=== PATIENT | female | born 1970 | race Caucasian/White ===

== ENCOUNTER 2023-08-09 07:41 | Outpatient (OUT) | payer BC, SELFPAY ==
--- NOTE | 2023-08-09 07:44 | XR_ITS ---
The [address] [address] Patient Name: LIVAN MENJIVAR MRN: [id number] date: 1970 Sex: F Assigned Patient Location: [facility] Current Patient Location: [facility] Accession/Order Number: [id number] Exam Date: 08/09/2023 07:50 Report Date: 08/09/2023 08:18 At the request of: DIANA BOGGS Procedure: XR DEXA axial skeleton EXAMINATION: XR DEXA axial skeleton HISTORY: Postmenopausal State Z78.0 COMPARISON: No relevant comparison available. TECHNIQUE: Dual-energy X-ray absorptiometry (DXA) was performed. FINDINGS: SPINE ANALYSIS: Average bone mineral density is 1.227 g/cm2. T-score (standard deviation relative to young adult mean): 0.2 . HIP ANALYSIS: Lowest bone mineral density is within the left femoral neck, 0.842 g/cm2. T-score (standard deviation relative to young adult mean): -1.4 . XR/XR DEXA axial skeleton IMPRESSION: [employer] Classification: Osteopenia - Moderate Fracture Risk Electronically authenticated by: WILLIAM MOORE Date: 08/09/2023 08:18
--- NOTE | 2023-08-09 07:44 | MM_ITS ---
Patient Name: LIVAN MENJIVAR MR#: [id number] : 1970 Exam Date: 08/09/2023 Ordering Doctor: DR Ryan Marquez . RADIOLOGY REPORT PROCEDURE: MM TOMOSYNTHESIS SCREENING BI COMPARISON: MG MAMM SCREEN 3D MELANIE CAD, 01/30/2022. MG MAMM SCREEN 3D MELANIE CAD, 08/12/2020. MG MAMM SCREEN 3D MELANIE CAD, 06/15/2019. MG MAMM SCREEN 3D MELANIE CAD, 06/13/2018. INDICATIONS: Screening Calculator Name NCI Breast Cancer Risk Assessment Tool 5 Year Breast Cancer Risk 1.00% Lifetime Breast Cancer Risk 8.90% Personal Breast Cancer No Personal Ovarian Cancer No Treatments None Family Cancers None LOCATION: [facility] BREAST COMPOSITION: Heterogeneously dense,which may obscure small masses. FINDINGS: DIAGNOSTIC CATEGORY 1--NEGATIVE. RIGHT BREAST: No significant suspicious finding. No significant change has occurred. LEFT BREAST: No significant suspicious finding. No significant change has occurred. RECOMMENDATIONS: ROUTINE MAMMOGRAM AND CLINICAL EVALUATION IN 12 MONTHS. PLEASE NOTE: A NORMAL MAMMOGRAM DOES NOT EXCLUDE THE POSSIBILITY OF BREAST CANCER. A CLINICALLY SUSPICIOUS PALPABLE LUMP SHOULD BE BIOPSIED. Dictated by: Farhad Chew M.D. on 08/13/2023 at 10:25 Approved by: Farhad Chew M.D. on 08/13/2023 at 10:36
[2023-08-09 08:19] LABS: Basophils Percent Auto 0.4 % (0.2-2.0); Eosinophils Absolute Auto 0.4 10^3/uL (0.0-0.7); Eosinophils Percent Auto 7.3 % (0.9-7.0); Hematocrit 41.1 % (36.0-48.0); Hemoglobin 13.2 g/dL (12.0-16.0); Immature Granulocytes Abs Auto 0.01 10^3/uL (0.00-0.03); Immature Granulocytes Pct Auto 0.2 % (0.0-0.5); Lymphocytes Absolute Auto 2.1 10^3/uL (1.2-3.8); Lymphocytes Percent Auto 39.1 % (20.5-60.0); Mean Corpuscular HGB Conc 32.1 g/dL (29.9-35.2); Mean Corpuscular Hemoglobin 30.5 pg (26.7-34.0); Mean Corpuscular Volume 94.9 fL (81.0-99.0); Mean Platelet Volume 10.2 fL (9.5-13.5); Monocytes Absolute Auto 0.5 10^3/uL (0.3-0.8); Monocytes Percent Auto 9.9 % (1.7-12.0); Neutrophils Absolute Auto 2.4 10^3/uL (1.4-6.5); Neutrophils Percent Auto 43.1 % (43.0-75.0); Platelet Count 508 10^3/uL (150-450); Red Blood Count 4.33 10^6/uL (4.20-5.40); Red Cell Distribution Width 13.7 % (11.0-15.0); White Blood Count 5.5 10^3/uL (4.0-11.0)
[2023-08-09 09:19] LABS: Estimated Average Glucose 117 mg/dL; Glycohemoglobin A1C 5.7 % (4.5-6.2)
[2023-08-09 09:29] LABS: Alanine Aminotransferase 29 U/L (14-59); Albumin Globulin Ratio 0.9; Albumin Level 3.6 g/dL (3.4-5.0); Alkaline Phosphatase 79 U/L (46-116); Anion Gap 12.5; Aspartate Amino Transferase 29 U/L (15-37); BUN Creatinine Ratio 18.8; Bilirubin Total 0.5 mg/dL (0.2-1.0); Calcium 9.1 mg/dL (8.5-10.1); Carbon Dioxide 27.7 mmol/L (21.0-32.0); Chloride 106 mmol/L (98-107); Cholesterol 229 mg/dL (<=200); Estimated GFR (African America >60 (>=60); Estimated GFR (Non-African Ame >60 (>=60); Glucose 89 mg/dL (74-106); HDL Cholesterol 57 mg/dL (40-60); Potassium 4.2 mmol/L (3.5-5.1); Sodium 142 mmol/L (136-145); Thyroid Stimulating Hormone 1.537 uIU/mL (0.358-3.740); Total Protein 7.6 g/dL (6.4-8.2); Triglycerides 93 mg/dL (<=150); VLDL CHOLESTEROL 18.6 mg/dL
== END 2023-08-09 07:42 | disposition home or self-care (01) ==
LOC: RAD 07:42
PROVIDERS: PCP Family Medicine; Visit Provider Obstetrics & Gynecology
DX: Z00.00 Encounter for general adult medical examination without abnormal findings (principal); Z78.0 Asymptomatic menopausal state; Z12.31 Encounter for screening mammogram for malignant neoplasm of breast; N95.9 Unspecified menopausal and perimenopausal disorder; M25.551 Pain in right hip
CPT/HCPCS: 77063; 77067; 77080; 80053; 80061; 83036; 84443; 85025

== ENCOUNTER 2024-02-22 20:55 | Emergency (ER) | payer OTHER, SELFPAY ==
[2024-02-22 20:59] VITALS: BP 127/92; PULSE 87; TEMP 37.1; O2SAT 97; BMI 25.8
--- OUTSIDE RECORDS SUMMARY | 2024-02-22 21:07 | XMS_ITS | CCD ---
Author Organization [facility] Care Team Providers Care Patternmaker Hand Name Role Phone PRISCILA SMITH Admitting Unavailable DR DARREN BOBO V Consulting Unavailable PRISCILA SMITH Attending Unavailable PETZNICK, ALEJANDRA Primary Care Unavailable PETZNICK, ALEJANDRA Referring Unavailable PRISCILA SMITH Consulting Unavailable JANNET RAMOS Attending Unavailable RICHARD, JANNET Consulting Unavailable PETZNICK, ALEJANDRA Primary Care Unavailable RICHARDJANNET Admitting Unavailable ROSS, JM RUSTY Admitting Unavailable JM MARCUS Attending Unavailable ROSS, JM RUSTY Consulting Unavailable PETZNICK, ALEJANDRA Primary Care Unavailable PETZNICK, ALEJANDRA Attending Unavailable PETZNICK, ALEJANDRA Consulting Unavailable PETZNICK, ALEJANDRA Primary Care Unavailable PETZNICK, ALEJANDRA Admitting Unavailable VERONIKA DOBBS Attending Unavailable PETZNICK, ALEJANDRA Alcaraz Referring Unavailable ELDA AGIULAR Attending Unavailable Problems Active Problems Problem Classification Problem Date Documented Da te Episodic/Chronic Other lower respiratory disease (4 sources) Pleurodynia; Translations: [PLEURODYNIA] Onset: 05-21-2022 Episodic Unclassified (3 sources) CONTACT W/AND (SUSP) EXPOS COVID-19; Translations: [CONTACT W/AND (SUSP) EXPOS COVID-19] Onset: 06-16-2021 Past or Other Problems Problem Classification Problem Date Documented Da te Episodic/Chronic Immunizations and screening for infectious disease (4 sources) Encounter for immunization; Translations: [ENCOUNTER FOR IMMUNIZATION] Onset: 08-11-2021 Episodic Unclassified (1 source) CONTACT W/AND (SUSP) EXPOS COVID-19; Translations: [CONTACT W/AND (SUSP) EXPOS COVID-19] Onset: 06-10-2021 Results Test Name Value Interpretation Reference Range Facil ity XR RIBS LT PA Chepe 2 XR RIBS LT PA CH EXAMINATION: XR RIBS LT PA CH HISTORY: Rib pain COMPARISON: No relevant comparison available. FINDINGS: LUNGS: No significant pulmonary parenchymal abnormalities. PLEURA: No pneumothorax, effusion, or pleural thickening. MEDIASTINUM: No visible mass or adenopathy. CARDIAC: No cardiomegaly or cardiac silhouette abnormality. RIBS: No acute rib fracture OTHER: Negative. IMPRESSION: No acute rib fracture Clear lungs Electronically authenticated by: DARREN BOBO Date: 2022-05-22 11:30 Normal [facility] Coding Summary.on 02-05-2022 Coding Summary. [id number] G h0bWw+PGhlYWQ+OT1NPQA gO51dmQYvuU4IG8fDML1K HNZAOMFWZZ0IGD5gbZG3H FcoV3DnqnUg DkznfWFuAI13YSk2OYH9l XemLAjugT2lhMElM5b3Hv EjRJ66nT22NXcsIEWaVtW 3LjZpbjsgbWFy Q0luBkMmyKQhCov+PHRhY mxlIHdpZHRoPScxMDAlJy VtiBspKY3vAd4rXCYuROO vbGxhcHNlOiBj r5cwDLVpYRkmPC9xoNzkT 4HicOT2BBPwh7u9Vj53vV I+SWLoBSJ9bVrxOYkue53 2EfKpd6vwRRN0 cYHyEDgeMGD5K90ye6I2L XGdOCBhIME0aJF6hQ3vvW llcymrL0SojQNpCmW8XJU 7dTVtwO7ieApe pzvgxG2mOab+G49MXG3WI PBUEO3SWqr6H6CcBddkhU I+FV73FCJkAC72gYGqxSL ic5hxsHh7LmXl KURiFKA4uDdkVCieh3LqU MJqE52pmSBii9F1ZIZnlZ pjxRGsCiBdfOV5iL7jHKu aqlrwd0rgkbwe Fxhil1nvqx28hD83P44oY PwhYZVeRAZ3GKNdPNHhtW npry4mnN1uQa4+OPgaj1h nd6vvkGq6AtZw AWFkavDueWvvEQY1a9UaV j89P6FqpUpvw4WnLtg0yl 56tXLlv3E9nFZ8QGfmGYO wkD9hSFjgUwX5 HJGoUrDeiU96kLCqCDriZ m2jwVabdSpcZJ4oLPKshh qbFCEvaF9vAAJnrVCzvEg xNO0iEOImfrvo l013FbSwWQN9ABKunKVkN 7JelU0nJmJfHSSwUTEaY3 YzsEVkFBjzU094HXeuQgN 0UEPnsdNhZ0Ja PZEvdZljGbO6n5Y7Pj2Be 9UruewuTDZ4KShgNYM4Uj J3CnUrMoI5X4HlJic5YKV dvTwdVW4wN6Tt YELuhumoqmcozFJ9MRFrB PAkbL20sTYxFLqaXz7mq2 K6d167SGJvNQGpoY07Fx5 udDogMTBwdCBU nW9kcnarg7dwsvwrBrQvS MAtWYx0XMm9QWJrfUwfBq PrJZC5BaS9FYS7gBGgdZ4 pmWciseodtK9e Oyc+W58xhR2oWUE9JVT3t gezHHAitxCzSE65QW54N1 RyPjwvdGFibGU+PGRpdiB aeNpsDT4lOfGl d8abf4NbRCbaI0LrHFCxT MjpUso5DIElBEZ3hVQ3tL 1tKNWlUNcqm3M0lZH7L0F csyTvpi4et2yx NJTxVBhvB75ytXSfy9J2T VIppYT6QQOlpNvoMtSsmT 93Oyc+GSIhzZluw4DqUga fj7gwu8esaPp7 NkMbDOYyizXlsLqyWJE7i 2ZtDc56N42iYTpcKCXqNK AnLNCiLUDeiRlqaf6fqZ8 wIi8+PGNvbCB3 yNZ9nN3hHHVaXlV2BYxbE 101AhSvvZWbHezvq5uah6 ormRc6UsAyFIGcygLlcJk kBLS4c6NiPo14 Q58hCNsnXHSwVPEhABIxC ZIggQppzl4pdX0hGt7+PC 5jl0ivnx87qZ85qBI+PHR oOKD3qCytLVfm VKDpwU1wIZonFaM8VQXwZ bUldE83pNMzTBzaYc0osL lemZngYE4gBWWsbtuxl20 9FkNhh3rhTDUo tCDhPKodVJF3Y56tp8D2X CDsVKVnKSZ6hWN4dW3tqQ lnbjogbGVmdDsgdmVydGl gZArvTXbrI523 IHRvcDsnPlBhdGllbnQgT qXlKSg7D7VbFky8LVNmpF miTR4pkDBrKXiqYc5soYo yyPjtHS9sPIIi mwqdi604DdYrg5tqJOUby LHgLOtnGPA5N16hm3A0LZ GhXAHyXRA6sSW6nU5wdRb nbjogbGVmdDsg qiBmpVwiAQwaHUrbN828K HRvcDsnPkJpcnRoIERhdG U8CM81DE53aCIao4N1tNR 4Y0YgYNWaaozf vbqfpON1AYRlKRAohB54M n2mpJvuJh5wHPEtXGO9MJ LshYGtR0OyaK9dJzPsDTV oRTPtI4ZhbNGz RDxtG909GMhkTzG3AGFzu bPyP3YvKDRlnRtbNuB7l4 K1Fu5YJ8B9FY31WG33eHU fe9W5dDC6S7Iw TGVqsoiyfenghGL6XGSfF PZnzF57Gs0imFnzQy7pII OwHWD6SIVqnMQyQ7MyiQ2 yOiAjMDAwMDAw L9ZwxFHaODfmX375EDcwG bE0EXGhpcZuY0QaYGUahL taSvW2u2C9Ul1SSEy2ZS9 0FZ82iIUrc7G4 tKE7Y0TqHHXgmxvyouxbn UF6QIFjKSUtrD84Gu7ogE woMa8cIJWlPMU4MRDarWA uH7AuwT7sAkNb PVEmBUFwR7ViuKUiEFaaF 543SJjvEkL0IFKokfKiI9 AtLISwdKswXnC8v3F1Km5 LSKBhBW85SUT1 dAW4MK24KO51P6LtFpajb GFibGU+PHRhYmxlIHdpZH RoPScxMDAlJyBzdHlsZT0 cUo3lSFPkIUXo tCmjtENlAkKqn7gnAYZrN MmzHN8sjEboE2NvaPP3UF Zqc1g5Ls86U01bC5ZeiOF +ILKlzGG1tCQ5 nF7mLlErMkV9YVywI505K xRyvEKjFriqn1uhw4myxL k4XoS9LSEequUzsUurBCD 1w3SfWt47A50g IHdpZHRoPSIxNSUiIHZhb Uokdy3dyX2xWf0+PGNvbC F6aPO6aY1mGlUyLhU6HSm wP142GrVhrYQf Tfofv8dhq9tpbZz2QbBsJ OAxuoVxsMtzPHN9p2AkKa 35U3YrrOyeg2NwGku6vs9 6hALys4R8aTJ9 P1BrPGAgktdzjYJvrKkiS J6kMSLwwnewSSZugB6jWU FkY1t3WdOkTiS7YWxkN0B zvjL3CXIbrDSb ZHggXUJ1O24iz1D2MOYnI JBuYQF1oYO6lU6kjYxjdq ogbGVmdDsgdmVydGljYWw jNKwnN491HJCe aJrbASPuiM8gLAVijRDix YawBC5nHBYrdnkjYeWDDW VZLCBBTVkgTDwvdGQ+PHR pNSZ0bFhwWBik DEJswP4lZCSdM9v6HsTtE qV2IPvoX7ZhTWQnyjyuLe 31pJ9zReKbLmV7ANecL8L odaA6JDUmrJOn LUccNTO3F60bz9O9EBKcJ FPqQFL9vFY8lZ7mfJhtzv ogbGVmdDsgdmVydGljYWw hZVcmR871KPZr qCukYxV4YpA8KcW1MfU2B 3TnWev9MDXhcTflBP6vuV YnQWjyPz2yhIxhlImqSZ4 wNTBpbjtwYWRk uW2ePNKldSSehAhiKD1aP TNtgqfoh054JaFmJEP1ET ZtqWCtX9SgqE4cQfKaSGO dDROqQ3GjhDTc GMqxQ719RAyoOjG8QLXso bSjE4BfEYXjlNpiRjP8f2 L5Es08QSWDOHDdqokybGP +VFCrNSX3oFei LLznUTUurQ9rFDBsR1t8J uTpWyI7DPfiG6BkXKOnvw ldEn48sM5eWgRzTsG5XAs cM3YtriV0GTBl tPUiLBoyJRQ7O66fg4S2I KYlJWDcETE7vBS4yC8pkV lnbjogbGVmdDsgdmVydGl aHMwnYEiwY083 IHRvcDsnPkZlbWFsZTwvd GQ+ELSeOWL3qThaKTyjQC EqkF9kLWHdK9y2EqNjUmM 2QFqcW7MdWJCi dvxpAm75dR2vRnDfHnF1T WbfT5SsmlJ3PJZozEQlBS pgCJV3Z85vh8X7OMGeFYJ fAYU0dAK7vI4u bGlnbjogbGVmdDsgdmVyd MwsPLoqRBtxO576CLVtlV qlOk27dQCiuQztumS5V6W kPjwvdHI+PC90 DKLfGM97sTCihSYkl8frz Hn0RsAnXGPtSGJ6jUxrXS emd0NdYIKdT57ixAGaz4V 6IGNvbGxhcHNl GjOydAP9qE7aIWltffpua 8cdlcjtIndub7zczo73sB 73W22dMKnlAFIqVXIhLIJ gFPFwxKoxqd0e mQ9yHb5+LDExuCV3aAD6k T7iJiJcFxM7TJclU120Yc OwqERpZfaej1bqx3rwfNq 9IjIwJSIgdmFs oWvoGMJ0s3AwKt45V86oT HdpZHRoPSIyMCUiIHZhbG mfuf9dqT2kWd2+LU6um0q jwo86eU06zKZ+ GIVkHUY7gEcrBVgaGDEvj B6uGDqrEtG8MYBoYbUkbL 34fXUdKWzhLl1hwGhqfJw eNN4oHAEcvzep l857IuUmz9zqOOAuuWQpZ VjaDWB5F54vp0V1XDFsIM GzLFC2nKL3vN4ftEzwzfh gbGVmdDsgdmVy dVrzFAdtHBsjQ188TNZsi TnvTkOdiFFlI5oxooTHTT 1lOjwvdGQ+EYIrZBK5vKy iZQokYLXwxY6f DNYdY7n7IwTdVuN1SWnkY 0NawlU9VVDxtGRtSITplX NGjN0muixiv8qdtdsqSxU xIUFhFFw8DNa5 TBYjuNtvHqBaISC2EfY3Q AS0qSVlkY5zrNnwzimiuJ 9wOyc+RklOOjwvdGQ+PHR dNHA0oIliBLfe LRTefV2vOREoB1f2IeZgI yR2SSmsR1YvphQ0DMZkrB VnHTEdhHWIxT9jysvgh7z vcjogIzAwMDAw AMw2PBw5CUCciJsxPuUqC WG0QtU4KEQ9cOVtpN2znV grubdlgL2rIct+TVJOOjw vdGQ+PHRkIHN0 hOzcOUrkWERbyE3oVMKhD 3m6JbFaOzL8DHwtP2Sqxz M3XOZfgMLrSBWfsKOKyB6 xidxma9yoqqsu VsZtIJCbVCz0LFp3DMXrz EbmQrEoYWS6XkH6SDG1rE NnnV5xyVbfzwitvB1vFam +KDM0WTD1WR25 VF81I3UaRibxyBZkdWV+P HRhYmxlIHdpZHRoPScxMD SuTbShbSffRF7uUg0bDTJ yLWNvbGxhcHNl OiBj (more content not included)... Normal [facility] MA Mamm Screen w/CAD if perf and 3D Bilon 02-01-2022 MA Mamm Screen w/CAD if perf and 3D Ej Exam Date/Time: 01/30/2022 09:15 EDT Reason for Exam: Z12.31 Report IMPRESSION: BIRADS 1 NEGATIVE, NORMAL INTERVAL FOLLOW-UP.12 MONTH RECALL. CLINICAL HISTORY: Z12.31. COMPARISON: 08/12/2020. COMMENT: Routine views and tomosynthesis views of both breasts were obtained. There are scattered areas of fibroglandular density. No dominant breast mass nor neoplastic calcifications are noted. There has been no significant change when compared to the prior exam. The examination was reviewed with Computer Aided Detection. Breast Density: No Mammography is very important to your health. The current [employer] and National [employer] guidelines recommends annual mammography beginning at age 40. This facility utilizes a reminder system to ensure all patients receive reminder notifications at the appropriate time based on the recommendations of this exam. Board Certified Radiologists. Accredited by the ACR and FDA. FINAL REPORT Dictated: 02/01/2022 2:06 pm Maximo Edouard M.D. Signed (Electronic Signature): 02/01/2022 2:06 pm Signed by: Maximo Edouard M.D. Transcribed by: TONG Technologist: STEF Assessment: BI-RADS Category 1-Negative Recommendation: Normal interval follow-up Normal [facility] Consent for Treatmenton Consent for Treatment [id number] .00CD:127 Normal [facility] Physician Orderon 01-30-2022 Physician Order [id number] 1.00CD:127 Normal [facility] CBC AUTO DIFFon 12-22-2021 BASO # 0.0 103/ul Normal 0.0-0.1 [facility] Comment on above: Performed By: #### C BC #### [facility] [address] [place] [address] Dr. Danyell Recinos Basophils/100 WBC (Bld) 0.4 % Normal 0.2-2.0 [facility] Comment on above: Performed By: #### C BC #### [facility] [address] [place] [address] Dr. Danyell Recinos EO # 0.2 103/ul Normal 0.0-0.7 [facility] Comment on above: Performed By: #### C BC #### [facility] [address] [place] [address] Dr. Danyell Recinos Eosinophils/100 WBC (Bld) 2.9 % Normal 0.9-7.0 [facility] Comment on above: Performed By: #### C BC #### [facility] [address] [place] [address] Dr. Danyell Recinos Erythrocyte distribution width (RBC) [Ratio] 13.9 % Normal 11.0-15.0 [facility] Comment on above: Performed By: #### C BC #### [facility] [address] [place] [address] Dr. Danyell Recinos Hematocrit (Bld) [Volume fraction] 43.9 % Normal 36.0-48.0 [facility] Comment on above: Performed By: #### C BC #### [facility] [address] [place] [address] Dr. Danyell Recinos Hemoglobin (Bld) [Mass/Vol] 14.3 g/dL Normal 12.0-16.0 [facility] Comment on above: Performed By: #### C BC #### [facility] [address] [place] [address] Dr. Danyell Recinos IG # 0.01 10e3/ul Normal 0.00-0.03 [facility] Comment on above: Performed By: #### C BC #### [facility] [address] [place] [address] Dr. Danyell Recinos IG % 0.2 % Normal 0.0-0.5 [facility] Comment on above: Performed By: #### C BC #### [facility] [address] [place] [address] Dr. Danyell Recinos LYMPH # 1.6 103/ul Normal 1.2-3.8 [facility] Comment on above: Performed By: #### C BC #### [facility] [address] [place] [address] Dr. Danyell Recinos Lymphocytes/100 WBC (Bld) 30.7 % Normal 20.5-60.0 [facility] Comment on above: Performed By: #### C BC #### [facility] [address] [place] [address] Dr. Danyell Recinos MANUAL DIFF REQ NO Normal [facility] Comment on above: Performed By: #### C BC #### [facility] [address] [place] [address] Dr. Danyell Recinos MCH (RBC) [Entitic mass] 31.2 pg Normal 26.7-34.0 [facility] Comment on above: Performed By: #### C BC #### [facility] [address] [place] [address] Dr. Danyell Recinos MCHC (RBC) [Mass/Vol] 32.6 g/dL Normal 29.9-35.2 [facility] Comment on above: Performed By: #### C BC #### [facility] [address] [place] [address] Dr. Danyell Recinos MCV (RBC) [Entitic vol] 95.9 fL Normal 81.0-99.0 [facility] Comment on above: Performed By: #### C BC #### [facility] [address] [place] [address] Dr. Danyell Recinos MONO # 0.6 103/ul Normal 0.3-0.8 [facility] Comment on above: Performed By: #### C BC #### [facility] [address] [place] [address] Dr. Danyell Recinos Monocytes/100 WBC (Bld) 11.1 % Normal 1.7-12.0 [facility] Comment on above: Performed By: #### C BC #### [facility] [address] [place] [address] Dr. Danyell Recinos NEUT # 2.9 103/ul Normal 1.4-6.5 [facility] Comment on above: Performed By: #### C BC #### [facility] [address] [place] [address] Dr. Danyell Recinos Neutrophils/100 WBC (Bld) 54.7 % Normal 43.0-75.0 [facility] Comment on above: Performed By: #### C BC #### [facility] [address] [place] [address] Dr. Danyell Recinos Platelet mean volume (Bld) [Entitic vol] 10.1 fL Normal 9.5-13.5 [facility] Comment on above: Performed By: #### C BC #### [facility] [address] [place] [address] Dr. Danyell Recinos PLT 422 103/ul Normal 150-450 [facility] Comment on above: Performed By: #### C BC #### [facility] [address] [place] [address] Dr. Danyell Recinos RBC 4.58 106/ul Normal 4.20-5.40 [facility] Comment on above: Performed By: #### C BC #### [facility] [address] [place] [address] Dr. Danyell Recinos WBC 5.2 103/ul Normal 4.0-11.0 [facility] Comment on above: Performed By: #### C BC #### [facility] [address] [address] [address] Danyell Recinos LIPID PROFILEon 12-22-2021 CHOL-HDL RATIO NORM SEE BELOW Normal [facility] Comment on above: Result Comment: 3.3 - 4.4 LOW RISK 4.4 - 7.1 AVERAGE RISK 7.1 - 11.0 MODERATE RISK >11.0 HIGH RISK Performed By: #### L IPID, CMP #### [facility] [address] [address] [address] Danyell Recinos Cholesterol [Mass/Vol] 211 mg/dL Critically high <=200 [facility] Comment on above: Performed By: #### L IPID, CMP #### [facility] [address] [address] [address] Danyell Recinos Cholesterol in HDL [Mass/Vol] 63 mg/dL Critically high 40-60 [facility] Comment on above: Performed By: #### L IPID, CMP #### [facility] [address] [address] [address] Danyell Recinos Cholesterol in LDL [Mass/Vol] 130.2 mg/dL Normal [facility] Comment on above: Performed By: #### L IPID, CMP #### [facility] [address] [address] [address] Danyell Recinos Cholesterol.total/C holesterol in HDL [Mass ratio] 3.3 {ratio} Normal [facility] Comment on above: Performed By: #### L IPID, CMP #### [facility] [address] [address] [address] Danyell Recinos HDL NORMAL > or = 60 mg/dl - LO W CARDIOVASCULAR RISK <40 mg/dl - HIGH CARDIOVASCULAR RISK Normal [facility] Comment on above: Performed By: #### L IPID, CMP #### [facility] [address] [address] [address] Danyell Recinos LDL CALC NORMAL SEE BELOW Normal [facility] Comment on above: Result Comment: <100 mg/dl OPTIMAL 100 - 129 mg/dl NEAR OR ABOVE OPTIMAL 130 - 159 mg/dl BORDERLINE HIGH 160 - 189 mg/dl HIGH >190 mg/dl VERY HIGH Performed By: #### L IPID, CMP #### [facility] [address] [address] [address] Danyell Recinos Triglyceride [Mass/Vol] 89 mg/dL Normal <=150 [facility] Comment on above: Performed By: #### L IPID, CMP #### [facility] [address] [address] [address] Danyell Recinos VLDL CALC 17.8 mg/dL Normal [facility] Comment on above: Performed By: #### L IPID, CMP #### [facility] [address] [address] [address] Danyell Recinos PROF 14(COMP METB)on 022 Albumin [Mass/Vol] 3.9 g/dL Normal 3.4-5.0 [facility] Comment on above: Performed By: #### L IPID, CMP #### [facility] [address] [place] [address] Dr. Danyell Recinos Albumin/Globulin [Mass ratio] 0.9 {ratio} Normal [facility] Comment on above: Performed By: #### L IPID, CMP #### [facility] [address] [place] [address] Dr. Danyell Recinos ALP [Catalytic activity/Vol] 97 U/L Normal 46-116 [facility] Comment on above: Performed By: #### L IPID, CMP #### [facility] [address] [place] [address] Dr. Danyell Recinos ALT [Catalytic activity/Vol] 22 U/L Normal 14-59 [facility] Comment on above: Performed By: #### L IPID, CMP #### [facility] [address] [address] [address] Danyell Recinos Anion gap [Moles/Vol] 14.7 mmol/L Normal [facility] Comment on above: Performed By: #### L IPID, CMP #### [facility] [address] [place] [address] Dr. Danyell Recinos AST [Catalytic activity/Vol] 23 U/L Normal 15-37 [facility] Comment on above: Performed By: #### L IPID, CMP #### [facility] [address] [address] [address] Danyell Recinos Bilirubin [Mass/Vol] 0.6 mg/dL Normal 0.2-1.3 [facility] Comment on above: Performed By: #### L IPID, CMP #### [facility] [address] [place] [address] Dr. Danyell Recinos Calcium [Mass/Vol] 9.2 mg/dL Normal 8.5-10.1 [facility] Comment on above: Performed By: #### L IPID, CMP #### [facility] [address] [place] [address] Dr. Danyell Recinos Chloride [Moles/Vol] 104 mmol/L Normal 98-107 [facility] Comment on above: Performed By: #### L IPID, CMP #### [facility] [address] [place] [address] Dr. Danyell Recinos CO2 [Moles/Vol] 26.6 mmol/L Normal 22.0-30.0 [facility] Comment on above: Performed By: #### L IPID, CMP #### [facility] [address] [place] [address] Dr. Danyell Recinos Creatinine [Mass/Vol] 0.91 mg/dL Normal 0.52-1.04 [facility] Comment on above: Performed By: #### L IPID, CMP #### [facility] [address] [place] [address] Dr. Danyell Recinos EGFR-AF [place] >60 Normal >=[address] [facility] Comment on above: Performed By: #### L IPID, CMP #### [facility] [address] [place] [address] Dr. Danyell Recinos EGFR-NON AF [place] >60 Normal >=60 [facility] Comment on above: Performed By: #### L IPID, CMP #### [facility] [address] [place] [address] Dr. Danyell Recinos Globulin (S) [Mass/Vol] 4.4 g/dL Normal [facility] Comment on above: Performed By: #### L IPID, CMP #### [facility] [address] [place] [address] Dr. Danyell Recinos Glucose [Mass/Vol] 97 mg/dL Normal 74-106 [facility] Comment on above: Performed By: #### L IPID, CMP #### [facility] [address] [place] [address] Dr. Danyell Recinos Potassium [Moles/Vol] 4.3 mmol/L Normal 3.4-5.0 [facility] Comment on above: Performed By: #### L IPID, CMP #### [facility] [address] [place] [address] Dr. Danyell Recinos Protein [Mass/Vol] 8.3 g/dL Critically high 6.1-8.2 [facility] Comment on above: Performed By: #### L IPID, CMP #### [facility] [address] [place] [address] Dr. Danyell Recinos Sodium [Moles/Vol] 141 mmol/L Normal 137-145 [facility] Comment on above: Performed By: #### L IPID, CMP #### [facility] [address] [place] [address] Dr. Danyell Recinos Urea nitrogen [Mass/Vol] 11.0 mg/dL Normal 7.0-18.0 [facility] Comment on above: Performed By: #### L IPID, CMP #### [facility] [address] [place] [address] Dr. Danyell Recinos Urea nitrogen/Creatinine [Mass ratio] 12.1 mg/mg Normal [facility] Comment on above: Performed By: #### L IPID, CMP #### [facility] [address] [place] [address] Dr. Danyell Recinos [facility]19 [facility] SARS-CoV-2 (COVID-19) RNA QUIRINO+probe Ql (Unsp spec) Not detected Normal NOT DETECTED [facility] Comment on above: Result Comment: This test is not yet approved or cleared by the [place] FDA. When there are no FDA-approved or cleared tests available, and other criteria are met, FDA can make tests available under an emergency access mechanism called an Emergency Use Authorization (EUA). The EUA for this test is supported by the [employer] of Health and Human Service's (HHS's) declaration that circumstances exist to justify the emergency use of in vitro diagnostics for the detection and/or diagnosis of the virus that causes COVID-19. This EUA will remain in effect (meaning this test can be used) for the duration of the COVID-19 declaration justifying emergency of IVDs, unless it is terminated or revoked by FDA (after which the test may no longer be used). When diagnostic testing is negative, the possibility of a false negative should be considered in the context of a patient's recent exposures and the presence of clinical signs and symptoms consistent with SARS-CoV-2. Performed By: #### C UBALDO, CVDTB #### [facility] [address] [place] [address] Kashif Barraza SYMPTOMATIC COVID-19 ANTIGEN on 06-10-2021 EUA Statement SEE BELOW Normal [facility] Comment on above: Result Comment: This test has not been FDA cleared or approved, but has been authorized by the FDA under an Emergency Use Authorization (EUA) for use by authorized laboratories certified under CLIA that meet the requirements to perform moderate or high complexity testing. This test has been authorized only for the detection of proteins from SARS-CoV-2, not for any other viruses or pathogens. The emergency use of this test is authorized for the duration of the declaration that circumstances exist justifying the authorization of emergency use of in vitro diagnostic tests for detection and/or diagnosis of Covid-19 under section 564(b)(1) of the Act, 21 U.S.C. 360bbb-3(b)(1), unless the declaration is terminated or authorization is revoked sooner. Performed By: #### C UBALDO, CVDTB #### [facility] [address] [place] [address] Kashif Barraza SARS-CoV-2 (COVID-19) RNA QUIRINO+probe Ql (Unsp spec) Negative Normal NEGATIVE [facility] Comment on above: Result Comment: CONF IRMATION BY PCR PENDING PER CDC GUIDELINES/ SYMPTOMATIC PATIENT. Performed By: #### C VDAGS, CVDTB #### [facility] [address] [id number] Kashif Barraza Consent Formson 11-18-2020 Consent Forms [id number] [facility] Encounters Encounter Date Encounter Type Care Provider Facility Start: 02-12-2024 End: 02-12-2024 ambulatory ELDA AGUILAR Not Available Start: 01-30-2024 End: 01-30-2024 ambulatory VERONIKA DOBBS Not Available Start: 05-21-2022 End: 05-22-2022 ambulatory PRISCILA SMITH Facility:[facility] Start: 12-27-2021 Encounter for genera l adult medical examination without abnormal findings ALEJANDRA DRAKECHRISTY [facility] Start: 12-22-2021 End: 12-23-2021 ambulatory ALEJANDRA PRIETO Facility:[facility] Start: 12-22-2021 End: 12-23-2021 Encounter for general adult medical examination without abnormal findings ALEJANDRA PRIETO Facility:[facility] Start: 08-11-2021 End: 08-12-2021 ambulatory JM MARCUS Facility:[facility] Start: 06-10-2021 End: 06-11-2021 ambulatory JANNET RAMOS Facility:[facility] Payers Date Payer Category Payer Unknown [id number] 11.15.83 [id number] 1970 Unknown [id number] 1970 Unknown [id number] 1972 Unknown [id number] 1972 Unknown [id number] 1957 Self-pay [id number] 1957 Unknown [id number] Unknown [id number] 11.15.83 [id number] Summary Purpose Family History No Family History Records FoundNo Family History Records FoundNo Family History Records FoundNo Family History Records Found Advance Directives No Advanced Directives Records FoundNo Advanced Directives Records FoundNo Advanced Directives Records FoundNo Advanced Directives Records Found Additional Source Comments INFORMATION SOURCE (unrecogn ized section and content) DATE CREATED AUTHOR 11/20/[address] [facility] DATE CREATED AUTHOR AUTHOR'S ORGANIZ ATION 02/06/2022 [facility] DATE CREATED AUTHOR AUTHOR'S ORGANIZ ATION 05/25/2022 [facility] DATE CREATED AUTHOR AUTHOR'S ORGANIZ ATION 02/15/2024 [facility] FOR RECORDS PERTAINING TO PATIENTS WHO ARE OR HAVE BEEN ENROLLED IN A CHEMICAL DEPENDENCY/SUBSTANCEABUSE PROGRAM, SOME INFORMATION MAY BE OMITTED. This clinical summary was aggregated from multiple sources. Caution should be exercised in using it in the provision of clinical care. This summary normalizes information from multiple sources, and as a consequence, information in this document may materially change the coding, format and clinical context of patient data. In addition, data may be omitted in some cases. CLINICAL DECISIONS SHOULD BE BASED ON THE PRIMARY CLINICAL RECORDS. [facility] [employer] provides no warranty or guarantee of the accuracy or completeness of information in this document.
--- NOTE | 2024-02-22 21:08 | PC.NURSE ---
RIGHT LEG PAIN. STATES CAN'T STRAIGHTEN IT, HAS IT BENT AT THE KNEE.
--- NOTE | 2024-02-22 21:10 | CT_ITS ---
The [address] [address] Patient Name: LIVAN MENJIVAR MRN: [id number] date: 1970 Sex: F Assigned Patient Location: ER Current Patient Location: Accession/Order Number: [id number] Exam Date: 02/22/2024 21:50 Report Date: 02/22/2024 22:50 At the request of: DREW MIRZA Procedure: CT lumbar spine wo con CT lumbar spine wo con INDICATION: 53 years old; Female.fall, twisting, pain Symptom/Location/Duration: Fall from boat to swim platform. TECHNIQUE: CT of the lumbar spine.Contrast None. Sagittal and coronal images as well as axial reconstructions through the disc spaces were produced. Ionizing radiation dose reduced via iterative reconstruction/FBP blend and body size kV/mA adjustment. COMPARISON: None FINDINGS: POSTOPERATIVE CHANGES: None ALIGNMENT AND LORDOSIS: Normal lumbar lordosis. VERTEBRAE: No fracture or vertebral body collapse. No bone displacement. No asymmetric widening of the facets. No spondylolysis or spondylolisthesis. No lytic or blastic lesions. DISC LEVELS: L1-L2: No disc herniation. No spinal canal or foraminal narrowing. L2-L3: No disc herniation. No spinal canal or foraminal narrowing. L3-L4: No disc herniation. No spinal canal or foraminal narrowing. L4-L5: Facet degeneration. No focal disc herniation. Central canal patent. Neural foramina and lateral recesses are patent. L5-S1: Shallow central and left-sided protrusion type disc herniation. There is flattening of the anterior aspect of the thecal sac with inferolateral migration of disc material into the lateral recess with posterior displacement left S1 nerve root, image 63/series 4. Facet degeneration is present. Neural foramina are patent. LOWER THORACIC DISCS: At T12-L1, no focal disc herniation or bulging. Central canal and neural foramina are patent. The study does not visualize the distal conus. OTHER: Posterior paraspinal muscles and psoas muscles are intact. CT/CT lumbar spine wo con IMPRESSION: 1. No acute fracture or vertebral body collapse. No spondylolysis or spondylolisthesis. 2. Central and left-sided protrusion type disc herniation with left lateral recess encroachment with posterior displacement of the left S1 nerve root. Electronically authenticated by: DARLENE HOLCOMB Date: 02/22/2024 22:50
--- NOTE | 2024-02-22 21:10 | CT_ITS ---
The [address] [address] Patient Name: LIVAN MENJIVAR MRN: [id number] date: 1970 Sex: F Assigned Patient Location: ER Current Patient Location: ER Accession/Order Number: [id number] Exam Date: 02/22/2024 21:50 Report Date: 02/22/2024 23:19 At the request of: DREW MIRZA Procedure: CT femur RT wo con EXAM: CT femur RT wo con HISTORY: Fell from both. twisting fall, pain . COMPARISON: None. TECHNIQUE: Thin section axial CT images were obtained from the right hip and hemipelvis through the right knee structures to the proximal tibia and fibula. This CT exam was performed using one or more of the following dose reduction techniques: Automated exposure control, adjustment of the mA and/or kV according to patient size, or use of iterative reconstruction technique. Thin section coronal and sagittal images were reconstructed from the axial data set. All images were reviewed and interpreted. FINDINGS: No acute fracture, subluxation or dislocation is seen from right hemipelvis and hip through knee. Right hip and knee joints are maintained. No lytic or blastic or destructive bone process. Normal bone mineralization. No joint effusion. Right inguinal and groin structures are normal without mass or adenopathy. Intrapelvic structures are unremarkable. Pubic symphysis is intact. There is edema and abnormal appearance of the myotendinous junction of the right hamstring tendon origin on the lateral margin of the right ischial tuberosity. There is some hyperdensity presumed hemorrhage intramuscular between the semitendinous muscle and biceps femoris. There may be more significant injury at the origin of common hamstring tendon at right ischial tuberosity. Correlate with MRI. Remaining muscles are normal. CT/CT femur RT wo con IMPRESSION: 1. Acute intramuscular hemorrhage beginning in region of common hamstring tendon origin extending to mid thigh. Correlate with MRI when stable. There may be more extensive myotendinous injury at the right ischial tuberosity than seen on CT. MRI recommended to assess extent of hamstring tendon injury. 2. No acute bone or joint findings. Electronically authenticated by: SOFI MCCARTHY Date: 02/22/2024 23:19
[2024-02-22] MEDS: ORPHENADRINE 60 MG/ 2 ML VIAL IV (21:28)
[2024-02-22] MEDS: KETOROLAC TROMETHAMINE 30 MG/ML VIAL IVP (21:28)
--- NOTE | 2024-02-22 22:10 | ED.LOWEXI1 ---
HPI HPI - Extremity Injury (Lower) General Chief Complaint: Back Pain/Injury Stated Complaint: lower extremity injury, back injury Time Seen by Provider: 02/22/24 20:57 Source: patient Mode of arrival: Wheelchair Limitations: no limitations History of Present Illness HPI Narrative: 53-year-old female presents for pain in her right posterior thigh. Shortly before coming into the emergency department she had fallen and injured this area in a twisting motion. She did not hit her head or sustain any other injuries. She has pain and in her right lower back. She has difficulty extending her right leg at the hip and knee. She felt a tearing sensation in the hamstring region and is concerned she may have torn a muscle. The pain is moderate to severe and worse with extension of the leg. Related Data Previous Rx's ?Medication ?Instructions ?Recorded hydrocodone 5 mg-acetaminophen 325 1 tab PO Q6H PRN pain 5 days #20 02/22/24 mg tablet tabs ibuprofen 800 mg tablet 800 mg PO Q8H PRN pain #20 tabs 02/22/24 Allergies Allergy/AdvReac Type Severity Reaction Status Date / Time No Known Drug Allergies Allergy Verified 02/22/24 20:59 Opioid HPI Opioid Management Most Recent Pain and Opioid Data: Last Pain Scale 1 02/22/24 21:28 Last ED Pain Assessment 02/22/24 21:09 Review of Systems ROS Narrative A ten point review of systems is negative except as noted above. Exam Narrative Exam Narrative: Nurses note and vital signs reviewed and patient is not hypoxic. General: The patient appears uncomfortable. Skin: Warm, dry, no pallor noted. There is no rash noted. Head: Normocephalic, atraumatic Eye: Normal conjunctiva, no drainage Ears, Nose, Mouth, and Throat: oral mucosa is moist. Nares patent. Cardiovascular: Regular Rate and Rhythm Respiratory: Patient is in no distress, no accessory muscle use Back: Mild tenderness in the right lower back without bruise or abrasion GI: Soft and nontender Musculoskeletal: Her right hip and right knee are flexed. She has some tenderness without obvious deformity in the right hamstring region. Neurological: Awake and alert and oriented Psychiatric: Cooperative Constitutional Vital Signs, click to edit/add: Last Vital Signs Temp 98.8 F 02/22/24 20:59 Pulse 87 02/22/24 20:59 Resp 18 02/22/24 20:59 BP 127/92 H 02/22/24 20:59 Pulse Ox 97 02/22/24 20:59 O2 Del Method Room Air 02/22/24 20:59 Course Vital Signs Vital signs: Vital Signs Temperature 98.8 F 02/22/24 20:59 Pulse Rate 87 02/22/24 20:59 Respiratory Rate 18 02/22/24 20:59 Blood Pressure 127/92 H 02/22/24 20:59 Pulse Oximetry 97 02/22/24 20:59 Oxygen Delivery Method Room Air 02/22/24 20:59 Temperature 98.8 F 02/22/24 20:59 Pulse Rate 87 02/22/24 20:59 Respiratory Rate 18 02/22/24 20:59 Blood Pressure 127/92 H 02/22/24 20:59 Pulse Oximetry 97 02/22/24 20:59 Oxygen Delivery Method Room Air 02/22/24 20:59 MDM - Extremity Injury (Lower) MDM Narrative Medical decision making narrative: CT findings are discussed with the patient. I am concerned about rupture of hamstring tendon. Follow-up MRI will be needed and she is going to follow-up with her preferred orthopedist. Crutches were given to her and she was prescribed [place] and ibuprofen. Treatment diagnosis and follow-up were discussed with the patient. Differential Diagnosis Differential diagnosis: Likely other (Hamstring strain, hamstring tendon rupture, avulsion fracture) Imaging Data CT lumbar: Radiologist's impression: ITS Impressions Femur CT 02/22/24 21:10 IMPRESSION: 1. Acute intramuscular hemorrhage beginning in region of common hamstring tendon origin extending to mid thigh. Correlate with MRI when stable. There may be more extensive myotendinous injury at the right ischial tuberosity than seen on CT. MRI recommended to assess extent of hamstring tendon injury. 2. No acute bone or joint findings. Electronically authenticated by: SOFI MCCARTHY Date: 02/22/2024 23:[address] 02/22/24 21:10 IMPRESSION: 1. No acute fracture or vertebral body collapse. No spondylolysis or spondylolisthesis. 2. Central and left-sided protrusion type disc herniation with left lateral recess encroachment with posterior displacement of the left S1 nerve root. Electronically authenticated by: DARLENE HOLCOMB Date: 02/22/2024 22:50 Discharge Plan Discharge Stand Alone Forms: Portal Instructions Chief Complaint: Back Pain/Injury Clinical Impression: Right hamstring injury Patient Disposition: Home, Self-Care Time of Disposition Decision: 23:33 Condition: Good Mode of Transportation: Private Vehicle Prescriptions / Home Meds: New ibuprofen 800 mg tablet 800 mg PO Q8H PRN (Reason: pain) Qty: 20 0RF hydrocodone-acetaminophen 5-325 mg tablet 1 tab PO Q6H PRN (Reason: pain) 5 Days Qty: 20 0RF Print Language: Japanese Instructions: Hamstring Injury (ED) Referrals: ALEJANDRA PRIETO [Primary Care Provider] - 1 week
[2024-02-22 22:56] VITALS: BP 125/76; PULSE 89; O2SAT 98
[2024-02-22] MEDS: MORPHINE SULFATE 2 MG/ML SYRINGE IV (23:59)
[2024-02-23 00:38] VITALS: BP 120/77; PULSE 82; O2SAT 94
== END 2024-02-23 00:48 | disposition home or self-care (01) ==
PROVIDERS: Emergency Provider Emergency Medicine; PCP Family Medicine
DX: S76.801A Unspecified injury of other specified muscles, fascia and tendons at thigh level, right thigh, initial encounter (principal); W19.XXXA Unspecified fall, initial encounter
CPT/HCPCS: 72131; 73700; 96374; 96375; 99284

== ENCOUNTER 2024-02-27 16:04 | Outpatient (OUT) | payer OTHER, SELFPAY ==
--- NOTE | 2024-02-27 16:24 | MR_ITS ---
The [address] [id number] Patient Name: LIVAN MENJIVAR MRN: [id number] date: 1970 Sex: F Assigned Patient Location: MRI Current Patient Location: MRI Accession/Order Number: [id number] Exam Date: 02/27/2024 16:47 Report Date: 02/27/2024 18:58 At the request of: BRITANY MARTIN Procedure: MR femur RT wo con EXAM: MR femur RT wo con HISTORY: The patient is a 53-year-old female. Right hamstring tendon tear COMPARISON: CT scan of the right femur from 02/22/2024. TECHNIQUE: Coronal T1, STIR; sagittal STIR; axial T1, T2, STIR. FINDINGS: There is a complete avulsion of the right hamstring tendons off of the ischial tuberosity. The torn and retracted ends of the hamstring tendons can be seen on sagittal image 18. The gap between the retracted end of the hamstring tendons and the ischial tuberosity measures 3 cm on coronal image 26. Fluid and edema is seen throughout the region of the hamstring tendon avulsion and fluid tracks along the otherwise intact hamstring muscles. No other muscle or tendon tears are seen within the right thigh or hip. No abnormal bone marrow signal or edema is seen within the right femur or acetabulum to indicate the presence of a fracture, stress fracture, bone contusion, or avascular necrosis. MR/MR femur RT wo con IMPRESSION: Avulsion of the origin of the right hamstring tendons. Electronically authenticated by: DAINA ENRIQUEZ Date: 02/27/2024 18:58
== END 2024-02-27 16:05 | disposition home or self-care (01) ==
LOC: MRI 16:05
PROVIDERS: PCP Family Medicine; Visit Provider Orthopaedic Surgery
DX: S76.311A Strain of muscle, fascia and tendon of the posterior muscle group at thigh level, right thigh, initial encounter (principal)
CPT/HCPCS: 73718

== ENCOUNTER 2024-03-18 09:58 | Outpatient (RCR) | payer OTHER, SELFPAY | END 2024-03-19 15:37 | disposition home or self-care (01) | LOC: PT 09:58 | PROVIDERS: PCP Family Medicine; Visit Provider Family Medicine | DX: S76.311D Strain of muscle, fascia and tendon of the posterior muscle group at thigh level, right thigh, subsequent encounter (principal) | CPT/HCPCS: 97110; 97161 ==

== ENCOUNTER 2024-09-04 06:45 | Outpatient (RCR) | payer OTHER, SELFPAY | END 2024-09-29 14:58 | disposition home or self-care (01) | LOC: PT 06:45 | PROVIDERS: PCP Family Medicine; Visit Provider Orthopaedic Surgery | DX: M75.01 Adhesive capsulitis of right shoulder (principal) | CPT/HCPCS: 97014; 97035; 97110; 97140; 97162 ==

== ENCOUNTER 2024-09-30 10:13 | Outpatient (RCR) | payer OTHER, SELFPAY | END 2024-11-14 15:17 | disposition home or self-care (01) | LOC: PT 10:13 | PROVIDERS: PCP Family Medicine; Visit Provider Personal Emergency Response Attendant | DX: M75.01 Adhesive capsulitis of right shoulder (principal) | CPT/HCPCS: 97014; 97035; 97110; 97140 ==

== ENCOUNTER 2025-07-23 11:54 | Outpatient (RCR) | payer OTHER, SELFPAY | END 2025-08-11 10:17 | disposition home or self-care (01) | LOC: PT 11:54 | PROVIDERS: PCP Family Medicine; Visit Provider Obstetrics & Gynecology | DX: R42 Dizziness and giddiness (principal) | CPT/HCPCS: 95992; 97110; 97140; 97161 ==

== ENCOUNTER 2025-08-11 16:38 | Emergency (ER) | payer OTHER, SELFPAY ==
[2025-08-11 16:43] VITALS: BP 150/90; PULSE 84; TEMP 36.4; O2SAT 99; BMI 28.0
--- NOTE | 2025-08-11 16:46 | CT_ITS ---
[address] [address] Patient Name: LIVAN MENJIVAR MRN: [id number] date: 1970 Sex: F Assigned Patient Location: ER Current Patient Location: .[facility] Accession/Order Number: [id number] Exam Date: 08/11/2025 18:04 Report Date: 08/11/2025 18:57 At the request of: GISELA BA DO Procedure: CT angio neck CT angiogram head and neck with contrast CLINICAL HISTORY: vertigo COMPARISON: CT head 08/11/2025 TECHNIQUE: CT angiogram images through the head and neck with coronal and sagittal reformats. Evaluation degree of ICA narrowing was performed utilizing NASCET criteria.. 3-D reconstructions of the cervical vessels were performed on an workstation. This CT exam was performed using one or more following dose reduction techniques: Automated exposure control, adjustment of the mA and/or kV according to patient size, or use of iterative reconstruction technique. FINDINGS: 4 vessel arch with the left vertebral artery arising from the arch arising from the arch. Great vessels are patent. Common carotid arteries patent throughout their course. Codominant vertebral arteries appearing patent. Intracranial ICAs are patent. ACAs, MCA's are patent. Vertebral arteries, basilar artery, and posterior cerebral arteries are patent. No dural venous sinus thrombosis. Degenerative changes of the cervical spine. Left-sided nodule slightly heterogeneous 1.9 cm in size, consider ultrasound. CT/CT angio neck IMPRESSION: Negative for large vessel occlusion or hemodynamically significant stenosis. Left-sided heterogeneous thyroid nodule 1.9 cm in size, consider ultrasound as an outpatient. Impression dictated by: Derek Cali M.D. 08/11/2025 6:57 PM Dictation Location: [place] [address] Electronically authenticated by: [id number] Y Date: 08/11/2025 18:57
--- NOTE | 2025-08-11 16:46 | CT_ITS ---
The [address] [address] Patient Name: LIVAN MENJIVAR MRN: [id number] date: 1970 Sex: F Assigned Patient Location: ED.MAIN Current Patient Location: ED.MAIN Accession/Order Number: [id number] Exam Date: 08/11/2025 17:16 Report Date: 08/11/2025 17:38 At the request of: GISELA BA DO Procedure: CT head/brain wo con CT BRAIN WITHOUT CONTRAST: CLINICAL HISTORY: vertigo COMPARISON: None TECHNIQUE: Contiguous axial unenhanced images were obtained through the brain. This CT exam was performed using one or more following dose reduction techniques: Automated exposure control, adjustment of the mA and/or kV according to patient size, or use of iterative reconstruction technique. FINDINGS: There is no evidence of midline shift, intra or extra-axial fluid collection, hemorrhage or CT evidence of acute large vascular distribution stroke. Visualized intraorbital contents appear unremarkable. Mild paranasal sinus mucosal thickening. The surrounding soft tissues are normal. CT/CT head/brain wo con IMPRESSION: NO ACUTE INTRACRANIAL ABNORMALITY. Impression dictated by: Derek Cali M.D. 08/11/2025 5:38 PM Dictation Location: [place] [address] Electronically authenticated by: [id number] Y Date: 08/11/2025 17:38
--- NOTE | 2025-08-11 16:46 | CT_ITS ---
The [address] [address] Patient Name: LIVAN MENJIVAR MRN: [id number] date: 1970 Sex: F Assigned Patient Location: ED.MAIN Current Patient Location: ED.MAIN Accession/Order Number: [id number] Exam Date: 08/11/2025 18:10 Report Date: 08/11/2025 18:57 At the request of: GISELA BA DO Procedure: CT angio neck CT angiogram head and neck with contrast CLINICAL HISTORY: vertigo COMPARISON: CT head 08/11/2025 TECHNIQUE: CT angiogram images through the head and neck with coronal and sagittal reformats. Evaluation degree of ICA narrowing was performed utilizing NASCET criteria.. 3-D reconstructions of the cervical vessels were performed on an workstation. This CT exam was performed using one or more following dose reduction techniques: Automated exposure control, adjustment of the mA and/or kV according to patient size, or use of iterative reconstruction technique. FINDINGS: 4 vessel arch with the left vertebral artery arising from the arch arising from the arch. Great vessels are patent. Common carotid arteries patent throughout their course. Codominant vertebral arteries appearing patent. Intracranial ICAs are patent. ACAs, MCA's are patent. Vertebral arteries, basilar artery, and posterior cerebral arteries are patent. No dural venous sinus thrombosis. Degenerative changes of the cervical spine. Left-sided nodule slightly heterogeneous 1.9 cm in size, consider ultrasound. CT/CT angio head IMPRESSION: Negative for large vessel occlusion or hemodynamically significant stenosis. Left-sided heterogeneous thyroid nodule 1.9 cm in size, consider ultrasound as an outpatient. Impression dictated by: Derek Cali M.D. 08/11/2025 6:57 PM Dictation Location: [place] [address] Electronically authenticated by: [id number] Y Date: 08/11/2025 18:57
--- NOTE | 2025-08-11 16:46 | XR_ITS ---
The [address] [address] [id number] Patient Name: LIVAN MENJIVAR MRN: [id number] date: 1970 Sex: F Assigned Patient Location: ED.MAIN Current Patient Location: ED.MAIN Accession/Order Number: [id number] Exam Date: 08/11/2025 17:16 Report Date: 08/11/2025 17:36 At the request of: GISELA BA DO Procedure: XR ankle RT min 3V RIGHT ANKLE - 3 views CLINICAL HISTORY: lateral ankle pain COMPARISON: None FINDINGS: No fracture-dislocation. Talar dome is intact. No significant degenerative changes. Soft tissues unremarkable. XR/XR ankle RT min 3V IMPRESSION: NO ACUTE OSSEOUS FINDINGS. Impression dictated by: Derek Cali M.D. 08/11/2025 5:36 PM Dictation Location: [place] [address] Electronically authenticated by: [id number] Y Date: 08/11/2025 17:36
--- NOTE | 2025-08-11 16:50 | ED.GENADUL1 ---
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 Patient states that over the last 3 weeks she has been having vertiginous episodes. They are positional, intermittent, and associated with ringing ears. She states she just got over a sinus infection, and thinks this may be related. She has been following up with an ENT doctor, been trying to treat this with head manipulation and meclizine. These measures have not seemed to improve her symptoms much. She denies any other neurologic complaint such as change in her vision, numbness/weakness/gait imbalance, or any other concerning symptoms. She is also requesting an x-ray of her right ankle as she rolled it a few days ago. Related Data Home Medications ?Medication ?Instructions ?Recorded ?Confirmed cyclosporine 0.09 % eye drops in a drp ophthalmic (eye) 08/11/25 dropperette (Cequa) meclizine 25 mg tablet mg 08/11/25 Previous Rx's ?Medication ?Instructions ?Recorded ibuprofen 800 mg tablet 800 mg PO Q8H PRN pain #20 tabs 02/22/24 Allergies Allergy/AdvReac Type Severity Reaction Status Date / Time Iodinated Contrast Media Allergy hives Verified 08/11/25 16:52 Opioid HPI Opioid Management Most Recent Opioid Data: Last Pain Scale 3 Today, 16:43 PFSH PFSH Social History Little interest or pleasure in doing things: not at all Feeling down, depressed, or hopeless: not at all Exam Narrative Exam Narrative: CONSTITUTIONAL: Well-appearing, answering questions and following commands appropriately SKIN: Was warm and dry. EYES: Sclerae white. PERRLA. No nystagmus. EOMI. EARS, NOSE, THROAT: Moist oral mucosa. RESPIRATORY: Nonlabored respirations. CARDIOVASCULAR: Normal rate and regular rhythm. There is no S3, S4, murmur, rub. GASTROINTESTINAL: Abdomen is nondistended. MUSCULOSKELETAL: No peripheral edema. NEUROLOGIC: Patient is awake and alert. Ambulates without ataxia. Finger-nose intact. Zesn-bx-qmny intact. Equal strength in all 4 extremities. Facies were symmetrical. Constitutional Vital Signs, click to edit/add: Last Vital Signs Temp 97.5 F L 08/11/25 16:43 Pulse 78 08/11/25 17:47 Resp 16 08/11/25 17:47 BP 127/79 08/11/25 17:47 Pulse Ox 98 08/11/25 17:47 O2 Del Method Room Air 08/11/25 17:47 Course Vital Signs Vital signs: Vital Signs Temperature 97.5 F L 08/11/25 16:43 Pulse Rate 84 08/11/25 16:43 Respiratory Rate 16 08/11/25 16:43 Blood Pressure 150/90 H 08/11/25 16:43 Pulse Oximetry 99 08/11/25 16:43 Oxygen Delivery Method Room Air 08/11/25 16:43 Temperature 97.5 F L 08/11/25 16:43 Pulse Rate 78 08/11/25 17:47 Respiratory Rate 16 08/11/25 17:47 Blood Pressure 127/79 08/11/25 17:47 Pulse Oximetry 98 08/11/25 17:47 Oxygen Delivery Method Room Air 08/11/25 17:47 Medical Decision Making MDM Narrative Medical decision making narrative: Patient is a 55-year-old female presenting to the emergency department with 3-week history of vertigo. Vital signs on arrival are within normal limits. She is afebrile and hemodynamically stable. Examination as noted above. Her symptoms are likely related to her recent URI/sinus infection. Differential diagnosis includes BPPV, vestibular neuritis/labyrinthitis, and less likely central causes of vertigo such as vertebrobasilar insufficiency. CT/CTA of the head/neck were ordered. IV was established and laboratory studies were obtained. X-rays of the right ankle were ordered to rule out acute fracture, though she likely has an ATFL sprain. X-rays of the right ankle demonstrate no acute osseous abnormalities. CT head independently reviewed/interpreted by myself demonstrated no acute intracranial pathology or hemorrhage. CTAs demonstrate no large vessel occlusion, dissection, or critical stenosis. Laboratory studies were unremarkable. No significant electrolyte or metabolic derangement. No evidence of acute kidney injury. No anemia, leukocytosis, or thrombocytopenia. No transaminitis or hyperbilirubinemia. I do believe the patient is stable for discharge. Patient's presentation is most likely consistent with her peripheral vertigo. They were instructed to follow up with PCP/ENT. Return precautions were given including any new or worsening symptoms. Patient understands and agrees to the plan. FINAL IMPRESSION: #Subacute vertigo DISPOSITION: Discharged home CONDITION: Good Lab Data Lab results reviewed: Yes I reviewed the patient's lab results Labs: Lab Results 08/11/25 Range/Units 17:33 WBC 6.0 (4.0-11.0) 10^3/uL RBC 4.12 L (4.20-5.40) 10^6/uL Hgb 13.0 (12.0-16.0) g/dL Hct 39.2 (36.0-48.0) % MCV 95.1 (81.0-99.0) fL MCH 31.6 (26.7-34.0) pg MCHC 33.2 (29.9-35.2) g/dL RDW 13.7 (11.0-15.0) % Plt Count 375 (150-450) 10^3/uL MPV 10.0 (9.5-13.5) fL Neut % (Auto) 42.4 L (43.0-75.0) % Lymph % (Auto) 43.4 (20.5-60.0) % Hand % (Auto) 8.7 (1.7-12.0) % Eos % (Auto) 5.0 (0.9-7.0) % Baso % (Auto) 0.3 (0.2-2.0) % Neut # (Auto) 2.6 (1.4-6.5) 10^3/uL Lymph # (Auto) 2.6 (1.2-3.8) 10^3/uL Hand # (Auto) 0.5 (0.3-0.8) 10^3/uL Eos # (Auto) 0.3 (0.0-0.7) 10^3/uL Baso # (Auto) 0.0 (0.0-0.1) 10^3/uL Abs Immat Gran (auto) 0.01 (0.00-0.03) 10^3/uL Imm/Tot Granulo (auto) 0.2 (0.0-0.5) % Sodium 140 (136-145) mmol/L Potassium 3.4 L (3.5-5.1) mmol/L Chloride 106 (98-107) mmol/L Carbon Dioxide 28.8 (21.0-32.0) mmol/L Anion Gap 8.6 BUN 20.0 H (7.0-18.0) mg/dL Creatinine 0.82 (0.55-1.02) mg/dL Est GFR ( Amer) >60 (>=60 mL/min/1.73m^2) Est GFR (Non-Af Amer) >60 (>=60 mL/min/1.73m^2) BUN/Creatinine Ratio 24.4 Glucose 109 H (74-106) mg/dL Calcium 8.7 (8.5-10.1) mg/dL Total Bilirubin 0.2 (0.2-1.0) mg/dL AST 14 L (15-37) U/L ALT 25 (14-59) U/L Alkaline Phosphatase 88 (46-116) U/L Total Protein 7.1 (6.4-8.2) g/dL Albumin 3.4 (3.4-5.0) g/dL Globulin 3.7 g/dL Albumin/Globulin Ratio 0.[address] scan - head: Attestation: I personally reviewed and interpreted this imaging study as follows: Radiologist's impression: ITS Impressions Ankle X-Ray 08/11/25 16:46 IMPRESSION: NO ACUTE OSSEOUS FINDINGS. Impression dictated by: Derek Cali M.D. 08/11/2025 5:36 PM Dictation Location[facility] Electronically authenticated by: [id number] Y Date: 08/11/2025 17:[address] 08/11/25 16:46 IMPRESSION: NO ACUTE INTRACRANIAL ABNORMALITY. Impression dictated by: Derek Cali M.D. 08/11/2025 5:38 PM Dictation Location: [facility] Electronically authenticated by: [id number] Y Date: 08/11/2025 17:38 Discharge Plan Discharge Chief Complaint: Dizziness Clinical Impression: Vertigo Patient Disposition: Home, Self-Care Time of Disposition Decision: 18:52 Condition: Good Prescriptions / Home Meds: No Action ibuprofen 800 mg tablet 800 mg PO Q8H PRN (Reason: pain) Qty: 20 0RF meclizine 25 mg tablet Cequa 0.09 % dropperette OPHTHALMIC (EYE) Print Language: Azerbaijani Instructions: Vertigo (ED) Referrals: ALEJANDRA PRIETO [Primary Care Provider, Unknown] - 1 week
[2025-08-11] MEDS: DIPHENHYDRAMINE HCL 50 MG/ML VIAL 25 MG IVP (17:02)
--- OUTSIDE RECORDS SUMMARY | 2025-08-11 17:22 | XMS_ITS | Encounter Summary ---
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 [address] Social History Tobacco UseTypesPacks/DayYears UsedDateSmoking Tobacco: NeverSmokeless Tobacco: NeverAlcohol UseStandard Drinks/WeekCommentsYes1 (1 standard drink = 0.6 oz pure alcohol)caffeine: 1-2 cups per dayCommentsNoSex and Gender Information ValueDate RecordedSex Assigned at NdnkaEnzpnm36/14/2024 10:53 AM ESTLegal Sex Yopuyw9412/12/2022 7:08 PM EDTGender VwlxhwvwTrfljb12/14/2024 10:53 AM ESTSexual PgvehvzoaveUqhegfsg62/14/2024 10:53 AM ESTdocumented as of this encounter Miscellaneous Notes * Addendum Note - Soheila Sotelo LPN - 08/11/2025 1:40 PM ESTAddended by: SOHEILA SOTELO on: 08/11/2025 01:40 PM Modules accepted: Orders * Telephone Encounter - Mariam Woody MA - 08/11/2025 1:30 PM EST Per Gabriela Soriano send in [facility] labs in for patient. Along w/wellness labs. documented in this encounter Plan of Treatment DateTypeDepartmentCare Team (Latest Contact Info)Dughndhyoxd50/13/2025 8:40 AM ESTProcedure Visit NOMYesenia [facility] [address] [place] [address] Gabriela Soriano, KEVIN [address] [place] [address] 08/13/2025 8:30 AM ESTOffice Visit NOMYesenia [facility] [address] [place] [phone] [place], [address] [place] [address] NameTypePriorityAssociated DiagnosesOrder ScheduleEstradiolLabRoutine Hormone disorder Expected: 08/11/2025 (Approximate), Expires: 08/11/2026EstroneLabRoutine Hormone disorder Expected: 08/11/2025 (Approximate), Expires: 08/11/2026ortisol, freeLabRoutine Hormone disorder Expected: 08/11/2025, Expires: 08/11/2026DHEA-sulfateLabRoutine Hormone disorder Expected: 08/11/2025 (Approximate), Expires: 08/11/2026Sex hormone binding globulinLabRoutine Hormone disorder Expected: 08/11/2025 (Approximate), Expires: 08/11/2026Insulin, totalLabRoutine Hormone disorder Expected: 08/11/2025, Expires: 08/11/2026Serotonin serumLabRoutine Hormone disorder Expected: 08/11/2025, Expires: 08/11/2026T4, freeLabRoutine Hormone disorder Expected: 08/11/2025 (Approximate), Expires: 08/11/2026T3, reverseLabRoutine Hormone disorder Expected: 08/11/2025 (Approximate), Expires: 08/11/2026ProgesteroneLabRoutine Hormone disorder Expected: 08/11/2025 (Approximate), Expires: 08/11/2026Vitamin D 1,25 dihydroxy LabRoutine Hormone disorder Expected: 08/11/2025 (Approximate), Expires: 08/11/2026FerritinLabRoutine Hormone disorder Expected: 08/11/2025 (Approximate), Expires: 08/11/2026T3, freeLabRoutine Hormone disorder Expected: 08/11/2025 (Approximate), Expires: 08/11/2026ThyroglobulinLabRoutine Hormone disorder Expected: 08/11/2025, Expires: 08/11/2026Thyroglobulin AntibodyLabRoutine Hormone disorder Expected: 08/11/2025, Expires: 08/11/2026Thyroid peroxidase antibodyLabRoutine Hormone disorder Expected: 08/11/2025 (Approximate), Expires: 08/11/20265520K1HzbBrfyywg Hormone disorder Expected: 08/11/2025, Expires: 08/11/2026TESTOSTERONE, FREELabRoutine Hormone disorder Expected: 08/11/2025 (Approximate), Expires: 08/11/2026Testosterone, free, total LabRoutine Hormone disorder Expected: 08/11/2025 (Approximate), Expires: 08/11/2026Glucose, randomLabRoutine Hormone disorder Expected: 08/11/2025, Expires: 08/11/2026-peptideLabRoutine Hormone disorder Expected: 08/11/2025, Expires: 08/11/2026TSHLabRoutine Hormone disorder Expected: 08/11/2025 (Approximate), Expires: 08/11/2026Lipid panelLabRoutine Hormone disorder Expected: 08/11/2025, Expires: 08/11/2026omprehensive metabolic panelLabRoutine Hormone disorder Expected: 08/11/2025 (Approximate), Expires: 08/11/2026Hemoglobin O4qIxgJinpxrl Hormone disorder Expected: 08/11/2025 (Approximate), Expires: 08/11/2026BC and differentialLab Routine Hormone disorder Expected: 08/11/2025 (Approximate), Expires: 08/11/2026ilateral screening mammogramImagingRoutine Other screening mammogram Screening mammogram, encounter for Expected: 08/11/2025 (Approximate), Expires: 10/11/2026documented as of this encounter Visit Diagnoses Diagnosis Hormone disorder Unspecified endocrine disorder Other screening mammogram Screening mammogram, encounter for documented in this encounter Care Teams Team MemberRelationshipSpecialtyStart DateEnd Date Unallocated, Noms Provider, [address] [place] [address] PCP - GeneralFamily Dsxeikea56/3/25documented as of this encounter
--- OUTSIDE RECORDS SUMMARY | 2025-08-11 17:22 | XMS_ITS | Clinical Summary ---
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 Insert and leave in place for 3 consecutive weeks, then remove for 1 week.ctive COMPOUNDED PRESCRIPTION Please compound Tri-Florinda Equivalent and sent to pt. Disp: 30-60g 60 g 6010/25/2011ctive clindamycin (CLEOCIN-T) 1 % gel Apply to entire face in am and pm 60 mL 11010/07/2014ctive doxycycline monohydrate (MONODOX) 100 mg capsule Take 1 capsule by mouth twice daily. 30 capsule Active clindamycin (CLEOCIN) 1 % external solution Apply to entire face in am and pm 60 mL Active Active Problems ProblemNoted DateDiagnosed UdlkOhbessoysasftx62/27/2017Bence Abdalla proteinuria 10/12/20163926Hkbwnmix37/22/6987Arumaxlfkreudw93/12/2012 Immunizations ImmunizationAdministration DatesNext Dueinfluenza vaccine, unspecified gnxkaymxjhv19/06/2004 Social History Tobacco UseTypesPacks/DayYears UsedDateSmoking Tobacco: NeverSmokeless Tobacco: Never Tobacco Cessation:Counseling Given: Yes Alcohol UseStandard Drinks/WeekCommentsYes0 (1 standard drink = 0.6 oz pure alcohol)sociallyCommentsUnknownSex and Gender InformationValueDate RecordedSex Assigned at BirthNot on fileLegal UmlRctukv82/10/2011 10:03 AM EST Gender IdentityNot on fileSexual OrientationNot on file Last Filed Vital Signs Vital SignReadingTime TakenCommentsBlood Opdktwph008/71010/26/2016 9:45 AM EST Mogfk723510/26/2016 9:45 AM KEECfzzcwlmduv06.6 ??C (97.8 ??F)10/26/2016 9:45 AM ESTRespiratory Cqxu287210/26/2016 9:45 AM ESTOxygen Saturation--Inhaled Oxygen Concentration--Bmoqqz80.9 kg (185 lb)10/26/2016 9:45 AM DRDTqssni496.7 cm (5' 8 )10/26/2016 9:45 AM ESTBody Mass Index28.13010/26/2016 9:45 AM EST Plan of Treatment Health MaintenanceDue DateLast DoneCommentsAnxiety Suvinjaqa13/16/1990Depression Uahuryamx90/16/1990HIV Yiccamaul33/16/1990Hepatitis C Dujjuxqlw41/16/1990 DTaP,Tdap,Td Vaccine (1 - Tdap)1991Hepatitis B Vaccine (1 of 3 - 19+ 3- dose series)1991Mammogram Lidhjaaqe03/20/Cervical Cancer Rfqjdeaud60/20/CT Jeefsnlemzrg10/16/2017Cologuard (FIT-DNA) 06/15/20179846Eofwcycbsri46/16/2017Colorectal Cancer Ounbbwttd13/16/2017Fecal Occult Blood06/15/20179114Erhvpycgfwlov16/16/2017Lipid Beyhwryrj15/20/ Diabetes Rxqwcrohe95/13/Pneumococcal Vaccine: 50+ (1 of 1 - PCV) 2022hingrix Vaccine (1 of 2)2Covid-19 Vaccine (1 - 2024-26 season)2025Influenza Vaccine (#1)/02/2004 Procedures Procedure NamePriorityDate/TimeAssociated DiagnosisCommentsBASIC METABOLIC PANEL Meetnbh1110/12/2016 1:44 PM EST Karri Abdalla proteinuria from Last 3 Months or Most Recently Relevant to Health Maintenance Results * BASIC METABOLIC PNL (10/12/2016 1:44 PM EST)ComponentValueRef RangeTest Method Analysis TimePerformed AtPathologist KylxeneonNcpiocr3866 - 99 mg/dL10/13/2016 1:09 AM [facility] LABORATORYComment: The [place] Diabetes Association (ADA) provides guidance for cutoff values for fasting glucose and random glucose. The ADA defines fasting as no caloric intake for at least 8 hours. Fasting plasma glucose results between 100 to 125 mg/dL indicate increased risk for diabetes (prediabetes). Fasting plasma glucose results greater than or equal to 126 mg/dL meet the criteria for diagnosis of diabetes. In the absence of unequivocal hyperglycemia, results should be confirmed by repeat testing. In a patient with classic symptoms of hyperglycemia or hyperglycemic crisis, random plasma glucose results greater than or equal to 200 mg/dL meet the criteria for diagnosis of diabetes. Reference: Standards of Medical Care in Diabetes 2016, [place] Diabetes Association. Diabetes Care. 2016.39(Suppl 1). ICW741 - 21 mg/dL10/13/2016 1:09 AM [facility] Creatinine0.630.58 - 0.96 mg/dL10/13/2016 1:09 AM [facility] XZMFQQPGEYIuxkmk135759 - 144 mmol/L10/13/2016 1:09 AM [facility] LABORATORYPotassium4.13.7 - 5.1 mmol/L10/13/2016 1:09 AM [facility] XXQEMWJULBSrppetzu94094 - 105 mmol/L10/13/2016 1:09 AM [facility] RFLZYZKVORYQ56028 - 30 mmol/L10/13/2016 1:09 AM [facility] LABORATORYAnion Jmz168 - 18 mmol/L10/13/2016 1:09 AM [facility] LABORATORYCalcium9.58.6 - 10.0 mg/dL10/13/2016 1:09 AM [facility] LABORATORYeGFR->6001 1:09 AM [facility] LABORATORYeGFR-All Other Races>60.10/13/2016 1:09 AM [facility] LABORATORYComment: eGFR (Estimated GFR) Units of measure: mL/min/1.73 meters squared eGFR is derived from the reexpressed MDRD Study equation using the following parameters: serum creatinine, age, gender and race. The creatinine assay has been calibrated to be traceable to IDMS. An eGFR <60 mL/min/1.73m2 for >3 months is consistent with chronic kidney disease. Refer to KDOQI guidelines for clinical interpretation. In patients with unstable renal function, e.g. those with acute kidney injury, the eGFR may not accurately reflect actual GFR. Specimen (Source)Anatomical Location / LateralityCollection Method / Volume Collection TimeReceived TimeBlood specimen (specimen)BLOOD SPECIMEN / Unknown 10/12/2016 1:44 PM EST10/12/2016 1:48 PM EST Narrative Authorizing ProviderResult TypeResult StatusJames E FanningLABORATORYFinal ResultPerforming OrganizationAddressCity/State/ZIP CodePhone Number [facility] [address] [place] [address] from Last 3 Months or Most Recently Relevant to Health Maintenance Insurance * Guarantor: Alisia Squires TypeRelation to PatientDate of BirthPhone Billing AddressPersonal/LprtesFnvd1970 [id number] [place] [id number] MemberSubscriberPlan / Payer (Effective 2019-Present)Name:Alisia Squires Relation to Subscriber:SpouseName:LINO SQUIRES Date of :1969 (Home) Address: [address] [place], [place] [id number] Payer ID:Not on file Type:PPO Address: [facility] [address] [id number] [place] [address] * Guarantor: Alisia Squiresount TypeRelation to PatientDate of BirthPhone Billing AddressSelf MevTznx2906/15/1970 [address] [place] [address]
--- OUTSIDE RECORDS SUMMARY | 2025-08-11 17:22 | XMS_ITS | CCD ---
Author Organization [facility] Inform ion [facility] Care Team Providers Care Manager Purchasing Name Role Phone PRISCILA SMITH Admitting Unavailable DR DARREN BOBO V Consulting Unavailable PRISCILA SMITH Attending Unavailable PETMOUSTAPHAICK, ALEJANDRA Primary Care Unavailable PETZNICK, ALEJANDRA Referring Unavailable PRISCILA SMITH Consulting Unavailable GABRIELA SORIANO Attending Unavailable RICHARD, GABRIELA Consulting Unavailable PETZNICK, ALEJANDRA Primary Care Unavailable GABRIELA SORIANO Admitting Unavailable JM MARCUS Admitting Unavailable JM MARCUS Attending Unavailable JM MARCUS Consulting Unavailable PETZNICK, ALEJANDRA Primary Care Unavailable PETZNICK, ALEJANDRA Attending Unavailable PETZNICK, ALEJANDRA Consulting Unavailable PETZNICK, ALEJANDRA Primary Care Unavailable PETZNICK, ALEJANDRA Admitting Unavailable Petznick Alejandra WOODSON Primary Care Provider [phone] VERONIKA DOBBS Attending Unavailable ALEJANDRA PRIETO Referring Unavailable ELDA AGUILAR Attending Unavailable BRITANY GOLDSTEIN Attending Unavailable ANUPAMA KEVIN Attending Unavailable BRITANY GOLDSTEIN Attending Unavailable BRITANY GOLDSTEIN Referring Unavailable Sampson, Alejandra Primary Care Unavailable Veronica Dobbs Attending Unavailable Veronica Dobbs Admitting Unavailable Petznick Alejandra WOODSON Primary Care Provider [phone] Unallocated , [place] Provider Primary Care Provi nathan Medications Current Medications MedicationDrug Class(es)DatesSig (Normalized)Sig (Original)acyclovir 0.05 mg/mg topical ointment (1 source)Herpesvirus Nucleoside Analog DNA Polymerase Inhibitor, Herpes Simplex Virus Nucleoside Analog DNA Polymerase Inhibitor, Herpes Zoster Virus Nucleoside Analog DNA Polymerase InhibitorStart: 91-79-6948puawpuofp (Zovirax) 5 % ointment Indications: Cold sore Apply topically 6 (six) times a day Space applications every 3 hours. 30 g 1 06/10/2025 ActiveStart: 70-29-5387mfhxpbdct (Zovirax) 5 % ointment Indications: Cold sore Apply topically 6 (six) times a day Space ap plications every 3 hours. 30 g 1 06/10/2025 Activeazithromycin 250 mg oral tablet (3 sources)Macrolide AntimicrobialStart: 38-42-4206goxqlhtfrqjv (Zithromax Z- Guicho) 250 MG tablet Indications: Upper respiratory tract infection, unspecified type As directed 6 tablet 05/10/2025 ActiveContinuous Glucose Social Work Job Titles (Dexcom G7 Social Work Job Titles) device (2 sources)Start: 05-20-2025 End: 96-46-5088Cshnmtyixc Glucose Social Work Job Titles (Dexcom G7 Social Work Job Titles) device Indications: Hypoglycemia 1 Device continuously 1 each 05/20/2025 06/19/2025 ActiveContinuous Glucose Sensor (Dexcom G7 Sensor) misc (2 sources)Start: 05-20-2025 End: 31-47-0404Qusqpdbiuw Glucose Sensor (Dexcom G7 Sensor) misc Indications: Hypoglycemia 1 each Every 10 (ten) days 3 each 3 05/20/2025 06/19/2025 Active desonide 0.5 mg/ml topical cream (3 sources)CorticosteroidStart: 00-69-0914yfyhxxih (DesOwen) 0.05 % cream Indications: Dermatitis APPLY TOPICALLY 2 TIMES A DAY FOR 14 DAYS NEEDED 60 g 2 12/17/2024 Activeestradiol 0.004 mg vaginal insert (17 sources)EstrogenStart: 03-15-2025 End: 62-95-3258Mudihleus (Imvexxy Maintenance Pack) 4 MCG insert Indications: Menopausal disorder , Dyspareunia infemale , Menopausal syndrome on hormone replacement therapy Insert 1 Insert into the vagina 2 (two)times a week 24 each 03/18/2025 06/16/2025 ActiveStart: 03-04-2025 End: 47-11-6499wbyqwtqnu (Climara) 0.05 MG/24HR Indications: Postmenopausal state , Menopausal disorder Place 1 patch over 7 days on the skin 1 (one) time per week 12 patch 3 03/04/2025 03/04/2026 ActiveStart: 64-75-1289ancw 1 tablet by mouth once dailyestradiol (Estrace) 0.5 MG tablet Indications: Hormone imbalance Take 1 tablet (0.5 mg) by mouth Daily 90 tablet 3 12/11/2023 Active Estradiol / Progesterone (3 sources)Progesterone, EstrogenStart: 10-84-6727tglx 0.5-100 mg by mouth once dailyEstradiol-Progesterone (Bijuva) 0.5-100 MG capsule Indications: Symptomatic menopausal or female climacteric states , Menopausal syndrome on hormone replacement therapy , Dyspareunia in female Take 1capsule by mouth Daily 90 capsule 3 03/10/2025 ActiveStart: 03-10-2025 End: 16-90-3486bfzp 0.5-100 mg by mouth once dailyEstradiol-Progesterone (Bijuva) 0.5-100 MG capsule Indications: Symptomatic menopausal or female cli macteric states , Menopausal syndrome on hormone replacement therapy , Dyspareunia in female Take 1capsule by mouth Daily 90 capsule 3 03/10/2025 06/08/2025 Bxhxqp87 hr metFORMIN hydrochloride 500 mg extended release oral tablet (3 sources)BiguanideStart: 02-16-2025 End: 35-24-2243nrww 2 tablets by mouth every twenty-four hours at mealtime metFORMIN XR (Glucophage-XR) 500 MG 24 hr tablet Indications: Insulin resistance Take 2 tablets (1,000 mg) by mouth in the evening. Take with meals 180 tablet 3 02/16/2025 Activephentermine hydrochloride 37.5 mg oral tablet (3 sources)Sympathomimetic Amine AnorecticStart: 26-62-9096uwul 1 tablet by mouth before mealtimephentermine (Adipex-P) 37.5 MG tablet Indications: Encounter for weight management Take 1 tablet (37.5 mg) by mouth in the morning. Take before meals. 90 tablet 02/04/2025 ActivepredniSONE 50 mg oral tablet (2 sources)Start: 06-04-2025 End: 14-76-2597eexm 1 tablet by mouth once dailypredniSONE (Deltasone) 50 MG tablet Indications: Poison sam Take 1 tablet (50 mg) by mouth Daily for 7 days 7 tablet 06/04/2025 06/11/2025 ActivevalACYclovir 1000 mg oral tablet (4 sources)Herpesvirus Nucleoside Analog DNA Polymerase Inhibitor, Herpes Simplex Virus Nucleoside Analog DNA Polymerase Inhibitor, Herpes Zoster Virus Nucleoside Analog DNA Polymerase InhibitorStart: 06-10-2025 End: 21-42-5457mxbj 1 tablet by mouth in the morning, then take 1 tablet by mouth in the evening, then take 1 tablet by mouth at bedtimevalACYclovir (Valtrex) 1 g tablet Take 1 tablet (1,000 mg) by mouth in the morning and 1 tablet (1,000 mg) in the evening and 1 tablet (1,000 mg) before bedtime. Do all this for 7 days. 21 tablet 06/10/2025 06/10/2025 Discontinued (Reorder) End: 94-83-6957gogKHZabntbp (Valtrex) 1 g tablet Take 1,000 mg by mouth in the morning and 1,000 mg in the eveningand 1,000 mg before bedtime. 06/10/2025 Discontinued (Dose adjustment) Problems Active Problems Problem ClassificationProblemDateDocumented DateEpisodic/ChronicAnxiety disorders (8 sources)Acute stress disorder; Translations: [Acute stress reaction]Onset: 994259-67-9303NqtrimdDjfaeexoak disorders (12 sources)Disorder associated with menstruation AND/OR menopause; Translations: [Unspecified menopausal and perimenopausal disorder]Onset: 556860-02-4532FxfojwgObvgg connective tissue disease (4 sources)Adhesive capsulitis of right shoulder; Translations: [Adhesive capsulitis of right shoulder]49-47-0698NssrvhiuWjkhw connective tissue disease (2 sources)Impingement syndrome of right shoulder region; Translations: [Impingement syndrome of right shoulder]55-30-5832KksliwfyBbvim female genital disorders (4 sources)Pain in female genitalia on intercourse; Translations: [Unspecified dyspareunia]Onset: 411309-78-2229XwfauviDjstu lower respiratory disease (4 sources)Pleurodynia; Translations: [PLEURODYNIA]Onset: 73-89-4210Ytlntyqz Other non-traumatic joint disorders (2 sources)Pain in right shoulder; Translations: [Pain in joint, shoulder region]73-69-4258JyjbmbnmAmcpb nutritional; endocrine; and metabolic disorders (8 sources)Insulin resistance; Translations: [Insulin resistance]Onset: 162375-05-6536WgolssoXnuknkqwsluv (3 sources)CONTACT W/AND (SUSP) EXPOS COVID-19; Translations: [CONTACT W/AND (SUSP) EXPOS COVID-19]Onset: 90-30-8755Lkhjl infection (1 source)Herpes labialis; Translations: [Herpesviral vesicular dermatitis] 11-56-1586Fgmnhrho Past or Other Problems Problem ClassificationProblemDateDocumented DateEpisodic/ChronicBacterial infection; unspecified site (8 sources)Bacterial infectious disease; Translations: [Other specified bacterial agents as the cause of diseases classified elsewhere]Onset: 01-30-2024 70-89-7725ZegszmbwQnouhyriwxspb symptoms and ill-defined conditions (8 sources)Bence-Abdalla proteinuria; Translations: [Bence Abdalla proteinuria] Onset: 907995-06-8732PxfxpbqfUajekcehokzvm and screening for infectious disease (4 sources)Encounter for immunization; Translations: [ENCOUNTER FOR IMMUNIZATION]Onset: 05-15-9332YgpkiiioFwlovbujikho diseases of female pelvic organs (8 sources)Acute vaginitis; Translations: [Acute vaginitis]Onset: 01-30-2024 44-07-7059YvkbqegzZccokzx and fatigue (1 source)Other fatigue; Translations: [Other fatigue]Onset: 00-80-9256Idcgjkig Nausea and vomiting (8 sources)Nausea; Translations: [Nausea]Onset: 975064-89-0611Qxyixqjn Neoplasms of unspecified nature or uncertain behavior (8 sources)Thrombocytosis; Translations: [Thrombocytosis]Onset: 10-26-2016 89-63-5674EqoenovyAwzkt circulatory disease (8 sources)Telangiectasia disorder; Translations: [Nevus, non-neoplastic]Onset: 073244-30-7830TkkdplpzHsnmu nervous system disorders (8 sources)Notalgia paresthetica; Translations: [Paresthesia of skin]Onset: 512287-38-0965OmkymfdcPcvqr nervous system disorders (8 sources)Finding related to ability to move; Translations: [Other abnormalities of gait and mobility]Onset: 047799-34-4727QgkekmvbDjdbe non- traumatic joint disorders (8 sources)Hip pain; Translations: [Pain in right hip]Onset: 01-29-2024 41-22-5469TrwldvgqXryjr screening for suspected conditions (not mental disorders or infectious disease) (8 sources)Patient encounter status; Translations: [Encounter for screening for malignant neoplasm of colon]Onset: 285826-15-8306OlowramiCzreb skin disorders (8 sources)Wrinkled skin; Translations: [Other specified disorders of the skin and subcutaneous tissue]Onset: 923767-36-9300OwzpwlhnMfxfu upper respiratory infections (9 sources)Acute upper respiratory infection; Translations: [Acute upper respiratory infection, unspecified]Onset: 814980-55-2135RmukyaacCeuchdqi codes; unclassified (8 sources)Postmenopausal state; Translations: [Asymptomatic menopausal state] Onset: 590778-68-4371BscojchqOcgrsabfwlsz (1 source)CONTACT W/AND (SUSP) EXPOS COVID-19; Translations: [CONTACT W/AND (SUSP) EXPOS COVID-19]Onset: 06-10-2021 Results Test NameValueInterpretationReference RangeFacilityXR Shoulder - right 2 Viewson 49-20-3299Cqmmyxg Result: August 25, 2024 x-rays AP axillary and Y scapula of the right shoulder demonstrate a type 1 acromion. The glenohumeral joint and acromioclavicular joints are intact. There are no fractures. There is normal glenoid morphology. Impression: No acute findings on x-rays of the right shoulder Hai Goldstein D.O.[facility] HealthcareRadiology Study observation (narrative)[facility] HealthcareThyroxine (T4) Totalon 89-32-5075V1 [Mass/Vol]7.97 ug/dLNormal5.39-11.82The [facility] Physician GroupComment on above:Performed By: #### T3F, T4T, T3T #### [address] #### T3R #### [facility] ,Triiodothyronine (T3) Freeon 06-86-4572Ehhesfykhgcwtuoq (T3) Free3.47 pg/mL Normal2.50-3.90The [facility] Physician [facility] HospitalComment on above:Result Comment: PERFORMED BY: [place] [address] PATHOLOGIST COUNCIL ON AGING DIRECTOR DAYRON FLOWERS M.D.Performed By: #### T3F, T4T, T3T #### [address] #### T3R #### [facility] ,Triiodothyronine (T3) Reverseon 78-65-7757Hcytectxdeikkcwu (T3) Xaxhjxq42.8 ng/dLNormal9.2-24.1The [facility] Physician GroupComment on above:Result Comment: This test was developed and its performance characteristics determined by [facility]. It has not been cleared or approved by the Food and Drug Administration. Performed at: [address] [id number] Bond Analyst: Pj Murphy MD, Phone: [phone] PERFORMED BY: [place] [address] PATHOLOGIST COUNCIL ON AGING DIRECTOR DAYRON FLOWERS M.D.Performed By: #### T3F, T4T, T3T #### [address] #### T3R #### [facility] ,Triiodothyronine (T3) Totalon 13-33-0254Wiuvmyjwfdraptbp (T3) Total0.95 ng/mL Normal0.87-1.78The [facility] Physician GroupComment on above:Result Comment: PERFORMED BY: [place] [address] PATHOLOGIST COUNCIL ON AGING DIRECTOR DAYRON FLOWERS M.D.Performed By: #### T3F, T4T, T3T #### [address] [place] [address] [facility] #### T3R #### [facility] ,MR Thigh - right WO contraston 76-78-[place], [place] [address] Magnetic Resonance Report Signed Patient: ALISIA MENJIVAR MR#: [id number] : 1970 Acct:[id number] Age/Sex: 53 / F ADM Date: 02/27/24 Loc: MRI Attending Dr: Britany Goldstein M.D. Ordering Physician: Britany Goldstein M.D. Date of Service: 02/27/24 Procedure(s): MR femur RT wo con Accession Number(s): [id number] cc: Britany Goldstein M.D.; ALEJANDRA PRIETO [place] [address] Patient Name: ALISIA MENJIVAR MRN: [facility]:[id number] date: 1970 Sex: F Assigned Patient Location: MRI Current Patient Location: MRI Accession/Order Number: [id number] Exam Date: 02/27/2024 16:47 Report Date: 02/27/2024 18:58 At the request of: BRITANY GOLDSTEIN Procedure: MR femur RT wo con EXAM: MR femur RT wo con HISTORY: The patient is a 53-year-old female. Right hamstring tendon tear COMPARISON: CT scan of the right femur from 02/22/2024. TECHNIQUE: Coronal T1, STIR; sagittal STIR; axial T1, T2, STIR. FINDINGS: There is a complete avulsion of the right hamstring tendons off of the ischial tuberosity. The torn and retracted ends of the hamstring tendons can be seen on sagittal image 18. The gap between the retracted end of the hamstring tendons and the ischial tuberosity measures 3 cm on coronal image 26. Fluid and edema is seen throughout the region of the hamstring tendon avulsion and fluid tracks along the otherwise intact hamstring muscles. No other muscle or tendon tears are seen within the right thigh or hip. No abnormal bone marrow signal or edema is seen within the right femur or acetabulum to indicate the presence of a fracture, stress fracture, bone contusion, or avascular necrosis. MR/MR femur RT wo con IMPRESSION: Avulsion of the origin of the right hamstring tendons. Electronically authenticated by: DAINA ENRIQUEZ Date: 02/27/2024 18:58 Dictated By: DAINA ENRIQUEZ M.D. Signed By: 02/27/241899 DD/ 57 TD/TT: Tapper Operator:KAMIHRadiology, Radiologist, - 02/28/2024 [place] [address] Magnetic Resonance Report Signed Patient: ALISIA MENJIVAR MR#: [id number] : 1970 Acct:[id number] Age/Sex: 53 / F ADM Date: 02/27/24 Loc: MRI Attending Dr: Britany Goldstein M.D. Ordering Physician: Britany Goldstein M.D. Date of Service: 02/27/24 Procedure(s): femur RT wo con Accession Number(s): [id number] cc: Britany Goldstein M.D.; ALEJANDRA PRIETO [address] [place] [address] Patient Name: ALISIA MENJIVAR MRN: [facility]:[id number] date: 1970 Sex: F Assigned Patient Location: MRI Current Patient Location: MRI Accession/Order Number: [id number] Exam Date: 02/27/2024 16:47 Report Date: 02/27/2024 18:58 At the request of: BRITANY GOLDSTEIN Procedure: MR femur RT wo con EXAM: MR femur RT wo con HISTORY: The patient is a 53-year-old female. Right hamstring tendon tear COMPARISON: CT scan of the right femur from 02/22/2024. TECHNIQUE: Coronal T1, STIR; sagittal STIR; axial T1, T2, STIR. FINDINGS: There is a complete avulsion of the right hamstring tendons off of the ischial tuberosity. The torn and retracted ends of the hamstring tendons can be seen on sagittal image 18. The gap between the retracted end of the hamstring tendons and the ischial tuberosity measures 3 cm on coronal image 26. Fluid and edema is seen throughout the region of the hamstring tendon avulsion and fluid tracks along the otherwise intact hamstring muscles. No other muscle or tendon tears are seen within the right thigh or hip. No abnormal bone marrow signal or edema is seen within the right femur or acetabulum to indicate the presence of a fracture, stress fracture, bone contusion, or avascular necrosis. MR/MR femur RT wo con IMPRESSION: Avulsion of the origin of the right hamstring tendons. Electronically authenticated by: DAINA ENRIQUEZ Date: 02/27/2024 18:58 Dictated By: DAINA ENRIQUEZ M.D. Signed By: 02/27/241899 DD/ 57 TD/TT: Tapper Operator: MATHEUS [facility] HospitalRadiology Study observation (narrative)[facility] Thigh - right WO contrastOrdered By: Radiologist Radiology on 64-43-1361NNYG [employer] [place] Work Phone: XR RIBS LT PA Chepe [phone] RIBS LT PA CH EXAMINATION: XR RIBS [...] Electronically authenticated by: DARREN BOBO Date: 2022-05-22 11:30[facility] HealthCoding Summary.on 68-43-3810Kolpku Summary. CD:[id number] [file] OiBj (more content not included)...[facility] Mamm Screen w/CAD if perf and 3D Bilon 87-20-5526ZU Mamm Screen w/CAD if perf and 3D BilExam Date/Time: 01/30/2022 09:15 EDT Reason for Exam: [...] very important to your health. The current [employer] and National Comprehensive Cancer [...] Assessment: BI-RADS Category 1-Negative Recommendation: Normal interval follow-upTr[facility] Consent for Treatmenton 95-93-7989Xnjseoo for Treatment [id number]#1.00CD:[address] [place], [place] [address]Physician Orderon 98-97-6674Dhxpditsz Order [id number]#1.00CD:[address] [place], [place] [address]CBC AUTO DIFFon 04-28-2323XNVG #0.0 103/ulNormal0.0-0.1[facility] ClinicComment on above:Performed By: #### CBC #### [facility] [address] [address] [address] Danyell Emmanuel/100 WBC (Bld)0.4 %Normal0.2-2.0[facility] Comment on above:Performed By: #### CBC #### [facility] [address] [address] [address] Yilan ChangEO #0.2 103/ulNormal0.0-0.7The [facility] HospitalComment on above: Performed By: #### CBC #### [facility] [address] [place] [address] Dr. Danyell Funezosinophils/100 WBC (Bld)2.9 %Normal0.9-7.0The [facility] Comment on above:Performed By: #### CBC #### [facility] [address] [place] [address] Dr. Danyell Funezrythrocyte distribution width (RBC) [Ratio]13.9 %Ovvgdw62.0-15.0 The [facility] HospitalComment on above:Performed By: #### CBC #### [facility] [address] [place] [address] Dr. Danyell RecinosHematocrit (Bld) [Volume fraction]43.9 %Cgqtwa20.0-48.0The [facility] HospitalComment on above:Performed By: #### CBC #### [facility] [address] [place] [address] Dr. Danyell RecinosHemoglobin (Bld) [Mass/Vol]14.3 g/uUHyqkne96.0-16.0The [facility] HospitalComment on above:Performed By: #### CBC #### [facility] [address] [place] [address] Dr. Danyell Hein #0.01 10e3/ulNormal0.00-0.03The [facility] HospitalComment on above:Performed By: #### CBC #### [facility] [address] [place] [address] Dr. Danyell Hein %0.2 %Normal0.0-0.5The [facility] HospitalComment on above: Performed By: #### CBC #### [facility] [address] [place] [address] Dr. Danyell Sy #1.6 103/ulNormal1.2-3.8The [facility] HospitalComment on above:Performed By: #### CBC #### [facility] [address] [place] [address] Dr. Danyell Garciamphocytes/100 WBC (Bld)30.7 %Cwkczh19.5-60.0The [facility] HospitalComment on above:Performed By: #### CBC #### [facility] [address] [place] [address] Dr. Danyell LeyUAL DIFF REQNONormalThe [facility] HospitalComment on above: Performed By: #### CBC #### [facility] [address] [place] [address] Dr. Danyell Gomez (RBC) [Entitic mass]31.2 vvJchkck11.7-34.0The [facility] HospitalComment on above:Performed By: #### CBC #### [facility] [address] [place] [address] Dr. Danyell Gomez (RBC) [Mass/Vol]32.6 g/nPTkwobs36.9-35.2The [facility] HospitalComment on above:Performed By: #### CBC #### [facility] [address] [place] [address] Dr. Danyell Gomez (RBC) [Entitic vol]95.9 eNNrujzn19.0-99.0The [facility] HospitalComment on above:Performed By: #### CBC #### [facility] [address] [place] [address] Dr. Danyell Virk #0.6 103/ulNormal0.3-0.8The [facility] HospitalComment on above:Performed By: #### CBC #### [facility] [address] [place] [address] Dr. Danyell Castilloocytes/100 WBC (Bld)11.1 %Normal1.7-12.0The [facility] Comment on above:Performed By: #### CBC #### [facility] [address] [place] [address] Dr. Danyell Christine #2.9 103/ulNormal1.4-6.5The [facility] HospitalComment on above:Performed By: #### CBC #### [facility] [address] [place] [address] Dr. Danyell Hiltonophils/100 WBC (Bld)54.7 %Pqqbra09.0-75.0The [facility] Mentor Hospitalment on above:Performed By: #### CBC #### [facility] [address] [place] [address] Dr. Danyell Waltonlet mean volume (Bld) [Entitic vol]10.1 fLNormal9.5-13.5The [facility] HospitalComment on above:Performed By: #### CBC #### [facility] [address] [address] [address] Danyell RecinosPLT422 103/rwAgjjdz158-386Jyz [facility] HospitalComcorewell health [facility] hospital on above: Performed By: #### CBC #### [facility] [address] [place] [address] Dr. Danyell RecinosRBC4.58 106/ulNormal4.20-5.40The [facility] HospitalComcorewell health greenville hospital on above:Performed By: #### CBC #### [facility] [address] [place] [address] Dr. Danyell RecinosWBC5.2 103/ulNormal4.0-11.0The [facility] HospitalComcorewell health [facility] hospital on above: Performed By: #### CBC #### [facility] [address] [place] [address] Dr. Danyell TelloID PROFILEon 86-83-1662AJOZ-HDL RATIO NORMSEE [facility] CenterComcorewell health [facility] on above:Result Comment: 3.3 - 4.4 LOW RISK 4.4 - 7.1 AVERAGE RISK 7.1 - 11.0 MODERATE RISK >11.0 HIGH RISKPerformed By: #### LIPID, CMP #### [facility] [address] [place] [address] Dr. Danyell RecinosCholesterol [Mass/Vol]211 mg/dLCritically high<=200The [facility] on above:Performed By: #### LIPID, CMP #### [facility] [address] [place] [address] Dr. Danyell RecinosCholesterol in HDL [Mass/Vol]63 mg/dLCritically dkrq91-45AvpCleveland ClinicComment on above:Performed By: #### LIPID, CMP #### [facility] [address] [place] [address] Dr. Danyell Uribeesterol in LDL [Mass/Vol]130.2 mg/dLMercy HealthComment on above:Performed By: #### LIPID, CMP #### [facility] [address] [place] [address] Dr. Danyell Alvarez.total/Cholesterol in HDL [Mass ratio]3.3 {ratio} NormalThe [facility] HospitalComment on above:Performed By: #### LIPID, CMP #### [facility] [address] [place] [address] Dr. Danyell Unger NORMAL> or = 60 mg/dl - LOW CARDIOVASCULAR RISK <40 mg/dl - HIGH CARDIOVASCULAR RISKNoSelect Medical Specialty Hospital - CantonComment on above:Performed By: #### LIPID, CMP #### [facility] [address] [place] [address] Dr. Danyell Huff CALC NORMALSEE BELOWMercy HealthComment on above:Result Comment: <100 mg/dl OPTIMAL 100 - 129 mg/dl NEAR OR ABOVE OPTIMAL 130 - 159 mg/dl BORDERLINE HIGH 160 - 189 mg/dl HIGH >190 mg/dl VERY HIGH Performed By: #### LIPID, CMP #### [facility] [address] [place] [address] Dr. Danyell RecinosTriglyceride [Mass/Vol]89 mg/dLNormal<=150The [facility] Comment on above:Performed By: #### LIPID, CMP #### [facility] [address] [place] [address] Dr. Danyell BatistaLDL CALC17.8 mg/dLNoSelect Medical Specialty Hospital - CantonComment on above: Performed By: #### LIPID, CMP #### [facility] [address] [place] [address] Dr. Danyell RecinosPROF 14(COMP METB)on 41-10-1162Jtqikea [Mass/Vol]3.9 g/dLNormal 3.4-5.0The [facility] HospitalComment on above:Performed By: #### LIPID, CMP #### [facility] [address] [address] [address] Danyell RecinosAlbumin/Globulin [Mass ratio]0.9 {ratio}NormalThe [facility] HospitalComment on above:Performed By: #### LIPID, CMP #### [facility] [address] [address] [address] Danyell Middleton [Catalytic activity/Vol]97 U/QKlxrka35-515Iqg [facility] HospitalComment on above:Performed By: #### LIPID, CMP #### [facility] [address] [address] [address] Danyell Emanuel [Catalytic activity/Vol]22 U/CXcgdgh14-75Brj [facility] Hospitalment on above:Performed By: #### LIPID, CMP #### [facility] [address] [address] [address] Danyell Mejiason gap [Moles/Vol]14.7 mmol/LNormalThe [facility] Comment on above:Performed By: #### LIPID, CMP #### [facility] [address] [address] [address] Danyell Patel [Catalytic activity/Vol]23 U/LOmjuar39-02Qje [facility] on above:Performed By: #### LIPID, CMP #### [facility] [address] [address] [address] Danyell RecinosBilirubin [Mass/Vol]0.6 mg/dLNormal0.2-1.3The [facility] Comment on above:Performed By: #### LIPID, CMP #### [facility] [address] [address] [address] Danyell RecinosCalcium [Mass/Vol]9.2 mg/dLNormal8.5-10.1The [facility] Comment on above:Performed By: #### LIPID, CMP #### [facility] [address] [address] [address] Danyell RecinosChloride [Moles/Vol]104 mmol/NBylkoa27-633[facility] Comment on above:Performed By: #### LIPID, CMP #### [facility] [address] [address] [address] Danyell RecinosCO2 [Moles/Vol]26.6 mmol/ABzelni52.0-30.0[facility] Comment on above:Performed By: #### LIPID, CMP #### [facility] [address] [address] [address] Danyell RecinosCreatinine [Mass/Vol]0.91 mg/dLNormal0.52-1.04[facility] ClinicComment on above:Performed By: #### LIPID, CMP #### [facility] [address] [place] [address] Dr. Danyell FunezGFR-AF EAST TIMORESE>60Normal>=60The [facility] HospitalComment on above:Performed By: #### LIPID, CMP #### [facility] [address] [address] [address] Danyell Acosta-NON AF EAST TIMORESE>60Normal>=60[facility] ClinicComment on above:Performed By: #### LIPID, CMP #### [facility] [address] [address] [address] Danyell RecinosGlobulin (S) [Mass/Vol]4.4 g/dLNormalThe [facility] HospitalComment on above:Performed By: #### LIPID, CMP #### [facility] [address] [address] [address] Danyell RecinosGlucose [Mass/Vol]97 mg/rMLkplzo35-464MbeC[facility] Clinic Comment on above:Performed By: #### LIPID, CMP #### [facility] [address] [address] [address] Danyell RecinosPotassium [Moles/Vol]4.3 mmol/LNormal3.4-5.0The [facility] Comment on above:Performed By: #### LIPID, CMP #### [facility] [address] [address] [address] Danyell RecinosProtein [Mass/Vol]8.3 g/dLCritically high6.1-8.2The [facility] HospitalComment on above:Performed By: #### LIPID, CMP #### [facility] [address] [address] [address] Danyell RecinosSodium [Moles/Vol]141 mmol/BDqeraz715-308Xey [facility] Comment on above:Performed By: #### LIPID, CMP #### [facility] [address] [address] [address] Danyell RecinosUrea nitrogen [Mass/Vol]11.0 mg/dLNormal7.0-18.0The [facility] HospitalComment on above:Performed By: #### LIPID, CMP #### [facility] [address] [place] [address] Dr. Danyell RecinosUrea nitrogen/Creatinine [Mass ratio]12.1 mg/mgNormalThe [facility] HospitalComment on above:Performed By: #### LIPID, CMP #### [facility] [address] [place] [address] Dr. Danyell RecinosCovid-19 PCR ([facility])on 74-80-6522PNHT-CoV-2 (COVID-19) RNA QUIRINO+probe Ql (Unsp spec)Not detectedNormalNOT DETECTEDThe [facility] Comment on above:Result Comment: This test is not yet approved or cleared by the [place] FDA. When there are no FDA-approved or cleared tests available, and other criteria are met, FDA can make tests available under an emergency access mechanism called an Emergency Use Authorization (EUA). The EUA for this test is supported by the [place] of Health and Human Service's (HHS's) declaration that circumstances exist to justify the emergency use of in vitro diagnostics for the detection and/or diagnosis of the virus that causes COVID- 19. This EUA will remain in effect (meaning [...] of clinical signs and symptoms consistent with SARS-CoV-2.Performed By: #### CVDAGS, CVDTBH #### [facility] [address] [place] [address] Kashif KarenSYMPTOMATIC COVID-19 ANTIGENon 29-37-3831UCR StatementSEE BELOW NormalThe [facility] HospitalComment on above:Result Comment: This test has not been FDA [...] declaration is terminated or authorization is revoked sooner.Performed By: #### FAISAL, CVDTB #### [facility] [address] [place], [place] [address] Kashif AliceaOekeyMSWM-LzP-9 (COVID-19) RNA QUIRINO+probe Ql (Unsp spec)NegativeNormal NEGATIVEThe [facility] HospitalComment on above:Result Comment: CONFIRMATION BY PCR PENDING PER CDC GUIDELINES/ SYMPTOMATIC PATIENT.Performed By: #### PRISCAAGS, CVDTB #### [facility] [address] [place], [place] [address] Kashif KarenConsent Formson 40-54-3137Ssugvwo Forms [id number]#1.00OTGTIFFOhioHealth Doctors Hospital Encounters Encounter DateEncounter TypeCare ProviderFacilityStart: 06-10-2025 End: 45-11-3207UiveyoTkluxtqb Eberly NP Work Phone: [facility]BGYNStart: 05-10-2025 End: 80-30-7428VabljtWnruufve Eberly NP Work Phone: NOM[facility] Daysi OBGYNComment on above:Upper respiratory tract infection, unspecified type (Primary Dx)Start: 10-30-2024 End: 63-25-6674Xksgvtlhz encounterMatthew David Mckee PA Work Phone: n[facility] CI ORTHOPAEDICSStart: 08-25-2024 End: 76-86-6428Elrlcw flowsheetJames A Angelita DO Work Phone: [facility] CI ORTHOPAEDICSStart: 08-25-2024 End: 58-17-4041Ltjztv flowsheetJames A Angelita DO Work Phone: [facility] CI ORTHOPAEDICSStart: 08-25-2024 End: 47-95-2559suceqyveknQRCTE A AYDINDLESTONNot AvailableStart: 08-25-2024 End: 52-21-0742Pqzvar outpatient visit 15 minutesJames A Angelita DO Work Phone: noms CI ORTHOPAEDICSComment on above:Right shoulder pain, unspecified chronicity (Primary Dx); Adhesive capsulitis of right shoulder; Impingement syndrome of right shoulderStart: 06-26-2024 End: 85-64-7073ycsjfkfsziZtodwqa PetznickFacility:[facility] Hospitaltart: 05-05-2024 End: 45-02-9978crsfwywzfjYOGVJQDRQ F VALERIYot AvailableStart: 02-27-2024 End: 32-90-7524Hvwpjsife Result EncounterJames A Angelita DO Work Phone: noms External Department UnsolicitedStart: 02-27-2024 End: 90-79-4150Zmuswqnam Result EncounterJames A Angelita DO Work Phone: noms External Department UnsolicitedStart: 02-25-2024 End: 33-27-5706smugpehljvUDDGG A AYDINDLESTONNot AvailableStart: 02-12-2024 End: 69-86-0949dvifnxpnxaYWMTZL L LAURENNot AvailableStart: 01-30-2024 End: 67-83-9577sismxjvwqgPLIC C LAFFAYNot AvailableStart: 05-21-2022 End: 80-30-4653yyrekoquibBTXJOS RODRIGUEZFacility:S9Wnmoc: 67-23-9597Qryqnrotz for general adult medical examination without abnormal findingsMATTHEW PETZNICK [facility] HospitalStart: 12-22-2021 End: 93-11-5877rssoozjslqVNONONO PETZNICKFacility:Q2Gusdo: 12-22-2021 End: 96-24-5035Almgtkffw for general adult medical examination without abnormal findingsMATTHEW PETZNICKFacility:N1Rruqr: 08-11-2021 End: 12-30-1232asdhccrupeXSOTEW RUSTY ROSSFacility:K1Shkwn: 06-10-2021 End: 48-76-3872jzwyocdjfzQSLKUIHF EBERLYFacility:H1 Procedures DateProcedureProcedure DetailPerforming ClinicianStart: 27-94-5423Lyxla shoulder complete minimum 2 viewsBritany Goldstein DO Work Phone: Start: 33-12-4030Nlwcswlsmdh observation [Identifier] in Cervix by Cyto stainBritany Goldstein DO Work Phone: Start: 71-01-5261Frh lower extrem oth/thn jt w/o contr matrlBritany Goldstein DO Work Phone: Start: 06-56-1723PxgbqvxtgnhQwuen Huddleston DO Work Phone: Plan of Treatment DateCare ActivityDetailAuthorStart: 05-80-3755Yzpxwzxst for malignant neoplasm of cervixNOMS HealthcareStart: 08-13-2025 End: 13-44-3816Xbpskpx encounter xmdtwvuki13/14/2025 8:30 AM EST [facility] [address] [place] [address] Alejandra Prieto, DO [address] [place] [address] [facility] 230 Start: 40-78-9172DVDKR-19 Vaccine ( season)COVID-19 Vaccine ( season)NOM HealthcareStart: 40-78-8138Tnuydvvac vaccinationInfluenza Vaccine (#1)[facility] HealthcareStart: 02-10-2025 End: 95-57-6008Zqcksra encounter qpqyjxffk39/14/2025 8:00 AM EDT [facility] [address] [place] [address] Elda Aguilar, THERESE [address] [place] [address] [facility] DERMStart: 59-36-7455Yahxojewe for malignant neoplasm of breastMammogramNOMS HealthcareStart: 77-97-8878Wxyvwdmcy for malignant neoplasm of cervixHPV/CotestNOMS HealthcareStart: 96-85-5342Snxhmigey B Vaccines (1 of 3 - 19+ 3-dose series)Hepatitis B Vaccines (1 of 3 - 19+ 3-dose series)NOM HealthcareStart: 61-17-9997BYdA/Tdap/Td Vaccines (1 - Tdap) DTaP/Tdap/Td Vaccines (1 - Tdap)NOM HealthcareStart: 88-63-4071YXO Vaccines (1 of 1 - Standard series)MMR Vaccines (1 of 1 - Standard series)[facility] Start: 99-61-4139Buqwmzysg for malignant neoplasm of colonNOMS Healthcare Immunizations Immunization DateImmunizationNotesCare JahmimhyFiygbwym89-92-8302aibgvhkua virus vaccine, unspecified formulationGabriela Soriano TRASH COLLECTOR TRUCK DRIVER Work Phone: [facility] Lcmwkprscm79-91-0953Xoocill SARS-CoV-2 VaccinationJaflora ShaikhAngelita DO Work Phone: [facility] CareNlqtkrnonj75-52-5463Zvihgpn SARS-CoV-2 VaccinationJaflora ShaikhAngelita DO Work Phone: [facility] CareJlnsmfmwja30-22-6708Xwnjnyy SARS-CoV-2 VaccinationJaflora ShaikhAngelita DO Work Phone: [facility] CareNbxkygbyyc68-30-2856esbtkichu virus vaccine, unspecified formulationBritany Goldstein DO Work Phone: [facility] Payers DatePayer CategoryPayerPolicy [id number] Health InsuranceUNITED HEALTHCARE [id number] 2..1.451952.3.57[id number] 2..1.561189.3.57[id number] 2..1.735510.3.57[id number] 2.0.1.355987.3.57[id number] 2..1.595275.3.57[id number] 2..1.735891.3.57[id number] 2..1.712199.3.57[id number] 2.0.1.433162.3.57[id number] 2.840.1.233804.3.579.2.758795-77-2548Uyzo-uqj61074190043-23-2371Xhspdbu [id number] 2.16.840.1.964[id number] 2.840.1.362023.3.579.2.531 Social History DateTypeDetailFacilityStart: 76-49-1181Yjuavrg smoking status NHISNever smoked tobaccoNOMS HealthcareStart: 43-57-7397Ooncysn use and exposureSmokeless tobacco non-userNOMS HealthcareStart: 02-25-2024 End: 03-10-6858Ohzmgnerr beverage intakeCurrent drinker of alcohol (finding)[facility] HealthcareStart: 02-25-2024 End: 67-97-3631Izscykces beverage intakeNOMS HealthcareStart: 05-05-2024 End: 13-98-3577Pkayrlv use panelNOMS HealthcareStart: 25-19-5355Gubfezc Comment caffeine: 1-2 cups per dayNOOH HealthcareStart: 85-05-6837Jls assigned at FemaleNOOH HealthcareStart: 65-53-7815Twwdsy identityIdentifies as female gender (finding)NOMS HealthcareStart: 50-35-6871Maxnqk orientationHeterosexual (finding)NOMS HealthcareStart: 86-26-5178TwnNqnufsPUIT Healthcare Telephone encounter Note 06-10-2025 Note Date & LfqhDnyhGyioiohc40-96-0915 Telephone encounter Note* Telephone Encounter - Gabriela Soriano NP - 06/10/2025 1:43 PM EDT Patient with complaint of cold sore will sent in Valtrex and Acyclovir [facility] Note 06-10-2025 Note Date & KaawKiytGaymnyej16-71-7735 Miscellaneous Notes* Telephone Encounter - Gabriela Soriano NP - 06/10/2025 1:43 PM EDT Patient with complaint of cold sore will sent in Valtrex and Acyclovir documented in this encounterSSM [facility] Telephone encounter Note 10-30-2024 Note Date & SchrKrdlUisvpjse90-18-8238 Telephone encounter Note* Telephone Encounter - THERESE Pan - 10/30/2024 11:58 AM EST Pt was under care of Dr. Goldstein for right shoulder pain, prior injection.. I have assumed her co-signature of physical therapy notes since he has left office.. pt has 2 more therapy appt left.. she was present today at bedside with her mother who was active pt. We discussed her shoulder and recommended BICEPS tendon sheath injection. Pt agreeable . Discussed risk and benefits/ if not improving recommend MRI for further evaluation: Pt had 40mg depo medrol injection into right proximal biceps under sterile techinque. Pt tolerated well. Will observe for symptom relief.. Pt thankful. [facility] Work Phone: Note 10-30-2024 Note Date & FzaqCnbrBplgnxtp07-47-2122 Miscellaneous Notes* Telephone Encounter - THERESE Pan - 10/30/2024 11:58 AM EST Pt was under care of Dr. Goldstein for right shoulder pain, prior injection.. I have assumed her co-signature of physical therapy notes since he has left office.. pt has 2 more therapy appt left.. she was present today at bedside with her mother who was active pt. We discussed her shoulder and recommended BICEPS tendon sheath injection. Pt agreeable . Discussed risk and benefits/ if not improving recommend MRI for further evaluation: Pt had 40mg depo medrol injection into right proximal biceps under sterile techinque. Pt tolerated well. Will observe for symptom relief.. Pt thankful. documented in this encounterSSM Health Care History of Present illness Narrative 08-25-2024 Note Date & CepqTrihNpdweprd26-00-4047 History of Present illness Narrative* Britany Goldsetin, DO - 08/25/2024 11:30 AM EST Images from the original note were not included. HISTORY OF PRESENT ILLNESS: Alisia Menjivar is an 54 y.o. @ female. Chief complaint RT shoulder pain New problem: RT shoulder RT shoulder pain x 6-8 weeks (May 2024). She does recall feeling a snap when she was warming up for yoga several months ago. Anterior pain that she describes as a toothache. Limited and painful ROM.Difficulty with flexion and reaching behind her back. Stopped lifting weights 3 weeks ago due to pain. Denies weakness, denies N/T. Admits waking at HS. Tried MDP 2 months ago with minimal relief. Taking motrin prn Prior treatment: rest, taking motrin prn, XR [facility] 08/25/24 MEDICATION: Current Outpatient Medications on File Prior to Visit Medication Sig Dispense Refill estradiol (Estrace) 0.5 MG tablet Take 1 tablet (0.5 mg) by mouth Daily 90 tablet 3 No current facility-administered medications on file prior to visit. MEDICAL HISTORY: No past medical history on file. ALLERGIES: No Known Allergies VITALS: Visit Vitals OB Status No Periods Smoking Status Never PHYSICAL EXAM: Ortho Exam Diffuse tenderness over the shoulder. Point tenderness anterior lateral shoulder. 120 degrees of abduction 140 degrees of flexion internal rotation to the buttocks and external rotation 60 degrees. Positive cross an empty can sign. Mildly positive speed test. 4/5 abduction strength. No focal tenderness at the acromioclavicular joint. IMAGING: XR shoulder 2+ views right Imaging Result: August 25, 2024 x-rays AP axillary and Y scapula of the right shoulder demonstrate a type 1 acromion. The glenohumeral joint and acromioclavicular joints are intact. There are no fractures. There is normal glenoid morphology. Impression: No acute findings on x-rays of the right shoulder Hai Goldstein D.O. ASSESSMENT: ICD-10-CM 1. Right shoulder pain, unspecified chronicity M25.511 XR shoulder 2+ views right 2. Adhesive capsulitis of right shoulder M75.01 Ambulatory referral to Physical Therapy 3. Impingement syndrome of right shoulder M75.41 PLAN: I have recommended home stretching and home exercise I have instructed her on stretching techniques. I expect to see improvement within 6 weeks. If she does not improve or if she is getting worse then she will need an MRI. I reviewed xray findings with the patient and discussed treatment options, answered questions. I discussed with the patient the option of an injection. I advised the patient of risks associated with an injection including a reaction to medication, infection, failure to improve and possible worsening. The patient demonstrated understanding. Patient requesting injection. Skin Cleansed with alcohol swab. I injected under sterile technique 40 mg of Depo-Medrol into the subacromial space. Patient tolerated this well. Neurovasc intact s/p injection. Post injection care instructions discussed. Follow up in 6 weeks, any issues/concerns follow up sooner. Dr. Goldstein obtained history and examined the patient, I am acting as scribe for Dr. Goldstein/olivia I did advise the patient that I am leaving my current practice to practice in another state but my colleagues are willing to see her if she has any problems or concerns or if she desires a referral to another range management specialist we would be happy to make referral, she states she would like to continue her care here. Veronica Goldstein D.O. 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 documented in this encounter [facility] Summary Purpose Family History No Family History Records FoundNo Family History Records FoundNo Family History Records FoundNo Family History Records FoundNo Family History Records Found Advance Directives No Advanced Directives Records FoundNo Advanced Directives Records FoundNo Advanced Directives Records FoundNo Advanced Directives Records FoundNo Advanced Directives Records Found Additional Source Comments INFORMATION SOURCE (unrecogn ized section and content) DATE CREATED AUTHOR 11/20/2020 [facility] DATE CREATED AUTHOR AUTHOR'S ORGANIZ ATION 02/06/2022 [facility] DATE CREATED AUTHOR AUTHOR'S ORGANIZ ATION 05/25/2022 [facility] DATE CREATED AUTHOR AUTHOR'S ORGANIZ ATION 08/30/2024 [facility] DATE CREATED AUTHOR AUTHOR'S ORGANIZ ATION 10/16/2024 [facility] Care Teams (unrecognized sec tion and content) Team MemberRelationshipSpecialtyStart DateEnd Date Alejandra Prieto, DO [address] [place] [address] PCP - GeneralFamily Medicine02/05/23Team MemberRelationshipSpecialtyStart DateEnd Date Alejandra Prieto, DO [address] [place] [address] PCP - GeneralFamily Medicine02/05/23Team MemberRelationshipSpecialtyStart DateEnd Date Alejandra Prieto, DO [address] [place] [address] PCP - GeneralFamily Medicine02/05/23Team MemberRelationshipSpecialtyStart DateEnd Date Alejandra Prieto, DO [address] [place] [address] PCP - GeneralFamily Medicine02/05/23Team MemberRelationshipSpecialtyStart DateEnd Date Alejandra Prieto, DO [address] [place] [address] PCP - GeneralFamily Medicine02/05/23Team MemberRelationshipSpecialtyStart DateEnd Date Alejandra Prieto, DO [address] [place] [address] PCP - GeneralCompass Memorial Healthcarely Medicine02/05/23Team MemberRelationshipSpecialtyStart DateEnd Date Alejandra Prieto, DO [address] [place] [address] [facility] - [facility]/05/2310 Unallocated, [facility], [address] [place] [address] PCP - [facility]07/02/25 Reason for Visit (unrecogniz ed section and content) ReasonCommentsPain FOR RECORDS PERTAINING TO PATIENTS WHO ARE [...] BE BASED ON THE PRIMARY CLINICAL RECORDS. [facility] [employer] [facility]. provides no warranty or guarantee of the accuracy or completeness of information in this document.
--- OUTSIDE RECORDS SUMMARY | 2025-08-11 17:22 | XMS_ITS | Clinical Summary ---
Author Organization [facility] Address [address] [place] [address], [address] [place] [address] Care Team Providers Care Medart Operator Name Role Phone Unavailable Primary Care Provider Unavailabl e Social History Tobacco UseTypesPacks/DayYears UsedDateSmoking Tobacco: Never Assessed CommentsUnknownSex and Gender InformationValueDate RecordedSex Assigned at Not on fileLegal GguSoyosk38/12/2013 5:45 AM ESTGender IdentityNot on fileSexual OrientationNot on file Plan of Treatment Not on file
--- OUTSIDE RECORDS SUMMARY | 2025-08-11 17:22 | XMS_ITS | Encounter Summary ---
Author Organization [facility] Address [address] [place] [address] Care Team Providers Care Corporate Scheduler Name Role Phone PatriciaAlejandra wasserman Lissa WOODSON Primary Care Provider [phone] Unallocated, [facility] Provider Primary Care Provi nathan Encounter Details DateTypeDepartmentCare Team (Latest Contact Info)Atbafullaog33/30/2024Clinisync Result Encounter [facility] External Department Unsolicited Britany Goldstein DO [address] [facility] [address] [place] [address] Social History Tobacco UseTypesPacks/DayYears UsedDateSmoking Tobacco: NeverSmokeless Tobacco: NeverAlcohol UseStandard Drinks/WeekCommentsYes1 (1 standard drink = 0.6 oz pure alcohol)caffeine: 1-2 cups per dayCommentsUnknownSex and Gender InformationValueDate RecordedSex Assigned at TjjraDkxkye61/14/2024 10:53 AM EST Legal TlhHpodgg2023 7:08 PM EDTGender SxnnhljcDdxcga95/14/2024 10:53 AM ESTSexual KjlmlbvhmryWunxshaa92/14/2024 10:53 AM ESTdocumented as of this encounter Plan of Treatment DateTypeDepartmentCare Team (Latest Contact Info)Elegcdhrebn64/13/2025 8:40 AM ESTProcedure Visit [facility] [address] [place] [address] [place] [address] Gabriela Soriano, KEVIN [address] [facility] [address] [place] [address] 08/13/2025 8:30 AM ESTOffice Visit [facility] [address] [place] [address] Alejandra Braden, DO [address] [place] [address] documented as of this encounter Procedures Procedure NamePriorityDate/TimeAssociated DiagnosisCommentsMR FEMUR RIGHT WO IV JQGHWDIX45/30/2024 6:58 PM EDT documented in this encounter Results * MR femur right wo IV contrast (02/27/2024 6:58 PM EDT)Anatomical Region LateralityModalityLower Extremities, FemurRightMagnetic ResonanceSpecimen (Source)Anatomical Location / LateralityCollection Method / VolumeCollection TimeReceived Time02/27/2024 6:58 PM EDT Narrative 02/27/2024 7:00 PM EDT [facility] ?[address] ? [place] [address] ? Magnetic Resonance Report ? Signed ? Patient: OTTOALISIA Hou ? MR#: [id number] ?? : 1970 ?Acct:[id number] ?? Age/Sex: 53 / F ?ADM Date: 02/27/24 ?? Loc: MRI ? Attending Dr: Britany Goldstein M.D. ? Ordering Physician: Britany Goldstein M.D. ?? Date of Service: 02/27/24 ?? Procedure(s): MR femur RT wo con ?? Accession Number(s): [id number] ? cc: Britany Goldstein M.D.; ALEJANDRA BRADEN ? [facility] ? [address] ? [place] [address] ? Patient Name: ?? ALISIA MENJIVAR ? MRN: [id number] ? date: 1970 ?Sex: F ?? Assigned Patient Location: MRI ?? Current Patient Location: MRI ?? Accession/Order Number: [id number] ?? Exam Date: 02/27/2024 ??16:47 ?Report Date: 02/27/2024 ??18:58 ? At the request of: ?? BRITANY ??VERONICA ? Procedure: ??MR femur RT wo con ? EXAM: MR femur RT wo con ? HISTORY: The patient is a 53-year-old female. Right hamstring tendon tear ? COMPARISON: CT scan of the right femur from 02/22/2024. ? TECHNIQUE: Coronal T1, STIR; sagittal STIR; axial T1, T2, STIR. ? FINDINGS: There is a complete avulsion of the right hamstring tendons off of ?? the ischial tuberosity. The torn and retracted ends of the hamstring tendons ?? can be seen on sagittal image 18. The gap between the retracted end of the ?? hamstring tendons and the ischial tuberosity measures 3 cm on coronal image ?? 26. ? Fluid and edema is seen throughout the region of the hamstring tendon avulsion ? and fluid tracks along the otherwise intact hamstring muscles. ? No other muscle or tendon tears are seen within the right thigh or hip. ? No abnormal bone marrow signal or edema is seen within the right femur or ?? acetabulum to indicate the presence of a fracture, stress fracture, bone ?? contusion, or avascular necrosis. ? MR/MR femur RT wo con ?? IMPRESSION: ? Avulsion of the origin of the right hamstring tendons. ? Electronically authenticated by: DAINA ??MINA ?? Date: 02/27/2024 ??18:58 ? Dictated By: ?DAINA ENRIQUEZ M.D. ? Signed By: ?02/27/24 1900 ? DD/ 1858 ? TD/TT: ? Supervisor [employer]: Procedure Note Radiology, Radiologist, MD - 02/28/2024 [place] [address] Magnetic Resonance Report Signed Patient: ALISIA MENJIVAR LMR#: [id number] : 1970Acct:[id number] Age/Sex: 53 / FADM Date: 02/27/24 Loc: MRI Attending Dr: Britany Goldstein M.D. Ordering Physician: Britany Goldstein M.D. Date of Service: 02/27/24 Procedure(s): MR femur RT wo con Accession Number(s): [id number] cc: Britany Goldstein M.D.; ALEJANDRA BRADEN [place] [id number] Patient Name: ALISIA MENJIVAR MRN: [id number] date: 1970 Sex: F Assigned Patient Location: MRI Current Patient Location: MRI Accession/Order Number: [id number] Exam Date: 02/27/2024 16:47 Report Date: 02/27/2024 [...] complete avulsion of the right hamstring tendons offof the ischial tuberosity. The torn and retracted ends of the hamstringtendons can be seen on sagittal image 18. The gap between the retracted end of the hamstring tendons and the ischial tuberosity measures 3 cm on coronalimage 26. Fluid and edema is seen throughout the region of the hamstring tendonavulsion and fluid tracks along the otherwise intact [...] 18:58 Dictated By: DAINA ENRIQUEZ M.D. Signed By:02/27/24 190 DD/ 0249 TD/TT: Supervisor [employer]: Authorizing ProviderResult TypeResult StatusJaflora Goldstein [facility] MRI PROCEDURESFinal Result documented in this encounter Visit Diagnoses Not on filedocumented in this encounter Care Teams Team MemberRelationshipSpecialtyStart DateEnd Date Alejandra Braden DO [address] [place] [id number] PCP - GeneralFamily Medicine02/05/2310 Unallocated, Noms Beata, [address] [place] [address] PCP - GeneralFamily Qjyvjkji40/3/25documented as of this encounter
--- OUTSIDE RECORDS SUMMARY | 2025-08-11 17:22 | XMS_ITS | Clinical Summary ---
Author Organization [facility] Address [address] [place] [address] Care Team Providers Care Bleacher Pulp Name Role Phone Unallocated, N[facility] Provider Primary Care Provi nathan Allergies No known active allergies Medications MedicationSigDispense QuantityRefillsLast FilledStart DateEnd DateStatus estradiol (Estrace) 0.5 MG tablet Indications:Hormone imbalanceTake 1 tablet (0.5 mg) by mouth Daily 90 tablet 4Active desonide (DesOwen) 0.05 % cream Indications:DermatitisAPPLY TOPICALLY 2 TIMES A DAY FOR 14 DAYS NEEDED 60 g 5Active phentermine (Adipex-P) 37.5 MG tablet Indications:Encounter for weight managementTake 1 tablet (37.5 mg) by mouth in the morning. Take before meals. 90 tablet 5Active metFORMIN XR (Glucophage-XR) 500 MG 24 hr tablet Indications:Insulin resistanceTake 2 tablets (1,000 mg) by mouth in the evening. Take with meals 180 tablet 5Active estradiol (Climara) 0.05 MG/24HR Indications:Postmenopausal state,Menopausal disorderPlace 1 patch over 7 days on the skin 1 (one) time per week 12 patch /6Active Estradiol-Progesterone (Bijuva) 0.5-100 MG capsule Indications:Symptomatic menopausal or female climacteric states,Menopausal syndrome on hormone replacement therapy,Dyspareunia in femaleTake 1 capsule by mouth Daily 90 capsule 5Active Estradiol Starter Pack (Imvexxy Starter Pack) 4 MCG insert Indications:Menopausal disorder,Dyspareunia in female,Menopausal syndrome on hormone replacement therapyInsert 1 suppository into the vagina 2 (two) times a week 8 each 5Active azithromycin (Zithromax Z-Guicho) 250 MG tablet Indications:Upper respiratory tract infection, unspecified typeAs directed 6 tablet 5Active acyclovir (Zovirax) 5 % ointment Indications:Cold soreApply topically 6 (six) times a day Space applications every 3 hours. 30 g 5Active Estradiol-Progesterone (Bijuva) 1-100 MG capsule Indications:[place] eye disease of both eyes,Menopausal disorder,Hormone imbalance, Menopausal syndrome on hormone replacement therapy,Dyspareunia in femaleTake 1 tablet by mouth Daily 30 capsule 5Active fluticasone (Flonase) 50 MCG/ACT nasal spray Indications:Allergy, initial encounterAdminister 1 spray into each nostril Daily Shake gently. Before first use, prime pump. After use, clean tip and replace cap. 16 g 1216Active tobramycin (Tobrex) 0.3 % ophthalmic solution Indications:[place] eye disease of both eyesAdminister 2 drops into both eyes every 4 (four) hours for 14 days 5 mL /Expired predniSONE (Deltasone) 20 MG tablet Indications:DizzinessTake 1 tablet (20 mg) by mouth Daily for 5 days 5 tablet /Expired meclizine (Antivert) 25 MG tablet Indications:Dizziness, nonspecificTake 1 tablet (25 mg) by mouth 3 (three) times a day as needed for dizziness for up to 10 days 30 tablet /03/2025Expired amoxicillin (Amoxil) 500 MG tablet Indications:Otalgia of both earsTake 1 tablet (500 mg) by mouth in the morning and 1 tablet (500 mg) in the evening and 1 tablet (500 mg) before bedtime. Do all this for 7 days. 21 tablet /12/2024Expired ofloxacin (Floxin) 0.3 % otic solution Indications:Otalgia of both earsAdminister 5 drops into each ear in the morning and 5 drops before bedtime. Do all this for 10 days. 5 mL Expired Active Problems ProblemNoted DateDiagnosed DateMenopausal syndrome on hormone replacement tlwusdn8503/10/2025Dyspareunia in lklifb625Acute /02/2024Insulin jlguqwcnsd96/02/7494Kicsjm87/02/2024Notalgia perdxihboquc26/02/2024Other abnormalities of gait and qeiabhqd29/02/2024Other specified bacterial agents as the cause of diseases classified kozklsuii96/02/2024Stress /02/2024 URI, acute01/30/2024olon cancer vervpdtli34/02/2024ight hip pain01/29/2024 Postmenopausal state01/29/2024Menopausal bofkofoc41/01/2024Thrombocytosis 10/26/2016Bence Abdalla lvjexyhkdbo67/13/8912Tftxxuga59/22/2015Telangiectasia 04/10/2012 Encounters DateTypeDepartmentCare WwcoYurbnaqsvmc07/12/2025Telephone [facility] [address] [place] [address] Mariam Woody MA 07/27/2025Telephone [facility] [address] [address] Christi Stafford LPN 07/27/2025Telephone [facility] [address] [address] Mariam Woody MA 07/20/2025Refill [facility] [address] [address] Ryan Marquez, DO Lay07/12/2025Telephone [facility] [address] [facility] [place] [address] Gabriela Soriano NP 06/10/2025Telephone [facility] [address] [address] Gabriela Soriano, MEDICAL SUPPORT ASSISTANT 06/10/2025Refill [facility] [address] [address] Gabriela Soriano, MEDICAL SUPPORT ASSISTANT 06/04/2025Refill [facility] [address] [address] Ryan Marquez, DO Poison ivy05/25/2025bstract [facility] [address] [address] Ryan Marquez, DO 5Abstract [facility] [address] [facility] [address] Ryan Marquez, DO 05/20/2025Refill [facility] [address] [address] Ryan Marquez, DO Hypoglycemiafrom Last 3 Months Immunizations ImmunizationAdministration DatesNext DueInfluenza, Reimwgsowtr63/06/2004Moderna SARS-CoV-2 Pjhjlixiuwn24/12/2021,10/25/2020,09/27/2020 Family History Medical HistoryRelationNameCommentsNo Known ProblemsBrotherDiabetesFatherBruce a FittlerHeart diseaseFatherBruce a FittlerStrokeFatherBruce a FittlerBreast cancerMotherKathy MaysCancerMotherKathy MaysHyperlipidemiaMotherKathy Ny HypertensionMotherKathy MaysMigrainesMotherKathy MaysOsteoporosisMotherKathy MaysThyroid cancerMotherKathy Maysdumping syndromeMotherKathy MaysNo Known ProblemsSisterMelanomaNeg HxRelationNameStatusCommentsBrotherFatherBruce a FittlerDeceasedMotherKathy MaysAliveSister Social History Tobacco UseTypesPacks/DayYears UsedDateSmoking Tobacco: NeverSmokeless Tobacco: Never Tobacco Cessation:Counseling Given: Not Answered Alcohol UseStandard Drinks/WeekCommentsYes1 (1 standard drink = 0.6 oz pure alcohol)caffeine: 1-2 cups per dayCommentsNoSex and Gender Information ValueDate RecordedSex Assigned at JlksuVrfsgx05/14/2024 10:53 AM ESTLegal Sex Tjhpej6012/12/2022 7:08 PM EDTGender QptxfmgpEnapto66/14/2024 10:53 AM ESTSexual IfldjglviinIswzjrfy97/14/2024 10:53 AM EST Last Filed Vital Signs Vital SignReadingTime TakenCommentsBlood Uxcrlxug035/8205/05/2024 8:02 AM EDT Pulse--Temperature--Respiratory Rate--Oxygen Saturation--Inhaled Oxygen Concentration--Laeazt02.1 kg (181 lb)05/05/2024 8:02 AM GPYBfsimc384 cm (5' 8.5 )05/05/2024 8:02 AM EDTBody Mass Index27.1208 8:02 AM EDT Plan of Treatment DateTypeDepartmentCare Team (Latest Contact Info)Kahpldyxupa19/13/2025 8:40 AM ESTProcedure Visit [facility] [address] [facility] [place] [address] Gabriela Soriano, MEDICAL SUPPORT ASSISTANT [address] [facility] [place] [address] 08/13/2025 8:30 AM ESTOffice Visit [facility] [address] [place] [address] Sea Braden, [address] [place] [address] Health MaintenanceDue DateLast DoneCommentsCT Ypeqiizshnhl1972Colonoscopy 1970Colorectal Cancer Emmdunwho1972FIT-DNA1972FIT1970 FOBT06/15/19726964Kvccyoqfzscsv1972HPV/Xhxvbm0906/15/20026271Luskubsff90/14/2024 08/13/2023, 08/13/2023, 01/30/2022, Additional history existsCOVID-19 Vaccine ( season)/08/2021, 10/25/2020, 09/27/2020Influenza Vaccine (#1)/, 07/05/2004Cervical Cancer Bshjmvvgb47/06/2027Pap Smear neumococcal Vaccine: Pediatrics (0 to 5 Years) and At-Risk Patients (6 to 64 Years)Aged OutNo longer eligible based on patient's age to complete this topic Procedures Procedure NamePriorityDate/TimeAssociated DiagnosisCommentsTHINPREP TIS PAP AND HPV MRNA E6/E7 WITH REFLEX TO HPV 16,18/31Uhpjwaq21/06/2024 12:00 AM EDT Encounter for gynecological examination without abnormal finding BI MAMMOGRAM SCREENING PKFJJMOPLMzjvjcx25/14/2023 1:08 PM EST Breast cancer screening by mammogram from Last 3 Months or Most Recently Relevant to Health Maintenance Results * THINPREP TIS PAP AND HPV MRNA E6/E7 WITH REFLEX TO HPV 16,18/45 (05/05/2024 12:00 AM EDT)ComponentValueRef RangeTest MethodAnalysis TimePerformed At Pathologist SignatureCLINICAL INFORMATIONQUESTComment:None givenLMPQUEST Comment:None givenPREV. PAPQUESTComment:None givenPREV. BXQUESTComment:None givenSOURCEQUESTComment:None givenSTATEMENT OF ADEQUACYQUESTComment: SATISFACTORY FOR EVALUATIONINTERPRETATION/RESULTQUESTComment: Cytology Results: Negative for intraepithelial lesion or malignancy. Atrophic pattern; predominantly parabasal cells COMMENTQUESTComment: This Pap test has been evaluated with computer assisted technology. Parabasal cells in smears that lack maturation due to atrophy or other hormonal reasons cannot be differentiated from transformation zone cells. Accordingly, presence or absence of endocervical or transformation zone components cannot be reported in this patient. CYTOTECHNOLOGISTQUESTComment: EMP, CT(ASCP) CT screening location: [place] [address]. (ALWAYS MESSAGE)QUESTComment: EXPLANATORY NOTE: The Pap is a screening test for cervical cancer. It is not a diagnostic test and is subject to false negative and false positive results. It is most reliable when a satisfactory sample, regularly obtained, is submitted with relevant clinical findings and history, and when the Pap result is evaluated along with historic and current clinical information. HPV MRNA E6/E7Not DetectedNot DetectedQUESTComment: Methodology: Glue Spreading Machine Operator-Mediated Amplification This assay detects E6/E7 viral messenger RNA (mRNA) from 14 high-risk HPV types (16,18,31,33,35,39,45,51,52,56,58,59,66,68). Cervical sources are required for HPV testing. If a vaginal source from a patient who has had a total hysterectomy with removal of cervix was submitted, please contact the testing laboratory for alternative testing options. For additional information, please refer to http://education.Casper/faq/PBN929p2 (This link if provided for information/ educational purposes only.) Specimen (Source)Anatomical Location / LateralityCollection Method / Volume Collection TimeReceived TimeSwabCervical swab / Fnumkfh15/03/2024 4:04 AM EDT Narrative Resulting Agency Comment Performing Organization Information ?Site ID: [id number] ?Name: [facility] ?Address: [address] [place] [id number] ?Director: Aston Patten MD Authorizing ProviderResult TypeResult StatusStalbin GARCIA CYTOLOGY ORDERABLESFinal ResultPerforming OrganizationAddressCity/State/ZIP CodePhone Number [facility] * Bilateral screening mammogram (08/13/2023 1:08 PM EST) Narrative Authorizing ProviderResult TypeResult StatusCorey Jimmy THIBODEAUX PROCEDURESFinal ResultPerforming OrganizationAddressCity/State/ZIP CodePhone Number [facility] [address] [place] [address], from Last 3 Months or Most Recently Relevant to Health Maintenance Insurance Care Teams Team MemberRelationshipSpecialtyStart DateEnd Date Unallocated, [facility] Beata, [address] [place], [place] [id number] PCP - GeneralFamily Vqhkdbtf60/3/25
[2025-08-11 17:37] LABS: Hematocrit 39.2 % (36.0-48.0); Hemoglobin 13.0 g/dL (12.0-16.0); Immature Granulocytes Abs Auto 0.01 10^3/uL (0.00-0.03); Immature Granulocytes Pct Auto 0.2 % (0.0-0.5); Lymphocytes Absolute Auto 2.6 10^3/uL (1.2-3.8); Mean Corpuscular HGB Conc 33.2 g/dL (29.9-35.2); Mean Corpuscular Hemoglobin 31.6 pg (26.7-34.0); Mean Corpuscular Volume 95.1 fL (81.0-99.0); Platelet Count 375 10^3/uL (150-450); Red Blood Count 4.12 10^6/uL (4.20-5.40); White Blood Count 6.0 10^3/uL (4.0-11.0)
[2025-08-11] MEDS: METHYLPREDNISOLONE SOD SUCC PF 40 MG/ML VIAL IVP (17:43)
[2025-08-11 17:47] VITALS: BP 127/79; PULSE 78; O2SAT 98
[2025-08-11 17:53] LABS: Alanine Aminotransferase 25 U/L (14-59); Albumin Globulin Ratio 0.9; Albumin Level 3.4 g/dL (3.4-5.0); Alkaline Phosphatase 88 U/L (46-116); Anion Gap 8.6; Aspartate Amino Transferase 14 U/L (15-37); Blood Urea Nitrogen 20.0 mg/dL (7.0-18.0); Calcium 8.7 mg/dL (8.5-10.1); Carbon Dioxide 28.8 mmol/L (21.0-32.0); Chloride 106 mmol/L (98-107); Estimated GFR (African America >60 (>=60 mL/min/1.73m^2); Estimated GFR (Non-African Ame >60 (>=60 mL/min/1.73m^2); Globulin 3.7 g/dL; Glucose 109 mg/dL (74-106); Potassium 3.4 mmol/L (3.5-5.1); Sodium 140 mmol/L (136-145); Total Protein 7.1 g/dL (6.4-8.2)
== END 2025-08-11 19:20 | disposition home or self-care (01) ==
PROVIDERS: Student in an Organized Health Care Education/Training Program; Emergency Provider Emergency Medicine; PCP Family Medicine
DX: R42 Dizziness and giddiness (principal); S99.911A Unspecified injury of right ankle, initial encounter; X50.1XXA Overexertion from prolonged static or awkward postures, initial encounter
CPT/HCPCS: 36415; 70450; 70496; 70498; 73610; 80053; 85025; 96374; 96375; 99285; J1200; J2919; Q9967

== ENCOUNTER 2025-08-12 19:05 | Outpatient (REF) | payer OTHER, SELFPAY ==
--- OUTSIDE RECORDS SUMMARY | 2025-08-12 08:40 | XMS_ITS | Encounter Summary ---
Author Organization [facility] Address [address] [place] [address] Care Team Providers Care Burr Filer Name Role Phone Unallocated, Noms Provider Primary Care [facility] Reason for Visit * ReasonCommentsGynecologic Exam Encounter Details DateTypeDepartmentCare Team (Latest Contact Info)Aagvqlqyaxw95/13/2025 8:40 AM ESTProcedure Visit [facility] [address] [place] [address] Gabriela Soriano, CREAM MAKER [address] [place] [address] Well woman exam with routine gynecological exam; Osteoporosis, post-menopausal Social History Tobacco UseTypesPacks/DayYears UsedDateSmoking Tobacco: NeverSmokeless Tobacco: NeverAlcohol UseStandard Drinks/WeekCommentsYes1 (1 standard drink = 0.6 oz pure alcohol)caffeine: 1-2 cups per dayCommentsNoSex and Gender Information ValueDate RecordedSex Assigned at FnwvoAgkmur25/14/2024 10:53 AM ESTLegal Sex Xqlohz3512/12/2022 7:08 PM EDTGender VaxoguonKbahij69/14/2024 10:53 AM ESTSexual OsfjfxgaxrjYzagamhv06/14/2024 10:53 AM ESTdocumented as of this encounter Last Filed Vital Signs Vital SignReadingTime TakenCommentsBlood Divuznvu109/7608/12/2025 9:11 AM EST Pulse--Temperature--Respiratory Rate--Oxygen Saturation--Inhaled Oxygen Concentration--Rktito90.5 kg (184 lb)08/12/2025 9:11 AM ESTHeight--Body Mass Index27.5708 8:02 AM EDTdocumented in this encounter Progress Notes * Gabriela Soriano, CREAM MAKER - 08/12/2025 8:40 AM EST Reason for [...] cancer Mother Allie Ny Osteoporosis Mother Allie Ny Migraines Mother Allie Ny Breast cancer Mother Allie Wises Other (dumping syndrome) Mother Allie Ny Diabetes Father Juan Francisco a Fittler Heart disease Father Juan Francisco a Fittler Stroke Father Juan Francisco a Fittler No Known Problems Sister No Known Problems Brother Melanoma Neg Hx SURGICAL HISTORY Past Surgical History: Procedure Laterality Date IRIDOTOMY / IRIDECTOMY 2014 OTHER SURGICAL HISTORY Right 03/16/2024 hamstring repair [place] NASAL ENDOSCOPY DIAGNOSTIC UNI/BI SPX 2012 REVIEW [...] nursing note reviewed. 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 Vitals: Estimated body mass index is [...] Plan of Treatment DateTypeDepartmentCare Team (Latest Contact Info)Kkgosryqadm63/14/2025 8:30 AM ESTOffice Visit [facility] [address] [place] [address] [place], [address] [place] [address] NameTypePriorityAssociated DiagnosesOrder ScheduleTHIN PREP TIS PAP AND HR HPV DNAPathology and CytologyRoutine Well woman exam with routine gynecological exam Ordered: 08/12/2025documented as of this encounter Visit Diagnoses Diagnosis Well woman exam with routine gynecological exam Routine gynecological examination Osteoporosis, post-menopausal Senile osteoporosis documented in this encounter Care Teams Team MemberRelationshipSpecialtyStart DateEnd Date Unallocated, Noms Provider, [address] [place] [address] PCP - GeneralFamily Qorznmtb02/3/25documented as of this encounter
--- OUTSIDE RECORDS SUMMARY | 2025-08-12 19:08 | XMS_ITS | CCD ---
Author Organization [facility] Inform ion [facility] Care Team Providers Care Supervisor Specialty Plant Name Role Phone PRISCILA SMITH Admitting Unavailable [...] Petznick Alejandra [place] Primary Care Provider [phone] VERONIKA DOBBS Attending Unavailable ALEJANDRA PRIETO Referring Unavailable ELDA AGUILAR Attending Unavailable BRITANY GOLDSTEIN Attending Unavailable ANUPAMA KEVIN Attending Unavailable BRITANY GOLDSTEIN Attending Unavailable BRITANY GOLDSTEIN Referring Unavailable Sampson, Alejandra Primary Care Unavailable Veronica Dobbs Attending Unavailable Veronica Dobbs Admitting Unavailable Petznick Alejandra [place] Primary Care Provider [phone] Unallocated , Noms Provider Primary Care Provi nathan Medications Current Medications MedicationDrug Class(es)DatesSig (Normalized)Sig (Original)acyclovir 0.05 mg/mg topical ointment (1 source)Herpesvirus Nucleoside Analog DNA Polymerase Inhibitor, Herpes Simplex Virus Nucleoside Analog DNA Polymerase Inhibitor, Herpes Zoster Virus Nucleoside Analog DNA Polymerase InhibitorStart: 42-81-8004oxswvmcji (Zovirax) 5 % ointment Indications: Cold sore Apply topically 6 (six) times a day Space applications every 3 hours. 30 g 1 06/10/2025 ActiveStart: 86-20-3835tmzeicjij (Zovirax) 5 % ointment Indications: Cold sore Apply topically 6 (six) times a day Space ap plications every 3 hours. 30 g 1 06/10/2025 Activeazithromycin 250 mg oral tablet (3 sources)Macrolide AntimicrobialStart: 84-85-4036jtqgfvxerakh (Zithromax Z- Guicho) 250 MG tablet Indications: Upper respiratory tract infection, unspecified type As directed 6 tablet 05/10/2025 ActiveContinuous Glucose Conference Services Director (Dexcom G7 Conference Services Director) device (2 sources)Start: 05-20-2025 End: 91-38-4969Cibqzymhiw Glucose Conference Services Director (Dexcom G7 Conference Services Director) device Indications: Hypoglycemia 1 Device continuously 1 each 05/20/2025 06/19/2025 ActiveContinuous Glucose Sensor (Dexcom G7 Sensor) misc (2 sources)Start: 05-20-2025 End: 87-72-3728Mxqylzchvc Glucose Sensor (Dexcom G7 Sensor) misc Indications: Hypoglycemia 1 each Every 10 (ten) days 3 each 3 05/20/2025 06/19/2025 Active desonide 0.5 mg/ml topical cream (3 sources)CorticosteroidStart: 00-28-6658sukdiikk (DesOwen) 0.05 % cream Indications: Dermatitis APPLY TOPICALLY 2 TIMES A DAY FOR 14 DAYS NEEDED 60 g 2 12/17/2024 Activeestradiol 0.004 mg vaginal insert (17 sources)EstrogenStart: 03-15-2025 End: 38-88-7406Dovraplme (Imvexxy Maintenance Pack) 4 MCG insert Indications: Menopausal disorder , Dyspareunia infemale , Menopausal syndrome on hormone replacement therapy Insert 1 Insert into the vagina 2 (two)times a week 24 each 03/18/2025 06/16/2025 ActiveStart: 03-04-2025 End: 97-67-4205dbdhkexmo (Climara) 0.05 MG/24HR Indications: Postmenopausal state , Menopausal disorder Place 1 patch over 7 days on the skin 1 (one) time per week 12 patch 3 03/04/2025 03/04/2026 ActiveStart: 30-37-0028lehw 1 tablet by mouth once dailyestradiol (Estrace) 0.5 MG tablet Indications: Hormone imbalance Take 1 tablet (0.5 mg) by mouth Daily 90 tablet 3 12/11/2023 Active Estradiol / Progesterone (3 sources)Progesterone, EstrogenStart: 80-41-1288uemr 0.5-100 mg by mouth once dailyEstradiol-Progesterone (Bijuva) 0.5-100 MG capsule Indications: Symptomatic menopausal or female climacteric states , Menopausal syndrome on hormone replacement therapy , Dyspareunia in female Take 1capsule by mouth Daily 90 capsule 3 03/10/2025 ActiveStart: 03-10-2025 End: 47-08-9343gyur 0.5-100 mg by mouth once dailyEstradiol-Progesterone (Bijuva) 0.5-100 MG capsule Indications: Symptomatic menopausal or female cli macteric states , Menopausal syndrome on hormone replacement therapy , Dyspareunia in female Take 1capsule by mouth Daily 90 capsule 3 03/10/2025 06/08/2025 Mudtnu82 hr metFORMIN hydrochloride 500 mg extended release oral tablet (3 sources)BiguanideStart: 02-16-2025 End: 33-82-4318jeuh 2 tablets by mouth every twenty-four hours at mealtime metFORMIN XR (Glucophage-XR) 500 MG 24 hr tablet Indications: Insulin resistance Take 2 tablets (1,000 mg) by mouth in the evening. Take with meals 180 tablet 3 02/16/2025 Activephentermine hydrochloride 37.5 mg oral tablet (3 sources)Sympathomimetic Amine AnorecticStart: 72-54-7785dtdx 1 tablet by mouth before mealtimephentermine (Adipex-P) 37.5 MG tablet Indications: Encounter for weight management Take 1 tablet (37.5 mg) by mouth in the morning. Take before meals. 90 tablet 02/04/2025 ActivepredniSONE 50 mg oral tablet (2 sources)Start: 06-04-2025 End: 07-45-9405rjjg 1 tablet by mouth once dailypredniSONE (Deltasone) 50 MG tablet Indications: Poison sam Take 1 tablet (50 mg) by mouth Daily for 7 days 7 tablet 06/04/2025 06/11/2025 ActivevalACYclovir 1000 mg oral tablet (4 sources)Herpesvirus Nucleoside Analog DNA Polymerase Inhibitor, Herpes Simplex Virus Nucleoside Analog DNA Polymerase Inhibitor, Herpes Zoster Virus Nucleoside Analog DNA Polymerase InhibitorStart: 06-10-2025 End: 06-50-2806qidb 1 tablet by mouth in the morning, [...] 21 tablet 06/10/2025 06/10/2025 Discontinued (Reorder) End: 25-96-7754hkvLUPxznktq (Valtrex) 1 g tablet Take 1,000 mg by mouth in the morning and 1,000 mg in the eveningand 1,000 mg before bedtime. 06/10/2025 Discontinued (Dose adjustment) Problems Active Problems Problem ClassificationProblemDateDocumented DateEpisodic/ChronicAnxiety disorders (8 sources)Acute stress disorder; Translations: [Acute stress reaction]Onset: 261069-80-7181UqqjhknMfexlwwsdr disorders (12 sources)Disorder associated with menstruation AND/OR menopause; Translations: [Unspecified menopausal and perimenopausal disorder]Onset: 610410-33-2061CvwfaiaLatab connective tissue disease (4 sources)Adhesive capsulitis of right shoulder; Translations: [Adhesive capsulitis of right shoulder]84-81-6597JimaeblkGjrso connective tissue disease (2 sources)Impingement syndrome of right shoulder region; Translations: [Impingement syndrome of right shoulder]57-87-4132DtnzqorjKsmlj female genital disorders (4 sources)Pain in female genitalia on intercourse; Translations: [Unspecified dyspareunia]Onset: 363727-20-3405OpyhdbvAgife lower respiratory disease (4 sources)Pleurodynia; Translations: [PLEURODYNIA]Onset: 11-75-7631Asckgbhr Other non-traumatic joint disorders (2 sources)Pain in right shoulder; Translations: [Pain in joint, shoulder region]22-81-4962KdjlyhvcZiahl nutritional; endocrine; and metabolic disorders (8 sources)Insulin resistance; Translations: [Insulin resistance]Onset: 687970-75-4679UacnnimNlhxgoffuapc (3 sources)CONTACT W/AND (SUSP) EXPOS COVID-19; Translations: [CONTACT W/AND (SUSP) EXPOS COVID-19]Onset: 16-95-8407Wxpks infection (1 source)Herpes labialis; Translations: [Herpesviral vesicular dermatitis] 33-81-4640Ozxhcngj Past or Other Problems Problem ClassificationProblemDateDocumented DateEpisodic/ChronicBacterial infection; unspecified site (8 sources)Bacterial infectious disease; Translations: [Other specified bacterial agents as the cause of diseases classified elsewhere]Onset: 01-30-2024 29-23-4843YtxjblvzJriafcqicqcal symptoms and ill-defined conditions (8 sources)Bence-Abdalla proteinuria; Translations: [Bence Abdalla proteinuria] Onset: 653473-10-2635VhwtpkkdLabdnkdysyhpn and screening for infectious disease (4 sources)Encounter for immunization; Translations: [ENCOUNTER FOR IMMUNIZATION]Onset: 24-72-5956ZksayinrEsiyxwmvmory diseases of female pelvic organs (8 sources)Acute vaginitis; Translations: [Acute vaginitis]Onset: 01-30-2024 67-63-6897JfuwnnizDqgnnul and fatigue (1 source)Other fatigue; Translations: [Other fatigue]Onset: 87-21-9952Lkeaszww Nausea and vomiting (8 sources)Nausea; Translations: [Nausea]Onset: 784048-37-7962Hugjnoee Neoplasms of unspecified nature or uncertain behavior (8 sources)Thrombocytosis; Translations: [Thrombocytosis]Onset: 10-26-2016 94-87-5472ZubioohmQzogw circulatory disease (8 sources)Telangiectasia disorder; Translations: [Nevus, non-neoplastic]Onset: 767030-84-4545SmypnbliRezzr nervous system disorders (8 sources)Notalgia paresthetica; Translations: [Paresthesia of skin]Onset: 348906-31-2636DasmwxngCrkpp nervous system disorders (8 sources)Finding related to ability to move; Translations: [Other abnormalities of gait and mobility]Onset: 912664-65-6845PmqpkmoyUhspi non- traumatic joint disorders (8 sources)Hip pain; Translations: [Pain in right hip]Onset: 01-29-2024 15-72-4546ThxzimlqTrhxu screening for suspected conditions (not mental disorders or infectious disease) (8 sources)Patient encounter status; Translations: [Encounter for screening for malignant neoplasm of colon]Onset: 182284-95-4159LemzxojzJosjf skin disorders (8 sources)Wrinkled skin; Translations: [Other specified disorders of the skin and subcutaneous tissue]Onset: 284025-73-0854NeruwjlbVhwdz upper respiratory infections (9 sources)Acute upper respiratory infection; Translations: [Acute upper respiratory infection, unspecified]Onset: 854257-59-9580QvmalbfuCvgldpiv codes; unclassified (8 sources)Postmenopausal state; Translations: [Asymptomatic menopausal state] Onset: 033647-78-3235GhajupovPxypunwfujtg (1 source)CONTACT W/AND (SUSP) EXPOS COVID-19; Translations: [CONTACT W/AND (SUSP) EXPOS COVID-19]Onset: 06-10-2021 Results Test NameValueInterpretationReference RangeFacilityXR Shoulder - right 2 Viewson 12-88-8395Pburpqu Result: August 25, 2024 x-rays AP axillary and Y scapula of the right shoulder demonstrate a type 1 acromion. The glenohumeral joint and acromioclavicular joints are intact. There are no fractures. There is normal glenoid morphology. Impression: No acute findings on x-rays of the right shoulder Hai Goldstein D.O.[facility] HealthcareH[facility] HealthcareRadiology Study observation (narrative)[facility] HealthcareThyroxine (T4) Totalon 73-99-9093U5 [Mass/Vol]7.97 ug/dLNormal5.39-11.82[facility] Physician GroupComment on above:Performed By: #### T3F, T4T, T3T #### [address] #### T3R #### [facility] ,Triiodothyronine (T3) Freeon 88-00-1289Pdivqiwisigrpaow (T3) Free3.47 pg/mL Normal2.50-3.90[facility] Physician [facility] HospitalComment on above:Result Comment: PERFORMED BY: [place] [address] PATHOLOGIST SEEING EYE DOG TEACHER DAYRON FLOWERS M.D.Performed By: #### T3F, T4T, T3T #### [address] #### T3R #### [facility] ,Triiodothyronine (T3) Reverseon 55-32-6061Wcgcbuifgxkaocsb (T3) Jbweblq42.8 ng/dLNormal9.2-24.1[facility] Physician GroupComment on above:Result Comment: This test was developed and its performance characteristics determined by [facility]. It has not been cleared or approved by the Food and Drug Administration. Performed at: [address] [id number] [place]: Pj Murphy MD, Phone: [phone] PERFORMED BY: [place] [address] PATHOLOGIST SEEING EYE DOG TEACHER DAYRON FLOWERS M.D.Performed By: #### T3F, T4T, T3T #### [address] #### T3R #### [facility] ,Triiodothyronine (T3) Totalon 16-57-7188Qdtzzxchbvcebtoe (T3) Total0.95 ng/mL Normal0.87-1.78[facility] Physician GroupComment on above:Result Comment: PERFORMED BY: [place] [address] PATHOLOGIST SEEING EYE DOG TEACHER DAYRON FLOWERS M.D.Performed By: #### T3F, T4T, T3T #### [address] [place] [address] [facility] #### T3R #### [facility] ,MR Thigh - right WO contraston 87-03-3826[place] [address] Magnetic Resonance Report Signed Patient: ALISIA MENJIVAR MR#: [id number] : 1970 Acct:[id number] Age/Sex: 53 / F ADM Date: 02/27/24 Loc: MRI Attending Dr: Britany Goldstein M.D. Ordering Physician: Britany Goldstein M.D. Date of Service: 02/27/24 Procedure(s): MR femur RT wo con Accession Number(s): [id number] cc: Britany Goldstein M.D.; ALEJANDRA PRIETO [place] [address] Patient Name: ALISIA MENJIVAR MRN: [facility]:[id number] date: 1970 Sex: F Assigned Patient Location: MRI Current Patient Location: MRI Accession/Order Number: [id number] Exam Date: 02/27/2024 16:47 Report Date: 02/27/2024 [...] M.D. Signed By: 02/27/241899 DD/ 57 TD/TT: Engineering Recruiter:KAMIHRadiology, Radiologist, - 02/28/2024 [place] [address] Magnetic Resonance Report Signed Patient: ALISIA MENJIVAR MR#: [id number] : 1970 Acct:[id number] Age/Sex: 53 / F ADM Date: 02/27/24 Loc: MRI Attending Dr: Britany Goldstein M.D. Ordering Physician: Britany Goldstein M.D. Date of Service: 02/27/24 Procedure(s): femur RT wo con Accession Number(s): [id number] cc: Britany Goldstein M.D.; ALEJANDRA PRIETO [place] [address] Patient Name: ALISIA MENJIVAR MRN: [facility]:[id number] date: 1970 Sex: F Assigned Patient Location: MRI Current Patient Location: MRI Accession/Order Number: [id number] Exam Date: 02/27/2024 16:47 Report Date: 02/27/2024 [...] M.D. Signed By: 02/27/241899 DD/ 57 TD/TT: Engineering Recruiter: MATHEUS [facility] HospitalRadiology Study observation (narrative)[facility] Thigh - right WO contrastOrdered By: Radiologist Radiology on 76-60-3658XRVP [employer] Work Phone: XR RIBS LT PA Chepe [phone] RIBS LT PA CH EXAMINATION: XR RIBS [...] Electronically authenticated by: DARREN BOBO Date: 2022-05-22 11:30[facility] HospitalCoding Summary.on 94-74-9895Fawdhf Summary. CD:[id number] [file] OiBj (more content not included)...[facility] Mamm Screen w/CAD if perf and 3D Bilon 71-95-2496LX Mamm Screen w/CAD if perf and 3D [...] very important to your health. The current [employer] and National Comprehensive Cancer [...] Assessment: BI-RADS Category 1-Negative Recommendation: Normal interval follow-upFostoria City Hospital Consent for Treatmenton 25-50-7397Rqfflup for Treatment [id number]#1.00CD:[address] [place], [place] [address]Physician Orderon 12-83-1950Zymkuixjc Order [id number]#1.00CD:[address] [place], [place] [address]CBC AUTO DIFFon 76-17-3854IEEK #0.0 103/ulNormal0.0-0.1[facility] Medical CenterComment on above:Performed By: #### CBC #### [facility] [address] [address] [address] Danyell Emmanuel/100 WBC (Bld)0.4 %Normal0.2-2.0[facility] Comment on above:Performed By: #### CBC #### [facility] [address] [address] [address] Yilan ChangEO #0.2 103/ulNormal0.0-0.7The [facility] HospitalComment on above: Performed By: #### CBC #### [facility] [address] [place] [address] Dr. Danyell Funezosinophils/100 WBC (Bld)2.9 %Normal0.9-7.0The [facility] Comment on above:Performed By: #### CBC #### [facility] [address] [place] [address] Dr. Danyell Funezrythrocyte distribution width (RBC) [Ratio]13.9 %Tbhpig48.0-15.0 The [facility] HospitalComment on above:Performed By: #### CBC #### [facility] [address] [place] [address] Dr. Danyell RecinosHematocrit (Bld) [Volume fraction]43.9 %Munygp81.0-48.0The [facility] HospitalComment on above:Performed By: #### CBC #### [facility] [address] [place] [address] Dr. Danyell RecinosHemoglobin (Bld) [Mass/Vol]14.3 g/uOMassjt95.0-16.0The [facility] HospitalComment on above:Performed By: #### CBC #### [facility] [address] [place] [address] Dr. Danyell Hein #0.01 10e3/ulNormal0.00-0.03The [facility] HospitalComment on above:Performed By: #### CBC #### [facility] [address] [place] [address] Dr. Danyell Hein %0.2 %Normal0.0-0.5The [facility] HospitalComment on above: Performed By: #### CBC #### [facility] [address] [place] [address] Dr. Danyell Sy #1.6 103/ulNormal1.2-3.8The [facility] HospitalComment on above:Performed By: #### CBC #### [facility] [address] [place] [address] Dr. Danyell Garciamphocytes/100 WBC (Bld)30.7 %Crvzfz01.5-60.0The [facility] HospitalComment on above:Performed By: #### CBC #### [facility] [address] [place] [address] Dr. Danyell LeyUAL DIFF REQNONormalThe [facility] HospitalComment on above: Performed By: #### CBC #### [facility] [address] [place] [address] Dr. Danyell Gomez (RBC) [Entitic mass]31.2 heDgiszk76.7-34.0The [facility] HospitalComment on above:Performed By: #### CBC #### [facility] [address] [place] [address] Dr. Danyell Gomez (RBC) [Mass/Vol]32.6 g/bYUunzxf01.9-35.2The [facility] HospitalComment on above:Performed By: #### CBC #### [facility] [address] [place] [address] Dr. Danyell Gomez (RBC) [Entitic vol]95.9 hUXvcfuk87.0-99.0The [facility] HospitalComment on above:Performed By: #### CBC #### [facility] [address] [place] [address] Dr. Danyell Virk #0.6 103/ulNormal0.3-0.8The [facility] HospitalComment on above:Performed By: #### CBC #### [facility] [address] [place] [address] Dr. Danyell Castilloocytes/100 WBC (Bld)11.1 %Normal1.7-12.0[facility] Comment on above:Performed By: #### CBC #### [facility] [address] [place] [address] Dr. Danyell Christine #2.9 103/ulNormal1.4-6.5The [facility] HospitalComment on above:Performed By: #### CBC #### [facility] [address] [place] [address] Dr. Danyell Hiltonophils/100 WBC (Bld)54.7 %Pnnwep04.0-75.0The [facility] Medical Centerment on above:Performed By: #### CBC #### [facility] [address] [place] [address] Dr. Danyell Waltonlet mean volume (Bld) [Entitic vol]10.1 fLNormal9.5-13.5The [facility] HospitalComment on above:Performed By: #### CBC #### [facility] [address] [address] [address] Danyell RecinosPLT422 103/vtYgdhry954-912Cud [facility] HospitalCommun[facility] on above: Performed By: #### CBC #### [facility] [address] [place] [address] Dr. Danyell RecinosRBC4.58 106/ulNormal4.20-5.40The [facility] HospitalCommunson [facility] on above:Performed By: #### CBC #### [facility] [address] [place] [address] Dr. Danyell RecinosWBC5.2 103/ulNormal4.0-11.0The [facility] HospitalCommun[facility] on above: Performed By: #### CBC #### [facility] [address] [place] [address] Dr. Danyell TelloID PROFILEon 27-83-5267NLDC-HDL RATIO NORMSEE [facility] ShawCommun[facility] on above:Result Comment: 3.3 - 4.4 LOW RISK 4.4 - 7.1 AVERAGE RISK 7.1 - 11.0 MODERATE RISK >11.0 HIGH RISKPerformed By: #### LIPID, CMP #### [facility] [address] [place] [address] Dr. Danyell RecinosCholesterol [Mass/Vol]211 mg/dLCritically high<=200The [facility] on above:Performed By: #### LIPID, CMP #### [facility] [address] [place] [address] Dr. Danyell RecinosCholesterol in HDL [Mass/Vol]63 mg/dLCritically zaut66-32CsnKettering Health – Soin Medical CenterComment on above:Performed By: #### LIPID, CMP #### [facility] [address] [place] [address] Dr. Danyell Uribeesterol in LDL [Mass/Vol]130.2 mg/dLBlanchard Valley Health System Bluffton HospitalComment on above:Performed By: #### LIPID, CMP #### [facility] [address] [place] [address] Dr. Danyell Alvarez.total/Cholesterol in HDL [Mass ratio]3.3 {ratio} NormalThe [facility] HospitalComment on above:Performed By: #### LIPID, CMP #### [facility] [address] [place] [address] Dr. Danyell Unger NORMAL> or = 60 mg/dl - LOW CARDIOVASCULAR RISK <40 mg/dl - HIGH CARDIOVASCULAR RISKNoSamaritan North Health CenterComment on above:Performed By: #### LIPID, CMP #### [facility] [address] [place] [address] Dr. Danyell Huff CALC NORMALSEE BELOWBlanchard Valley Health System Bluffton HospitalComment on above:Result Comment: <100 mg/dl OPTIMAL 100 - 129 mg/dl NEAR OR ABOVE OPTIMAL 130 - 159 mg/dl BORDERLINE HIGH 160 - 189 mg/dl HIGH >190 mg/dl VERY HIGH Performed By: #### LIPID, CMP #### [facility] [address] [place] [address] Dr. Danyell RecinosTriglyceride [Mass/Vol]89 mg/dLNormal<=150The [facility] Comment on above:Performed By: #### LIPID, CMP #### [facility] [address] [place] [address] Dr. Danyell BatistaLDL CALC17.8 mg/dLNoSamaritan North Health CenterComment on above: Performed By: #### LIPID, CMP #### [facility] [address] [place] [address] Dr. Danyell RecinosPROF 14(COMP METB)on 83-75-1335Efvzxzb [Mass/Vol]3.9 g/dLNormal 3.4-5.0The [facility] HospitalComment on above:Performed By: #### LIPID, CMP #### [facility] [address] [address] [address] Danylel RecinosAlbumin/Globulin [Mass ratio]0.9 {ratio}NormalThe [facility] HospitalComment on above:Performed By: #### LIPID, CMP #### [facility] [address] [address] [address] Danyell Middleton [Catalytic activity/Vol]97 U/WVahvpn27-846Dor [facility] HospitalComment on above:Performed By: #### LIPID, CMP #### [facility] [address] [address] [address] Danyell Emanuel [Catalytic activity/Vol]22 U/EHphjbk55-59Lrc [facility] Medical Centerment on above:Performed By: #### LIPID, CMP #### [facility] [address] [address] [address] Danyell Mejiason gap [Moles/Vol]14.7 mmol/LNormalThe [facility] Comment on above:Performed By: #### LIPID, CMP #### [facility] [address] [address] [address] Danyell Patel [Catalytic activity/Vol]23 U/JTocjtn40-60Ymk [facility] on above:Performed By: #### LIPID, CMP #### [facility] [address] [address] [address] Danyell RecinosBilirubin [Mass/Vol]0.6 mg/dLNormal0.2-1.3The [facility] Comment on above:Performed By: #### LIPID, CMP #### [facility] [address] [address] [address] Danyell RecinosCalcium [Mass/Vol]9.2 mg/dLNormal8.5-10.1The [facility] Comment on above:Performed By: #### LIPID, CMP #### [facility] [address] [address] [address] Danyell RecinosChloride [Moles/Vol]104 mmol/RGqukjp96-232Ecm [facility] Comment on above:Performed By: #### LIPID, CMP #### [facility] [address] [address] [address] Danyell RecinosCO2 [Moles/Vol]26.6 mmol/HNtdlyc28.0-30.0[facility] Comment on above:Performed By: #### LIPID, CMP #### [facility] [address] [address] [address] Danyell RecinosCreatinine [Mass/Vol]0.91 mg/dLNormal0.52-1.04[facility] CenterComment on above:Performed By: #### LIPID, CMP #### [facility] [address] [place] [address] Dr. Danyell FunezGFR-AF TURKS AND CAICOS ISLANDER>60Normal>=60The [facility] HospitalComment on above:Performed By: #### LIPID, CMP #### [facility] [address] [address] [address] Danyell Acosta-NON AF TURKS AND CAICOS ISLANDER>60Normal>=60[facility] CenterComment on above:Performed By: #### LIPID, CMP #### [facility] [address] [address] [address] Danyell RecinosGlobulin (S) [Mass/Vol]4.4 g/dLNormalThe [facility] HospitalComment on above:Performed By: #### LIPID, CMP #### [facility] [address] [address] [address] Danyell RecinosGlucose [Mass/Vol]97 mg/xDJksppi17-149RzfKettering Health [facility] Comment on above:Performed By: #### LIPID, CMP #### [facility] [address] [address] [address] Danyell RecinosPotassium [Moles/Vol]4.3 mmol/LNormal3.4-5.0[facility] Comment on above:Performed By: #### LIPID, CMP #### [facility] [address] [address] [address] Danyell RecinosProtein [Mass/Vol]8.3 g/dLCritically high6.1-8.2The [facility] HospitalComment on above:Performed By: #### LIPID, CMP #### [facility] [address] [address] [address] Danyell RecinosSodium [Moles/Vol]141 mmol/IHumhmx129-487Owm [facility] Comment on above:Performed By: #### LIPID, CMP #### [facility] [address] [address] [address] Danyell RecinosUrea nitrogen [Mass/Vol]11.0 mg/dLNormal7.0-18.0The [facility] HospitalComment on above:Performed By: #### LIPID, CMP #### [facility] [address] [place] [address] Dr. Danyell RecinosUrea nitrogen/Creatinine [Mass ratio]12.1 mg/mgNormalThe [facility] HospitalComment on above:Performed By: #### LIPID, CMP #### [facility] [address] [place] [address] Dr. Danyell RecinosCovid-19 PCR ([facility])on 71-48-0458IIFX-CoV-2 (COVID-19) RNA QUIRINO+probe Ql (Unsp spec)Not detectedNormalNOT DETECTEDThe [facility] Comment on above:Result Comment: This test is not yet approved or cleared by the [place] FDA. When there are no FDA-approved or cleared tests available, and other criteria are met, FDA can make tests available under an emergency access mechanism called an Emergency Use Authorization (EUA). The EUA for this test is supported by the [place] of Health and Human Service's (HHS's) declaration [...] with SARS-CoV-2.Performed By: #### CVDAGS, CVDTBH #### [facility] [address] [place] [address] Kashif KarenSYMPTOMATIC COVID-19 ANTIGENon 54-78-6578VFS StatementSEE BELOW NormalThe [facility] HospitalComment on above:Result Comment: This test has [...] revoked sooner.Performed By: #### FAISAL, CVDTB #### [facility] [address] [place], [place] [address] Kashif AliceaWlynyFLGG-VcG-1 (COVID-19) RNA QUIRINO+probe Ql (Unsp spec)NegativeNormal NEGATIVEThe [facility] HospitalComment on above:Result Comment: CONFIRMATION BY PCR PENDING PER CDC GUIDELINES/ SYMPTOMATIC PATIENT.Performed By: #### PRISCAAGS, CVDTB #### [facility] [address] [place], [place] [address] Kashif KarenConsent Formson 71-81-8696Ghchwss Forms [id number]#1.00OTGTIFFAdena Pike Medical [facility] Encounters Encounter DateEncounter TypeCare ProviderFacilityStart: 06-10-2025 End: 01-49-3737BlgvbpIvsqfeza Eberly NP Work Phone: [facility]BGYNStart: 05-10-2025 End: 72-87-9807XzzrshMqwynrhh Eberly NP Work Phone: [facility] Daysi OBGYNComment on above:Upper respiratory tract infection, unspecified type (Primary Dx)Start: 10-30-2024 End: 47-14-8475Fnyufvngo encounterMatthew David Mckee PA Work Phone: [facility] CI ORTHOPAEDICSStart: 08-25-2024 End: 31-69-1404Imloey flowsheetJames A Angelita DO Work Phone: [facility] CI ORTHOPAEDICSStart: 08-25-2024 End: 95-88-5082Rxjeki flowsheetJames A Angelita DO Work Phone: [facility] CI ORTHOPAEDICSStart: 08-25-2024 End: 94-33-8689izvsgrbsuuWFMYO A AYDINDLESTONNot AvailableStart: 08-25-2024 End: 70-05-0083Izpnnp outpatient visit 15 minutesJames A Angelita DO Work Phone: n[facility] CI ORTHOPAEDICSComment on above:Right shoulder pain, unspecified chronicity (Primary Dx); Adhesive capsulitis of right shoulder; Impingement syndrome of right shoulderStart: 06-26-2024 End: 85-11-5200yprpqgigcpLtixsfi PetznickFacility:[facility] Hospitaltart: 05-05-2024 End: 64-23-5416asowsudzfeEHANKUBNE F VALERIYot AvailableStart: 02-27-2024 End: 15-15-2193Yulcuwhwv Result EncounterJames A Angelita DO Work Phone: noms External Department UnsolicitedStart: 02-27-2024 End: 32-67-6727Wdetmhrfo Result EncounterJames A Angelita DO Work Phone: noms External Department UnsolicitedStart: 02-25-2024 End: 05-56-0664bkdqxpkgzmZDLXE A AYDINDLESTONNot AvailableStart: 02-12-2024 End: 09-65-1404ikevqupkwySPMBMA L LAURENNot AvailableStart: 01-30-2024 End: 07-15-7236kvzoqkcmajCZGR C LAFFAYNot AvailableStart: 05-21-2022 End: 03-63-8141fbsmqjbxutNNOALS RODRIGUEZFacility:I2Vytep: 28-36-0354Ixtmngfvk for general adult medical examination without abnormal findingsMATTHEW PETZNICK [facility] HospitalStart: 12-22-2021 End: 02-88-3870ilzecdhvypMSCIJMD PETZNICKFacility:W7Ectxl: 12-22-2021 End: 55-64-3766Zraxyjifj for general adult medical examination without abnormal findingsMATTHEW PETZNICKFacility:F5Uptfr: 08-11-2021 End: 06-42-9526ankeivvktvLSBQNR RUSTY ROSSFacility:M8Gxkbk: 06-10-2021 End: 72-83-0484mmofswfndlYOZNDBMB EBERLYFacility:H1 Procedures DateProcedureProcedure DetailPerforming ClinicianStart: 31-20-7801Tmmpu shoulder complete minimum 2 viewsBritany Goldstein DO Work Phone: Start: 50-75-2500Maqzaeqodys observation [Identifier] in Cervix by Cyto stainBritany Goldstein DO Work Phone: Start: 29-77-7257Hjy lower extrem oth/thn jt w/o contr matrlBritany Goldstein DO Work Phone: Start: 34-78-8942SceitkptszwWxdkb Huddleston DO Work Phone: Plan of Treatment DateCare ActivityDetailAuthorStart: 06-08-1747Jgflfzaes for malignant neoplasm of cervixNOMS HealthcareStart: 08-13-2025 End: 53-23-8986Novvvtk encounter ysvselbzz53/14/2025 8:30 AM EST [facility] [address] [place] [address] Alejandra Prieto, DO [address] [place] [address] [facility] 230 Start: 43-27-9403WJSXI-19 Vaccine ( season)COVID-19 Vaccine ( season)NOM HealthcareStart: 25-96-9902Ayiajuess vaccinationInfluenza Vaccine (#1)[facility] HealthcareStart: 02-10-2025 End: 79-06-4100Cuhgzok encounter tzucmrdkb77/14/2025 8:00 AM EDT [facility] [address] [place] [address] Elda Aguilar, THERESE [address] [place] [address] [facility]MStart: 16-25-6535Ljphpsiim for malignant neoplasm of breastMammogramNOMS HealthcareStart: 25-77-3710Pnwfxvbra for malignant neoplasm of cervixHPV/CotestNOMS HealthcareStart: 69-55-3212Fgqyvbcsi B Vaccines (1 of 3 - 19+ 3-dose series)Hepatitis B Vaccines (1 of 3 - 19+ 3-dose series)NOM HealthcareStart: 65-55-8421RYwQ/Tdap/Td Vaccines (1 - Tdap) DTaP/Tdap/Td Vaccines (1 - Tdap)NOM HealthcareStart: 15-67-6854QYS Vaccines (1 of 1 - Standard series)MMR Vaccines (1 of 1 - Standard series)[facility] Healthcare Start: 73-95-0966Lvbfopusa for malignant neoplasm of colonNOMS Healthcare Immunizations Immunization DateImmunizationNotesCare MpadiaasSexzlnlf63-50-4494eoglrxlfm virus vaccine, unspecified formulationGabriela Soriano SCENE PAINTER Work Phone: [facility] Lceiqdkiyd68-07-7733Bykgpfk SARS-CoV-2 VaccinationJaflora ShaikhAngelita DO Work Phone: [facility] HospitalKlfoxrbtwg65-28-7604Chqtpqh SARS-CoV-2 VaccinationJaflora ShaikhAngelita DO Work Phone: [facility] HospitalFmmivvubgz41-37-2122Unhtwdl SARS-CoV-2 VaccinationJaflora ShaikhAngelita DO Work Phone: [facility] HospitalWqjasbborg71-24-8408vjwahtzrv virus vaccine, unspecified formulationBritany Goldstein DO Work Phone: [facility] Healthcare Payers DatePayer CategoryPayerPolicy [id number] Health InsuranceUNITED HEALTHCARE [id number] 2..1.016975.3.57[id number] 2..1.123432.3.57[id number] 2..1.514337.3.57[id number] 2.0.1.472393.3.57[id number] 2..1.830100.3.57[id number] 2..1.389815.3.57[id number] 2..1.730858.3.57[id number] 2.0.1.058423.3.57[id number] 2.840.1.764737.3.579.2.297616-24-1838Djja-xqx96615171879-07-2766Wghtjdm [id number] 2.16.840.1.5[id number] 2.840.1.511315.3.579.2.531 Social History DateTypeDetailFacilityStart: 79-68-9028Ubhurya smoking status NHISNever smoked tobaccoNOMS HealthcareStart: 74-11-1887Nsxekhh use and exposureSmokeless tobacco non-userNOMS HealthcareStart: 02-25-2024 End: 56-02-5320Duqzguiav beverage intakeCurrent drinker of alcohol (finding)[facility]S HealthcareStart: 02-25-2024 End: 77-95-4749Znmevvywk beverage intakeNOMS HealthcareStart: 05-05-2024 End: 63-64-0577Aftudam use panelNOMS HealthcareStart: 71-66-6871Byzjtrf Comment caffeine: 1-2 cups per dayNOVA HealthcareStart: 08-64-2348Bth assigned at FemaleNOVA HealthcareStart: 92-06-9026Kstfys identityIdentifies as female gender (finding)[facility] HealthcareStart: 16-92-2268Owncqf orientationHeterosexual (finding)[facility]OMS HealthcareStart: 19-88-8957RnyEaichyAKEP Healthcare Telephone encounter Note 06-10-2025 Note Date & EeltBzqnOorxvkfy62-48-3256 Telephone encounter Note* Telephone Encounter - Gabriela Soriano NP - 06/10/2025 1:43 PM EDT Patient with complaint of cold sore will sent in Valtrex and Acyclovir [facility] Note 06-10-2025 Note Date & HcuqYnzlCxnuwhpw36-08-6786 Miscellaneous Notes* Telephone Encounter - Gabriela Soriano NP - 06/10/2025 1:43 PM EDT Patient with complaint of cold sore will sent in Valtrex and Acyclovir documented [facility] Tele[facility] encounter Note 10-30-2024 Note Date & QoyzVjxhYbghlkjg45-81-4199 Telephone encounter Note* Telephone Encounter - THERESE [...] Will observe for symptom relief.. Pt thankful. [facility] Work Phone: Note 10-30-2024 Note Date & XvylPsotGwglmmqq43-15-8497 Miscellaneous Notes* Telephone Encounter - THERESE Pan [...] symptom relief.. Pt thankful. documented in this encounterProgress [facility] Hospital History of Present illness Narrative 08-25-2024 Note Date & EovtKpunTghsrgkd61-95-3557 History of Present illness Narrative* Britany Goldstein, DO - 08/25/2024 11:30 AM EST Images [...] if she desires a referral to another pharmaceutical sales specialist we would be happy to make referral, she states she would like to continue her care here. Veronica Goldstein D.O. documented in this encounterH[facility] Healthcare Evaluation note Note Date & TypeNoteFacilityEvaluation note* Diagnosis Right shoulder pain, unspecified chronicity- Primary Adhesive capsulitis of right shoulder Impingement syndrome of right shoulder documented in this encounter [facility] Healthcare Evaluation note Note Date & TypeNoteFacilityEvaluation note* Diagnosis Upper respiratory tract infection, unspecified type- Primary documented in this encounter [facility] Healthcare Evaluation note Note Date & TypeNoteFacilityEvaluation note* Diagnosis 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 documented in this encounter [facility] Healthcare Summary Purpose Family History No Family History Records FoundNo Family History Records FoundNo Family History Records FoundNo Family History Records FoundNo Family History Records Found Advance Directives No Advanced Directives Records FoundNo Advanced Directives Records FoundNo Advanced Directives Records FoundNo Advanced Directives Records FoundNo Advanced Directives Records Found Additional Source Comments INFORMATION SOURCE (unrecogn ized section and content) DATE CREATED AUTHOR 11/20/2020 [facility] DATE CREATED AUTHOR AUTHOR'S ORGANIZ ATION 02/06/[address] [facility] DATE CREATED AUTHOR AUTHOR'S ORGANIZ ATION 05/25/2022 [facility] DATE CREATED AUTHOR AUTHOR'S ORGANIZ ATION 08/30/2024 [facility] DATE CREATED AUTHOR AUTHOR'S ORGANIZ ATION 10/16/2024 [facility] Care Teams (unrecognized sec tion and content) Team MemberRelationshipSpecialtyStart DateEnd Date Alejandra Prieto, DO [address] [place] [address] PCP - GeneralFamily Medicine02/05/23Team MemberRelationshipSpecialtyStart DateEnd Date Alejandra Prieto, DO [address] [place] [address] PCP - GeneralFamily Medicine02/05/23Team MemberRelationshipSpecialtyStart DateEnd Date Alejandra Prieto, DO [address] [place] [address] PCP - GeneralFamily Medicine02/05/23Team MemberRelationshipSpecialtyStart DateEnd Date Alejandra Prieot, DO [address] [place] [address] PCP - GeneralFamily Medicine02/05/23Team MemberRelationshipSpecialtyStart DateEnd Date Alejandra Prieto, DO [address] [place] [address] PCP - GeneralFamily Medicine02/05/23Team MemberRelationshipSpecialtyStart DateEnd Date Alejandra Prieto, DO [address] [place] [address] [facility]CP - [facility]Mercy[facility] Centerly Medicine02/05/23Team MemberRelationshipSpecialtyStart DateEnd Date Alejandra Prieto, DO [address] [place] [address] [facility] - [facility]02/05/2310 Unallocated, Noms Beata, [address] [place] [address] PCP - [facility]07/02/25 Reason for Visit (unrecogniz ed section [...] BE BASED ON THE PRIMARY CLINICAL RECORDS. [facility] [employer] [facility]. provides no warranty or guarantee of the accuracy or completeness of information in this document.
--- OUTSIDE RECORDS SUMMARY | 2025-08-12 19:09 | XMS_ITS | Encounter Summary ---
Author Organization [facility] Address [address] [place] [address] Care Team Providers Care Utility Repairer Name Role Phone Unallocated, N[facility] Provider MD [facility] Encounter Details DateTypeDepartmentCare Team (Latest Contact Info)Gpdirjoslbo17/12/2025Telephone [facility] [address] [place] [address] Bong [place], [place] [address] [place] [address] Social History Tobacco UseTypesPacks/DayYears UsedDateSmoking Tobacco: NeverSmokeless Tobacco: NeverAlcohol UseStandard Drinks/WeekCommentsYes1 (1 standard drink = 0.6 oz pure alcohol)caffeine: 1-2 cups per dayCommentsNoSex and Gender Information ValueDate RecordedSex Assigned at KninpOtsmah62/14/2024 10:53 AM ESTLegal Sex Tuhlym1812/12/2022 7:08 PM EDTGender XhdsqxtyHmwyku20/14/2024 10:53 AM ESTSexual WejzshqsxcpCkbtqvct56/14/2024 10:53 AM ESTdocumented as of this encounter [...] Plan of Treatment DateTypeDepartmentCare Team (Latest Contact Info)Dkrwmiwupyv84/14/2025 8:30 AM ESTOffice Visit [facility] [address] [place] [address] Sea Braden, DO [address] [place] [address] NameTypePriorityAssociated DiagnosesOrder ScheduleEstradiolLabRoutine Hormone disorder Expected: 08/11/2025 [...] antibodyLabRoutine Hormone disorder Expected: 08/11/2025 (Approximate), Expires: 08/11/20266427H0XqyTmyovqh Hormone disorder Expected: 08/11/2025, Expires: 08/11/2026TESTOSTERONE, FREELabRoutine Hormone disorder Expected: 08/11/2025 (Approximate), Expires: 08/11/2026Testosterone, free, total LabRoutine Hormone disorder Expected: 08/11/2025 (Approximate), Expires: 08/11/2026Glucose, randomLabRoutine Hormone disorder Expected: 08/11/2025, Expires: 08/11/2026-peptideLabRoutine Hormone disorder Expected: 08/11/2025, Expires: 08/11/2026TSHLabRoutine Hormone disorder Expected: 08/11/2025 (Approximate), Expires: 08/11/2026Lipid panelLabRoutine Hormone disorder Expected: 08/11/2025, Expires: 08/11/2026omprehensive metabolic panelLabRoutine Hormone disorder Expected: 08/11/2025 (Approximate), Expires: 08/11/2026Hemoglobin L3xVmfXremqui Hormone disorder Expected: 08/11/2025 (Approximate), Expires: 08/11/2026BC and differentialLab Routine Hormone disorder Expected: 08/11/2025 (Approximate), Expires: 08/11/2026ilateral screening mammogramImagingRoutine Other screening mammogram Screening mammogram, encounter for Expected: 08/11/2025 (Approximate), Expires: 10/11/2026documented as of this encounter Visit Diagnoses Diagnosis Hormone disorder Unspecified endocrine disorder Other screening mammogram Screening mammogram, encounter for documented in this encounter Care Teams Team MemberRelationshipSpecialtyStart DateEnd Date Unallocated, Noms Provider, [address] [place] [address] PCP - GeneralFamily Hrfsqxcb06/3/25documented as of this encounter
--- OUTSIDE RECORDS SUMMARY | 2025-08-12 19:09 | XMS_ITS | Encounter Summary ---
Author Organization [facility] Address [address] [place] [address] Care Team Providers Care Printing Press Operator Name Role Phone Unallocated, Noms Provider Primary Care [facility] Encounter Details DateTypeDepartmentCare Team (Latest Contact Info)Jvscydieotr89/13/2025amboo flowsheet [facility] [address] [place] [address] Gabriela Soriano, DRYING ROOM SUPERVISOR [address] [place] [address] Social History Tobacco UseTypesPacks/DayYears UsedDateSmoking Tobacco: NeverSmokeless Tobacco: NeverAlcohol UseStandard Drinks/WeekCommentsYes1 (1 standard drink = 0.6 oz pure alcohol)caffeine: 1-2 cups per dayCommentsNoSex and Gender Information ValueDate RecordedSex Assigned at WzdnhWgilkp03/14/2024 10:53 AM ESTLegal Sex Finftl7112/12/2022 7:08 PM EDTGender CrimlsutTwjemw53/14/2024 10:53 AM ESTSexual OmcvxkrrvlyIcqobtcm53/14/2024 10:53 AM ESTdocumented as of this encounter Plan of Treatment DateTypeDepartmentCare Team (Latest Contact Info)Rbklrietgnc92/14/2025 8:30 AM ESTOffice Visit [facility] [address] [place] [address] Sea Braden, DO [address] [place] [address] documented as of this encounter Visit Diagnoses Not on filedocumented in this encounter Care Teams Team MemberRelationshipSpecialtyStart DateEnd Date Unallocated, Noms Provider, [address] [place] [address] PCP - GeneralFamily Ebmzxwly37/3/25documented as of this encounter
--- OUTSIDE RECORDS SUMMARY | 2025-08-12 19:09 | XMS_ITS | Clinical Summary ---
Author Organization [facility] Address [address] [place] [address], [address] [place] [address] Care Team Providers Care Alumina Refinery Operator Name Role Phone Unavailable Primary Care Provider Unavailabl e Social History Tobacco UseTypesPacks/DayYears UsedDateSmoking Tobacco: Never Assessed CommentsUnknownSex and Gender InformationValueDate RecordedSex Assigned at Not on fileLegal TiiHujruo61/12/2013 5:45 AM ESTGender IdentityNot on fileSexual OrientationNot on file Plan of Treatment Not on file
--- OUTSIDE RECORDS SUMMARY | 2025-08-12 19:09 | XMS_ITS | Clinical Summary ---
Author Organization [facility] Healthcare Address [address] [place] [address] Care Team Providers Care Newspaper Or Periodical Editor Name Role Phone Unallocated, Noms Provider Primary [...] g 5Active Estradiol-Progesterone (Bijuva) 1-100 MG capsule Indications:[place] eye disease of both eyes,Menopausal disorder,Hormone imbalance, Menopausal syndrome on hormone replacement therapy,Dyspareunia in femaleTake 1 tablet by mouth Daily 30 capsule 5Active fluticasone (Flonase) 50 MCG/ACT nasal spray Indications:Allergy, initial encounterAdminister 1 spray into each nostril Daily Shake gently. Before first use, prime pump. After use, clean tip and replace cap. 16 g 1216Active tobramycin (Tobrex) 0.3 % ophthalmic solution Indications:[place] eye disease of both eyesAdminister 2 drops [...] ProblemNoted DateDiagnosed DateMenopausal syndrome on hormone replacement vwbmdvp0703/10/2025Dyspareunia in kkhhff835Acute guemyvppc30/02/2024Insulin teyfffmhof43/02/7601Khycaw74/02/2024Notalgia oxmrnyggoewg75/02/2024Other abnormalities of gait and iddrjqmo61/02/2024Other specified bacterial agents as the cause of diseases classified mytqtcilr31/02/2024Stress keahfpfh76/02/2024 URI, acute01/30/2024olon cancer hwomehvkf81/02/2024ight hip pain01/29/2024 Postmenopausal state01/29/2024Menopausal hgamjiiw83/01/2024Thrombocytosis 10/26/2016Bence Abdalla jifardmxbid07/13/8873Uivspbix01/22/2015Telangiectasia 04/10/2012 Encounters DateTypeDepartmentCare LzvvYswnvulfmnq63/13/2025 8:40 AM ESTProcedure Visit [facility] [address] [address] Gabriela Soriano, KEVIN Well woman exam with routine gynecological exam; Osteoporosis, post-ugzrcemljr95/13/2025bstract [facility] [address] [place] [phone] Sea Braden, 08/12/2025amboo flowsheet [facility] [address] [place] [address] Gabriela Soriano NP 08/11/2025Telephone [facility] [address] [address] Mariam Woody MA 07/27/2025Telephone [facility] [address] [address] Christi Stafford LPN 07/27/2025Telephone [facility] [address] [place] [address] Mariam Woody MA 07/20/2025Refill [facility] [address] [place] [address] Ryan Marquez, Orqfkkzrn04/13/2025Telephone [facility] [address] [place] [address] Gabriela Soriano, INSTRUCTIONAL TECHNOLOGIST 06/10/2025Telephone [facility] [address] [place] [address] Gabriela Soriano, INSTRUCTIONAL TECHNOLOGIST 06/10/2025Refill [facility] [address] [place] [address] Gabriela Soriano, INSTRUCTIONAL TECHNOLOGIST 06/04/2025Refill [facility] [address] [place] [address] Ryan Marquez, DO Poison ivy05/25/2025bstract [facility] [address] [address] Ryan Marquez, DO 05/25/2025bstract [facility] [address] [place] [address] Ryan Marquez, DO 05/20/2025Refill [facility] [address] [place] [address] Ryan Marquez, DO Hypoglycemiafrom Last 3 Months Immunizations ImmunizationAdministration DatesNext DueInfluenza, Fqwcacmstax84/06/2004Moderna SARS-CoV-2 Rnkpeptnocp32/12/2021,10/25/2020,09/27/2020 Family History Medical HistoryRelationNameCommentsNo Known ProblemsBrotherDiabetesFatherBruce a [...] and Gender Information ValueDate RecordedSex Assigned at ZmajqAaovzb52/14/2024 10:53 AM ESTLegal Sex Txjsld3312/12/2022 7:08 PM EDTGender OlymalbbRuawdp83/14/2024 10:53 AM ESTSexual XeaalyafxvlIbuvbaij88/14/2024 10:53 AM EST Last Filed Vital Signs Vital SignReadingTime TakenCommentsBlood Owvlutuu093/7608/12/2025 9:11 AM EST Pulse--Temperature--Respiratory Rate--Oxygen Saturation--Inhaled Oxygen Concentration--Uwynhn73.5 kg (184 lb)08/12/2025 9:11 AM LFZOotipl306 cm (5' 8.5 )05/05/2024 8:02 AM EDTBody Mass Index27.57005/05/2024 8:02 AM EDT Plan of Treatment DateTypeDepartmentCare Team (Latest Contact Info)Zpxiuhwyvay90/14/2025 8:30 AM ESTOffice Visit [facility] [address] [place] [address] Sea Braden, [address] [place] [address] Health MaintenanceDue DateLast DoneCommentsCT Snjskxwjounc1972Colonoscopy 1972Colorectal Cancer Gaktlkxek1972FIT-DNA1972FIT1972 FOBT06/15/19723960Nsrxfzavyhtkw1972HPV/Qaanet6806/15/20020818Cimnhccjs96/14/2024 08/13/2023, 08/13/2023, 01/30/2022, Additional history existsCOVID-19 Vaccine ( season)/08/2021, 10/25/2020, 09/27/2020Influenza Vaccine (#1)/, 07/05/2004Cervical Cancer Eclgvlozb37/06/2027Pap Smear neumococcal Vaccine: Pediatrics (0 to 5 Years) and At-Risk Patients (6 to 64 Years)Aged OutNo longer eligible based on patient's age to complete this topic Procedures Procedure NamePriorityDate/TimeAssociated DiagnosisCommentsTHINPREP TIS PAP AND HPV MRNA E6/E7 WITH REFLEX TO HPV 16,18/27Pafhmmm75/06/2024 12:00 AM EDT Encounter for gynecological examination without abnormal finding BI MAMMOGRAM SCREENING MRGKILNRJQognuha18/14/2023 1:08 PM EST Breast cancer screening by [...] patient. CYTOTECHNOLOGISTQUESTComment: EMP, CT(ASCP) CT screening location: [facility], [address] [place] [address], [place] [address]. (ALWAYS MESSAGE)QUESTComment: EXPLANATORY NOTE: The Pap is [...] information. HPV MRNA E6/E7Not DetectedNot DetectedQUESTComment: Methodology: Experiential Therapist-Mediated Amplification This assay detects E6/E7 viral messenger RNA (mRNA) from 14 high-risk HPV types (16,18,31,33,35,39,45,51,52,56,58,59,66,68). Cervical sources are required for HPV testing. If a vaginal source from a patient who has had a total hysterectomy with removal of cervix was submitted, please contact the testing laboratory for alternative testing options. For additional information, please refer to http://education.Patient Communicator/faq/AEX397w0 (This link if provided for information/ educational purposes only.) Specimen (Source)Anatomical Location / LateralityCollection Method / Volume Collection TimeReceived TimeSwabCervical swab / Ottrevl42/03/2024 4:04 AM EDT Narrative Resulting Agency Comment Performing Organization Information ?Site ID: [id number] ?Name: [facility] ?Address: [address] [place] [id number] ?Director: Aston Patten MD Authorizing ProviderResult TypeResult StatusStalbin GARCIA CYTOLOGY ORDERABLESFinal ResultPerforming OrganizationAddressCity/State/ZIP CodePhone Number [facility] * Bilateral screening mammogram (08/13/2023 1:08 PM EST) Narrative Authorizing ProviderResult TypeResult StatusCorekaylie THIBODEAUX BI PROCEDURESFinal ResultPerforming OrganizationAddressCity/State/ZIP CodePhone Number [facility] [address] [place] [address], from Last 3 Months or Most Recently Relevant to Health Maintenance Insurance Care Teams Team MemberRelationshipSpecialtyStart DateEnd Date Unallocated, Noms MD Beata [address] [place], [place] [phone] PCP - GeneralFamily Kddmuwuw19/3/25
--- OUTSIDE RECORDS SUMMARY | 2025-08-12 19:09 | XMS_ITS | Encounter Summary ---
Author Organization [facility] Address [address] [place] [address] Care Team Providers Care Assurance Services Manager Health Care Name Role Phone Unallocated, Noms Provider Primary Care [facility] Encounter Details DateTypeDepartmentCare Team (Latest Contact Info)Ktgufknxryw03/13/2025bstract [facility] [address] [place] [phone] Sea Braden, DO [address] [facility] [address] [place] [address] Social History Tobacco UseTypesPacks/DayYears UsedDateSmoking Tobacco: NeverSmokeless Tobacco: NeverAlcohol UseStandard Drinks/WeekCommentsYes1 (1 standard drink = 0.6 oz pure alcohol)caffeine: 1-2 cups per dayCommentsNoSex and Gender Information ValueDate RecordedSex Assigned at EwvleGhistk89/14/2024 10:53 AM ESTLegal Sex Perhdo0312/12/2022 7:08 PM EDTGender BvgsnnslEgeglv67/14/2024 10:53 AM ESTSexual WctjiavwhoxCvknxduo71/14/2024 10:53 AM ESTdocumented as of this encounter Plan of Treatment DateTypeDepartmentCare Team (Latest Contact Info)Srdfrpzszvg31/14/2025 8:30 AM ESTOffice Visit [facility] [address] [facility] [address] [place] [address] Sea Braden, DO [address] [place] [address] documented as of this encounter Visit Diagnoses Not on filedocumented in this encounter Care Teams Team MemberRelationshipSpecialtyStart DateEnd Date Unallocated, Noms Provider, [address] [place] [address] PCP - GeneralFamily Szowlwat66/3/25documented as of this encounter
--- OUTSIDE RECORDS SUMMARY | 2025-08-12 19:09 | XMS_ITS | Clinical Summary ---
Author Organization [facility] Address [address] [place] [address] Care Team Providers Care Chief Bank Examiner Name Role Phone Unavailable Primary Care Provider Unavailabl e Allergies Active AllergyReactionsCriticalityNoted IzyeOqwrctdyWqnxvdLyzww52/10/2017 Medications MedicationSigDispense QuantityRefillsLast FilledStart DateEnd DateStatus Etonogestrel-Ethinyl [...] 60 mL Active Active Problems ProblemNoted DateDiagnosed XsvfDhbpbogtnfelih26/27/2017Bence Abdalla proteinuria 10/12/20160924Nmzexlsm90/22/5178Tcpojqbickbjcb76/12/2012 Immunizations ImmunizationAdministration DatesNext Dueinfluenza vaccine, unspecified qusaqyieges63/06/2004 Social History Tobacco UseTypesPacks/DayYears UsedDateSmoking Tobacco: NeverSmokeless Tobacco: Never Tobacco Cessation:Counseling Given: Yes Alcohol UseStandard Drinks/WeekCommentsYes0 (1 standard drink = 0.6 oz pure alcohol)sociallyCommentsUnknownSex and Gender InformationValueDate RecordedSex Assigned at BirthNot on fileLegal LxhJloyoh88/10/2011 10:03 AM EST Gender IdentityNot on fileSexual OrientationNot on file Last Filed Vital Signs Vital SignReadingTime TakenCommentsBlood Dczqsnkw858/71010/26/2016 9:45 AM EST Uudck730110/26/2016 9:45 AM ZPWEfggspmrvrh60.6 ??C (97.8 ??F)10/26/2016 9:45 AM ESTRespiratory Ryaf283410/26/2016 9:45 AM ESTOxygen Saturation--Inhaled Oxygen Concentration--Zqhyub18.9 kg (185 lb)10/26/2016 9:45 AM ZAEJvkocf218.7 cm (5' 8 )10/26/2016 9:45 AM ESTBody Mass Index28.13010/26/2016 9:45 AM EST Plan of Treatment Health MaintenanceDue DateLast DoneCommentsAnxiety Yvihxcbfm92/16/1990Depression Nipdahdow02/16/1990HIV Ztdsvkrhm56/16/1990Hepatitis C Bpjiyswhh06/16/1990 DTaP,Tdap,Td Vaccine (1 - Tdap)1991Hepatitis B Vaccine (1 of 3 - 19+ 3- dose series)1991Mammogram Wtcitcets19/20/Cervical Cancer Fzxygrhjp93/20/CT Voefsmzadvqr51/16/2017Cologuard (FIT-DNA) 06/15/20176081Kgokqyoflcl32/16/2017Colorectal Cancer Qvxdglzlz66/16/2017Fecal Occult Blood06/15/20177919Ypzgyjamlkxeg41/16/2017Lipid Tkvodomuc20/20/ Diabetes Aqoehmvps59/13/Pneumococcal Vaccine: 50+ (1 of 1 - PCV) 2022hingrix Vaccine (1 of 2)2Covid-19 Vaccine (1 - 2024-26 season)2025Influenza Vaccine (#1)/02/2004 Procedures Procedure NamePriorityDate/TimeAssociated DiagnosisCommentsBASIC METABOLIC PANEL Tfqihia5310/12/2016 1:44 PM EST Karri Abdalla proteinuria from Last 3 Months or Most Recently Relevant to Health Maintenance Results * BASIC METABOLIC PNL (10/12/2016 1:44 PM EST)ComponentValueRef RangeTest Method Analysis TimePerformed AtPathologist OsrvjbdhmVqevely2124 - 99 mg/dL10/13/2016 1:09 AM [facility] LABORATORYComment: The [place] Diabetes Association (ADA) provides guidance for cutoff [...] Standards of Medical Care in Diabetes 2016, [place] Diabetes Association. Diabetes Care. 2016.39(Suppl 1). QUP108 - 21 mg/dL10/13/2016 1:09 AM [facility] Creatinine0.630.58 - 0.96 mg/dL10/13/2016 1:09 AM [facility] DXJBULCDJUElrbwb754036 - 144 mmol/L10/13/2016 1:09 AM [facility] LABORATORYPotassium4.13.7 - 5.1 mmol/L10/13/2016 1:09 AM [facility] SXDFJELELNCmkgfmka97134 - 105 mmol/L10/13/2016 1:09 AM [facility] TSZIUPKCFFUA55066 - 30 mmol/L10/13/2016 1:09 AM [facility] LABORATORYAnion Bqt249 - 18 mmol/L10/13/2016 1:09 AM [facility] LABORATORYCalcium9.58.6 - 10.0 mg/dL10/13/2016 1:09 AM [facility] LABORATORYeGFR->6001 1:09 AM [facility] LABORATORYeGFR-All Other Races>60.10/13/2016 1:09 AM [facility] LABORATORYComment: eGFR (Estimated GFR) Units of measure: [...] StatusJames E FanningLABORATORYFinal ResultPerforming OrganizationAddressCity/State/ZIP CodePhone Number [facility] [address] [place] [address] from Last 3 Months or Most Recently Relevant to Health Maintenance Insurance * Guarantor: Alisia Squires TypeRelation to PatientDate of BirthPhone Billing AddressPersonal/KnfwzaIiif1970 [id number] [place] [address] MemberSubscriberPlan / Payer (Effective 2019-Present)Name:Alisia Squires Relation to Subscriber:SpouseName:LINO SQUIRES Date of :1969 (Home) Address: [address] [place], [place] [id number] Payer ID:Not on file Type:PPO Address: [facility] [address] [place] [place] [id number] [place] [address] * Guarantor: Alisia Squiresount TypeRelation to PatientDate of BirthPhone Billing AddressSelf EgbTiav2806/15/1970 [address] [place] [address]
--- OUTSIDE RECORDS SUMMARY | 2025-08-12 19:09 | XMS_ITS | Encounter Summary ---
Author Organization [facility] Address [address] [place] [address] Care Team Providers Care Senior Planning Analyst Name Role Phone Alejandra Braden DO Primary Care Provider [phone] Unallocated, Noms Provider Primary Care Provi nathan Encounter Details DateTypeDepartmentCare Team (Latest Contact Info)Kuntbxiwhlp02/30/2024Clinisync Result Encounter [facility] External Department Unsolicited Britany Goldstein DO [address] [place] [address] Social History Tobacco UseTypesPacks/DayYears UsedDateSmoking Tobacco: NeverSmokeless Tobacco: NeverAlcohol UseStandard Drinks/WeekCommentsYes1 (1 standard drink = 0.6 oz pure alcohol)caffeine: 1-2 cups per dayCommentsUnknownSex and Gender InformationValueDate RecordedSex Assigned at HqbnlTryoke30/14/2024 10:53 AM EST Legal YmxNprjbe13/15/2023 7:08 PM EDTGender VxshzemeBkfkvr07/14/2024 10:53 AM ESTSexual GoxktzchkykDjtakrrs10/14/2024 10:53 AM ESTdocumented as of this encounter Plan of Treatment DateTypeDepartmentCare Team (Latest Contact Info)Wdwbisublhg12/14/2025 8:30 AM ESTOffice Visit [facility] [address] [place] [address] Alejandra Braden, DO [address] [place] [address] documented as of this encounter Procedures Procedure NamePriorityDate/TimeAssociated DiagnosisCommentsMR FEMUR RIGHT WO IV JOVYDCBM40/30/2024 6:58 PM EDT documented in this encounter Results * MR femur right wo IV contrast (02/27/2024 6:58 PM EDT)Anatomical Region LateralityModalityLower Extremities, FemurRightMagnetic ResonanceSpecimen (Source)Anatomical Location / LateralityCollection Method / VolumeCollection TimeReceived Time02/27/2024 6:58 PM EDT Narrative 02/27/2024 7:00 PM EDT [facility] ?[address] ? [place] [address] ? Magnetic Resonance Report ? Signed ? Patient: ALISIA MENJIVAR ? MR#: [id number] ?? : 1970 ?Acct:[id number] ?? Age/Sex: 53 / F ?ADM Date: 02/27/24 ?? Loc: MRI ? Attending Dr: Britany Goldstein M.D. ? Ordering Physician: Britany Goldstein M.D. ?? Date of Service: 02/27/24 ?? Procedure(s): MR femur RT wo con ?? Accession Number(s): [id number] ? cc: Britany Goldstein M.D.; ALEJANDRA BRADEN ? [facility] ? [address] [facility] ? [place] [address] ? Patient Name: ?? ALISIA Hou OTTO ? MRN: [id number] ? date: 1970 ?Sex: F ?? Assigned Patient Location: MRI ?? Current Patient Location: MRI ?? Accession/Order Number: [id number] ?? Exam Date: 02/27/2024 ??16:47 ?Report Date: [...] 1900 ? DD/ 1858 ? TD/TT: ? Certified Nuclear Medicine Technologist: Procedure Note Radiology, Radiologist, MD - 02/28/2024 The [place] [id number] Magnetic Resonance Report Signed Patient: ALISIA MENJIVAR LMR#: [id number] : 1970Acct:[id number] Age/Sex: 53 / FADM Date: 02/27/24 Loc: MRI Attending Dr: Britany Goldstein M.D. Ordering Physician: Britany Goldstein M.D. Date of Service: 02/27/24 Procedure(s): MR femur RT wo con Accession Number(s): [id number] cc: Britany Goldstein M.D.; ALEJANDRA BRADEN The [address] [address] Patient Name: ALISIA MENJIVAR MRN: [id number] date: 1970 Sex: F Assigned Patient Location: MRI Current Patient Location: MRI Accession/Order Number: [id number] Exam Date: 02/27/2024 16:47 Report Date: 02/27/2024 [...] DAINA ENRIQUEZ M.D. Signed By:02/27/24 190 DD/ 8798 TD/TT: Certified Nuclear Medicine Technologist: Authorizing ProviderResult TypeResult StatusJaflora Goldstein [facility] MRI PROCEDURESFinal Result documented in this encounter Visit Diagnoses Not on filedocumented in this encounter Care Teams Team MemberRelationshipSpecialtyStart DateEnd Date Alejandra Braden DO [address] [place] [address] PCP - GeneralFamily Medicine02/05/2310 Unallocated, Noms Provider, [address] [place] [address] PCP - GeneralFamily Iyegtgnl61/3/25documented as of this encounter
== END 2025-08-12 19:06 | disposition home or self-care (01) ==
LOC: LAB 19:05
PROVIDERS: PCP Family Medicine; Visit Provider Nurse Practitioner Family
DX: Z01.419 Encounter for gynecological examination (general) (routine) without abnormal findings (principal)
CPT/HCPCS: 87624; 88175

== ENCOUNTER 2025-08-16 14:44 | Outpatient (OUT) | payer OTHER, SELFPAY ==
--- NOTE | 2025-08-16 14:47 | US_ITS ---
The [address] [address] Patient Name: LIVAN MENJIVAR MRN: [id number] date: 1970 Sex: F Assigned Patient Location: [place] Current Patient Location: [place] Accession/Order Number: [id number] Exam Date: 08/16/2025 14:55 Report Date: 08/16/2025 21:46 At the request of: ALEJANDRA PRIETO Procedure: US thyroid US thyroid 08/16/2025 3:14 PM SIGNS AND SYMPTOMS: ^Left Thyroid Nodule COMPARISON: None. FINDINGS: Right and left thyroid lobes are normal in size and echotexture. The right thyroid lobe measures 4.0 x 1.2 x 1.6 cm and the left thyroid lobe measures 4.4 x 1.7 x 1.8 cm. The isthmus measures 1.3 mm in thickness Multiple hypoechoic nodules are noted bilaterally with a dominant nodule in the mid to inferior pole on the left measuring 2.2 x 1.2 x 1.7 cm in greatest dimension. There are accompanying punctate calcifications. This is wider than tall with smooth margins. This is predominantly solid. No cervical lymphadenopathy is noted. US/US thyroid IMPRESSION: TIRADS: 5 (highly suspicious) Recommendation: Follow-up with ultrasound-guided fine-needle aspiration of the dominant nodule within the left thyroid lobe is recommended. Impression dictated by: Masoud Torrez M.D. 08/16/2025 9:46 PM Dictation Location: [place] [address] Electronically authenticated by: [id number] Date: 08/16/2025 21:46
--- OUTSIDE RECORDS SUMMARY | 2025-08-16 14:52 | XMS_ITS | CCD ---
Author Organization [facility] Inform ion [facility] Care Team Providers Care Animal Technician Name Role Phone PRISCILA SMITH Admitting Unavailable [...] Petznick Alejandra WOODSON Primary Care Provider [phone] VERONIKA DOBBS Attending Unavailable ALEJANDRA PRIETO Referring Unavailable ELDA AGUILAR Attending Unavailable BRITANY GOLDSTEIN Attending Unavailable ANUPAMA KEVIN Attending Unavailable BRITANY GOLDSTEIN Attending Unavailable BRITANY GOLDSTEIN Referring Unavailable Sampson, Alejandra Primary Care Unavailable Veronica Dobbs Attending Unavailable Veronica Dobbs Admitting Unavailable Petznick Alejandra WOODSON Primary Care Provider [phone] Unallocated , [place] Provider Primary Care Provi nathan Medications Current Medications MedicationDrug Class(es)DatesSig (Normalized)Sig (Original)acyclovir 0.05 mg/mg topical ointment (1 source)Herpesvirus Nucleoside Analog DNA Polymerase Inhibitor, Herpes Simplex Virus Nucleoside Analog DNA Polymerase Inhibitor, Herpes Zoster Virus Nucleoside Analog DNA Polymerase InhibitorStart: 95-38-3705kfbnbowqx (Zovirax) 5 % ointment Indications: Cold sore Apply topically 6 (six) times a day Space applications every 3 hours. 30 g 1 06/10/2025 ActiveStart: 34-08-2241obyczuntk (Zovirax) 5 % ointment Indications: Cold sore Apply topically 6 (six) times a day Space ap plications every 3 hours. 30 g 1 06/10/2025 Activeazithromycin 250 mg oral tablet (3 sources)Macrolide AntimicrobialStart: 71-39-8176umdjpwypdjmd (Zithromax Z- Guicho) 250 MG tablet Indications: Upper respiratory tract infection, unspecified type As directed 6 tablet 05/10/2025 ActiveContinuous Glucose Construction Driller (Dexcom G7 Construction Driller) device (2 sources)Start: 05-20-2025 End: 61-14-9143Qkcvpglbmv Glucose Construction Driller (Dexcom G7 Construction Driller) device Indications: Hypoglycemia 1 Device continuously 1 each 05/20/2025 06/19/2025 ActiveContinuous Glucose Sensor (Dexcom G7 Sensor) misc (2 sources)Start: 05-20-2025 End: 46-43-8419Jugeeozysq Glucose Sensor (Dexcom G7 Sensor) misc Indications: Hypoglycemia 1 each Every 10 (ten) days 3 each 3 05/20/2025 06/19/2025 Active desonide 0.5 mg/ml topical cream (3 sources)CorticosteroidStart: 42-13-3018tiguuytw (DesOwen) 0.05 % cream Indications: Dermatitis APPLY TOPICALLY 2 TIMES A DAY FOR 14 DAYS NEEDED 60 g 2 12/17/2024 Activeestradiol 0.004 mg vaginal insert (17 sources)EstrogenStart: 03-15-2025 End: 57-38-7136Ccyelvwpg (Imvexxy Maintenance Pack) 4 MCG insert Indications: Menopausal disorder , Dyspareunia infemale , Menopausal syndrome on hormone replacement therapy Insert 1 Insert into the vagina 2 (two)times a week 24 each 03/18/2025 06/16/2025 ActiveStart: 03-04-2025 End: 79-64-0518nnpcixzkg (Climara) 0.05 MG/24HR Indications: Postmenopausal state , Menopausal disorder Place 1 patch over 7 days on the skin 1 (one) time per week 12 patch 3 03/04/2025 03/04/2026 ActiveStart: 55-19-5604rees 1 tablet by mouth once dailyestradiol (Estrace) 0.5 MG tablet Indications: Hormone imbalance Take 1 tablet (0.5 mg) by mouth Daily 90 tablet 3 12/11/2023 Active Estradiol / Progesterone (3 sources)Progesterone, EstrogenStart: 51-41-5947mzly 0.5-100 mg by mouth once dailyEstradiol-Progesterone (Bijuva) 0.5-100 MG capsule Indications: Symptomatic menopausal or female climacteric states , Menopausal syndrome on hormone replacement therapy , Dyspareunia in female Take 1capsule by mouth Daily 90 capsule 3 03/10/2025 ActiveStart: 03-10-2025 End: 57-20-6905ootw 0.5-100 mg by mouth once dailyEstradiol-Progesterone (Bijuva) 0.5-100 MG capsule Indications: Symptomatic menopausal or female cli macteric states , Menopausal syndrome on hormone replacement therapy , Dyspareunia in female Take 1capsule by mouth Daily 90 capsule 3 03/10/2025 06/08/2025 Dwrrjb58 hr metFORMIN hydrochloride 500 mg extended release oral tablet (3 sources)BiguanideStart: 02-16-2025 End: 23-98-0971nrbz 2 tablets by mouth every twenty-four hours at mealtime metFORMIN XR (Glucophage-XR) 500 MG 24 hr tablet Indications: Insulin resistance Take 2 tablets (1,000 mg) by mouth in the evening. Take with meals 180 tablet 3 02/16/2025 Activephentermine hydrochloride 37.5 mg oral tablet (3 sources)Sympathomimetic Amine AnorecticStart: 06-25-9123vtlb 1 tablet by mouth before mealtimephentermine (Adipex-P) 37.5 MG tablet Indications: Encounter for weight management Take 1 tablet (37.5 mg) by mouth in the morning. Take before meals. 90 tablet 02/04/2025 ActivepredniSONE 50 mg oral tablet (2 sources)Start: 06-04-2025 End: 50-15-4012gubi 1 tablet by mouth once dailypredniSONE (Deltasone) 50 MG tablet Indications: Poison sam Take 1 tablet (50 mg) by mouth Daily for 7 days 7 tablet 06/04/2025 06/11/2025 ActivevalACYclovir 1000 mg oral tablet (4 sources)Herpesvirus Nucleoside Analog DNA Polymerase Inhibitor, Herpes Simplex Virus Nucleoside Analog DNA Polymerase Inhibitor, Herpes Zoster Virus Nucleoside Analog DNA Polymerase InhibitorStart: 06-10-2025 End: 70-76-6141hziv 1 tablet by mouth in the morning, [...] 21 tablet 06/10/2025 06/10/2025 Discontinued (Reorder) End: 78-22-8283jiuUAYyrrhod (Valtrex) 1 g tablet Take 1,000 mg by mouth in the morning and 1,000 mg in the eveningand 1,000 mg before bedtime. 06/10/2025 Discontinued (Dose adjustment) Problems Active Problems Problem ClassificationProblemDateDocumented DateEpisodic/ChronicAnxiety disorders (8 sources)Acute stress disorder; Translations: [Acute stress reaction]Onset: 849692-31-2815FasdwkmOduggbfums disorders (12 sources)Disorder associated with menstruation AND/OR menopause; Translations: [Unspecified menopausal and perimenopausal disorder]Onset: 090910-38-2168XxyyoyoAgefi connective tissue disease (4 sources)Adhesive capsulitis of right shoulder; Translations: [Adhesive capsulitis of right shoulder]62-83-8871TueogbhqEgxlm connective tissue disease (2 sources)Impingement syndrome of right shoulder region; Translations: [Impingement syndrome of right shoulder]67-09-0210BufmpwfrPszxg female genital disorders (4 sources)Pain in female genitalia on intercourse; Translations: [Unspecified dyspareunia]Onset: 012096-16-9322UxkygzpTqkot lower respiratory disease (4 sources)Pleurodynia; Translations: [PLEURODYNIA]Onset: 59-85-5542Plmvqwov Other non-traumatic joint disorders (2 sources)Pain in right shoulder; Translations: [Pain in joint, shoulder region]24-98-9629WrtmjrcxBrnvd nutritional; endocrine; and metabolic disorders (8 sources)Insulin resistance; Translations: [Insulin resistance]Onset: 547177-92-6023RdfyqzdVvqkwhdhabrg (3 sources)CONTACT W/AND (SUSP) EXPOS COVID-19; Translations: [CONTACT W/AND (SUSP) EXPOS COVID-19]Onset: 23-43-7705Rorgs infection (1 source)Herpes labialis; Translations: [Herpesviral vesicular dermatitis] 70-59-9329Dkrppzas Past or Other Problems Problem ClassificationProblemDateDocumented DateEpisodic/ChronicBacterial infection; unspecified site (8 sources)Bacterial infectious disease; Translations: [Other specified bacterial agents as the cause of diseases classified elsewhere]Onset: 01-30-2024 98-83-1771HxmeyqblLpzhhcabzyltp symptoms and ill-defined conditions (8 sources)Bence-Abdalla proteinuria; Translations: [Bence Abdalla proteinuria] Onset: 588804-90-7980KinzljvuNbmggxbbxdygv and screening for infectious disease (4 sources)Encounter for immunization; Translations: [ENCOUNTER FOR IMMUNIZATION]Onset: 27-35-5404NmynzmcgXwcbydtnwngm diseases of female pelvic organs (8 sources)Acute vaginitis; Translations: [Acute vaginitis]Onset: 01-30-2024 65-91-0433IavbxdmgBwxnmxi and fatigue (1 source)Other fatigue; Translations: [Other fatigue]Onset: 79-35-8690Zxunmubz Nausea and vomiting (8 sources)Nausea; Translations: [Nausea]Onset: 018830-65-9222Lvuzcrec Neoplasms of unspecified nature or uncertain behavior (8 sources)Thrombocytosis; Translations: [Thrombocytosis]Onset: 10-26-2016 64-43-2466VncllvweGqzye circulatory disease (8 sources)Telangiectasia disorder; Translations: [Nevus, non-neoplastic]Onset: 154699-63-1694BcaaiahyEjlpd nervous system disorders (8 sources)Notalgia paresthetica; Translations: [Paresthesia of skin]Onset: 481189-40-1694CgyrnzylDddyn nervous system disorders (8 sources)Finding related to ability to move; Translations: [Other abnormalities of gait and mobility]Onset: 951344-57-6687FagfownmAysfm non- traumatic joint disorders (8 sources)Hip pain; Translations: [Pain in right hip]Onset: 01-29-2024 13-50-0964ViahqyzwDasvr screening for suspected conditions (not mental disorders or infectious disease) (8 sources)Patient encounter status; Translations: [Encounter for screening for malignant neoplasm of colon]Onset: 352359-67-2134KttbynqjUvkly skin disorders (8 sources)Wrinkled skin; Translations: [Other specified disorders of the skin and subcutaneous tissue]Onset: 157828-06-6913MjdzujoqZadcu upper respiratory infections (9 sources)Acute upper respiratory infection; Translations: [Acute upper respiratory infection, unspecified]Onset: 043282-76-6546OigvvdlsNgsamisj codes; unclassified (8 sources)Postmenopausal state; Translations: [Asymptomatic menopausal state] Onset: 704734-75-6053OwgzrodmZrrifuqdpjdm (1 source)CONTACT W/AND (SUSP) EXPOS COVID-19; Translations: [CONTACT W/AND (SUSP) EXPOS COVID-19]Onset: 06-10-2021 Results Test NameValueInterpretationReference RangeFacilityXR Shoulder - right 2 Viewson 79-05-8084Oiwgrvr Result: August 25, 2024 x-rays AP axillary and Y scapula of the right shoulder demonstrate a type 1 acromion. The glenohumeral joint and acromioclavicular joints are intact. There are no fractures. There is normal glenoid morphology. Impression: No acute findings on x-rays of the right shoulder Hai Goldstein D.O.[facility] HealthcareLOG[facility] HealthcareRadiology Study observation (narrative)[facility] HealthcareThyroxine (T4) Totalon 26-97-0971N6 [Mass/Vol]7.97 ug/dLNormal5.39-11.82The [facility] Physician GroupComment on above:Performed By: #### T3F, T4T, T3T #### [address] #### T3R #### [facility] ,Triiodothyronine (T3) Freeon 35-21-7856Djzyossdjiuxkcsy (T3) Free3.47 pg/mL Normal2.50-3.90The [facility] Physician [facility] CenterComment on above:Result Comment: PERFORMED BY: [place] [address] PATHOLOGIST DIRECTOR BIOINFORMATICS DAYRON FLOWERS M.D.Performed By: #### T3F, T4T, T3T #### [address] #### T3R #### [facility] ,Triiodothyronine (T3) Reverseon 03-87-3149Ocqjnyxfcegoiiin (T3) Gyfypui43.8 ng/dLNormal9.2-24.1The [facility] Physician GroupComment on above:Result Comment: This test was developed and its performance characteristics determined by [facility]. It has not been cleared or approved by the Food and Drug Administration. Performed at: [address] [id number] Manager Heavy Duty: Pj Murphy MD, Phone: [phone] PERFORMED BY: [place] [address] PATHOLOGIST DIRECTOR BIOINFORMATICS DAYRON FLOWERS M.D.Performed By: #### T3F, T4T, T3T #### [address] #### T3R #### [facility] ,Triiodothyronine (T3) Totalon 37-31-1714Wzqqdhwkjihedwkt (T3) Total0.95 ng/mL Normal0.87-1.78The [facility] Physician GroupComment on above:Result Comment: PERFORMED BY: [place] [address] PATHOLOGIST DIRECTOR BIOINFORMATICS DAYRON FLOWERS M.D.Performed By: #### T3F, T4T, T3T #### [address] [place] [address] [facility] #### T3R #### [facility] ,MR Thigh - right WO contraston 39-28-6121[place] [address] Magnetic Resonance Report Signed Patient: ALISIA MENJIVAR MR#: [id number] : 1970 Acct:[id number] Age/Sex: 53 / F ADM Date: 02/27/24 Loc: MRI Attending Dr: Britany Goldstein M.D. Ordering Physician: Britany Goldstein M.D. Date of Service: 02/27/24 Procedure(s): MR femur RT wo con Accession Number(s): [id number] cc: Britany Goldstein M.D.; ALEJANDRA PRIETO [place] [address] Patient Name: ALISIA MENJIVAR MRN: [id number] date: 1970 Sex: F Assigned Patient Location: MRI Current Patient Location: MRI Accession/Order Number: [id number] Exam Date: 02/27/2024 16:47 Report Date: 02/27/2024 [...] M.D. Signed By: 02/27/241899 DD/ 57 TD/TT: Case Coordinator:KAMIHRadiology, Radiologist, - 02/28/2024 [place] [address] Magnetic Resonance Report Signed Patient: ALISIA MENJIVAR MR#: [id number] : 1970 Acct:[id number] Age/Sex: 53 / F ADM Date: 02/27/24 Loc: MRI Attending Dr: Britany Goldstein M.D. Ordering Physician: Britany Goldstein M.D. Date of Service: 02/27/24 Procedure(s): femur RT wo con Accession Number(s): [id number] cc: Britany Goldstein M.D.; ALEJANDRA PRIETO [place] [address] Patient Name: ALISIA MENJIVAR MRN: [facility]:[id number] date: 1970 Sex: F Assigned Patient Location: MRI Current Patient Location: MRI Accession/Order Number: [id number] Exam Date: 02/27/2024 16:47 Report Date: 02/27/2024 [...] M.D. Signed By: 02/27/241899 DD/ 57 TD/TT: Case Coordinator: MATHEUS [facility] SystemRadiology Study observation (narrative)[facility] Thigh - right WO contrastOrdered By: Radiologist Radiology on 80-45-3760IWOT [place] Work Phone: XR RIBS LT PA Chepe [phone] RIBS LT PA CH EXAMINATION: XR RIBS [...] Electronically authenticated by: DARREN BOBO Date: 2022-05-22 11:30[facility] SpringfieldCoding Summary.on 39-06-1181Urlsnr Summary. CD:[id number]:[id number]+PGhlYWQ+WQ9KZOLqU98dpMKgcW7NJ5pDXS3ZFGPJAFDBFV8YDW0ig OY3FOkuR0HhscMq [file] OiBj (more content not included)...[facility] w/CAD if perf and 3D Bilon 10-58-7202AJ Mamm Screen w/CAD if perf and 3D [...] very important to your health. The current [employer] and National Comprehensive Cancer [...] Assessment: BI-RADS Category 1-Negative Recommendation: Normal interval follow-upMemorial Hospital Consent for Treatmenton 10-89-5922Ymsiequ for Treatment [id number]#1.00CD:[address] [place], [place] [address]Physician Orderon 26-48-6629Nwbgtbnxs Order [id number]#1.00CD:[address] [place], [place] [address]CBC AUTO DIFFon 01-85-4569IYOH #0.0 103/ulNormal0.0-0.1[facility] CenterComment on above:Performed By: #### CBC #### [facility] [address] [place] [address] [address] Danyell Emmanuel/100 WBC (Bld)0.4 %Normal0.2-2.0[facility] Comment on above:Performed By: #### CBC #### [facility] [address] [place] [address] [address] Yilan ChangEO #0.2 103/ulNormal0.0-0.7The St. [facility]'S HospitalComment on above: Performed By: #### CBC #### [facility] [address] [place] [address] Dr. Danyell Funezosinophils/100 WBC (Bld)2.9 %Normal0.9-7.0The [facility] Comment on above:Performed By: #### CBC #### [facility] [address] [place] [address] Dr. Danyell Funezrythrocyte distribution width (RBC) [Ratio]13.9 %Rmbjoy97.0-15.[address] [facility]S HospitalComment on above:Performed By: #### CBC #### [facility] [address] [place] [address] Dr. Danyell RecinosHematocrit (Bld) [Volume fraction]43.9 %Nvbmkw04.0-48.0The [facility]'S HospitalComment on above:Performed By: #### CBC #### [facility] [address] [place] [address] Dr. Danyell RecinosHemoglobin (Bld) [Mass/Vol]14.3 g/zFIsqczn87.0-16.0The [facility]'S HospitalComment on above:Performed By: #### CBC #### [facility] [address] [place] [address] Dr. Danyell Hein #0.01 10e3/ulNormal0.00-0.03The [facility]'S HospitalComment on above:Performed By: #### CBC #### [facility] [address] [place] [address] Dr. Danyell Hein %0.2 %Normal0.0-0.5The [facility]'S HospitalComment on above: Performed By: #### CBC #### [facility] [address] [place] [address] Dr. Danyell Sy #1.6 103/ulNormal1.2-3.8The [facility]'S HospitalComment on above:Performed By: #### CBC #### [facility] [address] [place] [address] Dr. Danyell Garciamphocytes/100 WBC (Bld)30.7 %Zanwqq81.5-60.0The [facility]'S HospitalComment on above:Performed By: #### CBC #### [facility] [address] [place] [address] Dr. Danyell LeyUAL DIFF REQNONormalThe St. Anthony'S HospitalComment on above: Performed By: #### CBC #### [facility] [address] [place] [address] Dr. Danyell Gomez (RBC) [Entitic mass]31.2 ysQqvwon79.7-34.0The [facility]'S HospitalComment on above:Performed By: #### CBC #### [facility] [address] [place] [address] Dr. Danyell Gomez (RBC) [Mass/Vol]32.6 g/aRZrybvb85.9-35.2The [facility]'S HospitalComment on above:Performed By: #### CBC #### [facility] [address] [place] [address] Dr. Danyell Gomez (RBC) [Entitic vol]95.9 jCIdwcqk58.0-99.0The [facility]'S HospitalComment on above:Performed By: #### CBC #### [facility] [address] [place] [address] Dr. Danyell Virk #0.6 103/ulNormal0.3-0.8The [facility]'S HospitalComment on above:Performed By: #### CBC #### [facility] [address] [place] [address] Dr. Danyell Castilloocytes/100 WBC (Bld)11.1 %Normal1.7-12.0The [facility] Comment on above:Performed By: #### CBC #### [facility] [address] [place] [address] Dr. Danyell Christine #2.9 103/ulNormal1.4-6.5The [facility]'S HospitalComment on above:Performed By: #### CBC #### [facility] [address] [place] [address] Dr. Danyell Hiltonophils/100 WBC (Bld)54.7 %Lipzjs87.0-75.0The [facility] Hospitalment on above:Performed By: #### CBC #### [facility] [address] [place] [address] Dr. Danyell Waltonlet mean volume (Bld) [Entitic vol]10.1 fLNormal9.5-13.5The St. [facility]'S HospitalComment on above:Performed By: #### CBC #### [facility] [address] [place] [address] [address] Danyell RecinosPLT422 103/haDlthxr800-223Zio [facility]S HospitalComveterans affairs medical center on above: Performed By: #### CBC #### [facility] [address] [place] [address] Dr. Danyell RecinosRBC4.58 106/ulNormal4.20-5.40The [facility] HospitalComveterans affairs medical center on above:Performed By: #### CBC #### [facility] [address] [place] [address] Dr. Danyell RecinosWBC5.2 103/ulNormal4.0-11.0The [facility] HospitalComveterans affairs medical center on above: Performed By: #### CBC #### [facility] [address] [place] [address] Dr. Danyell TelloID PROFILEon 81-45-6596GHHS-HDL RATIO NORMSEE [facility]ighComveter[facility] affairs [facility] on above:Result Comment: 3.3 - 4.4 LOW RISK 4.4 - 7.1 AVERAGE RISK 7.1 - 11.0 MODERATE RISK >11.0 HIGH RISKPerformed By: #### LIPID, CMP #### [facility] [address] [place] [address] Dr. Danyell RecinosCholesterol [Mass/Vol]211 mg/dLCritically high<=200The [facility] on above:Performed By: #### LIPID, CMP #### [facility] [address] [place] [address] Dr. Danyell RecinosCholesterol in HDL [Mass/Vol]63 mg/dLCritically zhss30-71XxgSouthview Medical CenterComment on above:Performed By: #### LIPID, CMP #### [facility] [address] [place] [address] Dr. Danyell Uribeesterol in LDL [Mass/Vol]130.2 mg/dLKettering Health SpringfieldComment on above:Performed By: #### LIPID, CMP #### [facility] [address] [place] [address] Dr. Danyell Alvarez.total/Cholesterol in HDL [Mass ratio]3.3 {ratio} NormalThe St. Anthony'S HospitalComment on above:Performed By: #### LIPID, CMP #### [facility] [address] [place] [address] Dr. Danyell Unger NORMAL> or = 60 mg/dl - LOW CARDIOVASCULAR RISK <40 mg/dl - HIGH CARDIOVASCULAR RISKNoOhioHealth Grant Medical CenterComment on above:Performed By: #### LIPID, CMP #### [facility] [address] [place] [address] Dr. Danyell Huff CALC NORMALSEE BELOWKettering Health SpringfieldComment on above:Result Comment: <100 mg/dl OPTIMAL 100 - 129 mg/dl NEAR OR ABOVE OPTIMAL 130 - 159 mg/dl BORDERLINE HIGH 160 - 189 mg/dl HIGH >190 mg/dl VERY HIGH Performed By: #### LIPID, CMP #### [facility] [address] [place] [address] Dr. Danyell RecinosTriglyceride [Mass/Vol]89 mg/dLNormal<=150The [facility] Comment on above:Performed By: #### LIPID, CMP #### [facility] [address] [place] [address] Dr. Danyell BatistaLDL CALC17.8 mg/dLNoOhioHealth Grant Medical CenterComment on above: Performed By: #### LIPID, CMP #### [facility] [address] [place] [address] Dr. Danyell RecinosPROF 14(COMP METB)on 09-90-5446Nrcxjjg [Mass/Vol]3.9 g/dLNormal 3.4-5.0The St[facility]'S HospitalComment on above:Performed By: #### LIPID, CMP #### [facility] [address] [place] [address] [address] Danyell RecinosAlbumin/Globulin [Mass ratio]0.9 {ratio}NormalThe St. Anthony'S HospitalComment on above:Performed By: #### LIPID, CMP #### [facility] [address] [place] [address] [address] Danyell Middleton [Catalytic activity/Vol]97 U/IZrzaod90-158Cim St[facility]'S HospitalComment on above:Performed By: #### LIPID, CMP #### [facility] [address] [place] [address] [address] Danyell Emanuel [Catalytic activity/Vol]22 U/UJbasog67-01Ran [facility] Hospitalment on above:Performed By: #### LIPID, CMP #### [facility] [address] [place] [address] [address] Danyell Mejiason gap [Moles/Vol]14.7 mmol/LNormalThe [facility] Comment on above:Performed By: #### LIPID, CMP #### [facility] [address] [place] [address] [address] Danyell Patel [Catalytic activity/Vol]23 U/LZhughf79-68Tmh [facility] on above:Performed By: #### LIPID, CMP #### [facility] [address] [place] [address] [address] Danyell RecinosBilirubin [Mass/Vol]0.6 mg/dLNormal0.2-1.3The [facility] Comment on above:Performed By: #### LIPID, CMP #### [facility] [address] [place] [address] [address] Danyell RecinosCalcium [Mass/Vol]9.2 mg/dLNormal8.5-10.1The [facility] Comment on above:Performed By: #### LIPID, CMP #### [facility] [address] [place] [address] [address] Danyell RecinosChloride [Moles/Vol]104 mmol/RWvmpuu21-019[facility] Comment on above:Performed By: #### LIPID, CMP #### [facility] [address] [place] [address] [address] Danyell RecinosCO2 [Moles/Vol]26.6 mmol/DKckonv34.0-30.0[facility] Comment on above:Performed By: #### LIPID, CMP #### [facility] [address] [place] [address] [address] Danyell RecinosCreatinine [Mass/Vol]0.91 mg/dLNormal0.52-1.04[facility] CenterComment on above:Performed By: #### LIPID, CMP #### [facility] [address] [place] [address] Dr. Danyell FunezGFR-AF GUAMANIAN>60Normal>=60The St[facility]'S HospitalComment on above:Performed By: #### LIPID, CMP #### [facility] [address] [place] [address] [address] Danyell Acosta-NON AF GUAMANIAN>60Normal>=60[facility] CenterComment on above:Performed By: #### LIPID, CMP #### [facility] [address] [place] [address] [address] Danyell RecinosGlobulin (S) [Mass/Vol]4.4 g/dLNormalThe St. Anthony'S HospitalComment on above:Performed By: #### LIPID, CMP #### [facility] [address] [place] [address] [address] Danyell RecinosGlucose [Mass/Vol]97 mg/sQOrfwlf89-728MspSouthview Medical Center Comment on above:Performed By: #### LIPID, CMP #### [facility] [address] [place] [address] [address] Danyell RecinosPotassium [Moles/Vol]4.3 mmol/LNormal3.4-5.0The [facility] Comment on above:Performed By: #### LIPID, CMP #### [facility] [address] [place] [address] [address] Danyell RecinosProtein [Mass/Vol]8.3 g/dLCritically high6.1-8.2The St[facility] Anthony'S HospitalComment on above:Performed By: #### LIPID, CMP #### [facility] [address] [address] [address] Danyell RecinosSodium [Moles/Vol]141 mmol/MHluvnd942-660Kej [facility] Comment on above:Performed By: #### LIPID, CMP #### [facility] [address] [address] [address] Danyell RecinosUrea nitrogen [Mass/Vol]11.0 mg/dLNormal7.0-18.0The St. Anthony'S HospitalComment on above:Performed By: #### LIPID, CMP #### [facility] [address] [place] [address] Dr. Danyell RecinosUrea nitrogen/Creatinine [Mass ratio]12.1 mg/mgNormalThe St. Anthony'S HospitalComment on above:Performed By: #### LIPID, CMP #### [facility] [address] [place] [address] Dr. Danyell RecinosCovid-19 PCR ([facility])on 00-98-3111POKC-CoV-2 (COVID-19) RNA QUIRINO+probe Ql (Unsp spec)Not detectedNormalNOT DETECTEDThe St. [facility] Comment on above:Result Comment: This test is not yet approved or cleared by the [place] FDA. When there are no FDA-approved or cleared tests available, and other criteria are met, FDA can make tests available under an emergency access mechanism called an Emergency Use Authorization (EUA). The EUA for this test is supported by the [place] of Health and Human Service's (HHS's) declaration [...] with SARS-CoV-2.Performed By: #### CVDAGS, CVDTBH #### [facility] [address] [place] [address] Kashif KarenSYMPTOMATIC COVID-19 ANTIGENon 11-42-5251WFZ StatementSEE BELOW NormalThe St. Anthony'S HospitalComment on above:Result Comment: This test has [...] revoked sooner.Performed By: #### FAISAL, CVDTB #### [facility] [address] [place], [place] [id number] Kashif AliceaHvrspJWEI-MmN-5 (COVID-19) RNA QUIRINO+probe Ql (Unsp spec)NegativeNormal NEGATIVEThe St. Anthony'S HospitalComment on above:Result Comment: CONFIRMATION BY PCR PENDING PER CDC GUIDELINES/ SYMPTOMATIC PATIENT.Performed By: #### PRISCAAGS, CVDTB #### [facility] [address] [place], [place] [id number] Kashif KarenConsent Formson 64-47-6641Ekjikms Forms [id number]#1.00OTGTIFFCleveland Clinic Foundation Encounters Encounter DateEncounter TypeCare ProviderFacilityStart: 06-10-2025 End: 06-62-6652QbrxdbQgmiwzpz Eberly NP Work Phone: [facility] OBGYNStart: 05-10-2025 End: 93-91-1768IcgyqaSmbrmjxa Eberly NP Work Phone: [facility] Daysi OBGYNComment on above:Upper respiratory tract infection, unspecified type (Primary Dx)Start: 10-30-2024 End: 71-03-4217Wlpokmjlk encounterMatthew David Mckee PA Work Phone: [facility] CI ORTHOPAEDICSStart: 08-25-2024 End: 66-49-1757Frrwsw flowsheetJames A Angelita DO Work Phone: [facility] CI ORTHOPAEDICSStart: 08-25-2024 End: 66-45-9678Skqjnx flowsheetJames A Angelita DO Work Phone: [facility] CI ORTHOPAEDICSStart: 08-25-2024 End: 36-33-4874ukrivygbdvQJGRF A AYDINDLESTONNot AvailableStart: 08-25-2024 End: 57-89-5847Hvzmym outpatient visit 15 minutesJames A Angelita DO Work Phone: [facility] CI ORTHOPAEDICSComment on above:Right shoulder pain, unspecified chronicity (Primary Dx); Adhesive capsulitis of right shoulder; Impingement syndrome of right shoulderStart: 06-26-2024 End: 85-91-4511bwvpkyogkhDebibom PetznickFacility:[facility] Centertart: 05-05-2024 End: 75-88-3199neckrminqxTQAQXDVOW F VALERIYot AvailableStart: 02-27-2024 End: 62-42-7933Vhiglbvop Result EncounterJames A Angelita DO Work Phone: noms External Department UnsolicitedStart: 02-27-2024 End: 93-20-8929Yywwjhaki Result EncounterJames A Angelita DO Work Phone: n[facility] External Department UnsolicitedStart: 02-25-2024 End: 48-57-9820hsatmdeyscUSOJG A AYDINDLESTONNot AvailableStart: 02-12-2024 End: 08-76-3922pxihiabhmnCWFEEK L LAURENNot AvailableStart: 01-30-2024 End: 37-51-1458ggdfauupjuCZAF C LAFFAYNot AvailableStart: 05-21-2022 End: 72-68-3557swcqprtagfPUSXPR RODRIGUEZFacility:Y3Lnypf: 25-68-7382Oxtjosomy for general adult medical examination without abnormal findingsMATTHEW PETZNICK [facility] HospitalStart: 12-22-2021 End: 20-38-8769dohiajrusoQFYPBCG PETZNICKFacility:S4Uxegn: 12-22-2021 End: 44-70-8039Bnltcftor for general adult medical examination without abnormal findingsMATTHEW PETZNICKFacility:W0Avyqv: 08-11-2021 End: 22-88-2824jxcjhatnqgOANFOD RUSTY ROSSFacility:J0Uyeni: 06-10-2021 End: 37-44-9860pyrmjaoytcLEPKFXUO EBERLYFacility:H1 Procedures DateProcedureProcedure DetailPerforming ClinicianStart: 09-72-0422Hdkdh shoulder complete minimum 2 viewsBritany Goldstein DO Work Phone: Start: 71-76-9004Gzdontlbqdc observation [Identifier] in Cervix by Cyto stainBritany Goldstein DO Work Phone: Start: 78-03-5484Oog lower extrem oth/thn jt w/o contr matrlBritany Goldstein DO Work Phone: Start: 69-67-9640DdpgptmsezvKfwsy Huddleston DO Work Phone: Plan of Treatment DateCare ActivityDetailAuthorStart: 76-11-8581Tdsguhpic for malignant neoplasm of cervixNOMS HealthcareStart: 08-13-2025 End: 75-22-3420Qjgmpan encounter jmlpuzfao62/14/2025 8:30 AM EST [facility] [address] [place] [address] Alejandra Prieto, DO [address] [place] [address] [facility] [address] Start: 10-95-6010AQDXN-19 Vaccine ( season)COVID-19 Vaccine ( season)NOM HealthcareStart: 21-23-4844Nkvozjhlr vaccinationInfluenza Vaccine (#1)[facility] HealthcareStart: 02-10-2025 End: 45-42-6672Bejqrse encounter geqzmyxbr92/14/2025 8:00 AM EDT [facility] [address] [place] [address] Elda Aguilar, THERESE [address] [place] [address] [facility] DERMStart: 83-17-4925Mlpvstmbd for malignant neoplasm of breastMammogramNOMS HealthcareStart: 42-40-0179Bzlylanqa for malignant neoplasm of cervixHPV/CotestNOMS HealthcareStart: 04-77-4751Ynqpsfjwh B Vaccines (1 of 3 - 19+ 3-dose series)Hepatitis B Vaccines (1 of 3 - 19+ 3-dose series)NOM HealthcareStart: 61-78-4606WOmB/Tdap/Td Vaccines (1 - Tdap) DTaP/Tdap/Td Vaccines (1 - Tdap)NOM HealthcareStart: 23-01-9125ZIL Vaccines (1 of 1 - Standard series)MMR Vaccines (1 of 1 - Standard series)[facility] Healthcare Start: 60-67-7834Fnuhpfbnt for malignant neoplasm of colonNOMS Healthcare Immunizations Immunization DateImmunizationNotesCare XdnrhoszMekmxaxk86-84-1349wuvdtfxzv virus vaccine, unspecified formulationGabriela Soriano [employer] 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 Work Phone: [facility] Jdrbdzilwy95-45-8982Jvqrgjf SARS-CoV-2 VaccinationJaflora ShaikhAngelita DO Work Phone: [facility] HospitalQsdjqdjcgs35-73-7309Bkyhatz SARS-CoV-2 VaccinationJaflora ShaikhAngelita DO Work Phone: [facility] HospitalXwvdzesijy93-93-6572Yxqdtav SARS-CoV-2 VaccinationJaflora ShaikhAngelita DO Work Phone: [facility] HospitalEbststnvla54-42-0519fcakzhsfr virus vaccine, unspecified formulationBritany Goldstein DO Work Phone: [facility] Healthcare Payers DatePayer CategoryPayerPolicy [id number] [employer] InsuranceUNITED [employer]ALTHCARE [id number] 2..1.307382.3.57[id number] 2..1.529126.3.57[id number] 2..1.403490.3.57[id number] 2.0.1.141528.3.57[id number] 2..1.677840.3.57[id number] 2..1.759139.3.57[id number] 2..1.589388.3.57[id number] 2.0.1.768778.3.57[id number] 2.840.1.221038.3.579.2.448557-61-1095Vziw-xpr04283194715-24-0958Fjkohex [id number] 2.16.840.1.4[id number] 2.840.1.598558.3.579.2.531 Social History DateTypeDetailFacilityStart: 47-42-6086Npzpqfb smoking status NHISNever smoked tobaccoNOMS HealthcareStart: 64-12-5098Mncgzrn use and exposureSmokeless tobacco non-userNOMS HealthcareStart: 02-25-2024 End: 47-52-5298Wbfqijbqn beverage intakeCurrent drinker of alcohol (finding)[facility] HealthcareStart: 02-25-2024 End: 57-51-5062Afcexfhdk beverage intakeNOMS HealthcareStart: 05-05-2024 End: 07-12-2044Ptvreud use panelNOMS HealthcareStart: 20-19-0513Ozmwhgz Comment caffeine: 1-2 cups per dayNOUT HealthcareStart: 97-06-4879Lft assigned at FemaleNOUT HealthcareStart: 71-38-6589Trnyaw identityIdentifies as female gender (finding)[facility] HealthcareStart: 54-84-5821Gyxojk orientationHeterosexual (finding)[facility] HealthcareStart: 64-95-5931CnpGvgpcgEXHU Healthcare Telephone encounter Note 06-10-2025 Note Date & YnwpFhofWglujoxf35-31-2881 Telephone encounter Note* Telephone Encounter - Gabriela Soriano NP - 06/10/2025 1:43 PM EDT Patient with complaint of cold sore will sent in Valtrex and Acyclovir [facility] Note 06-10-2025 Note Date & VnrmQpggZdeqsiek40-16-7333 Miscellaneous Notes* Telephone Encounter - Gabriela Soriano NP - 06/10/2025 1:43 PM EDT Patient with complaint of cold sore will sent in Valtrex and Acyclovir documented [facility]Jeff[facility] Tele[facility] encounter Note 10-30-2024 Note Date & WezgKupwKdpwhnue75-97-7460 Telephone encounter Note* Telephone Encounter - THERESE [...] Will observe for symptom relief.. Pt thankful. [facility] Work Phone: Note 10-30-2024 Note Date & JazaMeugSnpiukuk18-65-3177 Miscellaneous Notes* Telephone Encounter - THERESE Pan [...] symptom relief.. Pt thankful. documented in this encounterJefferson [facility] Hospital History of Present illness Narrative 08-25-2024 Note Date & WukyUwqsKlpobegw39-13-4305 History of Present illness Narrative* Britany Goldstein, [...] if she desires a referral to another medical office specialist we would be happy to make referral, she states she would like to continue her care here. Veronica Goldstein D.O. documented in this encounterLOG[facility] Healthcare Evaluation note Note Date & TypeNoteFacilityEvaluation note* Diagnosis Right shoulder pain, unspecified chronicity- Primary Adhesive capsulitis of right shoulder Impingement syndrome of right shoulder documented in this encounter [facility] Healthcare Evaluation note Note Date & TypeNoteFacilityEvaluation note* Diagnosis Upper respiratory tract infection, unspecified type- Primary documented in this encounter [facility] Healthcare Evaluation note Note Date & TypeNoteFacilityEvaluation note* Diagnosis 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 documented in this encounter [facility] Healthcare Summary Purpose Family History No [...] section and content) DATE CREATED AUTHOR 11/20/2020 [facility] DATE CREATED AUTHOR AUTHOR'S ORGANIZ ATION 02/06/2022 [facility] DATE CREATED AUTHOR AUTHOR'S ORGANIZ ATION 05/25/2022 [facility] DATE CREATED AUTHOR AUTHOR'S ORGANIZ ATION 08/30/2024 [facility] DATE CREATED AUTHOR AUTHOR'S ORGANIZ ATION 10/16/2024 [facility] Care Teams (unrecognized sec tion and content) Team MemberRelationshipSpecialtyStart DateEnd Date Alejandra Prieto, DO [address] [place] [address] PCP - GeneralFamily Medicine02/05/23Team MemberRelationshipSpecialtyStart DateEnd Date Alejandra Prieto, DO [address] [place] [address] PCP - GeneralFamily Medicine02/05/23Team MemberRelationshipSpecialtyStart DateEnd Date Alejandra Prieto, DO [address] [place] [address] PCP - GeneralFamily Medicine02/05/23Team MemberRelationshipSpecialtyStart DateEnd Date Alejandra Prieto, DO [address] [place] [address] PCP - GeneralFamily Medicine02/05/23Team MemberRelationshipSpecialtyStart DateEnd Date Alejandra Prieto, DO [address] [place] [address] PCP - GeneralFamily Medicine02/05/23Team MemberRelationshipSpecialtyStart DateEnd Date Alejandra Prieto, DO [address] [place] [address] PCP - GeneralRegional Medical Centerly Medicine02/05/23Team MemberRelationshipSpecialtyStart DateEnd Date Alejandra Prieto, DO [address] [place] [address] [facility] - [facility]/05/2310 Unallocated, [facility], [address] [place] [address] PCP - [facility]07/02/25 Reason for Visit (unrecogniz ed section and [...] BE BASED ON THE PRIMARY CLINICAL RECORDS. [facility] [employer] provides no warranty or guarantee of the accuracy or completeness of information in this document.
== END 2025-08-16 14:45 | disposition home or self-care (01) ==
LOC: US 14:44
PROVIDERS: PCP Family Medicine; Visit Provider Family Medicine
DX: E04.1 Nontoxic single thyroid nodule (principal)
CPT/HCPCS: 76536

== ENCOUNTER 2025-08-23 08:22 | Outpatient (OUT) | payer OTHER, SELFPAY ==
--- OUTSIDE RECORDS SUMMARY | 2025-08-12 08:40 | XMS_ITS | Encounter Summary ---
Author Organization [facility] Address [address] [place] [address] Care Team Providers Care Product Lister Name Role Phone Unallocated, Noms Provider Primary Care [facility] Reason for Visit * ReasonCommentsGynecologic Exam Encounter Details DateTypeDepartmentCare Team (Latest Contact Info)Wnvxygmkvdt80/13/2025 8:40 AM ESTProcedure Visit [facility] [address] [place] [address] Gabriela Soriano, MUSEUM EXHIBIT TECHNICIAN [address] [place] [address] Well woman exam with routine gynecological exam; Osteoporosis, post-menopausal Social History Tobacco UseTypesPacks/DayYears UsedDateSmoking Tobacco: NeverSmokeless Tobacco: NeverAlcohol UseStandard Drinks/WeekCommentsYes1 (1 standard drink = 0.6 oz pure alcohol)caffeine: 1-2 cups per dayPHQ-2AnswerDate RecordedPatient Health Questionnaire-2 Msnrq69010/13/2024CommentsNoSex and Gender Information ValueDate RecordedSex Assigned at LyxxvEgoiqj23/14/2024 10:53 AM ESTLegal Sex Hvnnaa9912/12/2022 7:08 PM EDTGender LznfivtaGmlbad32/14/2024 10:53 AM ESTSexual XuqyiejgglmIgjmsdlc31/14/2024 10:53 AM ESTdocumented as of this encounter Last Filed Vital Signs Vital SignReadingTime TakenCommentsBlood Dhrzymov237/7611 9:11 AM EST Pulse--Temperature--Respiratory Rate--Oxygen Saturation--Inhaled Oxygen Concentration--Eehozx09.5 kg (184 lb)08/12/2025 9:11 AM ESTHeight--Body Mass Index27.5708/02/2024 8:02 AM EDTdocumented in this encounter Progress Notes * Gabriela Soriano NP - 08/12/2025 8:40 AM EST Reason for Appointment: Patient ID: Alisia Squires is a 55 y.o. female who presents for Gynecologic Exam Patient presents today for Annual Exam. MEDICATIONS Current Outpatient Medications Medication Instructions acyclovir (Zovirax) 5 % ointment Topical, 6 times daily, Space applications every 3 hours. azithromycin (Zithromax Z-Guicho) 250 MG tablet As directed desonide (DesOwen) 0.05 % cream APPLY TOPICALLY 2 TIMES A DAY FOR 14 DAYS NEEDED estradiol (Climara) 0.05 MG/24HR 1 patch, Transdermal, Weekly estradiol (ESTRACE) 0.5 mg, Oral, Daily Estradiol Starter Pack (Imvexxy Starter Pack) 4 MCG insert 1 suppository, Vaginal, 2 times weekly Estradiol-Progesterone (Bijuva) 0.5-100 MG capsule 1 capsule, Oral, Daily Estradiol-Progesterone (Bijuva) 1-100 MG capsule 1 tablet, Oral, Daily fluticasone (Flonase) 50 MCG/ACT nasal spray 1 spray, Each Nostril, Daily, Shake gently. Before first use, prime pump. After use, clean tip and replace cap. 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 Social History Tobacco Use Smoking status: Never Smokeless tobacco: Never Vaping Use Vaping status: Never Used Substance Use Topics Alcohol use: Yes Alcohol/week: 1.0 standard drink of alcohol Types: 1 Standard drinks or equivalent per week Comment: caffeine: 1-2 cups per day Drug use: Never FAMILY HISTORY Family History Problem Relation Name Age of Onset Hypertension Mother Allie Wises Cancer Mother Allie Ny Hyperlipidemia Mother Allie Ny Thyroid cancer Mother Allie Ny Osteoporosis Mother Allie Wises Migraines Mother Allie Wises Breast cancer Mother Allie Ny Other (dumping syndrome) Mother Allie Ny Diabetes Father Juan Francisco a Fittler Heart disease Father Juan Francisco a Fittler Stroke Father Juan Francisco a Fittler No Known Problems Sister No Known Problems Brother Melanoma Neg Hx SURGICAL HISTORY Past Surgical History: Procedure Laterality Date IRIDOTOMY / IRIDECTOMY 2014 OTHER SURGICAL HISTORY Right 03/16/2024 hamstring repair [place] NASAL ENDOSCOPY DIAGNOSTIC UNI/BI SPX 2012 REVIEW OF SYSTEMS Review of Systems: Review of Systems Constitutional: Positive for fatigue and hot flashes. HENT: Negative. Dizziness Eyes: Negative. Respiratory: Negative. Cardiovascular: Negative. Gastrointestinal: Negative. Genitourinary: Negative. Musculoskeletal: Negative. Skin: Negative. Neurological: Negative. All other systems reviewed and are negative. Hematological: Negative. Allergic/Immunologic: Negative. OBJECTIVE Objective: Physical Exam Constitutional: Appearance: Normal appearance. She is well-developed. Genitourinary: Vulva normal. Breasts: Breasts are soft. Right: Normal. Left: Normal. Cardiovascular: Rate and Rhythm: Normal rate and regular rhythm. Pulmonary: Effort: Pulmonary effort is normal. Breath sounds: Normal breath sounds. Abdominal: General: Bowel sounds are normal. There is no distension. Palpations: Abdomen is soft. Tenderness: There is no abdominal tenderness. There is no guarding or rebound. Musculoskeletal: General: No swelling. Normal range of motion. Right lower leg: No edema. Left lower leg: No edema. Neurological: Mental Status: She is alert and oriented to person, place, and time. Skin: General: Skin is warm and dry. Psychiatric: Mood and Affect: Mood normal. Behavior: Behavior normal. Vitals and nursing note reviewed. Exam conducted with a piler present. Vitals: Estimated body mass index is 27.12 kg/m?? as calculated from the following: Height as of 05/05/24: 5' 8.5 . Weight as of 05/05/24: 181 lb. BP: No LMP recorded. (Menstrual status: No Periods). Assessment/Plan ICD-10-CM 1. Well woman exam with routine gynecological exam Z01.419 THIN PREP TIS PAP AND HR HPV DNA 2. Osteoporosis, post-menopausal M81.0 DEXA bone density Assessment/Plan Annual: Patient presents today for an annual exam. Patient states she is doing well and has no complaints. Pap was obtained without difficulty and patient given mammogram order to have scheduled/obtained. Buderer HRT labs ordered for complaints of vasomotor symptoms, fatigue and joint pain Orders Placed This Encounter Procedures DEXA bone density Follow Up: Patient is to return in one year for annual unless needed otherwise. Documented by Mariam Woody MA on behalf of: Gabriela Soriano NP documented in this encounter Plan of Treatment NameTypePriorityAssociated DiagnosesOrder ScheduleTHIN PREP TIS PAP AND HR HPV DNAPathology and CytologyRoutine Well woman exam with routine gynecological exam Ordered: 08/12/2025documented as of this encounter Visit Diagnoses Diagnosis Well woman exam with routine gynecological exam Routine gynecological examination Osteoporosis, post-menopausal Senile osteoporosis documented in this encounter Care Teams Team MemberRelationshipSpecialtyStart DateEnd Date Unallocated, Noms Provider, [place] [address] PCP - GeneralFamily Adbbgfsf80/3/25documented as of this encounter
--- OUTSIDE RECORDS SUMMARY | 2025-08-13 08:30 | XMS_ITS | Encounter Summary ---
Author Organization [facility] Address [address] [place] [address] Care Team Providers Care Inbound Call Center Agent Name Role Phone Unallocated, Noms Provider MD Primary Care Provi nathan Reason for Visit * ReasonCommentsAnnual Exam Encounter Details DateTypeDepartmentCare Team (Latest Contact Info)Wnamnyxfais00/14/2025 8:30 AM ESTOffice Visit [facility] [address] [facility] [address] [place] [phone] Alejandra Braden, DO [address] [facility] [address] [place] [address] Routine general medical examination at a health care facility (Primary Dx); Sinusitis, unspecified chronicity, unspecified location; Acute right ankle pain; Left thyroid nodule Social History Tobacco UseTypesPacks/DayYears UsedDateSmoking Tobacco: NeverSmokeless Tobacco: NeverAlcohol UseStandard Drinks/WeekCommentsYes1 (1 standard drink = 0.6 oz pure alcohol)caffeine: 1-2 cups per dayPHQ-2AnswerDate RecordedPatient Health Questionnaire-2 Fpddu17710/13/2024CommentsNoSex and Gender Information ValueDate RecordedSex Assigned at FiuzuLqkkyg62/14/2024 10:53 AM ESTLegal Sex Ftcqsh2812/12/2022 7:08 PM EDTGender FtqpycdvThywsn36/14/2024 10:53 AM ESTSexual QkcbhpbajmnXzoqmrzu85/14/2024 10:53 AM ESTdocumented as of this encounter Last Filed Vital Signs Vital SignReadingTime TakenCommentsBlood Hmzaaoxc281/8208/13/2025 8:14 AM EST Farbx035908/13/2025 8:14 AM SZYKluzqkhefjj48.3 ??C (97.4 ??F)08/13/2025 8:14 AM ESTRespiratory Rate--Oxygen Edmksovazr77%08/13/2025 8:14 AM ESTInhaled Oxygen Concentration--Btyqil40.2 kg (192 lb 3.2 oz)08/13/2025 8:14 AM FGRWnamcq798 cm (5' 8.5 )08/13/2025 8:14 AM ESTBody Mass Index28.811 8:14 AM EST documented in this encounter Functional Status * Over the past 2 weeks, how often have you been bothered by any of the following problems?QuestionAnswerDate of AssessmentAuthorLittle interest or pleasure in doing thingsNot at all08/13/2025 8:30 AM ESTKathleen Mendoza LPNFeeling down, depressed, or hopelessNot at all08/13/2025 8:30 AM EST Kathleen Mendoza LPNPatient Health Questionnaire-2 Txovd36410/13/2024 8:30 AM Kathleen Boyle LPN documented as of this encounter Progress Notes * Alejandra Braden, DO - 08/13/2025 8:30 AM EST Images from the original note were not included. Alisia Squires is a 55 y.o. female presents with chief complaint of Chief Complaint Patient presents with Annual Exam ?Quick Links Last Note in Specialty Snapshot Edit RFV/CC Edit Screenings Current Meds ?Quick Links Full Problem List Cardiology GI ?Quick Links Add Vitals Timeline (Adult) Labs Imaging Results Review Trend Vitals ?? Avoid pulling in long tables of results. Comment on relevant results to support your medical decision making. Diagnoses and all orders for this visit: Routine general medical examination at a health care facility Sinusitis, unspecified chronicity, unspecified location - cefdinir (Omnicef) 300 MG capsule; Take 1 capsule (300 mg) by mouth in the morning and 1 capsule (300 mg) before bedtime. Do all this for 7 days. - predniSONE (Deltasone) 20 MG tablet; Take 2 tablets (40 mg) by mouth Daily for 3 days, THEN 1 tablet (20 mg) Daily for 3 days, THEN 0.5 tablets (10 mg) Daily for 4 days. Acute right ankle pain Left thyroid nodule - US thyroid At [facility] maintanence appointment I reviewed the patients past medical history along with any laboratory and diagnostic testing preformed prior to the visit. During the visit, health care maintanence was reviewed and recommendations made specifically for the patient based on their risk factors. Current colon cancer screening: not up-to-date and patient wishes to be scheduled for colonoscopy. Breast cancer screening: up-to-date with screening. Blood work: n/a. Finally the patient was instructed to call the office if any health issues arise until the next well check/appointment. At the conclusion of the visit all questions were answered which were brought forth. Assessment & Plan 1. Sinusitis with dizziness: Dizziness is positional and lasts 40-50 seconds. It is associated with a feeling of congestion. Mild serous otitis bilaterally and moderate nasal congestion were noted. Different etiologies were reviewed, and she has not responded well to vestibular therapy. A trial of Omnicef antibiotic and a course of Medrol Dosepak steroid taper will be initiated to address potential infection and nerve irritat ion. 2. Extensor tendon tendinitis of the right foot: Pain occurs across the right ankle and is exacerbated by certain movements. It is likely due to rebounding exercises. Some pain with dorsiflexion against resistance was noted. An ankle sleeve is recommended for additional support. If symptoms persist, shoe inserts like PowerStep may be considered to prevent excessive outward eversion of the foot. 3. Thyroid nodule: A 1.9 cm nodule was found on the left thyroid. An ultrasound will be conducted to further evaluate the nodule. Blood work including TSH, T3, and T4 levels will be done today. ALEJANDRA BRADEN D.O. This note was entered using [employer]. Grammatical and dictation errors maybe present in translation *I have reviewed and reconciled the history and medication list with the patient today* HPI History of Present Illness The patient is a 55-year-old female presenting for an ER follow-up. She has been experiencing dizziness over the past month. She suspects an upper respiratory infection with concurrent ear infection, which worsened significantly after work one evening. A CTA of her head with IV contrast was performed, revealing a thyroid nodule. An ultrasound was subsequently ordered. She continues to experience congestion and intermittent dizziness, which she describes as similar to the sensation of intoxication. These episodes last approximately 40 to 50 seconds and are often positional. She has undergone 3 physical therapy sessions to address potential crystal displacement in the inner ear. After the third session, it was suggested that she undergo a CT scan due to worsening symptoms. She received IV Benadryl and steroids preemptively due to a known reaction to IV contrast, which causes hives. She reports a slight improvement following the steroid administration. She reports no changes in vision but notes hearing difficulties in noisy environments and a sensation of congestion. She occasionally experiences tinnitus, but not during dizzy spells. She also reports mild left ear pain. Head movements during maneuvers inducemild dizziness. She has a history of vertigo and has previously undergone physical therapy. Her current symptoms are slightly worse than previous episodes, but the Hallpike maneuver did not exacerbate them. She reports no nystagmus but feels as though she might experience it. These symptoms have been present for approximately 3 weeks, coinciding with her return from [place] where she experienced a severe upper respiratory infection. She reports no cardiac symptoms such as palpitations or arrhythmias. She was prescribed amoxicillin but did not take it as she believed her condition was viral innature. She has been engaging in rebounding exercises to improve her fitness and has started running. She reports pain across her right ankle, which she attributes to menopause. She does not recall any specific injury to the ankle but mentions a catching sensation during rebounding exercises. She has noticed an improvement in the past few days following IV steroid administration. The pain is described asa shooting sensation that radiates downwards. She reports no swelling or bruising. She finds relieffrom taping the ankle during work or exercise. She uses [employer] shoes for workouts. FAMILY HISTORY Her mother had thyroid cancer at the age of 13. Here for annual wellness Labs ordered 08/11/25 by Gabriela Soriano NP Mammogram ordered 08/11/25 Dexa ordered 01/29/24 () Went to the [facility] ER 2 nights ago d/t dizziness. Started after respiratory infection. Dizziness comesand goes. Tunneled hearing. Has gone to PT 3 times this month, but has not helped. IV CTA was done-nodule was found on nodule. Mother passed from thyroid cancer Right lateral ankle pain x 1 month. Xray ws done at [facility] ER while she was seen for dizziness and everything was normal. IV steroids were given which helped ankle pain. No numbness/tingling. Has been taping at work and occasion ibuprofen or tylenol Depression: Not at risk (08/13/2025) PHQ-2 PHQ-2 Score: 0 Discontinued Medications ACYCLOVIR (ZOVIRAX) 5 % OINTMENT Apply topically 6 (six) times a day Space applications every 3 hours. ALPRAZOLAM (XANAX) 0.25 MG TABLET TAKE 1 TABLET BY MOUTH TWICE A DAY NEEDED FOR STRESS AMOXICILLIN (AMOXIL) 500 MG CAPSULE TAKE 1 CAPSULE BY MOUTH IN THE MORNING, EVENING, AND BEFORE BEDTIME FOR 7 DAYS AZITHROMYCIN (ZITHROMAX Z-SHILO) 250 MG TABLET As directed DESONIDE (DESOWEN) 0.05 % CREAM APPLY TOPICALLY 2 TIMES A DAY FOR 14 DAYS NEEDED ESTRADIOL (CLIMARA) 0.05 MG/24HR Place 1 patch over 7 days on the skin 1 (one) time per week ESTRADIOL (ESTRACE) 0.5 MG TABLET Take 1 tablet (0.5 mg) by mouth Daily ESTRADIOL STARTER PACK (IMVEXXY STARTER PACK) 4 MCG INSERT Insert 1 suppository into the vagina 2 (two) times a week MECLIZINE (ANTIVERT) 25 MG TABLET Take 1 tablet (25 mg) by mouth 3 (three) times a day as needed for dizziness for up to 10 days METFORMIN XR (GLUCOPHAGE-XR) 500 MG 24 HR TABLET Take 2 tablets (1,000 mg) by mouth in the evening.Take with meals OFLOXACIN (FLOXIN) 0.3 % OTIC SOLUTION Administer 5 drops into each ear in the morning and 5 drops before bedtime. Do all this for 10 days. PHENTERMINE (ADIPEX-P) 37.5 MG TABLET Take 1 tablet (37.5 mg) by mouth in the morning. Take before meals. SUBJECTIVE: Current Medications/Allergies: ROS Current Medications[1] Allergies[2] Review of Systems Constitutional: Negative for fatigue. HENT: Negative for rhinorrhea. Respiratory: Negative for cough and shortness of breath. Cardiovascular: Negative for chest pain. Gastrointestinal: Negative for abdominal distention. Musculoskeletal: Positive for arthralgias. Skin: Negative for rash. Neurological: Positive for dizziness. All other systems reviewed and are negative. Past Medical/Sx History: Social/FHx Medical History[3] Surgical History[4] Social History[5] Family History[6] Health Maintenance Due Topic Date Due Colorectal Cancer Screening Never done Mammogram 08/13/2024 Influenza Vaccine (1) 05/31/2025 COVID-19 Vaccine ( season) 2025 OBJECTIVE: 08/13/2025 8:14 AM 08/12/2025 9:11 AM 05/05/2024 8:02 AM 01/30/2024 3:14 PM 01/17/2023 12:00 PM 12/20/2022 12:00 PM 01/08/2022 12:00 PM Vitals BMI 28.8 kg/m2 27.57 kg/m2 27.12 kg/m2 26.67 kg/m2 29.29 kg/m2 29.76 kg/m2 29.1 kg/m2 BSA (m2) 2.05 m2 2.01 m2 1.99 m2 1.97 m2 2 m2 2.02 m2 2 m2 Systolic 118 126 124 134 116 110 Diastolic 82 76 82 82 80 64 Heart Rate 88 SpO2 95 % Temp 97.4 ??F Height (in) 5' 8.5 5' 8.5 5' 8.5 5' 7 5' 7 5' 7 Weight (lb) 192.2 184 181 178 187 190 Visit Report Report Report Physical Exam General Appearance: Alert and oriented. Pleasant affect. No acute distress. Well nourished. Head: Atraumatic normal cephalic. No masses or swelling. Eyes: EOMI, sclera white, conjunctiva clear, no injection. Pupils relatively equal size. Ears: Mild serous otitis bilaterally. Nose: Moderate nasal congestion. Throat: Cobblestoning of the posterior oropharynx. Neck: Supple, no obvious range of motion deficits, no swelling or pain. Respiratory: Clear to auscultation, no wheezing, rales or rhonchi. Cardiovascular: Regular rate and rhythm, no murmurs. Normal S1, S2 Musculoskeletal/Extremities: Full range of motion in the right ankle, pain with dorsiflexion against resistance. Skin: Warm and dry, no rashes. Neurological: Cranial nerves II-VII grossly intact, no gross neurologic abnormalities or focal defects. Psychiatric: Cooperative, pleasant, no signs of major mood disorder. [1] Current Outpatient Medications Medication Sig Dispense Refill Cequa 0.09 % solution Administer 1 drop into both eyes in the morning and 1 drop before bedtime. Estradiol-Progesterone (Bijuva) 0.5-100 MG capsule Take 1 capsule by mouth Daily 90 capsule 3 Estradiol-Progesterone (Bijuva) 1-100 MG capsule Take 1 tablet by mouth Daily 30 capsule 3 fluticasone (Flonase) 50 MCG/ACT nasal spray Administer 1 spray into each nostril Daily Shake gently. Before first use, prime pump. After use, clean tip and replace cap. 16 g 12 cefdinir (Omnicef) 300 MG capsule Take 1 capsule (300 mg) by mouth in the morning and 1 capsule (300 mg) before bedtime. Do all this for 7 days. 14 capsule 0 predniSONE (Deltasone) 20 MG tablet Take 2 tablets (40 mg) by mouth Daily for 3 days, THEN 1 tablet(20 mg) Daily for 3 days, THEN 0.5 tablets (10 mg) Daily for 4 days. 11 tablet 0 No current facility-administered medications for this visit. [2] No Known Allergies [3] History reviewed. No pertinent past medical history. [4] Past Surgical History: Procedure Laterality Date IRIDOTOMY / IRIDECTOMY 2013 OTHER SURGICAL HISTORY Right 03/16/2024 hamstring repair [place] NASAL ENDOSCOPY DIAGNOSTIC UNI/BI SPX 2012 [5] Social History Tobacco Use Smoking status: Never Smokeless tobacco: Never Vaping Use Vaping status: Never Used Substance Use Topics Alcohol use: Yes Alcohol/week: 1.0 standard drink of alcohol Types: 1 Standard drinks or equivalent per week Comment: caffeine: 1-2 cups per day Drug use: Never [6] Family History Problem Relation Name Age of Onset Hypertension Mother Allie Ny Cancer Mother Allie Ny Hyperlipidemia Mother Allie Ny Thyroid cancer Mother Allie Ny Osteoporosis Mother Allie Ny Migraines Mother Allie Ny Breast cancer Mother Allie Ny Other (dumping syndrome) Mother Allie Ny Diabetes Father Juan Francisco a Fittler Heart disease Father Juan Francisco a Fittler Stroke Father Juan Francisco a Fittler No Known Problems Sister No Known Problems Brother Melanoma Neg Hx documented in this encounter Plan of Treatment NameTypePriorityAssociated DiagnosesOrder ScheduleUS thyroidImagingRoutine Left thyroid nodule Ordered: 08/13/2025documented as of this encounter Visit Diagnoses Diagnosis Routine general medical examination at a health care facility- Primary Sinusitis, unspecified chronicity, unspecified location Acute right ankle pain Left thyroid nodule documented in this encounter Care Teams Team MemberRelationshipSpecialtyStart DateEnd Date Unallocated, Noms Provider, [address] [place] [address] PCP - GeneralFamily Fpviqjpc96/3/25documented as of this encounter
--- OUTSIDE RECORDS SUMMARY | 2025-08-23 08:26 | XMS_ITS | CCD ---
Author Organization [facility] Inform ion [facility] Care Team Providers Care Shaker Tender Name Role Phone PRISCILA SMITH Admitting Unavailable [...] Petznick Alejandra WOODSON Primary Care Provider [phone] VERONIKA DOBBS Attending Unavailable ALEJANDRA PRIETO Referring Unavailable ELDA AGUILAR Attending Unavailable BRITANY GOLDSTEIN Attending Unavailable ANUPAMA KEVIN Attending Unavailable BRITANY GOLDSTEIN Attending Unavailable BRITANY GOLDSTEIN Referring Unavailable Sampson, Alejandra Primary Care Unavailable Veronica Dobbs Attending Unavailable Veronica Dobbs Admitting Unavailable Petznick Alejandra WOODSON Primary Care Provider [phone] Unallocated , [place] Provider Primary Care Provi nathan Medications Current Medications MedicationDrug Class(es)DatesSig (Normalized)Sig (Original)acyclovir 0.05 mg/mg topical ointment (1 source)Herpesvirus Nucleoside Analog DNA Polymerase Inhibitor, Herpes Simplex Virus Nucleoside Analog DNA Polymerase Inhibitor, Herpes Zoster Virus Nucleoside Analog DNA Polymerase InhibitorStart: 33-33-7735jibigaptq (Zovirax) 5 % ointment Indications: Cold sore Apply topically 6 (six) times a day Space applications every 3 hours. 30 g 1 06/10/2025 ActiveStart: 09-09-0816papkvfcfu (Zovirax) 5 % ointment Indications: Cold sore Apply topically 6 (six) times a day Space ap plications every 3 hours. 30 g 1 06/10/2025 Activeazithromycin 250 mg oral tablet (3 sources)Macrolide AntimicrobialStart: 73-86-0258rjbpkdpcziyc (Zithromax Z- Guicho) 250 MG tablet Indications: Upper respiratory tract infection, unspecified type As directed 6 tablet 05/10/2025 ActiveContinuous Glucose Contracts Director (Dexcom G7 Contracts Director) device (2 sources)Start: 05-20-2025 End: 02-47-3603Snkcornzlf Glucose Contracts Director (Dexcom G7 Contracts Director) device Indications: Hypoglycemia 1 Device continuously 1 each 05/20/2025 06/19/2025 ActiveContinuous Glucose Sensor (Dexcom G7 Sensor) misc (2 sources)Start: 05-20-2025 End: 43-18-7186Isqqvjmboc Glucose Sensor (Dexcom G7 Sensor) misc Indications: Hypoglycemia 1 each Every 10 (ten) days 3 each 3 05/20/2025 06/19/2025 Active desonide 0.5 mg/ml topical cream (3 sources)CorticosteroidStart: 79-34-2873rtyzocuv (DesOwen) 0.05 % cream Indications: Dermatitis APPLY TOPICALLY 2 TIMES A DAY FOR 14 DAYS NEEDED 60 g 2 12/17/2024 Activeestradiol 0.004 mg vaginal insert (17 sources)EstrogenStart: 03-15-2025 End: 23-48-3313Tchuhoorg (Imvexxy Maintenance Pack) 4 MCG insert Indications: Menopausal disorder , Dyspareunia infemale , Menopausal syndrome on hormone replacement therapy Insert 1 Insert into the vagina 2 (two)times a week 24 each 03/18/2025 06/16/2025 ActiveStart: 03-04-2025 End: 13-07-6106nociyjjsl (Climara) 0.05 MG/24HR Indications: Postmenopausal state , Menopausal disorder Place 1 patch over 7 days on the skin 1 (one) time per week 12 patch 3 03/04/2025 03/04/2026 ActiveStart: 86-66-1818hddq 1 tablet by mouth once dailyestradiol (Estrace) 0.5 MG tablet Indications: Hormone imbalance Take 1 tablet (0.5 mg) by mouth Daily 90 tablet 3 12/11/2023 Active Estradiol / Progesterone (3 sources)Progesterone, EstrogenStart: 91-03-4444cawl 0.5-100 mg by mouth once dailyEstradiol-Progesterone (Bijuva) 0.5-100 MG capsule Indications: Symptomatic menopausal or female climacteric states , Menopausal syndrome on hormone replacement therapy , Dyspareunia in female Take 1capsule by mouth Daily 90 capsule 3 03/10/2025 ActiveStart: 03-10-2025 End: 54-06-5085dqun 0.5-100 mg by mouth once dailyEstradiol-Progesterone (Bijuva) 0.5-100 MG capsule Indications: Symptomatic menopausal or female cli macteric states , Menopausal syndrome on hormone replacement therapy , Dyspareunia in female Take 1capsule by mouth Daily 90 capsule 3 03/10/2025 06/08/2025 Ogaxws82 hr metFORMIN hydrochloride 500 mg extended release oral tablet (3 sources)BiguanideStart: 02-16-2025 End: 34-49-1585kblc 2 tablets by mouth every twenty-four hours at mealtime metFORMIN XR (Glucophage-XR) 500 MG 24 hr tablet Indications: Insulin resistance Take 2 tablets (1,000 mg) by mouth in the evening. Take with meals 180 tablet 3 02/16/2025 Activephentermine hydrochloride 37.5 mg oral tablet (3 sources)Sympathomimetic Amine AnorecticStart: 75-03-8670uexp 1 tablet by mouth before mealtimephentermine (Adipex-P) 37.5 MG tablet Indications: Encounter for weight management Take 1 tablet (37.5 mg) by mouth in the morning. Take before meals. 90 tablet 02/04/2025 ActivepredniSONE 50 mg oral tablet (2 sources)Start: 06-04-2025 End: 65-45-2650ltls 1 tablet by mouth once dailypredniSONE (Deltasone) 50 MG tablet Indications: Poison sam Take 1 tablet (50 mg) by mouth Daily for 7 days 7 tablet 06/04/2025 06/11/2025 ActivevalACYclovir 1000 mg oral tablet (4 sources)Herpesvirus Nucleoside Analog DNA Polymerase Inhibitor, Herpes Simplex Virus Nucleoside Analog DNA Polymerase Inhibitor, Herpes Zoster Virus Nucleoside Analog DNA Polymerase InhibitorStart: 06-10-2025 End: 32-20-9765ikyi 1 tablet by mouth in the morning, [...] 21 tablet 06/10/2025 06/10/2025 Discontinued (Reorder) End: 26-21-5236dkxFVVaybazn (Valtrex) 1 g tablet Take 1,000 mg by mouth in the morning and 1,000 mg in the eveningand 1,000 mg before bedtime. 06/10/2025 Discontinued (Dose adjustment) Problems Active Problems Problem ClassificationProblemDateDocumented DateEpisodic/ChronicAnxiety disorders (8 sources)Acute stress disorder; Translations: [Acute stress reaction]Onset: 013190-69-2129BfaslkfIyalgvtnex disorders (12 sources)Disorder associated with menstruation AND/OR menopause; Translations: [Unspecified menopausal and perimenopausal disorder]Onset: 746189-72-0948QkcrqxlAicfw connective tissue disease (4 sources)Adhesive capsulitis of right shoulder; Translations: [Adhesive capsulitis of right shoulder]96-97-7553JngxnjrkVrkfq connective tissue disease (2 sources)Impingement syndrome of right shoulder region; Translations: [Impingement syndrome of right shoulder]47-48-3204XuvxhtfbRjdpg female genital disorders (4 sources)Pain in female genitalia on intercourse; Translations: [Unspecified dyspareunia]Onset: 022687-93-1574YgfzagpLcudj lower respiratory disease (4 sources)Pleurodynia; Translations: [PLEURODYNIA]Onset: 81-97-5093Lzhygmcx Other non-traumatic joint disorders (2 sources)Pain in right shoulder; Translations: [Pain in joint, shoulder region]55-82-2628QbbnwppjEcdjj nutritional; endocrine; and metabolic disorders (8 sources)Insulin resistance; Translations: [Insulin resistance]Onset: 281877-18-0194FhtcvjkTsgqvcnswrwp (3 sources)CONTACT W/AND (SUSP) EXPOS COVID-19; Translations: [CONTACT W/AND (SUSP) EXPOS COVID-19]Onset: 25-45-6141Itijg infection (1 source)Herpes labialis; Translations: [Herpesviral vesicular dermatitis] 58-11-2990Qqfwqpcj Past or Other Problems Problem ClassificationProblemDateDocumented DateEpisodic/ChronicBacterial infection; unspecified site (8 sources)Bacterial infectious disease; Translations: [Other specified bacterial agents as the cause of diseases classified elsewhere]Onset: 01-30-2024 93-31-6925WkptnlwtQotzgnlqewphr symptoms and ill-defined conditions (8 sources)Bence-Abdalla proteinuria; Translations: [Bence Abdalla proteinuria] Onset: 176818-41-2093GespidrqLkiauyiuidced and screening for infectious disease (4 sources)Encounter for immunization; Translations: [ENCOUNTER FOR IMMUNIZATION]Onset: 83-85-6175SucxfqkiOowqznrhyuyz diseases of female pelvic organs (8 sources)Acute vaginitis; Translations: [Acute vaginitis]Onset: 01-30-2024 38-84-9131ZhlogtbxFklvqvk and fatigue (1 source)Other fatigue; Translations: [Other fatigue]Onset: 90-28-2477Bdczcgqb Nausea and vomiting (8 sources)Nausea; Translations: [Nausea]Onset: 039182-56-1663Qaujfqse Neoplasms of unspecified nature or uncertain behavior (8 sources)Thrombocytosis; Translations: [Thrombocytosis]Onset: 10-26-2016 20-21-4613IecnhqahCbtdq circulatory disease (8 sources)Telangiectasia disorder; Translations: [Nevus, non-neoplastic]Onset: 702736-43-9854VxeznwswTkjsv nervous system disorders (8 sources)Notalgia paresthetica; Translations: [Paresthesia of skin]Onset: 206800-07-6368IulwgqygXwtvg nervous system disorders (8 sources)Finding related to ability to move; Translations: [Other abnormalities of gait and mobility]Onset: 415339-94-5306HbfisxusXbdzc non- traumatic joint disorders (8 sources)Hip pain; Translations: [Pain in right hip]Onset: 01-29-2024 95-33-6227DjekvweeDfrun screening for suspected conditions (not mental disorders or infectious disease) (8 sources)Patient encounter status; Translations: [Encounter for screening for malignant neoplasm of colon]Onset: 321439-88-3770MucogxegFbxde skin disorders (8 sources)Wrinkled skin; Translations: [Other specified disorders of the skin and subcutaneous tissue]Onset: 484472-90-7584GtbjcyprRhiol upper respiratory infections (9 sources)Acute upper respiratory infection; Translations: [Acute upper respiratory infection, unspecified]Onset: 928215-04-0418GgofxobjBdejlloi codes; unclassified (8 sources)Postmenopausal state; Translations: [Asymptomatic menopausal state] Onset: 136829-48-5050MbraqqpxUdzectjoygqg (1 source)CONTACT W/AND (SUSP) EXPOS COVID-19; Translations: [CONTACT W/AND (SUSP) EXPOS COVID-19]Onset: 06-10-2021 Results Test NameValueInterpretationReference RangeFacilityXR Shoulder - right 2 Viewson 79-77-0971Apcalro Result: August 25, 2024 x-rays AP axillary and Y scapula of the right shoulder demonstrate a type 1 acromion. The glenohumeral joint and acromioclavicular joints are intact. There are no fractures. There is normal glenoid morphology. Impression: No acute findings on x-rays of the right shoulder Hai Goldstein D.O.[facility] HealthcarePAR[facility] HealthcareRadiology Study observation (narrative)[facility] HealthcareThyroxine (T4) Totalon 06-85-9536K6 [Mass/Vol]7.97 ug/dLNormal5.39-11.82The [facility] Physician GroupComment on above:Performed By: #### T3F, T4T, T3T #### [address] #### T3R #### [facility] ,Triiodothyronine (T3) Freeon 80-89-0413Leafixhskaablghj (T3) Free3.47 pg/mL Normal2.50-3.90The [facility] Physician [facility] HospitalComment on above:Result Comment: PERFORMED BY: [place] [address] PATHOLOGIST QUARTER TRIMMER DAYRON FLOWERS M.D.Performed By: #### T3F, T4T, T3T #### [address] #### T3R #### [facility] ,Triiodothyronine (T3) Reverseon 36-75-2741Tlqsigpsoukxsvzd (T3) Uvnctwg65.8 ng/dLNormal9.2-24.1The [facility] Physician GroupComment on above:Result Comment: This test was developed and its performance characteristics determined by [facility]. It has not been cleared or approved by the Food and Drug Administration. Performed at: [address] [id number] Excel Expert: Pj Murphy MD, Phone: [phone] PERFORMED BY: [place] [address] PATHOLOGIST QUARTER TRIMMER DAYRON FLOWERS M.D.Performed By: #### T3F, T4T, T3T #### [address] #### T3R #### [facility] ,Triiodothyronine (T3) Totalon 00-34-9965Owtxyqziyeazhahr (T3) Total0.95 ng/mL Normal0.87-1.78The [facility] Physician GroupComment on above:Result Comment: PERFORMED BY: [place] [address] PATHOLOGIST QUARTER TRIMMER DAYRON FLOWERS M.D.Performed By: #### T3F, T4T, T3T #### [address] [place] [address] [facility] #### T3R #### [facility] ,MR Thigh - right WO contraston 21-41-[place] [address] Magnetic Resonance Report Signed Patient: ALISIA MENJIVAR MR#: [id number] : 1970 Acct:[id number] Age/Sex: 53 / F ADM Date: 02/27/24 Loc: MRI Attending Dr: Britany Goldstein M.D. Ordering Physician: Britany Goldstein M.D. Date of Service: 02/27/24 Procedure(s): MR femur RT wo con Accession Number(s): [id number] cc: Britany Goldstein M.D.; ALEJANDRA PRIETO [place] [address] Patient Name: ALISIA MENJIVAR MRN: [facility]:[id number] date: 1970 Sex: F Assigned Patient Location: MRI Current Patient Location: MRI Accession/Order Number: [id number] Exam Date: 02/27/2024 16:47 Report Date: 02/27/2024 [...] M.D. Signed By: 02/27/241899 DD/ 57 TD/TT: Business Supervisor:KAMIHRadiology, Radiologist, - 02/28/2024 [place] [address] Magnetic Resonance Report Signed Patient: ALISIA MENJIVAR MR#: [id number] : 1970 Acct:[id number] Age/Sex: 53 / F ADM Date: 02/27/24 Loc: MRI Attending Dr: Britany Goldstein M.D. Ordering Physician: Britany Goldstein M.D. Date of Service: 02/27/24 Procedure(s): femur RT wo con Accession Number(s): [id number] cc: Britany Goldstein M.D.; ALEJANDRA PRIETO [place] [address] Patient Name: ALISIA MENJIVAR MRN: [facility]:[id number] date: 1970 Sex: F Assigned Patient Location: MRI Current Patient Location: MRI Accession/Order Number: [id number] Exam Date: 02/27/2024 16:47 Report Date: 02/27/2024 [...] M.D. Signed By: 02/27/241899 DD/ 57 TD/TT: Business Supervisor: MATHEUS [facility] InstituteRadiology Study observation (narrative)[facility] Thigh - right WO contrastOrdered By: Radiologist Radiology on 96-12-1130XMJX Access Point Work Phone: XR RIBS LT PA Chepe [phone] RIBS LT PA CH EXAMINATION: XR RIBS [...] Electronically authenticated by: DARREN BOBO Date: 2022-05-22 11:30[facility] HospitalCoding Summary.on 66-50-4226Djvkgi Summary. CD:[id number] PH1HKtiD6SuoxHe [file] OiBj (more content not included)...[facility] HospitalMA Mamm Screen w/CAD if perf and 3D Bilon 11-28-9786XY Mamm Screen w/CAD if perf and 3D [...] very important to your health. The current [employer] and National Comprehensive Cancer [...] Assessment: BI-RADS Category 1-Negative Recommendation: Normal interval follow-upBerger Hospital Consent for Treatmenton 48-48-7213Itmjtfq for Treatment [id number]#1.00CD:[address] [place], [place] [address]Physician Orderon 27-16-4410Lfevalbfq Order [id number]#1.00CD:[address] [place], [place] [address]CBC AUTO DIFFon 93-95-0603MYIY #0.0 103/ulNormal0.0-0.1[facility]Comment on above:Performed By: #### CBC #### [facility] [address] [address] [address] Danyell Emmanuel/100 WBC (Bld)0.4 %Normal0.2-2.0[facility] Comment on above:Performed By: #### CBC #### [facility] [address] [place] [address] [address] Yilan ChangEO #0.2 103/ulNormal0.0-0.7The [facility] HospitalComment on above: Performed By: #### CBC #### [facility] [address] [place] [address] Dr. Danyell Funezosinophils/100 WBC (Bld)2.9 %Normal0.9-7.0The [facility] Comment on above:Performed By: #### CBC #### [facility] [address] [place] [address] Dr. Danyell Funezrythrocyte distribution width (RBC) [Ratio]13.9 %Zjqspd11.0-15.0 The [facility] HospitalComment on above:Performed By: #### CBC #### [facility] [address] [place] [address] Dr. Danyell RecinosHematocrit (Bld) [Volume fraction]43.9 %Yefkcj11.0-48.0The [facility] HospitalComment on above:Performed By: #### CBC #### [facility] [address] [place] [address] Dr. Danyell RecinosHemoglobin (Bld) [Mass/Vol]14.3 g/oUHkuiso04.0-16.0The [facility] HospitalComment on above:Performed By: #### CBC #### [facility] [address] [place] [address] Dr. Danyell Hein #0.01 10e3/ulNormal0.00-0.03The [facility] HospitalComment on above:Performed By: #### CBC #### [facility] [address] [place] [address] Dr. Danyell Hein %0.2 %Normal0.0-0.5The [facility] HospitalComment on above: Performed By: #### CBC #### [facility] [address] [place] [address] Dr. Danyell Sy #1.6 103/ulNormal1.2-3.8The [facility] HospitalComment on above:Performed By: #### CBC #### [facility] [address] [place] [address] Dr. Danyell Garciamphocytes/100 WBC (Bld)30.7 %Faswho34.5-60.0The [facility] HospitalComment on above:Performed By: #### CBC #### [facility] [address] [place] [address] Dr. Danyell LeyUAL DIFF REQNONormalThe [facility] HospitalComment on above: Performed By: #### CBC #### [facility] [address] [place] [address] Dr. Danyell Gomez (RBC) [Entitic mass]31.2 vcEbzquy92.7-34.0The [facility] HospitalComment on above:Performed By: #### CBC #### [facility] [address] [place] [address] Dr. Danyell Gomez (RBC) [Mass/Vol]32.6 g/qXMfehxq13.9-35.2The [facility] HospitalComment on above:Performed By: #### CBC #### [facility] [address] [place] [address] Dr. Danyell Gomez (RBC) [Entitic vol]95.9 sVThagmt59.0-99.0The [facility] HospitalComment on above:Performed By: #### CBC #### [facility] [address] [place] [address] Dr. Danyell Virk #0.6 103/ulNormal0.3-0.8The [facility] HospitalComment on above:Performed By: #### CBC #### [facility] [address] [place] [address] Dr. Danyell Castilloocytes/100 WBC (Bld)11.1 %Normal1.7-12.0The [facility] Comment on above:Performed By: #### CBC #### [facility] [address] [place] [address] Dr. Danyell Christine #2.9 103/ulNormal1.4-6.5The [facility] HospitalComment on above:Performed By: #### CBC #### [facility] [address] [place] [address] Dr. Danyell Hiltonophils/100 WBC (Bld)54.7 %Fgokum15.0-75.0The [facility] Centerment on above:Performed By: #### CBC #### [facility] [address] [place] [address] Dr. Danyell Waltonlet mean volume (Bld) [Entitic vol]10.1 fLNormal9.5-13.5The [facility] HospitalComment on above:Performed By: #### CBC #### [facility] [address] [place] [address] [address] Danyell RecinosPLT422 103/baRqfvjm558-740Jkr [facility] HospitalComaspirus ontonagon hospital on above: Performed By: #### CBC #### [facility] [address] [place] [address] Dr. Danyell RecinosRBC4.58 106/ulNormal4.20-5.40The [facility] HospitalComaspirus ontonagon hospital on above:Performed By: #### CBC #### [facility] [address] [place] [address] Dr. Danyell RecinosWBC5.2 103/ulNormal4.0-11.0The [facility] HospitalComaspirus [facility]tonagon hospital on above: Performed By: #### CBC #### [facility] [address] [place] [address] Dr. Danyell TelloID PROFILEon 93-20-8323CIMN-HDL RATIO NORMSEE [facility] HospitalComasp[facility]tonagon [facility] on above:Result Comment: 3.3 - 4.4 LOW RISK 4.4 - 7.1 AVERAGE RISK 7.1 - 11.0 MODERATE RISK >11.0 HIGH RISKPerformed By: #### LIPID, CMP #### [facility] [address] [place] [address] Dr. Danyell RecinosCholesterol [Mass/Vol]211 mg/dLCritically high<=200The [facility] on above:Performed By: #### LIPID, CMP #### [facility] [address] [place] [address] Dr. Danyell RecinosCholesterol in HDL [Mass/Vol]63 mg/dLCritically jsom72-08EjqKettering Health PrebleComment on above:Performed By: #### LIPID, CMP #### [facility] [address] [place] [address] Dr. Danyell Uribeesterol in LDL [Mass/Vol]130.2 mg/dLSt. Francis HospitalComment on above:Performed By: #### LIPID, CMP #### [facility] [address] [place] [address] Dr. Danyell Alvarez.total/Cholesterol in HDL [Mass ratio]3.3 {ratio} NormalThe [facility] HospitalComment on above:Performed By: #### LIPID, CMP #### [facility] [address] [place] [address] Dr. Danyell Unger NORMAL> or = 60 mg/dl - LOW CARDIOVASCULAR RISK <40 mg/dl - HIGH CARDIOVASCULAR RISKNoPremier Health Miami [facility] Hospital NorthComment on above:Performed By: #### LIPID, CMP #### [facility] [address] [place] [address] Dr. Danyell Huff CALC NORMALSEE BELOWSt. Francis HospitalComment on above:Result Comment: <100 mg/dl OPTIMAL 100 - 129 mg/dl NEAR OR ABOVE OPTIMAL 130 - 159 mg/dl BORDERLINE HIGH 160 - 189 mg/dl HIGH >190 mg/dl VERY HIGH Performed By: #### LIPID, CMP #### [facility] [address] [place] [address] Dr. Danyell RecinosTriglyceride [Mass/Vol]89 mg/dLNormal<=150The [facility] Comment on above:Performed By: #### LIPID, CMP #### [facility] [address] [place] [address] Dr. Danyell BatistaLDL CALC17.8 mg/dLNoPremier Health [facility] Hospital NorthComment on above: Performed By: #### LIPID, CMP #### [facility] [address] [place] [address] Dr. Danyell RecinosPROF 14(COMP METB)on 17-55-8152Jntuzuy [Mass/Vol]3.9 g/dLNormal 3.4-5.0The [facility] HospitalComment on above:Performed By: #### LIPID, CMP #### [facility] [address] [address] [address] Danyell RecinosAlbumin/Globulin [Mass ratio]0.9 {ratio}NormalThe [facility] HospitalComment on above:Performed By: #### LIPID, CMP #### [facility] [address] [address] [address] Danyell Middleton [Catalytic activity/Vol]97 U/YIlmjff18-144Eag [facility] HospitalComment on above:Performed By: #### LIPID, CMP #### [facility] [address] [address] [address] Danyell Emanuel [Catalytic activity/Vol]22 U/HRozued50-65Zgo [facility] Medical Centerment on above:Performed By: #### LIPID, CMP #### [facility] [address] [address] [address] Danyell Mejiason gap [Moles/Vol]14.7 mmol/LNormalThe [facility] Comment on above:Performed By: #### LIPID, CMP #### [facility] [address] [address] [address] Danyell Patel [Catalytic activity/Vol]23 U/EBmxnjo02-67Gyw [facility] on above:Performed By: #### LIPID, CMP #### [facility] [address] [address] [address] Danyell RecinosBilirubin [Mass/Vol]0.6 mg/dLNormal0.2-1.3The [facility] Comment on above:Performed By: #### LIPID, CMP #### [facility] [address] [address] [address] Danyell RecinosCalcium [Mass/Vol]9.2 mg/dLNormal8.5-10.1The [facility] Comment on above:Performed By: #### LIPID, CMP #### [facility] [address] [address] [address] Danyell RecinosChloride [Moles/Vol]104 mmol/IHzsgey00-899G[facility] Comment on above:Performed By: #### LIPID, CMP #### [facility] [address] [address] [address] Danyell RecinosCO2 [Moles/Vol]26.6 mmol/JMwwgyh72.0-30.0[facility] Comment on above:Performed By: #### LIPID, CMP #### [facility] [address] [address] [address] Danyell RecinosCreatinine [Mass/Vol]0.91 mg/dLNormal0.52-1.04[facility]bleComment on above:Performed By: #### LIPID, CMP #### [facility] [address] [place] [address] Dr. Danyell FunezGFR-AF LIBYAN>60Normal>=60The [facility] HospitalComment on above:Performed By: #### LIPID, CMP #### [facility] [address] [address] [address] Danyell Acosta-NON AF LIBYAN>60Normal>=60[facility]bleComment on above:Performed By: #### LIPID, CMP #### [facility] [address] [address] [address] Danyell RecinosGlobulin (S) [Mass/Vol]4.4 g/dLNormalThe [facility] HospitalComment on above:Performed By: #### LIPID, CMP #### [facility] [address] [address] [address] Danyell RecinosGlucose [Mass/Vol]97 mg/jAXxjdpz75-401IosK[facility]tering Health [facility] Comment on above:Performed By: #### LIPID, CMP #### [facility] [address] [address] [address] Danyell RecinosPotassium [Moles/Vol]4.3 mmol/LNormal3.4-5.0The [facility] Comment on above:Performed By: #### LIPID, CMP #### [facility] [address] [address] [address] Danyell RecinosProtein [Mass/Vol]8.3 g/dLCritically high6.1-8.2The [facility] HospitalComment on above:Performed By: #### LIPID, CMP #### [facility] [address] [address] [address] Danyell RecinosSodium [Moles/Vol]141 mmol/QSxfjvz643-036Tzx [facility] Comment on above:Performed By: #### LIPID, CMP #### [facility] [address] [address] [address] Danyell RecinosUrea nitrogen [Mass/Vol]11.0 mg/dLNormal7.0-18.0The [facility] HospitalComment on above:Performed By: #### LIPID, CMP #### [facility] [address] [place] [address] Dr. Danyell RecinosUrea nitrogen/Creatinine [Mass ratio]12.1 mg/mgNormalThe [facility] HospitalComment on above:Performed By: #### LIPID, CMP #### [facility] [address] [place] [address] Dr. Danyell RecinosCovid-19 PCR ([facility])on 16-91-7349TCLG-CoV-2 (COVID-19) RNA QUIRINO+probe Ql (Unsp spec)Not detectedNormalNOT DETECTEDThe [facility] Comment on above:Result Comment: This test is not yet approved or cleared by the [place] FDA. When there are no FDA-approved or cleared tests available, and other criteria are met, FDA can make tests available under an emergency access mechanism called an Emergency Use Authorization (EUA). The EUA for this test is supported by the [place] of Health and Human Service's (HHS's) declaration [...] with SARS-CoV-2.Performed By: #### CVDAGS, CVDTBH #### [facility] [address] [place] [address] Kashif KarenSYMPTOMATIC COVID-19 ANTIGENon 43-12-2125LIK StatementSEE BELOW NormalThe [facility] HospitalComment on above:Result Comment: This test has [...] revoked sooner.Performed By: #### FAISAL, CVDTB #### [facility] [address] [place], [place] [address] Kashif AliceaUiiegQGNE-CoW-1 (COVID-19) RNA QUIRINO+probe Ql (Unsp spec)NegativeNormal NEGATIVEThe [facility] HospitalComment on above:Result Comment: CONFIRMATION BY PCR PENDING PER CDC GUIDELINES/ SYMPTOMATIC PATIENT.Performed By: #### PRISCAAGS, CVDTB #### [facility] [address] [place], [place] [address] Kashif KarenConsent Formson 77-02-5482Wakxwws Forms [id number]#1.00OTGTIFFKnox Community Hospital Encounters Encounter DateEncounter TypeCare ProviderFacilityStart: 06-10-2025 End: 96-68-2179WbnijsDlnnofko Eberly NP Work Phone: [facility] [place] OBGYNStart: 05-10-2025 End: 07-83-9125RtfyopFvnwklpc Eberly NP Work Phone: NOMS Daysi OBGYNComment on above:Upper respiratory tract infection, unspecified type (Primary Dx)Start: 10-30-2024 End: 73-44-0646Htvvlntqd encounterMatthew David Mckee PA Work Phone: n[facility] CI ORTHOPAEDICSStart: 08-25-2024 End: 02-71-0763Sylsbu flowsheetJames A Angelita DO Work Phone: n[facility] CI ORTHOPAEDICSStart: 08-25-2024 End: 13-64-0888Enpzdv flowsheetJames A Angelita DO Work Phone: [facility] CI ORTHOPAEDICSStart: 08-25-2024 End: 73-30-5020prkuvpsnnmEKNDN A AYDINDLESTONNot AvailableStart: 08-25-2024 End: 45-55-2065Rgrkxt outpatient visit 15 minutesJames A Angelita DO Work Phone: noms CI ORTHOPAEDICSComment on above:Right shoulder pain, unspecified chronicity (Primary Dx); Adhesive capsulitis of right shoulder; Impingement syndrome of right shoulderStart: 06-26-2024 End: 40-07-7078yurgvmluulVpvqeav PetznickFacility:[facility] Centertart: 05-05-2024 End: 04-42-3197mnnbtbkwscICPUZOFTT F VALERIYot AvailableStart: 02-27-2024 End: 58-46-9071Czkjcydmg Result EncounterJames A Angelita DO Work Phone: noms External Department UnsolicitedStart: 02-27-2024 End: 99-50-8078Xgfahlpua Result EncounterJames A Angelita DO Work Phone: noms External Department UnsolicitedStart: 02-25-2024 End: 36-62-9028ohsuvxwpkdXUBON A AYDINDLESTONNot AvailableStart: 02-12-2024 End: 82-45-3883ezwfflfqfxIHOAXA L LAURENNot AvailableStart: 01-30-2024 End: 76-13-7417gspsbjfndhOKWD C LAFFAYNot AvailableStart: 05-21-2022 End: 38-92-1108ncdibnepqrAGMREB RODRIGUEZFacility:K6Uapmo: 38-30-2447Amagsmsdf for general adult medical examination without abnormal findingsMATTHEW PETZNICK [facility] HospitalStart: 12-22-2021 End: 05-22-2664jvupslhhyeLVLAMXC PETZNICKFacility:F9Trjnj: 12-22-2021 End: 71-79-2266Kxwfrvups for general adult medical examination without abnormal findingsMATTHEW PETZNICKFacility:X6Sdzxq: 08-11-2021 End: 49-97-3577drmwpieubdGXHROK RUSTY ROSSFacility:H1Ytsct: 06-10-2021 End: 84-71-4991xdcizlbqodWGITUOLO EBERLYFacility:H1 Procedures DateProcedureProcedure DetailPerforming ClinicianStart: 21-78-1390Sqjeo shoulder complete minimum 2 viewsBritany Goldstein DO Work Phone: Start: 45-06-2741Xvecsvfgloz observation [Identifier] in Cervix by Cyto stainBritany Goldstein DO Work Phone: Start: 59-35-6254Wpo lower extrem oth/thn jt w/o contr matrlBritany Goldstein DO Work Phone: Start: 63-11-9973FynyhrmzkdbRkoac Huddleston DO Work Phone: Plan of Treatment DateCare ActivityDetailAuthorStart: 72-92-1082Cluunbqof for malignant neoplasm of cervixNOMS HealthcareStart: 08-13-2025 End: 50-91-3531Geztosi encounter qpaakufcj17/14/2025 8:30 AM EST [facility] [address] [place] [address] Alejandra Prieto, DO [address] [place] [address] [facility] 230 Start: 05-58-0666WMPHR-19 Vaccine ( season)COVID-19 Vaccine ( season)NOM HealthcareStart: 51-36-0100Unidbjnpw vaccinationInfluenza Vaccine (#1)[facility] HealthcareStart: 02-10-2025 End: 41-99-7895Irlknqi encounter jegmogclm62/14/2025 8:00 AM EDT [facility] [address] [place] [address] Elda Aguilar, THERESE [address] [place] [address] [facility] DERMStart: 52-36-9707Rzoaljiik for malignant neoplasm of breastMammogramNOMS HealthcareStart: 79-31-8597Kaxxtwsrt for malignant neoplasm of cervixHPV/CotestNOMS HealthcareStart: 93-35-0044Tnnmowhcc B Vaccines (1 of 3 - 19+ 3-dose series)Hepatitis B Vaccines (1 of 3 - 19+ 3-dose series)NOM HealthcareStart: 74-92-5718BDmC/Tdap/Td Vaccines (1 - Tdap) DTaP/Tdap/Td Vaccines (1 - Tdap)NOM HealthcareStart: 93-57-2885WVD Vaccines (1 of 1 - Standard series)MMR Vaccines (1 of 1 - Standard series)[facility] Healthcare Start: 69-28-8812Ieuekktal for malignant neoplasm of colonNOMS Healthcare Immunizations Immunization DateImmunizationNotesCare XaciygjkZejrjfha61-76-7935sxiggtsxk virus vaccine, unspecified formulationGabriela Soriano GAMBLING CASHIER Work Phone: [facility] Cboxygdutv26-37-1796Kkpgauj SARS-CoV-2 VaccinationJaflora ShaikhAngelita DO Work Phone: [facility] CenterAoeooqboon80-61-1310Ecbotaj SARS-CoV-2 VaccinationJaflora ShaikhAngelita DO Work Phone: [facility] CenterKeqqtwplds78-34-6432Cmxnqbi SARS-CoV-2 VaccinationJaflora ShaikhAngelita DO Work Phone: [facility] CenterKxmurifpfi05-35-2135wvdsettcy virus vaccine, unspecified formulationBritany Goldstein DO Work Phone: [facility] Healthcare Payers DatePayer CategoryPayerPolicy [id number] Health InsuranceUNITED HEALTHCARE [id number] 2..1.879883.3.57[id number] 2..1.881807.3.57[id number] 2..1.230073.3.57[id number] 2.0.1.801188.3.57[id number] 2..1.167306.3.57[id number] 2..1.120536.3.57[id number] 2..1.831544.3.57[id number] 2.0.1.570704.3.57[id number] 2.840.1.488056.3.579.2.054189-27-5653Gbff-zue81085919644-21-9098Zbmkchd [id number] 2.16.840.1.2[id number] 2.840.1.095081.3.579.2.531 Social History DateTypeDetailFacilityStart: 86-20-0929Hssctxe smoking status NHISNever smoked tobaccoNOMS HealthcareStart: 05-88-6726Hfwlhxy use and exposureSmokeless tobacco non-userNOMS HealthcareStart: 02-25-2024 End: 62-82-1875Vovbdijcj beverage intakeCurrent drinker of alcohol (finding)[facility] HealthcareStart: 02-25-2024 End: 87-79-7002Wvkjirilq beverage intakeNOMS HealthcareStart: 05-05-2024 End: 82-21-6392Hxnvscd use panelNOMS HealthcareStart: 32-48-0497Hcdcbzm Comment caffeine: 1-2 cups per dayNOMT HealthcareStart: 17-61-3142Tdy assigned at FemaleNOMT HealthcareStart: 70-72-0210Taxyhf identityIdentifies as female gender (finding)[facility] HealthcareStart: 90-96-9159Cpmwlf orientationHeterosexual (finding)NOMS HealthcareStart: 81-72-2788LpdBjjytzNCPZ Healthcare Telephone encounter Note 06-10-2025 Note Date & SflwBcncUultmpgt87-31-9281 Telephone encounter Note* Telephone Encounter - Gabriela Soriano NP - 06/10/2025 1:43 PM EDT Patient with complaint of cold sore will sent in Valtrex and Acyclovir [facility] Note 06-10-2025 Note Date & YpnrBureXuhhexux90-00-1070 Miscellaneous Notes* Telephone Encounter - Gabriela Soriano NP - 06/10/2025 1:43 PM EDT Patient with complaint of cold sore will sent in Valtrex and Acyclovir documented in [facility]Saint [facility] Tele[facility] encounter Note 10-30-2024 Note Date & WiqrHxtdWzzuyxae51-62-1053 Telephone encounter Note* Telephone Encounter - THERESE [...] Will observe for symptom relief.. Pt thankful. [facility] Work Phone: Note 10-30-2024 Note Date & LqvhAbeiAkvxqgsc21-36-8041 Miscellaneous Notes* Telephone Encounter - THERESE Pan [...] symptom relief.. Pt thankful. documented in this encounterSaint [facility] History of Present illness Narrative 08-25-2024 Note Date & IwqxUpciWuidgrkh15-31-7921 History of Present illness Narrative* Britany Goldstein, [...] if she desires a referral to another market development specialist we would be happy to make referral, she states she would like to continue her care here. Veronica Goldstein D.O. documented in [facility] encounterPAR[facility] Evaluation note Note Date & TypeNoteFacilityEvaluation note* Diagnosis Right shoulder pain, unspecified chronicity- Primary Adhesive capsulitis of right shoulder Impingement syndrome of right shoulder documented in this encounter [facility] Evaluation note Note Date & TypeNoteFacilityEvaluation note* Diagnosis Upper respiratory tract infection, unspecified type- Primary documented in this encounter [facility] Evaluation note Note Date & TypeNoteFacilityEvaluation note* Diagnosis 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 documented in this encounter [facility] Summary Purpose Family History No Family History Records FoundNo Family History Records FoundNo Family History Records FoundNo Family History Records FoundNo Family History Records Found Advance Directives No Advanced Directives Records FoundNo Advanced Directives Records FoundNo Advanced Directives Records FoundNo Advanced Directives Records FoundNo Advanced Directives Records Found Additional Source Comments INFORMATION SOURCE (unrecogn ized section and content) DATE CREATED AUTHOR 11/20/2020 [facility] DATE CREATED AUTHOR AUTHOR'S ORGANIZ ATION 02/06/[address] [facility] DATE CREATED AUTHOR AUTHOR'S ORGANIZ ATION 05/25/2022 [facility] DATE CREATED AUTHOR AUTHOR'S ORGANIZ ATION 08/30/2024 [facility] DATE CREATED AUTHOR AUTHOR'S ORGANIZ ATION 10/16/2024 [facility] Care Teams (unrecognized sec tion and content) Team MemberRelationshipSpecialtyStart DateEnd Date Alejandra Prieto, DO [address] [place] [address] PCP - GeneralFamily Medicine02/05/23Team MemberRelationshipSpecialtyStart DateEnd Date Alejandra Prieto, DO [address] [place] [address] PCP - GeneralFamily Medicine02/05/23Team MemberRelationshipSpecialtyStart DateEnd Date Alejandra Prieto, DO [address] [place] [address] PCP - GeneralFamily Medicine02/05/23Team MemberRelationshipSpecialtyStart DateEnd Date Alejandra Prieto, DO [address] [place] [address] PCP - GeneralFamily Medicine02/05/23Team MemberRelationshipSpecialtyStart DateEnd Date Alejandra Prieto, DO [address] [place] [address] PCP - GeneralFamily Medicine02/05/23Team MemberRelationshipSpecialtyStart DateEnd Date Alejandra Prieto, DO [address] [place] [id number] PCP - GeneralDec[facility] Hospitally Medicine02/05/23Team MemberRelationshipSpecialtyStart DateEnd Date Alejandra Prieto, DO [address] [place] [id number] [facility] - [facility]02/05/2310 Unallocated, [facility] Beata, [address] [place] [address] PCP - [facility]07/02/25 Reason for Visit (unrecogniz ed section [...] BE BASED ON THE PRIMARY CLINICAL RECORDS. [facility] [employer] [facility]. provides no warranty or guarantee of the accuracy or completeness of information in this document.
--- OUTSIDE RECORDS SUMMARY | 2025-08-23 08:27 | XMS_ITS | Clinical Summary ---
Author Organization [facility] Address [address] [place] [address] Care Team Providers Care Medical Insurance Clerk Name Role Phone Unavailable Primary Care Provider Unavailabl e Allergies Active AllergyReactionsCriticalityNoted FpzfXmpwpykuAhcnxcSbugi20/10/2017 Medications MedicationSigDispense QuantityRefillsLast FilledStart DateEnd DateStatus Etonogestrel-Ethinyl [...] 60 mL Active Active Problems ProblemNoted DateDiagnosed AkxjZalvkodmcxyesg13/27/2017Bence Abdalla proteinuria 10/12/20165058Cxxwuqpq26/22/6619Khiyznnlhypddd98/12/2012 Immunizations ImmunizationAdministration DatesNext Dueinfluenza vaccine, unspecified pnmxpoadgox08/06/2004 Social History Tobacco UseTypesPacks/DayYears UsedDateSmoking Tobacco: NeverSmokeless Tobacco: Never Tobacco Cessation:Counseling Given: Yes Alcohol UseStandard Drinks/WeekCommentsYes0 (1 standard drink = 0.6 oz pure alcohol)sociallyCommentsUnknownSex and Gender InformationValueDate RecordedSex Assigned at BirthNot on fileLegal YbnBemcos26/10/2011 10:03 AM EST Gender IdentityNot on fileSexual OrientationNot on file Last Filed Vital Signs Vital SignReadingTime TakenCommentsBlood Hoittuql376/71010/26/2016 9:45 AM EST Apkhe861510/26/2016 9:45 AM XFHNzqeoivyvgz07.6 ??C (97.8 ??F)10/26/2016 9:45 AM ESTRespiratory Aeml424010/26/2016 9:45 AM ESTOxygen Saturation--Inhaled Oxygen Concentration--Aaqubv18.9 kg (185 lb)10/26/2016 9:45 AM BNINlkfnv521.7 cm (5' 8 )10/26/2016 9:45 AM ESTBody Mass Index28.13010/26/2016 9:45 AM EST Plan of Treatment Health MaintenanceDue DateLast DoneCommentsAnxiety Hmxghwcgs77/16/1990Depression Ekztmrbgd07/16/1990HIV Rkyppydlv46/16/1990Hepatitis C Ydgvsiuxc32/16/1990 DTaP,Tdap,Td Vaccine (1 - Tdap)1991Hepatitis B Vaccine (1 of 3 - 19+ 3- dose series)1991Mammogram Qxpbgjcxk82/20/Cervical Cancer Iuvtfbupu15/20/CT Dyxjmbzievsl45/16/2017Cologuard (FIT-DNA) 06/15/20177618Mizbdmglyyy01/16/2017Colorectal Cancer Cgxtbkkcd20/16/2017Fecal Occult Blood06/15/20170863Vlxsqwhikappi90/16/2017Lipid Butikkmgc21/20/ Diabetes Kzrwtgasy32/13/Pneumococcal Vaccine: 50+ (1 of 1 - PCV) 2022hingrix Vaccine (1 of 2)2Covid-19 Vaccine (1 - 2024-26 season)2025Influenza Vaccine (#1)/02/2004 Procedures Procedure NamePriorityDate/TimeAssociated DiagnosisCommentsBASIC METABOLIC PANEL Evjeray8910/12/2016 1:44 PM EST Karri Abdalla proteinuria from Last 3 Months or Most Recently Relevant to Health Maintenance Results * BASIC METABOLIC PNL (10/12/2016 1:44 PM EST)ComponentValueRef RangeTest Method Analysis TimePerformed AtPathologist QzpsqulkxVotbqbt8599 - 99 mg/dL10/13/2016 1:09 AM [facility] LABORATORYComment: The [place] Diabetes Association (ADA) provides guidance for cutoff [...] Standards of Medical Care in Diabetes 2016, [place] Diabetes Association. Diabetes Care. 2016.39(Suppl 1). DYR637 - 21 mg/dL10/13/2016 1:09 AM [facility] Creatinine0.630.58 - 0.96 mg/dL10/13/2016 1:09 AM [facility] MBAABAKQGHZwzpwj672474 - 144 mmol/L10/13/2016 1:09 AM [facility] LABORATORYPotassium4.13.7 - 5.1 mmol/L10/13/2016 1:09 AM [facility] NXNRAUDWRWUpbfuzbb12546 - 105 mmol/L10/13/2016 1:09 AM [facility] CYWIMIVXZEYC74480 - 30 mmol/L10/13/2016 1:09 AM [facility] LABORATORYAnion Ppb545 - 18 mmol/L10/13/2016 1:09 AM [facility] LABORATORYCalcium9.58.6 - 10.0 mg/dL10/13/2016 1:09 AM [facility] LABORATORYeGFR->6001 1:09 AM [facility] LABORATORYeGFR-All Other Races>60.10/13/2016 1:09 AM [facility] LABORATORYComment: eGFR (Estimated GFR) Units of measure: [...] FanningLABORATORYFinal ResultPerforming OrganizationAddressCity/State/ZIP CodePhone Number [facility] [address] [place] [address] from Last 3 Months or Most Recently Relevant to Health Maintenance Insurance * Guarantor: Alisia Squires TypeRelation to PatientDate of BirthPhone Billing AddressPersonal/HrpmbfBcsv[id number] [place] [id number] MemberSubscriberPlan / Payer (Effective 2019-Present)Name:Alisia Squires Relation to Subscriber:SpouseName:LINO SQUIRES Date of :1969 (Home) Address: [address] [place], [place] [id number] Payer ID:Not on file Type:PPO Address: [facility] [address] [id number] [place] [address] * Guarantor: Alisia Squiresount TypeRelation to PatientDate of BirthPhone Billing AddressSelf ZktJyyg8306/15/1970 [address] [place] [address]
--- OUTSIDE RECORDS SUMMARY | 2025-08-23 08:27 | XMS_ITS | Encounter Summary ---
Author Organization [facility] Address [address] [place] [address] Care Team Providers Care Enamel Sprayer Name Role Phone Unallocated, [facility] Provider Primary Care [facility] Encounter Details DateTypeDepartmentCare Team (Latest Contact Info)Qtiwxhmjazv29/13/2025bstract [facility] [address] [place] [phone] Sea Braden, DO [address] [address] Social History Tobacco UseTypesPacks/DayYears UsedDateSmoking Tobacco: NeverSmokeless Tobacco: NeverAlcohol UseStandard Drinks/WeekCommentsYes1 (1 standard drink = 0.6 oz pure alcohol)caffeine: 1-2 cups per dayPHQ-2AnswerDate RecordedPatient Health Questionnaire-2 Bnkrr54710/13/2024CommentsNoSex and Gender Information ValueDate RecordedSex Assigned at NyyniWzffuq16/14/2024 10:53 AM ESTLegal Sex Kmutph1212/12/2022 7:08 PM EDTGender HakpsunvYyxany25/14/2024 10:53 AM ESTSexual TtmufzmkbqrKfemevnw17/14/2024 10:53 AM ESTdocumented as of this encounter Functional Status * Over the past 2 weeks, how often have you been bothered by any of the following problems?QuestionAnswerDate of AssessmentAuthorLittle interest or pleasure in doing thingsNot at all08/13/2025 8:30 AM Kahtleen Boyle LPNFeeling down, depressed, or hopelessNot at all08/13/2025 8:30 AM Kathleen Rowan LPNPatient Health Questionnaire-2 Ckvbk34510/13/2024 8:30 AM Kathleen Boyle LPN documented as of this encounter Plan of Treatment Not on file documented as of this encounter Visit Diagnoses Not on filedocumented in this encounter Care Teams Team MemberRelationshipSpecialtyStart DateEnd Date Unallocated, [facility] Beata, [address] [place] [address] PCP - GeneralFamily Clrvndvf71/3/25documented as of this encounter
--- OUTSIDE RECORDS SUMMARY | 2025-08-23 08:27 | XMS_ITS | Clinical Summary ---
Author Organization [facility] Address [address] [place] [address], [address] [place] [address] Care Team Providers Care Quality Control Lead Name Role Phone Unavailable Primary Care Provider Unavailabl e Social History Tobacco UseTypesPacks/DayYears UsedDateSmoking Tobacco: Never Assessed CommentsUnknownSex and Gender InformationValueDate RecordedSex Assigned at Not on fileLegal MtwAurfgz43/12/2013 5:45 AM ESTGender IdentityNot on fileSexual OrientationNot on file Plan of Treatment Not on file
--- OUTSIDE RECORDS SUMMARY | 2025-08-23 08:27 | XMS_ITS | Encounter Summary ---
Author Organization [facility] Address [address] [place] [address] Care Team Providers Care Shop And Alteration Tailor Name Role Phone Unallocated, [facility] Provider Primary Care [facility] Encounter Details DateTypeDepartmentCare Team (Latest Contact Info)Nhemvkquvvc65/13/2025Bamboo flowsheet [facility] [address] [address] Gabriela Soriano, MARKETING DIRECTOR [address] [place] [address] Social History Tobacco UseTypesPacks/DayYears UsedDateSmoking Tobacco: NeverSmokeless Tobacco: NeverAlcohol UseStandard Drinks/WeekCommentsYes1 (1 standard drink = 0.6 oz pure alcohol)caffeine: 1-2 cups per dayPHQ-2AnswerDate RecordedPatient Health Questionnaire-2 Gxkyr24910/13/2024CommentsNoSex and Gender Information ValueDate RecordedSex Assigned at BlpmuTjslfc87/14/2024 10:53 AM ESTLegal Sex Lrqava7712/12/2022 7:08 PM EDTGender CsrouhiuLqgnrv67/14/2024 10:53 AM ESTSexual LazudftlibzNdllxqei58/14/2024 10:53 AM ESTdocumented as of this encounter Plan of Treatment Not on file documented as of this encounter Visit Diagnoses Not on filedocumented in this encounter Care Teams Team MemberRelationshipSpecialtyStart DateEnd Date Unallocated, [facility] Provider, [address] [place] [address] PCP - GeneralFamily Xgjrspmu88/3/25documented as of this encounter
--- OUTSIDE RECORDS SUMMARY | 2025-08-23 08:27 | XMS_ITS | Encounter Summary ---
Author Organization [facility] Address [address] [place] [address] Care Team Providers Care Mold Puller Name Role Phone Unallocated, Noms Provider Primary Care Provi [facility] Encounter Details DateTypeDepartmentCare Team (Latest Contact Info)Fykahcmbqri13/14/2025Travel Social History Tobacco UseTypesPacks/DayYears UsedDateSmoking Tobacco: NeverSmokeless Tobacco: NeverAlcohol UseStandard Drinks/WeekCommentsYes1 (1 standard drink = 0.6 oz pure alcohol)caffeine: 1-2 cups per dayPHQ-2AnswerDate RecordedPatient Health Questionnaire-2 Bactv581CommentsNoSex and Gender Information ValueDate RecordedSex Assigned at TkoaaCidtpi03/14/2024 10:53 AM ESTLegal Sex Kdjopq4312/12/2022 7:08 PM EDTGender BmdnpbirBzfikw48/14/2024 10:53 AM ESTSexual FefusxeaojhIqipynqj42/14/2024 10:53 AM ESTdocumented as of this encounter Functional Status * Over the past 2 weeks, how often have you been bothered by any of the following problems?QuestionAnswerDate of AssessmentAuthorLittle interest or pleasure in doing thingsNot at all08/13/2025 8:30 AM Kathleen Boyle, SHANTENFeeling down, depressed, or hopelessNot at all08/13/2025 8:30 AM EST Kathleen Mendoza LPNPatient Health Questionnaire-2 Zxhop39410/13/2024 8:30 AM Kathleen Boyle LPN documented as of this encounter Plan of Treatment Not on file documented as of this encounter Visit Diagnoses Not on filedocumented in this encounter Care Teams Team MemberRelationshipSpecialtyStart DateEnd Date Unallocated, Noms Provider, [address] [place] [address] PCP - GeneralFamily Lxlklhsk89/3/25documented as of this encounter
--- OUTSIDE RECORDS SUMMARY | 2025-08-23 08:27 | XMS_ITS | Encounter Summary ---
Author Organization [facility] Address [address] [place] [address] Care Team Providers Care Clay Stain Mixer Name Role Phone Unallocated, Noms Provider Primary Care Provi nathan Reason for Referral * Consultation (Routine) - AuthorizedSpecialtyDiagnoses / ProceduresReferred By ContactReferred To ContactOtolaryngology Diagnoses Thyroid nodule Procedures [facility] OFFICE/[facility] 60 MINUTES Sea Braden DO [address] [place] [address] Phone: tel: fax: Ramin Weber DO [address] [place] [address] Phone: tel: fax: Referral IDStatusReasonStart DateExpiration DateVisits RequestedVisits [id number] Specialty Services Required / Reason for Visit * ReasonOnset CjdlBvpodushQtgdlxh29/18/2025 Encounter Details DateTypeDepartmentCare Team (Latest Contact Info)Fosjaoaenno90/18/2025Telephone [facility] [address] [place] [address] Kathleen Mendoza LPN [address] [place] [address] Results Social History Tobacco UseTypesPacks/DayYears UsedDateSmoking Tobacco: NeverSmokeless Tobacco: NeverAlcohol UseStandard Drinks/WeekCommentsYes1 (1 standard drink = 0.6 oz pure alcohol)caffeine: 1-2 cups per dayPHQ-2AnswerDate RecordedPatient Health Questionnaire-2 Rezru00710/13/2024CommentsNoSex and Gender Information ValueDate RecordedSex Assigned at QjonqIivfjz47/14/2024 10:53 AM ESTLegal Sex Misahm1112/12/2022 7:08 PM EDTGender YqglfxtkXqfcqg66/14/2024 10:53 AM ESTSexual MacbtnuwhhaSdhrduaf43/14/2024 10:53 AM ESTdocumented as of this encounter Miscellaneous Notes * Telephone Encounter - Kathleen Mendoza LPN - 08/17/2025 11:48 AM EST Sea Braden DO sent to Areli Irwin [place] Noted 2 cm nodule rec referral to ent for possible biopsy -P/C to pt informing her of results and recommendation. Pt voiced understanding. Pt has seen Dr. Weber in the past, and would like referral sent to him. Instructed pt to contact our office in a week if she does not receive a call. Pt voiced understanding -Referral initiated documented in this encounter Plan of Treatment NameTypePriorityAssociated DiagnosesOrder ScheduleAmbulatory referral to ENT Outpatient ReferralRoutine Thyroid nodule Expected: 08/17/2025 (Approximate), Expires: 02/14/2026documented as of this encounter Visit Diagnoses Diagnosis Thyroid nodule Nontoxic uninodular goiter documented in this encounter Care Teams Team MemberRelationshipSpecialtyStart DateEnd Date Unallocated, Noms Provider, [address] [place] [address] PCP - GeneralFamily Yjbgmver29/3/25documented as of this encounter
--- OUTSIDE RECORDS SUMMARY | 2025-08-23 08:27 | XMS_ITS | Encounter Summary ---
Author Organization [facility] Address [address] [place] [address] Care Team Providers Care Pediatric Nurse Name Role Phone Unallocated, Noms Provider MD [facility] Encounter Details DateTypeDepartmentCare Team (Latest Contact Info)Atzgpyaoqsm79/12/2025Telephone [facility] [address] [place] [address] [place], [place] [address] [place] [address] Social History Tobacco UseTypesPacks/DayYears UsedDateSmoking Tobacco: NeverSmokeless Tobacco: NeverAlcohol UseStandard Drinks/WeekCommentsYes1 (1 standard drink = 0.6 oz pure alcohol)caffeine: 1-2 cups per dayCommentsNoSex and Gender Information ValueDate RecordedSex Assigned at HlxjnUgeups28/14/2024 10:53 AM ESTLegal Sex Osuzhi7912/12/2022 7:08 PM EDTGender TswscumsKxeqhp10/14/2024 10:53 AM ESTSexual FslyxseessiRssgxmju22/14/2024 10:53 AM ESTdocumented as of this encounter [...] this encounter Plan of Treatment NameTypePriorityAssociated DiagnosesOrder ScheduleEstradiolLabRoutine Hormone disorder Expected: 08/11/2025 [...] antibodyLabRoutine Hormone disorder Expected: 08/11/2025 (Approximate), Expires: 08/11/20261375T3VpvIosroxd Hormone disorder Expected: 08/11/2025, Expires: 08/11/2026TESTOSTERONE, FREELabRoutine Hormone disorder Expected: 08/11/2025 (Approximate), Expires: 08/11/2026Testosterone, free, total LabRoutine Hormone disorder Expected: 08/11/2025 (Approximate), Expires: 08/11/2026Glucose, randomLabRoutine Hormone disorder Expected: 08/11/2025, Expires: 08/11/2026-peptideLabRoutine Hormone disorder Expected: 08/11/2025, Expires: 08/11/2026TSHLabRoutine Hormone disorder Expected: 08/11/2025 (Approximate), Expires: 08/11/2026Lipid panelLabRoutine Hormone disorder Expected: 08/11/2025, Expires: 08/11/2026omprehensive metabolic panelLabRoutine Hormone disorder Expected: 08/11/2025 (Approximate), Expires: 08/11/2026Hemoglobin U0nIlzIuffxof Hormone disorder Expected: 08/11/2025 (Approximate), Expires: 08/11/2026BC [...] DateEnd Date Unallocated, Noms Provider, [place] [address] PCP - GeneralFamily Iejxbcbr46/3/25documented as of this encounter
--- OUTSIDE RECORDS SUMMARY | 2025-08-23 08:27 | XMS_ITS | Clinical Summary ---
Author Organization [facility] Address [address] [place] [address] Care Team Providers Care Separations Scientist Name Role Phone Unallocated, M[facility] Provider Primary Care Provi nathan Allergies No known active allergies Medications MedicationSigDispense QuantityRefillsLast FilledStart DateEnd DateStatus Estradiol-Progesterone (Bijuva) 0.5-100 MG capsule Indications:Symptomatic menopausal or female climacteric states,Menopausal syndrome on hormone replacement therapy,Dyspareunia in femaleTake 1 capsule by mouth Daily 90 capsule 5Active Estradiol-Progesterone (Bijuva) 1-100 MG capsule Indications:[place] eye disease of both eyes,Menopausal disorder,Hormone imbalance, Menopausal syndrome on hormone replacement therapy,Dyspareunia in femaleTake 1 tablet by mouth Daily 30 capsule 5Active fluticasone (Flonase) 50 MCG/ACT nasal spray Indications:Allergy, initial encounterAdminister 1 spray into each nostril Daily Shake gently. Before first use, prime pump. After use, clean tip and replace cap. 16 g 121/3736866Active Cequa 0.09 % solution Administer 1 drop into both eyes in the morning and 1 drop before bedtime. 5Active predniSONE (Deltasone) 20 MG tablet Indications:Sinusitis, unspecified chronicity, unspecified locationTake 2 tablets (40 mg) by mouth Daily for 3 days, THEN 1 tablet (20 mg) Daily for 3 days, THEN 0.5 tablets (10 mg) Daily for 4 days. 11 tablet /2025Active estradiol (Estrace) 0.5 MG tablet Indications:Hormone imbalanceTake 1 tablet (0.5 mg) by mouth Daily 90 tablet Discontinued desonide (DesOwen) 0.05 % cream Indications:DermatitisAPPLY TOPICALLY 2 TIMES A DAY FOR 14 DAYS NEEDED 60 g Discontinued phentermine (Adipex-P) 37.5 MG tablet Indications:Encounter for weight managementTake 1 tablet (37.5 mg) by mouth in the morning. Take before meals. 90 tablet Discontinued metFORMIN XR (Glucophage-XR) 500 MG 24 hr tablet Indications:Insulin resistanceTake 2 tablets (1,000 mg) by mouth in the evening. Take with meals 180 tablet Discontinued estradiol (Climara) 0.05 MG/24HR Indications:Postmenopausal state,Menopausal disorderPlace 1 patch over 7 days on the skin 1 (one) time per week 12 patch Discontinued Estradiol Starter Pack (Imvexxy Starter Pack) 4 MCG insert Indications:Menopausal disorder,Dyspareunia in female,Menopausal syndrome on hormone replacement therapyInsert 1 suppository into the vagina 2 (two) times a week 8 each Discontinued azithromycin (Zithromax Z-Guicho) 250 MG tablet Indications:Upper respiratory tract infection, unspecified typeAs directed 6 tablet Discontinued acyclovir (Zovirax) 5 % ointment Indications:Cold soreApply topically 6 (six) times a day Space applications every 3 hours. 30 g Discontinued tobramycin (Tobrex) 0.3 % ophthalmic solution Indications:[place] eye disease of both eyesAdminister 2 drops [...] for up to 10 days 30 tablet /Discontinued amoxicillin (Amoxil) 500 MG tablet Indications:Otalgia of [...] all this for 10 days. 5 mL Discontinued ALPRAZolam (Xanax) 0.25 MG tablet TAKE 1 TABLET BY MOUTH TWICE A DAY NEEDED FOR XUMHXC39 Discontinued amoxicillin (Amoxil) 500 MG capsule TAKE 1 CAPSULE BY MOUTH IN THE MORNING, EVENING, AND BEFORE BEDTIME FOR 7 DAYS Discontinued cefdinir (Omnicef) 300 MG capsule Indications:Sinusitis, unspecified chronicity, unspecified locationTake 1 capsule (300 mg) by mouth in the morning and 1 capsule (300 mg) before bedtime. Do all this for 7 days. 14 capsule /Expired doxycycline (Vibramycin) 100 MG capsule Indications:Tick bite of neck, initial encounterTake 2 capsules (200 mg) by mouth 1 (one) time for 1 dose Take with at least 8 ounces (large glass)of water, do not lie down for 30 minutes after 2 capsule Expired Active Problems ProblemNoted DateDiagnosed DateMenopausal syndrome on hormone replacement pwhjxiv0003/10/2025Dyspareunia in tmebia1203/10/2025ute vwamucjsa62/02/2024Insulin apqlgaaesy58/02/7194Conbfj84/02/2024Notalgia eujumtjtinbl28/02/2024Other abnormalities of gait and dscwhygj87/02/2024Other specified bacterial agents as the cause of diseases classified ucfvjqcah42/02/2024Stress qlqhrgaq39/02/2024 URI, acute01/30/2024olon cancer eyddcchsg02/02/2024ight hip pain01/29/2024 Postmenopausal state01/29/2024Menopausal kalvvzys82/01/2024Thrombocytosis 10/26/2016Bence Abdalla rokvrdvpgsn88/13/2732Clcahxpf73/22/2015Telangiectasia 04/10/2012 Encounters DateTypeDepartmentCare RgrrDullwmfebjx31/21/2025Orders Only [facility] [address] [place] [place] [address] Nuha Guerrier LPN 08/17/2025[facility]phone [facility] [address] [place] [address] Kathleen Mendoza LPN Nmczuwu1208/16/2025Refill [facility] [address] [place] [address] Soheila Rice LPN Tick bite of neck, initial jgbnlefgb79/17/2025Telephone [facility] [address] [place] [address] Sea Braden, DO Nmpeaohw41/17/2025Telephone [facility] [address] [place] [address] Soheila Rice LPN Error (VOID this visit)08/13/2025 8:30 AM ESTOffice Visit [facility] [address] [place] [address] Sea Braden, Routine general medical examination at a health care facility (Primary Dx); Sinusitis, unspecified chronicity, unspecified location; Acute right ankle pain; Left thyroid ugihbj8608/13/20254546Jubqew19/13/2025 8:40 AM ESTProcedure Visit [facility] [address] [place] [address] Gabriela Soriano, KEVIN Well woman exam with routine gynecological exam; Osteoporosis, post-jqdnkcxtin96/13/2025linisync Result Encounter [facility] External Department Unsolicited Gabriela Soriano, KEVIN 08/12/2025bstract [facility] [address] [place] [phone] Sae Braden, DO 08/12/2025amboo flowsheet [facility] [address] [place] [place] [address] Gabriela Soriano, KEVIN 08/11/2025Telephone [facility] [address] [place] [address] Mariam Woody, [place] 07/27/2025Telephone [facility] [address] [place] [address] Christi Stafford LPN 07/27/2025Telephone [facility] [address] [place] [address] [place], [place] 07/20/2025Refill [facility] [address] [place] [place] [address] Ryan Marquez DO Kqbphwqbq10/13/2025Telephone [facility] [address] [place] [place] [address] Gabriela Soriano, KEVIN 06/10/2025Telephone [facility] [address] [place] [place] [address] Gabriela Soriano, KEVIN 06/10/2025Refill [facility] [address] [place] [address] Christie GabrielaKEVIN 06/04/2025Refill [facility] [address] [place] [address] Ryan Marquez, DO Poison ivy05/25/2025bstract [facility] [address] [address] Ryan Marquez, 05/25/2025bstract [facility] [address] [place] [address] Ryan Marquez, DO from Last 3 Months Immunizations ImmunizationAdministration DatesNext DueInfluenza, Nxtscbyburg87/06/2004Moderna SARS-CoV-2 Pgkerzsyktr41/12/2021,10/25/2020,09/27/2020 Family History Medical HistoryRelationNameCommentsNo Known ProblemsBrotherDiabetesFatherBruce a FittlerHeart diseaseFatherBruce a FittlerStrokeFatherBruce a FittlerBreast cancerMotherKathy MaysCancerMotherKathy MaysHyperlipidemiaMotherKathy Ny HypertensionMotherKathy MaysMigrainesMotherKathy MaysOsteoporosisMotherKathy MaysThyroid cancerMotherKathy Maysdumping syndromeMotherKathy MaysNo Known ProblemsSisterMelanomaNeg HxRelationNameStatusCommentsBrotherFatherBruce a FittlerDeceasedMotherKathy MaysAliveSister Social History Tobacco UseTypesPacks/DayYears UsedDateSmoking Tobacco: NeverSmokeless Tobacco: Never Tobacco Cessation:Counseling Given: Not Answered Alcohol UseStandard Drinks/WeekCommentsYes1 (1 standard drink = 0.6 oz pure alcohol)caffeine: 1-2 cups per dayPHQ-2AnswerDate RecordedPatient Health Questionnaire-2 Bypwj68010/13/2024CommentsNoSex and Gender Information ValueDate RecordedSex Assigned at DhtdzGxnaef57/14/2024 10:53 AM ESTLegal Sex Tfjsgq9712/12/2022 7:08 PM EDTGender QkiwqggkKihyzx48/14/2024 10:53 AM ESTSexual MkwwzaxtianAaaecfdy03/14/2024 10:53 AM EST Last Filed Vital Signs Vital SignReadingTime TakenCommentsBlood Zgxirblt240/8208/13/2025 8:14 AM EST Jienr577508/13/2025 8:14 AM XGZBjvxfyswner10.3 ??C (97.4 ??F)08/13/2025 8:14 AM ESTRespiratory Rate--Oxygen Lygbivhiyb48%08/13/2025 8:14 AM ESTInhaled Oxygen Concentration--Izdxwf04.2 kg (192 lb 3.2 oz)08/13/2025 8:14 AM JVKNxhlft304 cm (5' 8.5 )08/13/2025 8:14 AM ESTBody Mass Index28.8110/13/2024 8:14 AM EST Plan of Treatment Health MaintenanceDue DateLast DoneCommentsCT Fhezdmwolhnl1972Colonoscopy 1972Colorectal Cancer Nyjdwiprt1972FIT-DNA1972FIT1972 FOBT06/15/19724126Grqpdhspeqlzv1972HPV/Zgliqb0706/15/20020829Eoxvoqryd20/14/2024 08/13/2023, 08/13/2023, 01/30/2022, Additional history existsCOVID-19 Vaccine ( season)/08/2021, 10/25/2020, 09/27/2020Influenza Vaccine (#1)/, 07/05/2004Cervical Cancer Hzdzwrqys57/13/2028Pap Smear , 05/05/2024neumococcal Vaccine: Pediatrics (0 to 5 Years) and At-Risk Patients (6 to 64 Years)Aged OutNo longer eligible based on patient's age to complete this topic Procedures Procedure NamePriorityDate/TimeAssociated DiagnosisCommentsIGP,APTIMA HPV,AGE HMXKNihaaoj29/13/2025 9:02 AM EST PAP TEST, EZWGGGRFIktgcev63/13/2025 12:00 AM ESTBI MAMMOGRAM SCREENING BILATERAL Zllkkcp1308/13/2023 1:08 PM EST Breast cancer screening by mammogram from Last 3 Months or Most Recently Relevant to Health Maintenance Results * IGP,APTIMA HPV,AGE GDLN (08/12/2025 9:02 AM EST)ComponentValueRef RangeTest MethodAnalysis TimePerformed AtPathologist SignatureAGE GDLN ACOG TESTINGNote. TBHComment: ?? TESTS ? RESULT ??FLAG ??UNITS ?REF RANGE ??LAB ?? Clinician Provided Cytology Information ?? Source.............Cervix;Endocervix ?? No. of containers..01 ThinPrep Vial Age Algo ACOG Marj... ??30-65 ? 01 ?FLAG LEGEND: ?L-Low Normal,H-High Normal,LL-Alert Low,HH-Alert High <-Panic Low,>-Panic High,A-Abnormal,AA-Critical Abnormal Performed at: 01 =G ?[facility] ?? [address] [place] [place] ??[phone] ?? Chrissie Guthrie MD, IGP, APTIMA HPV, RFX 16/18,45Note.TBHComment: ?? TESTS ? RESULT ??FLAG ??UNITS ?REF RANGE ??LAB DIAGNOSIS: ?02 ?? NEGATIVE FOR INTRAEPITHELIAL LESION OR MALIGNANCY. Specimen adequacy: ?02 ?? Satisfactory for evaluation. No endocervical component is identified. Performed by: ? 02 ?? Leigh Ann Wilson, [employer] (ASCP) . ? 02 Note: ? Note ?02 ?? The Pap smear is a screening test designed to aid in the ?? detection of premalignant and malignant conditions of the ?? uterine cervix. ??It is not a diagnostic procedure and ?? should not be used as the sole means of detecting cervical ?? cancer. ??Both false-positive and false-negative reports do ?? occur. Test Methodology: ? Note ?02 ?? This liquid based ThinPrep(R) pap test was interpreted ?? using the Synappio(R) Genius(TM) Cervical Algorithm whole ?? slide imaging system. HPV Genotype Reflex ?? Note ?02 ?? Criteria not met, HPV Genotype not performed. ?FLAG LEGEND: ?L-Low Normal,H-High Normal,LL-Alert Low,HH-Alert High <-Panic Low,>-Panic High,A-Abnormal,AA-Critical Abnormal Performed at: 02 WB ?[facility] ?? [address] [place], [place] ??[phone] ?? Chrissie Guthrie MD, HPV APTIMANegativeNegativeTBHComment: This nucleic acid amplification test detects fourteen high- risk HPV types (16,18,31,33,35,39,45,51,52,56,58,59,66,68) without differentiation. Performed at: ??=G - [facility] ??[id number] [employer] Assistant: Chrissie Guthrie MD, Phone: ??[phone] Performed at: ??WB - [facility] ??[id number] [employer] Assistant: Chrissie Guthrie MD, Phone: ??[phone] Specimen (Source)Anatomical Location / LateralityCollection Method / Volume Collection TimeReceived Time11/ 9:02 AM EST08/12/2025 7:58 PM EST Narrative [facility] - 08/17/2025 3:08 PM EST BRUSH-SPATULA CERVIX ENDOCERVIX Authorizing ProviderResult TypeResult StatusKryuriya Christie NPLAB BLOOD ORDERABLESFinal ResultPerforming OrganizationAddressCity/State/ZIP CodePhone Number [facility] * PAP TEST, EXTERNAL (08/12/2025 12:00 AM EST) Narrative Authorizing ProviderResult TypeResult StatusFazio Nurse [facility] Bcp ObLAB CYTOLOGY ORDERABLESFinal ResultPerforming OrganizationAddressCity/State/ZIP CodePhone Number EXTERNAL LAB * Bilateral screening mammogram (08/13/2023 1:08 PM EST) Narrative Authorizing ProviderResult TypeResult StatusCorey Jimmy DOIMG BI PROCEDURESFinal ResultPerforming OrganizationAddressty/State/ZIP CodePhone Number [facility] [address] [place] [address], from Last 3 Months or Most Recently Relevant to Health [place] [address] Care Teams Team MemberRelationshipSpecialtyStart DateEnd Date Unallocated, Noms MD Beata [address] [place] [address] PCP - GeneralFamily Ftuqomci11/3/25
--- OUTSIDE RECORDS SUMMARY | 2025-08-23 08:27 | XMS_ITS | Encounter Summary ---
Author Organization [facility] Address [address] [facility] [place] [address] Care Team Providers Care Mineral Resources Inspector Name Role Phone Unallocated, Noms Provider Primary Care [facility] Encounter Details DateTypeDepartmentCare Team (Latest Contact Info)Hjbvfjfzmwi56/21/2025Orders Only [facility] [address] [place] [address] Nuha Guerrier LPN [address] [place] [id number] Social History Tobacco UseTypesPacks/DayYears UsedDateSmoking Tobacco: NeverSmokeless Tobacco: NeverAlcohol UseStandard Drinks/WeekCommentsYes1 (1 standard drink = 0.6 oz pure alcohol)caffeine: 1-2 cups per dayPHQ-2AnswerDate RecordedPatient Health Questionnaire-2 Ouztx78910/13/2024CommentsNoSex and Gender Information ValueDate RecordedSex Assigned at WfcdaQqekgp42/14/2024 10:53 AM ESTLegal Sex Pfdffn5512/12/2022 7:08 PM EDTGender SucafwhhGkakft21/14/2024 10:53 AM ESTSexual QkktdctzrmaGwrxwhsb02/14/2024 10:53 AM ESTdocumented as of this encounter Plan of Treatment Not on file documented as of this encounter Procedures Procedure NamePriorityDate/TimeAssociated DiagnosisCommentsPAP TEST, EXTERNAL Ptskttv2808/12/2025 12:00 AM ESTdocumented in this encounter Results * PAP TEST, EXTERNAL (08/12/2025 12:00 AM EST) Narrative Authorizing ProviderResult TypeResult StatusFazio Nurse [facility] Bcp ObLAB CYTOLOGY ORDERABLESFinal ResultPerforming OrganizationAddressCity/State/ZIP CodePhone Number EXTERNAL LAB documented in this encounter Visit Diagnoses Not on filedocumented in this encounter Care Teams Team MemberRelationshipSpecialtyStart DateEnd Date Unallocated, Noms Beata, [address] [place] [address] PCP - GeneralFamily Qqdygawl65/3/25documented as of this encounter
--- OUTSIDE RECORDS SUMMARY | 2025-08-23 08:27 | XMS_ITS | Encounter Summary ---
Author Organization [facility] Address [address] [place] [address] Care Team Providers Care Public Relations Associate Name Role Phone Unallocated, Matheus Provider Primary Care Provi [facility] Reason for Visit * ReasonOnset DateCommentsError (VOID this visit)08/16/2025 Encounter Details DateTypeDepartmentCare Team (Latest Contact Info)Pmautdnhbmq74/17/2025Telephone [facility] [address] [place] [address] Soheila Rice LPN Error (VOID this visit) Social History Tobacco UseTypesPacks/DayYears UsedDateSmoking Tobacco: NeverSmokeless Tobacco: NeverAlcohol UseStandard Drinks/WeekCommentsYes1 (1 standard drink = 0.6 oz pure alcohol)caffeine: 1-2 cups per dayPHQ-2AnswerDate RecordedPatient Health Questionnaire-2 Cezes13210/13/2024CommentsNoSex and Gender Information ValueDate RecordedSex Assigned at WssmlVztyrj62/14/2024 10:53 AM ESTLegal Sex Ndvarg9212/12/2022 7:08 PM EDTGender IrofdexeCvnkbk00/14/2024 10:53 AM ESTSexual FvkzuktlvhdJpqdapds16/14/2024 10:53 AM ESTdocumented as of this encounter Plan of Treatment Not on file documented as of this encounter Visit Diagnoses Not on filedocumented in this encounter Care Teams Team MemberRelationshipSpecialtyStart DateEnd Date Unallocated, Matheus ProviderMD [address] [place] [address] PCP - GeneralFamily Ceporhuk92/3/25documented as of this encounter
--- OUTSIDE RECORDS SUMMARY | 2025-08-23 08:27 | XMS_ITS | Encounter Summary ---
Author Organization [facility] Address [address] [place] [address] Care Team Providers Care Medical Imaging Specialist Name Role Phone Unallocated, Noms Provider Primary Care [facility] Encounter Details DateTypeDepartmentCare Team (Latest Contact Info)Ugccldmyodi33/13/2025Clinisync Result Encounter [facility] External Department Unsolicited Gabriela Soriano, KEVIN [address] [place] [address] [place] [phone] Social History Tobacco UseTypesPacks/DayYears UsedDateSmoking Tobacco: NeverSmokeless Tobacco: NeverAlcohol UseStandard Drinks/WeekCommentsYes1 (1 standard drink = 0.6 oz pure alcohol)caffeine: 1-2 cups per dayPHQ-2AnswerDate RecordedPatient Health Questionnaire-2 Mvdjh97910/13/2024CommentsNoSex and Gender Information ValueDate RecordedSex Assigned at CgnqpJmxcfh62/14/2024 10:53 AM ESTLegal Sex Qdpbxa1412/12/2022 7:08 PM EDTGender GanjhwtoEprccc71/14/2024 10:53 AM ESTSexual JnngbqoyjeoUokuirxx53/14/2024 10:53 AM ESTdocumented as of this encounter Functional Status * Over the past 2 weeks, how often have you been bothered by any of the following problems?QuestionAnswerDate of AssessmentAuthorLittle interest or pleasure in doing thingsNot at all08/13/2025 8:30 AM Kathleen Boyle LPNFeeling down, depressed, or hopelessNot at all08/13/2025 8:30 AM EST Kathleen Mendoza LPNPatient Health Questionnaire-2 Tsemy29410/13/2024 8:30 AM Kathleen Boyle LPN documented as of this encounter Plan of Treatment Not on file documented as of this encounter Procedures Procedure NamePriorityDate/TimeAssociated DiagnosisCommentsIGP,APTIMA HPV,AGE GSPLYbfhcnw17/13/2025 9:02 AM EST documented in this encounter Results * IGP,APTIMA HPV,AGE GDLN (08/12/2025 9:02 [...] at: 01 =G ?[facility] ?? [address] [place] ??[phone] ?? Chrissie Guthrie MD, IGP, APTIMA HPV, RFX 16/18,45Note.TBHComment: ?? TESTS ? RESULT ??FLAG ??UNITS ?REF RANGE ??LAB DIAGNOSIS: ?02 ?? NEGATIVE FOR INTRAEPITHELIAL LESION OR MALIGNANCY. Specimen adequacy: ?02 ?? Satisfactory for evaluation. No endocervical component is identified. Performed by: ? 02 ?? Leigh Ann Wilson, Legal Practice Manager (ASCP) . ? 02 Note: ? Note [...] pap test was interpreted ?? using the Satmex(R) eSilicon(TM) Cervical Algorithm whole ?? slide imaging system. HPV Genotype Reflex ?? Note ?02 ?? Criteria not met, HPV Genotype not performed. ?FLAG LEGEND: ?L-Low Normal,H-High Normal,LL-Alert Low,HH-Alert High <-Panic Low,>-Panic High,A-Abnormal,AA-Critical Abnormal Performed at: 02 WB ?[facility] ?? [address], [place] ??[phone] ?? Chrissie Guthrie MD, HPV APTIMANegativeNegativeTBHComment: This nucleic acid amplification test detects fourteen high- risk HPV types (16,18,31,33,35,39,45,51,52,56,58,59,66,68) without differentiation. Performed at: ??=G - [facility] [address] ??[id number] Multimedia Producer: Chrissie Guthrie MD, Phone: ??[phone] Performed at: ??WB - [facility] [address] ??[id number] Multimedia Producer: Chrissie Guthrie MD, Phone: ??[phone] Specimen (Source)Anatomical Location / LateralityCollection Method / Volume Collection TimeReceived Time08/12/2025 9:02 AM EST08/12/2025 7:58 PM EST Narrative [facility] - 08/17/2025 3:08 PM EST BRUSH-SPATULA CERVIX ENDOCERVIX Authorizing ProviderResult TypeResult StatusKristina Christie NPLAB BLOOD ORDERABLESFinal ResultPerforming OrganizationAddressCity/State/ZIP CodePhone Number [facility] TB documented in this encounter Visit Diagnoses Not on filedocumented in this encounter Care Teams Team MemberRelationshipSpecialtyStart DateEnd Date Unallocated, Noms Provider, [address] [place] [address] PCP - GeneralFamily Iyqmpkax67/3/25documented as of this encounter
--- OUTSIDE RECORDS SUMMARY | 2025-08-23 08:27 | XMS_ITS | Encounter Summary ---
Author Organization [facility] Address [address] [place] [address] Care Team Providers Care Tuck Pointer Helper Name Role Phone Unallocated, Noms Provider Primary Care Provi nathan Reason for Visit * ReasonOnset XbdwVjplhjhnPztsfrkp48/17/2025 Encounter Details DateTypeDepartmentCare Team (Latest Contact Info)Egykvqetfxx59/17/2025Telephone [facility] [address] [facility] [address] [place] [phone] Sea Braden, DO [address] [facility] [address] [place] [address] Referral Social History Tobacco UseTypesPacks/DayYears UsedDateSmoking Tobacco: NeverSmokeless Tobacco: NeverAlcohol UseStandard Drinks/WeekCommentsYes1 (1 standard drink = 0.6 oz pure alcohol)caffeine: 1-2 cups per dayPHQ-2AnswerDate RecordedPatient Health Questionnaire-2 Jrqyi95410/13/2024CommentsNoSex and Gender Information ValueDate RecordedSex Assigned at ZccvhTeeaot01/14/2024 10:53 AM ESTLegal Sex Qzhwiq7312/12/2022 7:08 PM EDTGender RjvfuhszByahcz36/14/2024 10:53 AM ESTSexual VmytcpcdoqrWuwlmkip49/14/2024 10:53 AM ESTdocumented as of this encounter Miscellaneous Notes * Telephone Encounter - Iqra Olsen - 08/16/2025 9:06 AM EST Faxed US order to [facility]. Success [phone] fax documented in this encounter Plan of Treatment Not on file documented as of this encounter Visit Diagnoses Not on filedocumented in this encounter Care Teams Team MemberRelationshipSpecialtyStart DateEnd Date Unallocated, Noms MD [address] [place] [address] PCP - GeneralFamily Ntorkish07/3/25documented as of this encounter
--- OUTSIDE RECORDS SUMMARY | 2025-08-23 08:27 | XMS_ITS | Encounter Summary ---
Author Organization [facility] Address [address] [facility] [place] [address] Care Team Providers Care Order Processing Specialist Name Role Phone Unallocated, Matheus [facility] Reason for Visit * ReasonOnset DateCommentsMed Mahehp5608/16/2025 Encounter Details DateTypeDepartmentCare Team (Latest Contact Info)Incidgcdlcl30/17/2025Refill [facility] [address] [place] [address] [place] [phone] Soheila Rice LPN Tick bite of neck, initial encounter Social History Tobacco UseTypesPacks/DayYears UsedDateSmoking Tobacco: NeverSmokeless Tobacco: NeverAlcohol UseStandard Drinks/WeekCommentsYes1 (1 standard drink = 0.6 oz pure alcohol)caffeine: 1-2 cups per dayPHQ-2AnswerDate RecordedPatient Health Questionnaire-2 Ivlry57410/13/2024CommentsNoSex and Gender Information ValueDate RecordedSex Assigned at GladqWjtsqv42/14/2024 10:53 AM ESTLegal Sex Yrinwi6212/12/2022 7:08 PM EDTGender ZsyazdlcKrjyqy56/14/2024 10:53 AM ESTSexual NrhxwllnplnDtczfpcv33/14/2024 10:53 AM ESTdocumented as of this encounter Plan of Treatment Not on file documented as of this encounter Visit Diagnoses Diagnosis Tick bite of neck, initial encounter documented in this encounter Care Teams Team MemberRelationshipSpecialtyStart DateEnd Date Unallocated, Sar[place] Provider, [place] [address] PCP - GeneralFamily Znbogbkf17/3/25documented as of this encounter
[2025-08-23 09:23] LABS: Hematocrit 42.0 % (36.0-48.0); Hemoglobin 13.7 g/dL (12.0-16.0); Immature Granulocytes Abs Auto 0.01 10^3/uL (0.00-0.03); Immature Granulocytes Pct Auto 0.2 % (0.0-0.5); Lymphocytes Absolute Auto 1.9 10^3/uL (1.2-3.8); Mean Corpuscular HGB Conc 32.6 g/dL (29.9-35.2); Mean Corpuscular Hemoglobin 31.4 pg (26.7-34.0); Mean Corpuscular Volume 96.3 fL (81.0-99.0); Platelet Count 408 10^3/uL (150-450); Red Blood Count 4.36 10^6/uL (4.20-5.40); White Blood Count 5.0 10^3/uL (4.0-11.0)
[2025-08-23 09:34] LABS: Alanine Aminotransferase 24 U/L (14-59); Albumin Globulin Ratio 0.9; Albumin Level 3.5 g/dL (3.4-5.0); Alkaline Phosphatase 95 U/L (46-116); Anion Gap 11.0; Aspartate Amino Transferase 18 U/L (15-37); Blood Urea Nitrogen 18.0 mg/dL (7.0-18.0); Calcium 8.8 mg/dL (8.5-10.1); Carbon Dioxide 29.7 mmol/L (21.0-32.0); Chloride 107 mmol/L (98-107); Cholesterol 221 mg/dL (<=200); Estimated GFR (African America >60 (>=60 mL/min/1.73m^2); Estimated GFR (Non-African Ame >60 (>=60 mL/min/1.73m^2); Free T3 2.87 pg/mL (2.18-3.98); Globulin 3.9 g/dL; Glucose 89 mg/dL (74-106); HDL Cholesterol 46 mg/dL (40-60); Potassium 3.7 mmol/L (3.5-5.1); Sodium 144 mmol/L (136-145); Thyroid Stimulating Hormone 2.373 uIU/mL (0.358-3.740); Total Protein 7.4 g/dL (6.4-8.2); Triglycerides 151 mg/dL (<=150); VLDL CHOLESTEROL 30.2 mg/dL
[2025-08-23 11:02] LABS: Ferritin 58.0 ng/mL (8.0-252.0)
[2025-08-24 04:07] LABS: Sex Horm Binding Glob, Serum 54.2 nmol/L (17.3-125.0)
[2025-08-25 12:10] LABS: Calcitriol(1,25 di-OH Vit D) 36.5 pg/mL (24.8-81.5)
[2025-08-27 06:07] LABS: Serotonin, Serum 57 ng/mL (31-207)
== END 2025-08-23 08:23 | disposition home or self-care (01) ==
PROVIDERS: PCP Family Medicine; Visit Provider Nurse Practitioner Family
DX: E34.9 Endocrine disorder, unspecified (principal)
CPT/HCPCS: 36415; 80053; 80061; 82530; 82627; 82652; 82670; 82679; 82728; 83036; 83525; 84144; 84260; 84270; 84402; 84403; 84432; 84436; 84439; 84443; 84481; 84482; 84681; 85025; 86376; 86800

== ENCOUNTER 2025-09-03 08:29 | Outpatient (OUT) | payer OTHER, SELFPAY ==
--- NOTE | 2025-09-03 08:32 | MM_ITS ---
Patient Name: LIVAN MENJIVAR MR#: [id number] : 1970 Exam Date: 09/03/2025 Ordering Doctor: DR DIANA BOGGS . RADIOLOGY REPORT PROCEDURE: MM TOMOSYNTHESIS SCREENING BI COMPARISON: MM TOMOSYNTHESIS SCREENING BI, 08/09/2023. MG MAMM SCREEN 3D MELANIE CAD, 01/30/2022. MG MAMM SCREEN 3D MELANIE CAD, 08/12/2020. MG MAMM SCREEN 3D MELANIE CAD, 06/15/2019. INDICATIONS: Screening Calculator Name NCI Breast Cancer Risk Assessment Tool 5 Year Breast Cancer Risk 1.10% Lifetime Breast Cancer Risk 8.60% Personal Breast Cancer No Personal Ovarian Cancer No Treatments None Family Cancers None LOCATION: [facility] BREAST COMPOSITION: The breasts are heterogeneously dense, which may obscure small masses. FINDINGS: RIGHT BREAST: No significant suspicious finding. LEFT BREAST: No significant suspicious finding. DIAGNOSTIC CATEGORY 1--NEGATIVE. NO CHANGE FROM COMPARISON ASSESSMENT. RECOMMENDATIONS: ROUTINE MAMMOGRAM AND CLINICAL EVALUATION IN 12 MONTHS. Dictated by: Masoud Torrez MD on 09/03/2025 at 10:27 Approved by: Masoud Torrez MD on 09/03/2025 at 10:31
--- OUTSIDE RECORDS SUMMARY | 2025-09-03 08:33 | XMS_ITS | CCD ---
Author Organization [facility] Inform ion [facility] Care Team Providers Care Cash Management Associate Name Role Phone PRISCILA SMITH Admitting Unavailable [...] PETZNICK, ALEJANDRA Admitting Unavailable Petznick Alejandra WOODSON C Primary Care Provider [phone] VERONIKA DOBBS Attending Unavailable ALEJANDRA PRIETO Referring Unavailable ELDA AGUILAR Attending Unavailable BRITANY GOLDSTEIN Attending Unavailable ANUPAMA KEVIN Attending Unavailable BRITANY GOLDSTEIN Attending Unavailable BRITANY GOLDSTEIN Referring Unavailable Sampson, Alejandra Primary Care Unavailable Veronica Dobbs Attending Unavailable Veronica Dobbs Admitting Unavailable Petznick Alejandra WOODSON Primary Care Provider [phone] Unallocated , Noms Provider Primary Care Provi nathan Medications Current Medications MedicationDrug Class(es)DatesSig (Normalized)Sig (Original)acyclovir 0.05 mg/mg topical ointment (1 source)Herpesvirus Nucleoside Analog DNA Polymerase Inhibitor, Herpes Simplex Virus Nucleoside Analog DNA Polymerase Inhibitor, Herpes Zoster Virus Nucleoside Analog DNA Polymerase InhibitorStart: 55-80-6442xsvodkljq (Zovirax) 5 % ointment Indications: Cold sore Apply topically 6 (six) times a day Space applications every 3 hours. 30 g 1 06/10/2025 ActiveStart: 64-05-5789apbtuhkre (Zovirax) 5 % ointment Indications: Cold sore Apply topically 6 (six) times a day Space ap plications every 3 hours. 30 g 1 06/10/2025 Activeazithromycin 250 mg oral tablet (3 sources)Macrolide AntimicrobialStart: 62-88-6352fnifwxwxxydu (Zithromax Z- Guicho) 250 MG tablet Indications: Upper respiratory tract infection, unspecified type As directed 6 tablet 05/10/2025 ActiveContinuous Glucose Manager Facility (Dexcom G7 Manager Facility) device (2 sources)Start: 05-20-2025 End: 31-69-5596Uusfncjyts Glucose Manager Facility (Dexcom G7 Manager Facility) device Indications: Hypoglycemia 1 Device continuously 1 each 05/20/2025 06/19/2025 ActiveContinuous Glucose Sensor (Dexcom G7 Sensor) misc (2 sources)Start: 05-20-2025 End: 97-57-9263Lgeswkyucx Glucose Sensor (Dexcom G7 Sensor) misc Indications: Hypoglycemia 1 each Every 10 (ten) days 3 each 3 05/20/2025 06/19/2025 Active desonide 0.5 mg/ml topical cream (3 sources)CorticosteroidStart: 12-35-0477ayjthscq (DesOwen) 0.05 % cream Indications: Dermatitis APPLY TOPICALLY 2 TIMES A DAY FOR 14 DAYS NEEDED 60 g 2 12/17/2024 Activeestradiol 0.004 mg vaginal insert (17 sources)EstrogenStart: 03-15-2025 End: 63-71-9599Tcmcllovg (Imvexxy Maintenance Pack) 4 MCG insert Indications: Menopausal disorder , Dyspareunia infemale , Menopausal syndrome on hormone replacement therapy Insert 1 Insert into the vagina 2 (two)times a week 24 each 03/18/2025 06/16/2025 ActiveStart: 03-04-2025 End: 49-36-0275oaqlujvns (Climara) 0.05 MG/24HR Indications: Postmenopausal state , Menopausal disorder Place 1 patch over 7 days on the skin 1 (one) time per week 12 patch 3 03/04/2025 03/04/2026 ActiveStart: 17-68-0557axbp 1 tablet by mouth once dailyestradiol (Estrace) 0.5 MG tablet Indications: Hormone imbalance Take 1 tablet (0.5 mg) by mouth Daily 90 tablet 3 12/11/2023 Active Estradiol / Progesterone (3 sources)Progesterone, EstrogenStart: 37-44-2440fcoa 0.5-100 mg by mouth once dailyEstradiol-Progesterone (Bijuva) 0.5-100 MG capsule Indications: Symptomatic menopausal or female climacteric states , Menopausal syndrome on hormone replacement therapy , Dyspareunia in female Take 1capsule by mouth Daily 90 capsule 3 03/10/2025 ActiveStart: 03-10-2025 End: 71-43-5131yhap 0.5-100 mg by mouth once dailyEstradiol-Progesterone (Bijuva) 0.5-100 MG capsule Indications: Symptomatic menopausal or female cli macteric states , Menopausal syndrome on hormone replacement therapy , Dyspareunia in female Take 1capsule by mouth Daily 90 capsule 3 03/10/2025 06/08/2025 Bzmnaq18 hr metFORMIN hydrochloride 500 mg extended release oral tablet (3 sources)BiguanideStart: 02-16-2025 End: 10-69-7644qdjl 2 tablets by mouth every twenty-four hours at mealtime metFORMIN XR (Glucophage-XR) 500 MG 24 hr tablet Indications: Insulin resistance Take 2 tablets (1,000 mg) by mouth in the evening. Take with meals 180 tablet 3 02/16/2025 Activephentermine hydrochloride 37.5 mg oral tablet (3 sources)Sympathomimetic Amine AnorecticStart: 11-99-0285qtqy 1 tablet by mouth before mealtimephentermine (Adipex-P) 37.5 MG tablet Indications: Encounter for weight management Take 1 tablet (37.5 mg) by mouth in the morning. Take before meals. 90 tablet 02/04/2025 ActivepredniSONE 50 mg oral tablet (2 sources)Start: 06-04-2025 End: 94-64-0452qeek 1 tablet by mouth once dailypredniSONE (Deltasone) 50 MG tablet Indications: Poison sam Take 1 tablet (50 mg) by mouth Daily for 7 days 7 tablet 06/04/2025 06/11/2025 ActivevalACYclovir 1000 mg oral tablet (4 sources)Herpesvirus Nucleoside Analog DNA Polymerase Inhibitor, Herpes Simplex Virus Nucleoside Analog DNA Polymerase Inhibitor, Herpes Zoster Virus Nucleoside Analog DNA Polymerase InhibitorStart: 06-10-2025 End: 88-63-5266zloe 1 tablet by mouth in the morning, [...] 21 tablet 06/10/2025 06/10/2025 Discontinued (Reorder) End: 94-26-9801lwbRJFsnielz (Valtrex) 1 g tablet Take 1,000 mg by mouth in the morning and 1,000 mg in the eveningand 1,000 mg before bedtime. 06/10/2025 Discontinued (Dose adjustment) Problems Active Problems Problem ClassificationProblemDateDocumented DateEpisodic/ChronicAnxiety disorders (8 sources)Acute stress disorder; Translations: [Acute stress reaction]Onset: 759742-90-0398XiayefbSojxqhnpgv disorders (12 sources)Disorder associated with menstruation AND/OR menopause; Translations: [Unspecified menopausal and perimenopausal disorder]Onset: 791744-82-8844VpzvtlfVilgf connective tissue disease (4 sources)Adhesive capsulitis of right shoulder; Translations: [Adhesive capsulitis of right shoulder]57-76-0128NupuuivdAdhho connective tissue disease (2 sources)Impingement syndrome of right shoulder region; Translations: [Impingement syndrome of right shoulder]83-27-9339XcjbwbrvTuklb female genital disorders (4 sources)Pain in female genitalia on intercourse; Translations: [Unspecified dyspareunia]Onset: 882130-53-5822XnlhqwjNppji lower respiratory disease (4 sources)Pleurodynia; Translations: [PLEURODYNIA]Onset: 51-35-3297Gxtgugwz Other non-traumatic joint disorders (2 sources)Pain in right shoulder; Translations: [Pain in joint, shoulder region]52-29-6043TsegdxajUjbjn nutritional; endocrine; and metabolic disorders (8 sources)Insulin resistance; Translations: [Insulin resistance]Onset: 095940-34-0989LonnynlVccwdclpzcxq (3 sources)CONTACT W/AND (SUSP) EXPOS COVID-19; Translations: [CONTACT W/AND (SUSP) EXPOS COVID-19]Onset: 11-30-0334Wibll infection (1 source)Herpes labialis; Translations: [Herpesviral vesicular dermatitis] 85-68-0919Ffpruvqs Past or Other Problems Problem ClassificationProblemDateDocumented DateEpisodic/ChronicBacterial infection; unspecified site (8 sources)Bacterial infectious disease; Translations: [Other specified bacterial agents as the cause of diseases classified elsewhere]Onset: 01-30-2024 69-75-6386IwbbzkhxYvbxznstbmlse symptoms and ill-defined conditions (8 sources)Bence-Abdalla proteinuria; Translations: [Bence Abdalla proteinuria] Onset: 001239-27-9609ZywgxbzqOustkgqnpsbet and screening for infectious disease (4 sources)Encounter for immunization; Translations: [ENCOUNTER FOR IMMUNIZATION]Onset: 24-80-4407WjepyvylJuhfcfjnudoe diseases of female pelvic organs (8 sources)Acute vaginitis; Translations: [Acute vaginitis]Onset: 01-30-2024 60-35-0278JzjvgxxyAjshprn and fatigue (1 source)Other fatigue; Translations: [Other fatigue]Onset: 48-86-7195Akoxeyfc Nausea and vomiting (8 sources)Nausea; Translations: [Nausea]Onset: 659141-28-3615Vrffagxl Neoplasms of unspecified nature or uncertain behavior (8 sources)Thrombocytosis; Translations: [Thrombocytosis]Onset: 10-26-2016 68-04-3162UzfxzvhaRlirt circulatory disease (8 sources)Telangiectasia disorder; Translations: [Nevus, non-neoplastic]Onset: 790359-14-7550HwnnqxkaPnxzv nervous system disorders (8 sources)Notalgia paresthetica; Translations: [Paresthesia of skin]Onset: 962138-83-0012YysjwlbqFecjp nervous system disorders (8 sources)Finding related to ability to move; Translations: [Other abnormalities of gait and mobility]Onset: 826690-04-3903JtxddareFxxpo non- traumatic joint disorders (8 sources)Hip pain; Translations: [Pain in right hip]Onset: 01-29-2024 22-56-0932DunfdnnpEwdtg screening for suspected conditions (not mental disorders or infectious disease) (8 sources)Patient encounter status; Translations: [Encounter for screening for malignant neoplasm of colon]Onset: 648697-39-3114LazldezuBhmms skin disorders (8 sources)Wrinkled skin; Translations: [Other specified disorders of the skin and subcutaneous tissue]Onset: 197697-09-0724JolzidncUjanf upper respiratory infections (9 sources)Acute upper respiratory infection; Translations: [Acute upper respiratory infection, unspecified]Onset: 869781-14-0392SqdjojzbImtatsvj codes; unclassified (8 sources)Postmenopausal state; Translations: [Asymptomatic menopausal state] Onset: 446717-23-9350WwwpxlxzBziwhgvcxocc (1 source)CONTACT W/AND (SUSP) EXPOS COVID-19; Translations: [CONTACT W/AND (SUSP) EXPOS COVID-19]Onset: 06-10-2021 Results Test NameValueInterpretationReference RangeFacilityXR Shoulder - right 2 Viewson 59-44-7541Yjhiaqh Result: August 25, 2024 x-rays AP axillary and Y scapula of the right shoulder demonstrate a type 1 acromion. The glenohumeral joint and acromioclavicular joints are intact. There are no fractures. There is normal glenoid morphology. Impression: No acute findings on x-rays of the right shoulder Hai Goldstein D.O.[facility] HealthcareC[facility] HealthcareRadiology Study observation (narrative)[facility] HealthcareThyroxine (T4) Totalon 78-32-4439H2 [Mass/Vol]7.97 ug/dLNormal5.39-11.82The [facility] Physician GroupComment on above:Performed By: #### T3F, T4T, T3T #### [address] #### T3R #### [facility] ,Triiodothyronine (T3) Freeon 30-22-5798Iouwvjsaedtjzwki (T3) Free3.47 pg/mL Normal2.50-3.90The [facility] Physician [facility] SystemComment on above:Result Comment: PERFORMED BY: [place] [address] PATHOLOGIST HAND RIVETER DAYRON FLOWERS M.D.Performed By: #### T3F, T4T, T3T #### [address] #### T3R #### [facility] ,Triiodothyronine (T3) Reverseon 67-13-5287Ilatcvufagcrfkcw (T3) Onseavi42.8 ng/dLNormal9.2-24.1The [facility] Physician GroupComment on above:Result Comment: This test was developed and its performance characteristics determined by [facility]. It has not been cleared or approved by the Food and Drug Administration. Performed at: [address] [id number] Production Bow Maker: Pj Murphy MD, Phone: [phone] PERFORMED BY: [place] [address] PATHOLOGIST HAND RIVETER DAYRON FLOWERS M.D.Performed By: #### T3F, T4T, T3T #### [address] #### T3R #### [facility] ,Triiodothyronine (T3) Totalon 90-45-2557Zrhwzyxnjftkgftr (T3) Total0.95 ng/mL Normal0.87-1.78The [facility] Physician GroupComment on above:Result Comment: PERFORMED BY: [place] [address] PATHOLOGIST HAND RIVETER DAYRON FLOWERS M.D.Performed By: #### T3F, T4T, T3T #### [address] [place] [address] [facility] #### T3R #### [facility] ,MR Thigh - right WO contraston 07-30-[place] [address] Magnetic Resonance Report Signed Patient: ALISIA MENJIVAR MR#: [id number] : 1970 Acct:[id number] Age/Sex: 53 / F ADM Date: 02/27/24 Loc: MRI Attending Dr: Britany Goldstein M.D. Ordering Physician: Britany Goldstein M.D. Date of Service: 02/27/24 Procedure(s): MR femur RT wo con Accession Number(s): [id number] cc: Britany Goldstein M.D.; ALEJANDRA PRIETO [place] [address] Patient Name: ALISIA MENJIVAR MRN: [id number] date: 1970 Sex: F Assigned Patient Location: MRI Current Patient Location: MRI Accession/Order Number: [id number] Exam Date: 02/27/2024 16:47 Report Date: 02/27/2024 [...] M.D. Signed By: 02/27/241899 DD/ 57 TD/TT: Flight Inspector:KAMIHRadiology, Radiologist, - 02/28/2024 [place] [address] Magnetic Resonance Report Signed Patient: ALISIA MENJIVAR MR#: [id number] : 1970 Acct:[id number] Age/Sex: 53 / F ADM Date: 02/27/24 Loc: MRI Attending Dr: Britany Goldstein M.D. Ordering Physician: Britany Goldstein M.D. Date of Service: 02/27/24 Procedure(s): femur RT wo con Accession Number(s): [id number] cc: Britany Goldstein M.D.; ALEJANDRA PRIETO [place] [address] Patient Name: ALISIA MENJIVAR MRN: [id number]:[id number] date: 1970 Sex: F Assigned Patient Location: MRI Current Patient Location: MRI Accession/Order Number: [id number] Exam Date: 02/27/2024 16:47 Report Date: 02/27/2024 [...] M.D. Signed By: 02/27/241899 DD/ 57 TD/TT: Flight Inspector: MATHEUS [facility] HospitalRadiology Study observation (narrative)[facility] Thigh - right WO contrastOrdered By: Radiologist Radiology on 29-06-4725DOCB 2CODE Online Work Phone: XR RIBS LT PA Chepe [phone] RIBS LT PA CH EXAMINATION: XR RIBS [...] Electronically authenticated by: DARREN BOBO Date: 2022-05-22 11:30[facility] HospitalCoding Summary.on 76-91-8038Hqatry Summary. CD:[id number]+PGhlYWQ+TJ2AYKHyQ12spXLilM3EK3hRJQ5AJYNOAPAMVV7FGC4wf PJ4EDueA4XqpuGz [file] OiBj (more content not included)...[facility] HospitalMA Mamm Screen w/CAD if perf and 3D Bilon 53-20-3070AK Mamm Screen w/CAD if perf and 3D [...] very important to your health. The current [employer] and National Comprehensive Cancer [...] Assessment: BI-RADS Category 1-Negative Recommendation: Normal interval follow-upGrand Lake Joint Township [facility] Hospital Consent for Treatmenton 52-39-8000Nfgzyxr for Treatment [id number]#1.00CD:[address] [place], [place] [address]Physician Orderon 79-20-3978Kvbmcwcsn Order [id number]#1.00CD:[address] [place], [place] [address]CBC AUTO DIFFon 70-95-1344BZWK #0.0 103/ulNormal0.0-0.1[facility] HospitalComment on above:Performed By: #### CBC #### [facility] [address] [address] [address] Danyell Emmanuel/100 WBC (Bld)0.4 %Normal0.2-2.0[facility] Comment on above:Performed By: #### CBC #### [facility] [address] [address] [address] Yilan ChangEO #0.2 103/ulNormal0.0-0.7The [facility] HospitalComment on above: Performed By: #### CBC #### [facility] [address] [place] [address] Dr. Danyell Funezosinophils/100 WBC (Bld)2.9 %Normal0.9-7.0The [facility] Comment on above:Performed By: #### CBC #### [facility] [address] [place] [address] Dr. Danyell Funezrythrocyte distribution width (RBC) [Ratio]13.9 %Kzvysm44.0-15.0 The [facility] HospitalComment on above:Performed By: #### CBC #### [facility] [address] [place] [address] Dr. Danyell RecinosHematocrit (Bld) [Volume fraction]43.9 %Zyzgvg04.0-48.0The [facility] HospitalComment on above:Performed By: #### CBC #### [facility] [address] [place] [address] Dr. Danyell RecinosHemoglobin (Bld) [Mass/Vol]14.3 g/tFNufagn27.0-16.0The [facility] HospitalComment on above:Performed By: #### CBC #### [facility] [address] [place] [address] Dr. Danyell Hein #0.01 10e3/ulNormal0.00-0.03The [facility] HospitalComment on above:Performed By: #### CBC #### [facility] [address] [place] [address] Dr. Danyell Hein %0.2 %Normal0.0-0.5The [facility] HospitalComment on above: Performed By: #### CBC #### [facility] [address] [place] [address] Dr. Danyell Sy #1.6 103/ulNormal1.2-3.8The [facility] HospitalComment on above:Performed By: #### CBC #### [facility] [address] [place] [address] Dr. Danyell Garciamphocytes/100 WBC (Bld)30.7 %Okinxj46.5-60.0The [facility] HospitalComment on above:Performed By: #### CBC #### [facility] [address] [place] [address] Dr. Danyell LeyUAL DIFF REQNONormalThe [facility] HospitalComment on above: Performed By: #### CBC #### [facility] [address] [place] [address] Dr. Danyell Gomez (RBC) [Entitic mass]31.2 qdIomgdi88.7-34.0The [facility] HospitalComment on above:Performed By: #### CBC #### [facility] [address] [place] [address] Dr. Danyell Gomez (RBC) [Mass/Vol]32.6 g/cDLtomsd28.9-35.2The [facility] HospitalComment on above:Performed By: #### CBC #### [facility] [address] [place] [address] Dr. Danyell Gomez (RBC) [Entitic vol]95.9 qUBjqloo68.0-99.0The [facility] HospitalComment on above:Performed By: #### CBC #### [facility] [address] [place] [address] Dr. Danyell Virk #0.6 103/ulNormal0.3-0.8The [facility] HospitalComment on above:Performed By: #### CBC #### [facility] [address] [place] [address] Dr. Danyell Castilloocytes/100 WBC (Bld)11.1 %Normal1.7-12.0The [facility] Comment on above:Performed By: #### CBC #### [facility] [address] [place] [address] Dr. Danyell Christine #2.9 103/ulNormal1.4-6.5The [facility] HospitalComment on above:Performed By: #### CBC #### [facility] [address] [place] [address] Dr. Danyell Hiltonophils/100 WBC (Bld)54.7 %Bstzjn26.0-75.0The The [facility] Hospitalment on above:Performed By: #### CBC #### [facility] [address] [place] [address] Dr. Danyell Waltonlet mean volume (Bld) [Entitic vol]10.1 fLNormal9.5-13.5The [facility] HospitalComment on above:Performed By: #### CBC #### [facility] [address] [address] [address] Danyell RecinosPLT422 103/onOcesny149-739Mjh [facility] HospitalComaspirus [facility] river hospital on above: Performed By: #### CBC #### [facility] [address] [place] [address] Dr. Danyell RecinosRBC4.58 106/ulNormal4.20-5.40The [facility] HospitalComaspirus iron river hospital on above:Performed By: #### CBC #### [facility] [address] [place] [address] Dr. Danyell RecinosWBC5.2 103/ulNormal4.0-11.0The [facility] HospitalComaspirus iron river hospital on above: Performed By: #### CBC #### [facility] [address] [place] [address] Dr. Danyell TelloID PROFILEon 90-41-1261WBLB-HDL RATIO NORMSEE [facility] HospitalComaspirus [facility] hospital on above:Result Comment: 3.3 - 4.4 LOW RISK 4.4 - 7.1 AVERAGE RISK 7.1 - 11.0 MODERATE RISK >11.0 HIGH RISKPerformed By: #### LIPID, CMP #### [facility] [address] [place] [address] Dr. Danyell RecinosCholesterol [Mass/Vol]211 mg/dLCritically high<=200The [facility] on above:Performed By: #### LIPID, CMP #### [facility] [address] [place] [address] Dr. Danyell RecinosCholesterol in HDL [Mass/Vol]63 mg/dLCritically mgev37-00VowWestern Reserve HospitalComment on above:Performed By: #### LIPID, CMP #### [facility] [address] [place] [address] Dr. Danyell Uribeesterol in LDL [Mass/Vol]130.2 mg/dLMagruder Memorial HospitalComment on above:Performed By: #### LIPID, CMP #### [facility] [address] [place] [address] Dr. Danyell Alvarez.total/Cholesterol in HDL [Mass ratio]3.3 {ratio} NormalThe [facility] HospitalComment on above:Performed By: #### LIPID, CMP #### [facility] [address] [place] [address] Dr. Danyell Unger NORMAL> or = 60 mg/dl - LOW CARDIOVASCULAR RISK <40 mg/dl - HIGH CARDIOVASCULAR RISKNoMorrow County HospitalComment on above:Performed By: #### LIPID, CMP #### [facility] [address] [place] [address] Dr. Danyell Huff CALC NORMALSEE BELOWMagruder Memorial HospitalComment on above:Result Comment: <100 mg/dl OPTIMAL 100 - 129 mg/dl NEAR OR ABOVE OPTIMAL 130 - 159 mg/dl BORDERLINE HIGH 160 - 189 mg/dl HIGH >190 mg/dl VERY HIGH Performed By: #### LIPID, CMP #### [facility] [address] [place] [address] Dr. Danyell RecinosTriglyceride [Mass/Vol]89 mg/dLNormal<=150The [facility] Comment on above:Performed By: #### LIPID, CMP #### [facility] [address] [place] [address] Dr. Danyell BatistaLDL CALC17.8 mg/dLNoMorrow County HospitalComment on above: Performed By: #### LIPID, CMP #### [facility] [address] [place] [address] Dr. Danyell RecinosPROF 14(COMP METB)on 91-42-2527Krtjzht [Mass/Vol]3.9 g/dLNormal 3.4-5.0The [facility] HospitalComment on above:Performed By: #### LIPID, CMP #### [facility] [address] [address] [address] Danyell RecinosAlbumin/Globulin [Mass ratio]0.9 {ratio}NormalThe [facility] HospitalComment on above:Performed By: #### LIPID, CMP #### [facility] [address] [address] [address] Danyell Middleton [Catalytic activity/Vol]97 U/ANvkknf99-485Zqw [facility] HospitalComment on above:Performed By: #### LIPID, CMP #### [facility] [address] [address] [address] Danyell Emanuel [Catalytic activity/Vol]22 U/GKqydrj97-28Cfi The [facility] Hospitalment on above:Performed By: #### LIPID, CMP #### [facility] [address] [address] [address] Danyell Mejiason gap [Moles/Vol]14.7 mmol/LNormalThe [facility] Comment on above:Performed By: #### LIPID, CMP #### [facility] [address] [address] [address] Danyell Patel [Catalytic activity/Vol]23 U/CDragdo23-44Ppx [facility] on above:Performed By: #### LIPID, CMP #### [facility] [address] [address] [address] Danyell RecinosBilirubin [Mass/Vol]0.6 mg/dLNormal0.2-1.3The [facility] Comment on above:Performed By: #### LIPID, CMP #### [facility] [address] [address] [address] Danyell RecinosCalcium [Mass/Vol]9.2 mg/dLNormal8.5-10.1The [facility] Comment on above:Performed By: #### LIPID, CMP #### [facility] [address] [address] [address] Danyell RecinosChloride [Moles/Vol]104 mmol/RPhwwdm21-537Sje [facility] Comment on above:Performed By: #### LIPID, CMP #### [facility] [address] [address] [address] Danyell RecinosCO2 [Moles/Vol]26.6 mmol/FUbvukb29.0-30.0[facility] Comment on above:Performed By: #### LIPID, CMP #### [facility] [address] [address] [address] Danyell RecinosCreatinine [Mass/Vol]0.91 mg/dLNormal0.52-1.04[facility] HospitalComment on above:Performed By: #### LIPID, CMP #### [facility] [address] [place] [address] Dr. Danyell FunezGFR-AF THAI>60Normal>=60The [facility] HospitalComment on above:Performed By: #### LIPID, CMP #### [facility] [address] [address] [address] Danyell Acosta-NON AF THAI>60Normal>=60Western [facility] HospitalComment on above:Performed By: #### LIPID, CMP #### [facility] [address] [address] [address] Danyell RecinosGlobulin (S) [Mass/Vol]4.4 g/dLNormalThe [facility] HospitalComment on above:Performed By: #### LIPID, CMP #### [facility] [address] [address] [address] Danyell RecinosGlucose [Mass/Vol]97 mg/eENshopm02-032TafWestern Reserve Hospital Comment on above:Performed By: #### LIPID, CMP #### [facility] [address] [address] [address] Danyell RecinosPotassium [Moles/Vol]4.3 mmol/LNormal3.4-5.0The [facility] Comment on above:Performed By: #### LIPID, CMP #### [facility] [address] [address] [address] Danyell RecinosProtein [Mass/Vol]8.3 g/dLCritically high6.1-8.2The [facility] HospitalComment on above:Performed By: #### LIPID, CMP #### [facility] [address] [address] [address] Danyell RecinosSodium [Moles/Vol]141 mmol/QItitds157-057Feq [facility] Comment on above:Performed By: #### LIPID, CMP #### [facility] [address] [address] [address] Danyell RecinosUrea nitrogen [Mass/Vol]11.0 mg/dLNormal7.0-18.0The [facility] HospitalComment on above:Performed By: #### LIPID, CMP #### [facility] [address] [place] [address] Dr. Danyell RecinosUrea nitrogen/Creatinine [Mass ratio]12.1 mg/mgNormalThe [facility] HospitalComment on above:Performed By: #### LIPID, CMP #### [facility] [address] [place] [address] Dr. Danyell RecinosCovid-19 PCR ([facility])on 15-68-1536YUCS-CoV-2 (COVID-19) RNA QUIRINO+probe Ql (Unsp spec)Not detectedNormalNOT [...] for this test is supported by the [place] of Health and Human Service's (HHS's) declaration [...] CVDTBH #### [facility] [address] [place] [address] Kashif KarenSYMPTOMATIC COVID-19 ANTIGENon 03-04-2209INB StatementSEE BELOW NormalThe [facility] HospitalComment [...] CVDTB #### [facility] [address] [place], [place] [address] Kashif AliceaQciloSDBA-ArA-1 (COVID-19) RNA QUIRINO+probe Ql (Unsp spec)NegativeNormal NEGATIVEThe [facility] HospitalComment on above:Result Comment: CONFIRMATION BY PCR PENDING PER CDC GUIDELINES/ SYMPTOMATIC PATIENT.Performed By: #### PRISCAAGS, CVDTB #### [facility] [address] [place], [place] [address] Kashif KarenConsent Formson 36-35-2693Rcyyniq Forms [id number]#1.00OTGTIFFUC Medical Center Encounters Encounter DateEncounter TypeCare ProviderFacilityStart: 06-10-2025 End: 93-85-8116WrhzfsManfcsdv Eberly NP Work Phone: [facility] OBGYNStart: 05-10-2025 End: 37-30-9924EitifzRfwnkgky Eberly NP Work Phone: [facility] [place] OBGYNComment on above:Upper respiratory tract infection, unspecified type (Primary Dx)Start: 10-30-2024 End: 91-34-2745Jqfwtxowd encounterMatthew David Mckee PA Work Phone: [facility] CI ORTHOPAEDICSStart: 08-25-2024 End: 68-43-2196Olvjdf flowsheetJames A Angelita DO Work Phone: [facility] CI ORTHOPAEDICSStart: 08-25-2024 End: 71-22-9002Vswqax flowsheetJames A Angelita DO Work Phone: [facility] CI ORTHOPAEDICSStart: 08-25-2024 End: 88-37-0133nkutzijvhzKEIES A AYDINDLESTONNot AvailableStart: 08-25-2024 End: 60-09-8329Gmrqqb outpatient visit 15 minutesJames A Angelita DO Work Phone: [facility] CI ORTHOPAEDICSComment on above:Right shoulder pain, unspecified chronicity (Primary Dx); Adhesive capsulitis of right shoulder; Impingement syndrome of right shoulderStart: 06-26-2024 End: 17-30-3023bernxfoqcfNswdjgt PetznickFacility:[facility] Hospitaltart: 05-05-2024 End: 12-82-1065hsxxtgfbrrOSJKADQLP F VALERIYot AvailableStart: 02-27-2024 End: 96-50-5808Mtvrfduob Result EncounterJames A Angelita DO Work Phone: noms External Department UnsolicitedStart: 02-27-2024 End: 99-81-0475Tkeepfiua Result EncounterJames A Angelita DO Work Phone: n[facility] External Department UnsolicitedStart: 02-25-2024 End: 04-95-8653mkyasbzoxlDLSTT A AYDINDLESTONNot AvailableStart: 02-12-2024 End: 13-90-2499lzgllmriunZZZFGR L LAURENNot AvailableStart: 01-30-2024 End: 58-81-3005acxylgimucOQUW C LAFFAYNot AvailableStart: 05-21-2022 End: 58-69-9044mmzbznjoisSWCLOR RODRIGUEZFacility:G2Ldwfm: 33-28-4527Yluodwewx for general adult medical examination without abnormal findingsMATTHEW PETZNICK [facility] HospitalStart: 12-22-2021 End: 31-40-7036kttypzbyudTQAVBYD PETZNICKFacility:E0Onglk: 12-22-2021 End: 75-45-8158Pllrozvnr for general adult medical examination without abnormal findingsMATTHEW PETZNICKFacility:D6Vugok: 08-11-2021 End: 17-37-4140mwetbbnczeEXNSUC RUSTY ROSSFacility:Q4Fnnmx: 06-10-2021 End: 01-03-6948yihhupghvcRIOZARRQ EBERLYFacility:H1 Procedures DateProcedureProcedure DetailPerforming ClinicianStart: 75-68-7572Frsfr shoulder complete minimum 2 viewsBritany Goldstein DO Work Phone: Start: 03-84-0686Kbxoogbenzr observation [Identifier] in Cervix by Cyto stainBritany Goldstein DO Work Phone: Start: 81-61-0900Rih lower extrem oth/thn jt w/o contr matrlBritany Goldstein DO Work Phone: Start: 43-24-4340IyckrigkfjySyoax Huddleston DO Work Phone: Plan of Treatment DateCare ActivityDetailAuthorStart: 89-31-1053Xfstjtkwz for malignant neoplasm of cervixNOMS HealthcareStart: 08-13-2025 End: 38-05-9719Pqpopet encounter okrvbnvwr35/14/2025 8:30 AM EST [facility] [address] [place] [address] Alejandra Prieto, DO [address] [place] [address] Formerly [facility], [facility] 230 Start: 96-20-4438XZOIG-19 Vaccine ( season)COVID-19 Vaccine ( season)NOM HealthcareStart: 83-80-7947Krscezptt vaccinationInfluenza Vaccine (#1)[facility] HealthcareStart: 02-10-2025 End: 44-59-8591Rjzdbtd encounter wumdrymoz83/14/2025 8:00 AM EDT [facility] [address] [place] [address] Elda Aguilar, THERESE [address] [place] [address] [facility] DERMStart: 20-63-2588Ucfdccmvk for malignant neoplasm of breastMammogramNOMS HealthcareStart: 18-93-7182Gixoemqaj for malignant neoplasm of cervixHPV/CotestNOMS HealthcareStart: 49-00-4150Clbjdtfmp B Vaccines (1 of 3 - 19+ 3-dose series)Hepatitis B Vaccines (1 of 3 - 19+ 3-dose series)NOM HealthcareStart: 72-10-3771JAlI/Tdap/Td Vaccines (1 - Tdap) DTaP/Tdap/Td Vaccines (1 - Tdap)NOM HealthcareStart: 46-14-0450IQM Vaccines (1 of 1 - Standard series)MMR Vaccines (1 of 1 - Standard series)[facility] Healthcare Start: 83-95-6020Tyreypdft for malignant neoplasm of colonN[facility]S Healthcare Immunizations Immunization DateImmunizationNotesCare LareltulYybxvqjo63-80-4328mbrbjcwsj virus vaccine, unspecified formulationGabriela Soriano PERFORMANCE MANAGEMENT CONSULTANT Work Phone: [facility] Qqazwkeylj51-29-9552Srrhvnk SARS-CoV-2 VaccinationJaflora ShaikhAngelita DO Work Phone: [facility] CenterGfqhfiwmem48-64-8856Cquwrqg SARS-CoV-2 VaccinationJaflora ShaikhAngelita DO Work Phone: [facility] CenterVyklotaizf25-10-0887Fpramlm SARS-CoV-2 VaccinationJaflora ShaikhAngelita DO Work Phone: [facility] CenterWbozjpuusy02-42-0553tchqzclud virus vaccine, unspecified formulationBritany Goldstein DO Work Phone: [facility] Healthcare Payers DatePayer CategoryPayerPolicy [id number] Health InsuranceUNITED HEALTHCARE [id number] 2..1.888790.3.57[id number] 2..1.039470.3.57[id number] 2..1.892082.3.57[id number] 2.0.1.756985.3.57[id number] 2..1.641333.3.57[id number] 2..1.158156.3.57[id number] 2..1.475195.3.57[id number] 2.0.1.396024.3.57[id number] 2.840.1.081177.3.579.2.819252-93-8387Jhxv-kvo89770686395-37-4785Mbaevau [id number] 2.16.840.1.2[id number] 2.840.1.882110.3.579.2.531 Social History DateTypeDetailFacilityStart: 72-00-3710Ojdyokk smoking status NHISNever smoked tobaccoNOMS HealthcareStart: 21-64-5480Cinrpkd use and exposureSmokeless tobacco non-userNOMS HealthcareStart: 02-25-2024 End: 14-92-3648Cloxvvkup beverage intakeCurrent drinker of alcohol (finding)[facility] HealthcareStart: 02-25-2024 End: 09-72-3293Oosxskctb beverage intakeNOMS HealthcareStart: 05-05-2024 End: 35-15-1001Ljhukeu use panelNOMS HealthcareStart: 04-49-2874Vcvwjck Comment caffeine: 1-2 cups per dayNOUT HealthcareStart: 73-38-1529Sxq assigned at FemaleNOUT HealthcareStart: 63-36-2953Ibjqng identityIdentifies as female gender (finding)[facility] HealthcareStart: 29-69-8537Svkhoq orientationHeterosexual (finding)[facility] HealthcareStart: 39-01-8392EhhQnzdcwOZNO Healthcare Telephone encounter Note 06-10-2025 Note Date & QwmuZhvtWykvfbei99-39-1296 Telephone encounter Note* Telephone Encounter - Gabriela Soriano NP - 06/10/2025 1:43 PM EDT Patient with complaint of cold sore will sent in Valtrex and Acyclovir [facility] Note 06-10-2025 Note Date & MufpAqwmQojcltad81-70-4641 Miscellaneous Notes* Telephone Encounter - Gabriela Soriano NP - 06/10/2025 1:43 PM EDT Patient with complaint of cold sore will sent in Valtrex and Acyclovir [facility] Note 10-30-2024 Note Date & FdwtVcjlIoufhapd41-34-0977 Telephone encounter Note* Telephone Encounter - THERESE [...] Will observe for symptom relief.. Pt thankful. [facility] Work Phone: Note 10-30-2024 Note Date & RdmlHzmiGuzijioy13-76-5565 Miscellaneous Notes* Telephone Encounter - THERESE Pan [...] symptom relief.. Pt thankful. documented in [facility]Research [facility] History of Present illness Narrative 08-25-2024 Note Date & FexfBdffCrlyiosi10-44-1674 History of Present illness Narrative* Britany Goldstein, [...] if she desires a referral to another electric needle specialist we would be happy to make referral, she states she would like to continue her care here. Veronica Goldstein D.O. 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 documented in this encounter [facility] Healthcare Summary Purpose Family History No [...] section and content) DATE CREATED AUTHOR 11/20/2020 [facility] DATE CREATED AUTHOR AUTHOR'S ORGANIZ ATION 02/06/2022 [facility] DATE CREATED AUTHOR AUTHOR'S ORGANIZ ATION 05/25/2022 [facility] DATE CREATED AUTHOR AUTHOR'S ORGANIZ ATION 08/30/2024 [facility] DATE CREATED AUTHOR AUTHOR'S ORGANIZ ATION 10/16/2024 [facility] Care Teams (unrecognized sec tion and content) Team MemberRelationshipSpecialtyStart DateEnd Date Alejandra Prieto, DO [address] [place] [address] PCP - GeneralFamily Medicine02/05/23Team MemberRelationshipSpecialtyStart DateEnd Date Alejandra Prieto, DO [address] [place] [address] PCP - GeneralFamily Medicine02/05/23Team MemberRelationshipSpecialtyStart DateEnd Date Alejandra Prieto, DO [address] [place] [address] PCP - GeneralFamily Medicine02/05/23Team MemberRelationshipSpecialtyStart DateEnd Date Alejandra Prieto, DO [address] [place] [address] PCP - GeneralFamily Medicine02/05/23Team MemberRelationshipSpecialtyStart DateEnd Date Alejandra Prieto, DO [address] [place] [address] PCP - GeneralFamily Medicine02/05/23Team MemberRelationshipSpecialtyStart DateEnd Date Alejandra Prieto, DO [address] [place] [address] [facility]CP - [facility] Centerly Medicine02/05/23Team MemberRelationshipSpecialtyStart DateEnd Date Alejandra Prieto, DO [address] [place] [address] [facility] - [facility]02/05/2310 Unallocated, [facility]oms Beata, [address] [place] [address] PCP - [facility]07/02/25 Reason for [...] BE BASED ON THE PRIMARY CLINICAL RECORDS. [facility]. provides no warranty or guarantee of the accuracy or completeness of information in this document.
== END 2025-09-03 08:30 | disposition home or self-care (01) ==
LOC: MAMMO 08:29
PROVIDERS: PCP Family Medicine; Visit Provider Obstetrics & Gynecology
DX: Z12.31 Encounter for screening mammogram for malignant neoplasm of breast (principal)
CPT/HCPCS: 77063; 77067

== ENCOUNTER 2025-09-20 12:18 | Outpatient (OUT) | payer OTHER, SELFPAY ==
--- OUTSIDE RECORDS SUMMARY | 2025-09-09 14:00 | XMS_ITS | Encounter Summary ---
Author Organization [facility] Address [address] [place] [address] Care Team Providers Care Conference Specialist Name Role Phone Unallocated, [facility] Provider Primary Care Provi nathan Reason for Visit * ReasonCommentsThyroid NoduleNew patient : thyroid nodule * Consultation (Routine) - ClosedSpecialtyDiagnoses / ProceduresReferred By ContactReferred To ContactOtolaryngology Diagnoses Thyroid nodule Procedures AR OFFICE/OUTPATIENT [facility] 60 MINUTES Sea Braden, DO [address] [facility] [address] [place] [address] Phone: tel: fax: Ramin Weber, DO [address] [place] [address] Phone: tel: fax: Referral IDStatusReasonStart DateExpiration DateVisits RequestedVisits [id number] Specialty Services Required / Encounter Details DateTypeDepartmentCare Team (Latest Contact Info)Zfambrvohcq96/11/2025 2:00 PM ESTOffice Visit [facility] [address] [place] [address] Ramin Weber, DO [address] [place] [address] Thyroid nodule (Primary Dx); Nontoxic multinodular goiter Social History Tobacco UseTypesPacks/DayYears UsedDateSmoking Tobacco: NeverSmokeless Tobacco: Never Tobacco Cessation:Counseling Given: Not Answered Alcohol UseStandard Drinks/WeekCommentsYes1 (1 standard drink = 0.6 oz pure alcohol)caffeine: 1-2 cups per dayPHQ-2AnswerDate RecordedPatient Health Questionnaire-2 Rldmp84410/13/2024CommentsNoSex and Gender Information ValueDate RecordedSex Assigned at FwrlaGfctia41/14/2024 10:53 AM ESTLegal Sex Nuplri1012/12/2022 7:08 PM EDTGender XqdjyqacGhkepe20/14/2024 10:53 AM ESTSexual StsmuxbzwggPivbdgby58/14/2024 10:53 AM ESTdocumented as of this encounter Last Filed Vital Signs Vital SignReadingTime TakenCommentsBlood Pressure--Pulse--Temperature-- Respiratory Rate--Oxygen Saturation--Inhaled Oxygen Concentration--Ehcjit93.1 kg (192 lb)09/09/2025 2:06 PM QRNWnjbbv911 cm (5' 8.5 )09/09/2025 2:06 PM ESTBody Mass Index28.7709/09/2025 2:06 PM ESTdocumented in this encounter Progress Notes * Ramin Weber, DO - 09/09/2025 2:00 PM EST Subjective Patient ID: Alisia Squires is a 55 y.o. female who presents for Thyroid Nodule (New patient : thyroid nodule) HPI 55-year-old white female presents today for evaluation of multinodular goiter and dominant thyroid nodule on the left. Recently noted on MRI of her head and neck. Patient has no idea how long the nodule has been present. Denies any difficulties with voice or swallow. Does have a significant family history of thyroid cancer with her mother. Presents today for further evaluation and treatment Review of Systems Patient denies any pain or fever. Denies any difficulties with voice or swallowing. Denies any fullness of the neck. Denies any shortness of breath. The rest of her review of systems is negative Allergies as of 09/09/2025 (No Known Allergies) Medical History[1] Current Medications[2] Surgical History[3] Social History Socioeconomic History Marital status: Spouse name: Not on file Number of children: Not on file Years of education: Not on file Highest education level: Not on file Occupational History Not on file Tobacco Use Smoking status: Never Smokeless tobacco: Never Vaping Use Vaping status: Never Used Substance and Sexual Activity Alcohol use: Yes Alcohol/week: 1.0 standard drink of alcohol Types: 1 Standard drinks or equivalent per week Comment: caffeine: 1-2 cups per day Drug use: Never Sexual activity: Yes Partners: Male control/protection: Post-menopausal Other Topics Concern Not on file Social History Narrative Not on file Social Drivers of Health Financial Resource Strain: Not on file Food Insecurity: Not on file Transportation Needs: Not on file Physical Activity: Not on file Stress: Not on file Social Connections: Not on file Intimate Partner Violence: Not on file Housing Stability: Not on file Objective ENT Physical Exam General Examination: General overview: Normal, age-appropriate, no evidence of distress Head: Normocephalic, atraumatic Eyes: Pupils are equally round and reactive to light and accommodation, extraocular muscles are intact Ears: External ear architecture within normal limits, ear canals are patent, tympanic membranes areintact. Nose: External nose unremarkable, nares patent, septum intact, no evidence of congestion. Oral cavity: Mucosa moist, no evidence of ulcer, mass, or lesion Throat: Clear Neck/thyroid: Neck supple, full range of motion, no cervical lymphadenopathy, no evidence of thyromegaly. Thyroid functions are normal Thyroid ultrasound: Indication: Thyroid goiter /thyroid nodule(s) Consent: Proper consent is obtained. The procedure risks are explained in detail. Questions were encouraged and answered Anesthesia: No anesthesia given Preparation: The patient was placed in proper position. Patient is prepped in standard fashion. Findings: Ultrasound is completed of the thyroid gland. Thyroid gland is of normal size. Multiple hypoechoic nodules are noted bilaterally. A dominant hypoechoic nodule is noted on the left side measuring 12 x 17 x 19 mm. No evidence of increased vascular flow. No evidence of microcalcification. Borders are well defined. Disposition: The patient tolerated the procedure extremely well. Patient is fully instructed on postprocedure care and follow-up in this office. Lymph nodes: No cervical lymphadenopathy Skin: Warm and dry, no evidence of suspicious lesions, no rash Heart: No jugular venous distention, point of maximal impulse normal Lungs: Good air movement, no audible wheezing, no shortness of breath Chest: Normal shape and expansion Abdomen: Normal, soft, nontender, nondistended Musculoskeletal: Cervical spine normal, full range of motion Extremities: No clubbing, cyanosis, or edema Peripheral pulses: 2+ radial, 2+ carotid Neurologic: Alert and oriented, cranial nerves 2-12 are grossly intact Psych: Alert and oriented, normal affect, no evidence of distress Assessment & Plan Thyroid nodule Nontoxic multinodular goiter Assessment/Plan Diagnoses and all orders for this visit: Thyroid nodule Comments: recommend needle aspiration biopsy of the dominant nodule on the left Nontoxic multinodular goiter Comments: continued surveillance of her other nodular findings. Other orders - Ambulatory referral to ENT [1] History reviewed. No pertinent past medical history. [2] Current Outpatient Medications: Cequa 0.09 % solution, Administer 1 drop into both eyes in the morning and 1 drop before bedtime., Disp: , Rfl: fluticasone (Flonase) 50 MCG/ACT nasal spray, Administer 1 spray into each nostril Daily Shake gently. Before first use, prime pump. After use, clean tip and replace cap. (Patient taking differently:Administer 1 spray into each nostril Daily Shake gently. Before first use, prime pump. After use, clean tip and replace cap.), Disp: 16 g, Rfl: 12 Estradiol-Progesterone (Bijuva) 0.5-100 MG capsule, Take 1 capsule by mouth Daily, Disp: 90 capsule, Rfl: 3 Estradiol-Progesterone (Bijuva) 1-100 MG capsule, Take 1 tablet by mouth Daily, Disp: 30 capsule, Rfl: 3 [3] Past Surgical History: Procedure Laterality Date IRIDOTOMY / IRIDECTOMY 2014 OTHER SURGICAL HISTORY Right 03/16/2024 hamstring repair AR NASAL ENDOSCOPY DIAGNOSTIC UNI/BI SPX 2013 documented in this encounter Plan of Treatment DateTypeDepartmentCare Team (Latest Contact Info)Lnvyjjxyxjh75/02/2026 2:15 PM ESTOffice Visit [facility] [place] [facility] [address] [place] [address] Ramin Weber, [address] [place] [address] 10/26/2025 8:55 AM ESTOffice Visit [facility] [address] [place] [address] Philly Berg, RN [facility] THERAPIST [address] [place] [address] documented as of this encounter Visit Diagnoses Diagnosis Thyroid nodule- Primary Nontoxic uninodular goiter Nontoxic multinodular goiter documented in this encounter Care Teams Team MemberRelationshipSpecialtyStart DateEnd Date Unallocated, Aimee Cota MD [address] [place] [address] PCP - GeneralFamily Zeyzqxed18/3/25documented as of this encounter
--- OUTSIDE RECORDS SUMMARY | 2025-09-16 11:00 | XMS_ITS | Encounter Summary ---
Author Organization [facility] Address [address] [place] [address] Care Team Providers Care Global Supply Chain Director Name Role Phone Unallocated, Noms Provider Primary Care Provi nathan Reason for Visit * ReasonCommentsThyroid NoduleFNA Encounter Details DateTypeDepartmentCare Team (Latest Contact Info)Tumktiiytew86/18/2025 11:00 AM ESTOffice Visit [facility] [address] [place] [address] Ramin Weber, [address] [place] [address] Family history of thyroid cancer (Primary Dx); Thyroid nodule Social History Tobacco UseTypesPacks/DayYears UsedDateSmoking Tobacco: NeverSmokeless Tobacco: Never Tobacco Cessation:Counseling Given: Not Answered Alcohol UseStandard Drinks/WeekCommentsYes1 (1 standard drink = 0.6 oz pure alcohol)caffeine: 1-2 cups per dayPHQ-2AnswerDate RecordedPatient Health Questionnaire-2 Xeory84610/13/2024CommentsNoSex and Gender Information ValueDate RecordedSex Assigned at PrkduWxbmat75/14/2024 10:53 AM ESTLegal Sex Knnddj4212/12/2022 7:08 PM EDTGender KwspggytFyqlao66/14/2024 10:53 AM ESTSexual VtkbsyvlqgcMhmghemv96/14/2024 10:53 AM ESTdocumented as of this encounter Last Filed Vital Signs Vital SignReadingTime TakenCommentsBlood Pressure--Pulse--Temperature-- Respiratory Rate--Oxygen Saturation--Inhaled Oxygen Concentration--Lqxgae88.1 kg (192 lb)09/16/2025 10:57 AM SKMAslkjk086 cm (5' 8.5 )09/16/2025 10:57 AM ESTBody Mass Index28.7709/16/2025 10:57 AM ESTdocumented in this encounter Progress Notes * Ramin Weber, DO - 09/16/2025 11:00 AM EST Subjective Patient ID: Alisia Squires is a 55 y.o. female who presents for Thyroid Nodule (FNA) HPI This patient presents for recheck of dominant nodule of the left thyroid gland. Review of Systems Patient states to be doing well. Does have a significant family history with thyroid cancer on her mother side. Concerned about taking semaglutide and potential for reaction of thyroid cancer. The rest of her review of systems is unchanged. Objective ENT Physical Exam General Examination: General [...] motion, no cervical lymphadenopathy, no evidence of thyromegaly Ultrasound-guided thyroid needle aspiration biopsy Indication: Nodular goiter Consent: Proper consent was obtained Prep: Overlying skin is treated with alcohol Guidance: Ultrasound utilize for proper guidance Aspiration: Thyroid gland/mass is palpated. Nodule(s) to be biopsied have been identified utilizingultrasound. The patient is asked not to talk or swallow during the procedure. A fine-needle biopsy needle is inserted into the mass under ultrasound guidance. Aspiration of the nodule is performed and material is placed on slides and cell block. Multiple aspirations are completed without difficulty. Disposition: The biopsy material was sent for pathology. Afirma specimen also placed. Pressure is applied to the area biopsy. The patient tolerated the procedure extremely well. Lymph nodes: No cervical lymphadenopathy Skin: Warm [...] of distress Assessment & Plan Thyroid nodule Family history of thyroid cancer Assessment/Plan Diagnoses and all orders for this visit: Family history of thyroid cancer Comments: we will check serum calcitonin level Thyroid nodule Comments: needle aspiration completed, follow up in the office as scheduled Orders: - Calcitonin; Future documented in this encounter Plan of Treatment DateTypeDepartmentCare Team (Latest Contact Info)Hdguobrnbsu93/02/2026 2:15 PM ESTOffice Visit [facility] [address] [place] [address] Ramin Weber DO [address] [place] [address] 10/26/2025 8:55 AM ESTOffice Visit [facility] [address] [place] [address] Philly Berg APRN-WOODEN FURNITURE POLISHER [address] [place] [address] NameTypePriorityAssociated DiagnosesOrder ScheduleCalcitoninLabRoutine Thyroid nodule Expected: 09/16/2025 (Approximate), Expires: 09/16/2026documented as of this encounter Visit Diagnoses Diagnosis Family history of thyroid cancer- Primary Family history of other specified malignant neoplasm Thyroid nodule Nontoxic uninodular goiter documented in this encounter Care Teams Team MemberRelationshipSpecialtyStart DateEnd Date Unallocated, Noms Provider, [address] [place] [address] PCP - GeneralFamily Hmzituhp83/3/25documented as of this encounter
--- OUTSIDE RECORDS SUMMARY | 2025-09-16 19:28 | XMS_ITS | Continuity of Care Document ---
Author Organization [facility] Address [address] [place] [address] Phone Care Team Providers Care Operations Tech Name Role Phone Ramin Weber DO Attending Provider [phone] Care Teams Patient Care Team Team Status: Inactive Member Role/Relationship Status Dates Ramin Weber DO Attending Provider Active S tart: September 16, 2025 End: September 16, 2025 Social History Smoking Status Unknown if ever smoked Observation Status Observation Response Date of Response Legal Sex Female (finding) Sex Assigned At BirthFemaleSept1969 Advance Directives Advance Directive Response Recorded Date/ Time Advance Directives No May 9:01am Insurance Providers Guarantor Alisia Squires Address [address] [place] [address]Bigrzra Info.Home Phone: C Coverage Status Update:2024 Payer Group Member ID Coverage Type Subscriber Relationship to Subscriber Effective Date Expiration Date MMO Id: [id number] T Ramey Id: [id number] [place] [address] Home Phone: C[facility] Id: [id number] T Ramey Id: [id number] [place] [address] Home Phone: C Encounters Encounter Location(s) Arrival/Admit Date Discharge/Departure Date Discharge/Departure Disposition Provider(s) Departed [facility] September 16, 2025 11:45am September 16, 2025 11:46am Discharged to home care or self care (routine discharge) Ramin Weber DO
--- OUTSIDE RECORDS SUMMARY | 2025-09-20 12:20 | XMS_ITS | Encounter Summary ---
Author Organization [facility] Address [address] [facility] [place] [address] Care Team Providers Care Child Daycare Worker Name Role Phone Unallocated, Noms Provider Primary Care Provi [facility] Encounter Details DateTypeDepartmentCare Team (Latest Contact Info)Sliwhtgmmze32/11/2025Bamboo flowsheet [facility] [address] [place] [address] Ramin Weber, DO [address] [place] [address] Social History Tobacco UseTypesPacks/DayYears UsedDateSmoking Tobacco: NeverSmokeless Tobacco: NeverAlcohol UseStandard Drinks/WeekCommentsYes1 (1 standard drink = 0.6 oz pure alcohol)caffeine: 1-2 cups per dayPHQ-2AnswerDate RecordedPatient Health Questionnaire-2 Ivimu70210/13/2024CommentsNoSex and Gender Information ValueDate RecordedSex Assigned at LevujYjpfvd02/14/2024 10:53 AM ESTLegal Sex Xewssl3612/12/2022 7:08 PM EDTGender SyyafjdeXfmyrj74/14/2024 10:53 AM ESTSexual YgsqxnanodwBmihohbf51/14/2024 10:53 AM ESTdocumented as of this encounter Plan of Treatment DateTypeDepartmentCare Team (Latest Contact Info)Kcspdylkrxi08/02/2026 2:15 PM ESTOffice Visit [facility] [address] [place] [address] Ramin Weber DO [address] [place] [address] 10/26/2025 8:55 AM ESTOffice Visit [facility] [address] [place] [address] Philly Berg, PECAN GATHERER-DIRECTOR EDUCATION [address] [place] [address] documented as of this encounter Visit Diagnoses Not on filedocumented in this encounter Care Teams Team MemberRelationshipSpecialtyStart DateEnd Date Unallocated, Noms MD Beata [address] [place] [address] PCP - GeneralFamily Mcsgwtgc31/3/25documented as of this encounter
--- OUTSIDE RECORDS SUMMARY | 2025-09-20 12:20 | XMS_ITS | Clinical Summary ---
Author Organization [facility] Address [address] [place] [address], [address] [place] [address] Care Team Providers Care Child Care Associate Name Role Phone Unavailable Primary Care Provider Unavailabl e Social History Tobacco UseTypesPacks/DayYears UsedDateSmoking Tobacco: Never Assessed CommentsUnknownSex and Gender InformationValueDate RecordedSex Assigned at Not on fileLegal JvnLmdpbg03/12/2013 5:45 AM ESTGender IdentityNot on fileSexual OrientationNot on file Plan of Treatment Not on file
--- OUTSIDE RECORDS SUMMARY | 2025-09-20 12:20 | XMS_ITS | Encounter Summary ---
Author Organization [facility] Address [address] [place] [address] Care Team Providers Care Funeral Prearrangement Counselor Name Role Phone Unallocated, Noms Provider Primary Care Provi [facility] Encounter Details DateTypeDepartmentCare Team (Latest Contact Info)Vcrdvhckyzo37/11/2025Travel Social History Tobacco UseTypesPacks/DayYears UsedDateSmoking Tobacco: NeverSmokeless Tobacco: NeverAlcohol UseStandard Drinks/WeekCommentsYes1 (1 standard drink = 0.6 oz pure alcohol)caffeine: 1-2 cups per dayPHQ-2AnswerDate RecordedPatient Health Questionnaire-2 Iwxix312CommentsNoSex and Gender Information ValueDate RecordedSex Assigned at FimcvZtnpue38/14/2024 10:53 AM ESTLegal Sex Htxfyz7412/12/2022 7:08 PM EDTGender GtmvgjhbDqfopd81/14/2024 10:53 AM ESTSexual IbwxymctqaqNhmilnnz67/14/2024 10:53 AM ESTdocumented as of this encounter Plan of Treatment DateTypeDepartmentCare Team (Latest Contact Info)Sspuyghyafr61/02/2026 2:15 PM ESTOffice Visit [facility] [address] [place] [address] Ramin Weber DO [address] [place] [address] 10/26/2025 8:55 AM ESTOffice Visit [facility] [address] [place] [address] Philly Berg APRN-CULINARY WORKER [address] [place] [address] documented as of this encounter Visit Diagnoses Not on filedocumented in this encounter Care Teams Team MemberRelationshipSpecialtyStart DateEnd Date Unallocated, Noms MD Beata [address] [place] [address] PCP - GeneralFamily Gatfsxve18/3/25documented as of this encounter
--- OUTSIDE RECORDS SUMMARY | 2025-09-20 12:20 | XMS_ITS | Encounter Summary ---
Author Organization [facility] Address [address] [facility] [place] [address] Care Team Providers Care Building Architectural Designer Name Role Phone Unallocated, Noms Provider [facility] Encounter Details DateTypeDepartmentCare Team (Latest Contact Info)Oloaduludwn93/18/2025Bamboo flowsheet [facility] [address] [place] [address] Ramin Weber, DO [address] [place] [address] Social History Tobacco UseTypesPacks/DayYears UsedDateSmoking Tobacco: NeverSmokeless Tobacco: NeverAlcohol UseStandard Drinks/WeekCommentsYes1 (1 standard drink = 0.6 oz pure alcohol)caffeine: 1-2 cups per dayPHQ-2AnswerDate RecordedPatient Health Questionnaire-2 Rjqvs08710/13/2024CommentsNoSex and Gender Information ValueDate RecordedSex Assigned at QjxkaJtywml25/14/2024 10:53 AM ESTLegal Sex Tfpxrk1112/12/2022 7:08 PM EDTGender CdtjhekfGcfouy08/14/2024 10:53 AM ESTSexual UkgqxmzcnelGapxbmtu09/14/2024 10:53 AM ESTdocumented as of this encounter Plan of Treatment DateTypeDepartmentCare Team (Latest Contact Info)Yjvnnhvwbse92/10/2025 2:15 PM ESTOffice Visit [facility] [address] [place] [address] Ramin Weber DO [address] [place] [address] 10/26/2025 8:55 AM ESTOffice Visit [facility] [address] [place] [address] Philly Berg, PRISON OFFICER-ARMOR OFFICER [address] [place] [address] documented as of this encounter Visit Diagnoses Not on filedocumented in this encounter Care Teams Team MemberRelationshipSpecialtyStart DateEnd Date Unallocated, Noms MD Beata [address] [place] [address] PCP - GeneralFamily Fbcfdskw66/3/25documented as of this encounter
--- OUTSIDE RECORDS SUMMARY | 2025-09-20 12:20 | XMS_ITS | Encounter Summary ---
Author Organization [facility] Address [address] [place] [address] Care Team Providers Care [place] Name Role Phone Unallocated, Noms Provider Primary Care Provi [facility] Encounter Details DateTypeDepartmentCare Team (Latest Contact Info)Vgxilewsjdw17/18/2025Travel Social History Tobacco UseTypesPacks/DayYears UsedDateSmoking Tobacco: NeverSmokeless Tobacco: NeverAlcohol UseStandard Drinks/WeekCommentsYes1 (1 standard drink = 0.6 oz pure alcohol)caffeine: 1-2 cups per dayPHQ-2AnswerDate RecordedPatient Health Questionnaire-2 Xvspy382CommentsNoSex and Gender Information ValueDate RecordedSex Assigned at AhmmaWywkyo67/14/2024 10:53 AM ESTLegal Sex Qaedbg7612/12/2022 7:08 PM EDTGender AwwgqxewEawsdz23/14/2024 10:53 AM ESTSexual UrjcxghfnvrBhigrtai60/14/2024 10:53 AM ESTdocumented as of this encounter Plan of Treatment DateTypeDepartmentCare Team (Latest Contact Info)Igqismcmkvt78/02/2026 2:15 PM ESTOffice Visit [facility] [address] [place] [address] Ramin Weber DO [address] [place] [address] 10/26/2025 8:55 AM ESTOffice Visit [facility] [address] [place] [address] Philly Berg APRN-POLICE JUSTICE [address] [place] [address] documented as of this encounter Visit Diagnoses Not on filedocumented in this encounter Care Teams Team MemberRelationshipSpecialtyStart DateEnd Date Unallocated, Noms MD Beata [address] [place] [address] PCP - GeneralFamily Wxpwnfzs91/3/25documented as of this encounter
--- OUTSIDE RECORDS SUMMARY | 2025-09-20 12:21 | XMS_ITS | Encounter Summary ---
Author Organization [facility] Address [address] [facility] [place] [address] Care Team Providers Care Java Security Architect Name Role Phone Unallocated, Noms Provider Primary Care Pro[facility] Encounter Details DateTypeDepartmentCare Team (Latest Contact Info)Wenfbvntgek80/15/2025bstract [facility] [address] [place] [address] Ryan Marquez, DO [address] Shanda Kerns, [facility] [address] Social History Tobacco UseTypesPacks/DayYears UsedDateSmoking Tobacco: NeverSmokeless Tobacco: NeverAlcohol UseStandard Drinks/WeekCommentsYes1 (1 standard drink = 0.6 oz pure alcohol)caffeine: 1-2 cups per dayPHQ-2AnswerDate RecordedPatient Health Questionnaire-2 Imufs40610/13/2024CommentsNoSex and Gender Information ValueDate RecordedSex Assigned at YgrpzTglqeb25/14/2024 10:53 AM ESTLegal Sex Iskerd3412/12/2022 7:08 PM EDTGender NztywpujWxzlbn63/14/2024 10:53 AM ESTSexual PymfoaxyourZadctzme71/14/2024 10:53 AM ESTdocumented as of this encounter Plan of Treatment DateTypeDepartmentCare Team (Latest Contact Info)Unkhwyliosu79/02/2026 2:15 PM ESTOffice Visit [facility] [address] [place] [address] Ramin Weber, [address] [place] [address] 10/26/2025 8:55 AM ESTOffice Visit [facility] [address] [place] [address] Philly Berg, VICE PRESIDENT [employer]CIAL B[employer]-CARTOON ARTIST [address] [place] [address] documented as of this encounter Visit Diagnoses Not on filedocumented in this encounter Care Teams Team MemberRelationshipSpecialtyStart DateEnd Date Unallocated, Noms MD Beata [address] [place], [place] [address] PCP - GeneralFamily Qjvewfcf82/3/25documented as of this encounter
--- OUTSIDE RECORDS SUMMARY | 2025-09-20 12:21 | XMS_ITS | Clinical Summary ---
Author Organization [facility] Address [address] [place] [address] Care Team Providers Care Parliamentary Librarian Name Role Phone Unallocated, Noms Provider Primary Care Provi nathan Allergies No known active allergies Medications MedicationSigDispense QuantityRefillsLast FilledStart DateEnd DateStatus Estradiol-Progesterone (Bijuva) 0.5-100 MG capsule Indications:Symptomatic menopausal or female climacteric states,Menopausal syndrome on hormone replacement therapy,Dyspareunia in femaleTake 1 capsule by mouth Daily 90 capsule 5Active Estradiol-Progesterone (Bijuva) 1-100 MG capsule Indications:[place] eye disease of both eyes,Menopausal disorder,Hormone imbalance, Menopausal syndrome on hormone replacement therapy,Dyspareunia in femaleTake 1 tablet by mouth Daily 30 capsule 3105Active fluticasone (Flonase) 50 MCG/ACT nasal spray Indications:Allergy, initial encounterAdminister 1 spray into each nostril Daily Shake gently. Before first use, prime pump. After use, clean tip and replace cap. 16 g 121/3998786Active Additional Information Patient taking differently:1 spray Each Nostril Daily,(No times of day reported) , Shake gently. Before first use, prime pump. After use, clean tip and replace cap., Reported on 09/16/2025 Cequa 0.09 % solution Administer 1 drop into both eyes in the morning and 1 drop before bedtime. 5Active predniSONE (Deltasone) 20 MG tablet Indications:Sinusitis, unspecified chronicity, unspecified locationTake 2 tablets (40 mg) by mouth Daily for 3 days, THEN 1 tablet (20 mg) Daily for 3 days, THEN 0.5 tablets (10 mg) Daily for 4 days. 11 tablet Expired Active Problems ProblemNoted DateDiagnosed DateMenopausal syndrome on hormone replacement qmjjgar7403/10/2025Dyspareunia in pzwbht015Acute /02/2024Insulin xjconruggk56/02/4155Lhlrqd57/02/2024Notalgia cppusvyfmhgo09/02/2024Other abnormalities of gait and qoopklvo21/02/2024Other specified bacterial agents as the cause of diseases classified fvudakgvh71/02/2024Stress lqxmqyvl96/02/2024 URI, acute01/30/2024olon cancer htaqinxmm13/02/2024ight hip pain01/29/2024 Postmenopausal state01/29/2024Menopausal opsnsqbi51/01/2024Thrombocytosis 10/26/2016Bence Abdalla qlhibwzcnfr74/13/2287Ffeauagi40/22/2015Telangiectasia 04/10/2012 Encounters DateTypeDepartmentCare LpxdRbauqanakqe45/18/2025 11:00 AM ESTOffice Visit [facility] [address] [place] [phone] Ramin Weber, DO Family history of thyroid cancer (Primary Dx); Thyroid rzgret4609/16/2025amboo flowsheet [facility] [place] [facility] [address] [place] [phone] Ramin Weber, DO 09/16/20257610Atxbbe03/15/2025bstract [facility] [address] [place] [address] [place] [address] Diana Marquez, 09/09/2025 2:00 PM ESTOffice Visit [facility] [address] [place] [address] Ramin Weber, DO Thyroid nodule (Primary Dx); Nontoxic multinodular pxqdwv7909/09/2025amboo flowsheet [facility] [address] [place] [phone] Ramin Weber, DO 09/09/20257991Tgtota44/05/2025bstract [facility] [address] [place] [address] Alejandra Prieto, DO 09/03/2025linisync Result Encounter [facility] External Department Unsolicited Diana Marquez, DO 08/23/2025linisync Result Encounter NOMS External Department Unsolicited Gabriela Soriano, KEVIN 08/20/2025Orders Only [facility] [address] [facility] [address] Nuha Guerrier LPN 08/17/2025Telephone [facility] [address] [place] [address] Kathleen Mendoza LPN Drgmydu8408/16/2025Refill [facility] [address] [facility] [address] Soheila Rice LPN Tick bite of neck, initial czlvefyfk94/17/2025Telephone [facility] [address] [place] [address] Alejandra Prieto, DO Lpqzadjk00/17/2025Telephone [facility] [address] [facility] [address] Soheila Rice LPN Error (VOID this visit)08/13/2025 8:30 AM ESTOffice Visit [facility] [address] [place] [address] Alejandra Prieto DO Routine general medical examination at a health care facility (Primary Dx); Sinusitis, unspecified chronicity, unspecified location; Acute right ankle pain; Left thyroid mrysfu8608/13/20250890Gydvou05/13/2025 8:40 AM ESTProcedure Visit [facility] [address] [facility] [address] Gabriela Soriano, KEVIN Well woman exam with routine gynecological exam; Osteoporosis, post-ojmrjdmqsq81/13/2025linisync Result Encounter NOMS External Department Unsolicited Gabriela Soriano, KEVIN 08/12/2025bstract [facility] [address] [place] [address] Alejandra Prieto DO 08/12/2025amboo flowsheet [facility] [address] [facility] [address] Gabriela Soriano, KEVIN 08/11/2025Telephone [facility] [address] [facility] [address] Mariam Woody, [place] 07/27/2025Telephone [facility] [address] [facility] [address] Christi Stafford LPN 07/27/2025Telephone [facility] [address] [facility] [address] Mariam Woody, [place] 07/20/2025Refill [facility] [address] [facility] [address] Diana Marquez DO Kyaxahcnt80/13/2025Telephone [facility] [address] [facility] [address] Gabriela Soriano, CARGO SERVICE SUPERVISOR from Last 3 Months Immunizations ImmunizationAdministration DatesNext DueInfluenza, Injectable, MDCK, preservative free07/24/2024Influenza, Taxupwjbftj42/06/2004Moderna SARS-CoV-2 Gdhbtgrnfrx75/12/2021,10/25/2020,09/27/2020 Family History Medical HistoryRelationNameCommentsNo Known ProblemsBrotherDiabetesFatherBruce a FittlerHeart diseaseFatherBruce a FittlerStrokeFatherBruce a FittlerBreast cancerMotherKathy MaysCancerMotherKathy MaysHyperlipidemiaMotherKathy Ny HypertensionMotherKathy MaysMigrainesMotherKathy MaysOsteoporosisMotherKathy MaysThyroid cancerMotherKathy Maysdumping syndromeMotherKathy MaysNo Known ProblemsSisterMelanomaNeg HxRelationNameStatusCommentsBrotherFatherBruce a FittlerDeceasedMotherKathy MaysAliveSister Social History Tobacco UseTypesPacks/DayYears UsedDateSmoking Tobacco: NeverSmokeless Tobacco: Never Tobacco Cessation:Counseling Given: Not Answered Alcohol UseStandard Drinks/WeekCommentsYes1 (1 standard drink = 0.6 oz pure alcohol)caffeine: 1-2 cups per dayPHQ-2AnswerDate RecordedPatient Health Questionnaire-2 Ghyfo82110/13/2024CommentsNoSex and Gender Information ValueDate RecordedSex Assigned at KocdeGttvek30/14/2024 10:53 AM ESTLegal Sex Quvcrt1412/12/2022 7:08 PM EDTGender MaqpwrxtMdzvjj73/14/2024 10:53 AM ESTSexual EualfcnxqbfErphcyui99/14/2024 10:53 AM EST Last Filed Vital Signs Vital SignReadingTime TakenCommentsBlood Fpbybckh744/8208/13/2025 8:14 AM EST Nhefj358408/13/2025 8:14 AM SRFEkvjykhyhpz07.3 ??C (97.4 ??F)08/13/2025 8:14 AM ESTRespiratory Rate--Oxygen Ioiebulrvw42%08/13/2025 8:14 AM ESTInhaled Oxygen Concentration--Lfrjqc80.1 kg (192 lb)09/16/2025 10:57 AM UCLUyflpc246 cm (5' 8.5 )09/16/2025 10:57 AM ESTBody Mass Index28.7709/16/2025 10:57 AM EST Plan of Treatment DateTypeDepartmentCare Team (Latest Contact Info)Rmdqsezqecz43/02/2026 2:15 PM ESTOffice Visit [facility] [address] [place] [address] Ramin Weber DO [address] [place] [address] 10/26/2025 8:55 AM ESTOffice Visit [facility] [address] [place] [phone] Philly Berg APRN-SATELLITE SPECIALIST [address] [place] [address] Health MaintenanceDue DateLast DoneCommentsCT Nqbmfiuskawh1972Colonoscopy 1972Colorectal Cancer Bavsnfvig1972FIT-DNA1972FIT1972 FOBT06/15/19720276Yckkvwvtlzqzx1972HPV/Cnaqwe5806/15/2002COVID-19 Vaccine ( season)/08/2021, 10/25/2020, 09/27/2020Influenza Vaccine (#1)/, 07/05/20046975Ngxkojnnn76/05/55164211/04/2024, 08/13/2023, 08/13/2023, Additional history existsCervical Cancer Vwojcrhhj50/13/2028Pap Smear, 4Pneumococcal Vaccine: Pediatrics (0 to 5 Years) and At-Risk Patients (6 to 64 Years)Aged OutNo longer eligible based on patient's age to complete this topic Procedures Procedure NamePriorityDate/TimeAssociated DiagnosisCommentsMM TOMOSYNTHESIS SCREENING BI09/03/2025 10:32 AM EST CORTISOL, FREE DIALYSIS, YNBUDpfeutj08/24/2025 8:45 AM EST TBH BTDUTUACSOQCPCliecag02/24/2025 8:45 AM EST ALL C-SVEFRMAXyyzzmg77/24/2025 8:45 AM EST TBH WKVEHPZEgtipnv88/24/2025 8:45 AM EST TBH RACWTOBWykhayb75/24/2025 8:45 AM EST SRMCOH TESTOSTERONE FREE/TOT CKOBBVWNhuhfjm19/24/2025 8:45 AM EST TBH THYROID RWSWWQYGQYVgvbnni05/24/2025 8:45 AM EST UH PQCLOFVFZIxrvtia12/24/2025 8:45 AM EST METRO SEX BINDING HORMONE (SHBG), TESTOSTERONE, FREE AND BIOAVAILABLERoutine 08/23/2025 8:45 AM EST CALCITRIOL(1,25 DI-OH VIT D)Nkcqrwx8908/23/2025 8:45 AM EST ALL T3 YUQJBIGZwbdxpk88/24/2025 8:45 AM EST ALL ESTRONE(E1)Mwxtrno9908/23/2025 8:45 AM EST ALL TKODFJQWKBXIYsyogri48/24/2025 8:45 AM EST ALL DHEA PYUOIACMjkxjfd99/24/2025 8:45 AM EST ALL THYROXINE (T4) MIQYBbtuizz78/24/2025 8:45 AM EST CCF EHVKPGEHTobbvry92/24/2025 8:45 AM EST MLR HEMOGLOBIN B9IYvcpltv48/24/2025 8:45 AM EST ALL CBC WITH AUTO RVIDFsyjvgr35/24/2025 8:45 AM EST ALL THYROID STIM JJTKZTCCernjft25/24/2025 8:45 AM EST ALL THYROXINE (T4)Zmkcwob7108/23/2025 8:45 AM EST ALL T3 TAQTZrorsut60/24/2025 8:45 AM EST ALL LIPID PROFILE (FASTING)Crmqmjn2808/23/2025 8:45 AM EST CCF CMP (CMP) (FOR REMOTE [facility] USE)Hkekyfe7408/23/2025 8:45 AM EST IGP,APTIMA HPV,AGE ZIUMDlfztkl66/13/2025 9:02 AM EST PAP TEST, CPNYZMCANbzajzm60/13/2025 12:00 AM ESTfrom Last 3 Months Results * MM TOMOSYNTHESIS SCREENING BI (09/03/2025 10:32 AM EST)Anatomical Region LateralityModalityOtherSpecimen (Source)Anatomical Location / Laterality Collection Method / VolumeCollection TimeReceived Time09/03/2025 10:32 AM EST Narrative 09/03/2025 10:32 AM EST [facility] ?[address] ? [place] [address] ? Mammography Report ? Signed ? Patient: OTTO,ALISIA L ? MR#: [id number] ?? : 1970 ?Acct:[id number] ?? Age/Sex: 55 / F ?ADM Date: // ?? Loc: MAMMO ? Attending Dr: Diana Torrez.OAnny ? Ordering Physician: Diana Marquez D.O. ?Results: ? Date of Service: 12//25 ?Follow Up: ? Procedure(s): MM tomosynthesis screening BI ?? Accession Number(s): [id number] ? cc: Diana Marquez D.O.; ALEJANDRA PRIETO ? Patient Name: ? ALISIA MENJIVAR ? MR#: [id number] ? : 1970 ? Exam Date: 09/03/2025 ?? Ordering Doctor: DR DIANA MARQUEZ . ? RADIOLOGY REPORT ? PROCEDURE: ? MM TOMOSYNTHESIS SCREENING BI ? COMPARISON: ? MM TOMOSYNTHESIS SCREENING BI, 08/09/2023. ??MG MAMM SCREEN 3D ?? MELANIE CAD, 01/30/2022. ??MG MAMM SCREEN 3D MELANIE CAD, 08/12/2020. ??MG MAMM SCREEN 3D ?? MELANIE CAD, 2019. ? INDICATIONS: ? Screening ? Calculator Name ? NCI Breast Cancer Risk Assessment Tool ?? 5 Year Breast Cancer Risk ? 1.10% ?? Lifetime Breast Cancer Risk ? 8.60% ?? Personal Breast Cancer ?No ?? Personal Ovarian Cancer ? No ?? Treatments ? None ?? Family Cancers ? None ? LOCATION: ? [facility] ? BREAST COMPOSITION: ? The breasts are heterogeneously dense, which may ?? obscure small masses. ? FINDINGS: ? RIGHT BREAST: ??No significant suspicious finding. ? LEFT BREAST: ??No significant suspicious finding. ? DIAGNOSTIC CATEGORY 1--NEGATIVE. NO CHANGE FROM COMPARISON ASSESSMENT. ? RECOMMENDATIONS: ? ROUTINE MAMMOGRAM AND CLINICAL EVALUATION IN 12 MONTHS. ? Dictated by: Masoud Torrez MD on 09/03/2025 at 10:27 ? Approved by: Masoud Torrez MD on 09/03/2025 at 10:31 ? Dictated By: ?Masoud Torrez M.D. ? Signed By: ?09/03/25 1032 ? DD/ 1032 ? TD/TT: ? Magazine Hand: Procedure Note Radiology, Radiologist, MD - 09/03/2025 [facility] [place] [id number] Mammography Report Signed Patient: ALISIA MENJIVAR LMR#: [id number] : 1970Acct:[id number] Age/Sex: 55 / FADM Date: 09/03/25 Loc: MAMMO Attending Dr: Diana Marquez D.O. Ordering Physician: Diana Marquez D.O.Results: Date of Service: 09/03/25Follow Up: Procedure(s): MM tomosynthesis screening BI Accession Number(s): [id number] cc: Diana Marquez D.O.; ALEJANDRA PRIETO Patient Name: ALISIA MENJIVAR MR#: [id number] : 1970 Exam Date: 09/03/2025 Ordering Doctor: DR DIANA MARQUEZ . RADIOLOGY REPORT PROCEDURE: MM TOMOSYNTHESIS SCREENING BI COMPARISON: MM TOMOSYNTHESIS SCREENING BI, 08/09/2023. MG MAMM OQGYNF5Y MELANIE CAD, 01/30/2022. MG MAMM SCREEN 3D MELANIE CAD, 08/12/2020. MG MAMMSCREEN 3D MELANIE CAD, 2019. INDICATIONS: Screening Calculator Name NCI Breast Cancer Risk Assessment Tool 5 Year Breast Cancer Risk 1.10% Lifetime Breast Cancer Risk 8.60% Personal Breast Cancer No Personal Ovarian Cancer No Treatments None Family Cancers None LOCATION: [facility] BREAST COMPOSITION: The breasts are heterogeneously dense, which may obscure small masses. FINDINGS: RIGHT BREAST: No significant suspicious finding. LEFT BREAST: No significant suspicious finding. DIAGNOSTIC CATEGORY 1--NEGATIVE. NO CHANGE FROM COMPARISON ASSESSMENT. RECOMMENDATIONS: ROUTINE MAMMOGRAM AND CLINICAL EVALUATION IN 12 MONTHS. Dictated by: Masoud Torrez MD on 09/03/2025 at 10:27 Approved by: Masoud Torrez MD on 09/03/2025 at 10:31 Dictated By: Masoud Torrez M.D. Signed By:09/03/25 103 DD/ 103 TD/TT: Magazine Hand: Authorizing ProviderResult TypeResult StatusCorey Jimmy LEESLINISYRENZO IMAGINGFinal Result * CORTISOL, FREE DIALYSIS, LCMS (08/23/2025 8:45 AM EST)ComponentValueRef Range Test MethodAnalysis TimePerformed AtPathologist SignatureCORTISOL, FREE DIALYSIS, LCMS0.358. ug/dLTBHComment: These tests were developed and their performance characteristics determined by [facility]. They have not been cleared or approved by the Food and Drug Administration. Reference Range: 8 AM 0.10 ??- 1.20 4 PM 0.042 - 0.872 Performed at: ??[facility] [address] [place] [address] ??[id number] Sap Architect: Sreedhar Varela MD, Phone: ??[phone] Specimen (Source)Anatomical Location / LateralityCollection Method / Volume Collection TimeReceived Time08/23/2025 8:45 AM EST08/23/2025 8:54 AM EST Narrative [facility] - 09/17/2025 1:11 AM EST Authorizing ProviderResult TypeResult StatusGabriela Soriano [facility] BLOOD ORDERABLESFinal ResultPerforming OrganizationAddressCity/State/ZIP CodePhone Number [facility] TB * SEROTONIN (08/23/2025 8:45 AM EST)ComponentValueRef RangeTest Method Analysis TimePerformed AtPathologist SignatureSEROTONIN, THGNG7102 - 207 ng/mL TBHComment: This test was developed and its performance characteristics determined by [facility]. It has not been cleared or approved by the Food and Drug Administration. Performed at: ?? - [facility] ??[id number] Sap Architect: Pj Murphy MD, Phone: ??[phone] Specimen (Source)Anatomical Location / LateralityCollection Method / Volume Collection TimeReceived Time08/23/2025 8:45 AM EST08/23/2025 8:54 AM EST Narrative [facility] - 08/28/2025 2:08 PM EST Authorizing ProviderResult TypeResult StatusGabriela Soriano [facility]YReplaced by [facility] ResultPerforming OrganizationAddMeadville Medical Center/State/ZIP CodePhone Number SB [place] * TB THYROID ANTIBODIES (08/23/2025 8:45 AM EST)ComponentValueRef RangeTest MethodAnalysis TimePerformed AtPathologist SignatureTHYROID PEROXIDASE (TPO) AB130 - 34 IU/mLTBHTHYROGLOBULIN ANTIBODY<1.00.0 - 0.9 IU/mLTBHComment: Thyroglobulin Antibody measured by [employer] 3D Method[employer] It should be noted that the presence of thyroglobulin antibodies may not be pathogenic nor diagnostic, especially at very low levels. The assay barrel loader and cleaner has found that four percent of individuals without evidence of thyroid disease or autoimmunity will have positive TgAb levels up to 4 IU/mL. Performed at: ??[address] ??[id number] Sap Architect: Jean Carlos Hilario PhD, Phone: ??[phone] Specimen (Source)Anatomical Location / LateralityCollection Method / Volume Collection TimeReceived Time08/23/2025 8:45 AM EST08/23/2025 8:54 AM EST Narrative [facility] - 08/28/2025 2:08 PM EST Authorizing ProviderResult TypeResult StatusGabriela Soriano [facility]ISYReplaced by [facility] ResultPerforming OrganizationAddMeadville Medical Center/[facility] HospitalPhone Number SB [facility] * TB THYROGLOBULIN (08/23/2025 8:45 AM EST)ComponentValueRef RangeTest Method Analysis TimePerformed AtPathologist SignatureTHYROGLOBULIN (TG-LYNDSAY)20. ng/mL TBHComment: This test was developed and its performance characteristics determined by [facility]. It has not been cleared or approved by the Food and Drug Administration. Reference Range: Pubertal Children and Adults: <40 According to the National Academy of Clinical Biochemistry, the reference interval for Thyroglobulin (TG) should be related to euthyroid patients and not for patients who underwent thyroidectomy. ??TG reference intervals for these patients depend on the residual mass of the thyroid tissue left after surgery. ??Establishing a post-operative baseline is recommended. ??The assay quantitation limit is 2.0 ng/mL. Performed at: ??[facility] [address] [place], [place] ??[id number] Sap Architect: Sreedhar Varela MD, Phone: ??[phone] Specimen (Source)Anatomical Location / LateralityCollection Method / Volume Collection TimeReceived Time08/23/2025 8:45 AM EST08/23/2025 8:54 AM EST Narrative [facility] - 09/17/2025 1:11 AM EST Authorizing ProviderResult TypeResult StatusGabriela Soriano NPCLINISYNCFinal ResultPerforming OrganizationAddressCity/State/ZIP CodePhone Number [facility] TB * TBH INSULIN (08/23/2025 8:45 AM EST)ComponentValueRef RangeTest MethodAnalysis TimePerformed AtPathologist SignatureINSULIN9.52.6 - 24.9 uIU/mLTBHComment: Performed at: ?? - [facility] ??[id number] Sap Architect: Jean Carlos Hilario PhD, Phone: ??[phone] Specimen (Source)Anatomical Location / LateralityCollection Method / Volume Collection TimeReceived Time08/23/2025 8:45 AM EST08/23/2025 8:54 AM EST Narrative [facility] - 08/29/2025 5:07 PM EST Authorizing ProviderResult TypeResult StatusGabriela Soriano NPCLINISYNCFinal ResultPerforming OrganizationAddMeadville Medical Center/[facility] CodePhone Number [facility] TB * TBH ESTRONE (08/23/2025 8:45 AM EST)ComponentValueRef RangeTest MethodAnalysis TimePerformed AtPathologist SignatureESTRONE, IYJXT610. pg/mLTBHComment: ?Range ?Adult (Premenopausal) ?27 - 231 ?Menstrual Cycle (1-10 days) ?19 - 149 ?Menstrual Cycle (11-20 days) ?? 32 - 176 ?Menstrual Cycle (21-30 days) ?? 37 - 200 ?Adult (Postmenopausal) ?0 - 125 Performed at: ??[address] ??[id number] Sap Architect: Pj Murphy MD, Phone: ??[phone] Specimen (Source)Anatomical Location / LateralityCollection Method / Volume Collection TimeReceived Time08/23/2025 8:45 AM EST08/23/2025 8:54 AM EST Narrative [facility] - 08/29/2025 5:07 PM EST Authorizing ProviderResult TypeResult StatusGabriela Soriano NPCLINISYNCFinal ResultPerforming OrganizationAddressCity/State/ZIP CodePhone Number [facility] * CALCITRIOL(1,25 DI-OH VIT D) (08/23/2025 8:45 AM EST)ComponentValueRef Range Test MethodAnalysis TimePerformed AtPathologist SignatureCALCITRIOL(1,25 DI-OH VIT D)36.524.8 - 81.5 pg/mLTBHComment: Performed at: ??[address] ??[id number] Sap Architect: Pj Murphy MD, Phone: ??[phone] Specimen (Source)Anatomical Location / LateralityCollection Method / Volume Collection TimeReceived Time08/23/2025 8:45 AM EST08/23/2025 8:54 AM EST Narrative [facility] - 08/28/2025 2:08 PM EST Authorizing ProviderResult TypeResult StatusGabriela Soriano [facility] BLOOD ORDERABLESFinal ResultPerforming OrganizationAddressty/State/ZIP CodePhone Number [facility] * SRMCOH TESTOSTERONE FREE/TOT EQUILIB (08/23/2025 8:45 AM EST)ComponentValueRef RangeTest MethodAnalysis TimePerformed AtPathologist CzvarcdyqYVUCAMMJJOMJ606 - 50 ng/dLTBHFREE TESTOSTERONE(DIRECT)2.10.0 - 4.2 pg/mLTBHComment: Performed at: ?? - [facility] [address] ??[id number] Sap Architect: Jean Carlos Hilario PhD, Phone: ??[phone] Performed at: ?? - [facility] ??[id number] Sap Architect: Pj Murphy MD, Phone: ??[phone] Specimen (Source)Anatomical Location / LateralityCollection Method / Volume Collection TimeReceived Time08/23/2025 8:45 AM EST08/23/2025 8:54 AM EST Narrative [facility] - 08/28/2025 2:08 PM EST Authorizing ProviderResult TypeResult StatusGabriela Soriano NPCLINISYNCFinal ResultPerforming OrganizationAddressCity/State/ZIP CodePhone Number [facility] * MLR HEMOGLOBIN A1C (08/23/2025 8:45 AM EST)ComponentValueRef RangeTest Method Analysis TimePerformed AtPathologist SignatureGLYCOHEMOGLOBIN A1C5.84.5 - 6.2 %TBHComment: ADA RECOMMENDED LIMIT 4.0 - 6.0 ADA THERAPEUTIC TARGET < 7.0 ACTION SUGGESTED > 7.0 ESTIMATED AVERAGE KHNDOHH187zg/dLTBHSpecimen (Source)Anatomical Location / LateralityCollection Method / VolumeCollection TimeReceived Time08/23/2025 8:45 AM EST08/23/2025 8:54 AM EST Narrative [facility] - 08/23/2025 9:47 AM EST Authorizing ProviderResult TypeResult StatusGabriela Soriano NPCLINISYNCFinal ResultPerforming OrganizationAddressCity/State/ZIP CodePhone Number [facility] * METRO SEX BINDING HORMONE (SHBG), TESTOSTERONE, FREE AND BIOAVAILABLE (08/23/2025 8:45 AM EST)ComponentValueRef RangeTest MethodAnalysis Time Performed AtPathologist SignatureSEX HORM BINDING GLOB, SERUM54.217.3 - 125.0 nmol/LTBHComment: Performed at: ?? - [facility] [address] ??[id number] Sap Architect: Jean Carlos Hilario PhD, Phone: ??[phone] Specimen (Source)Anatomical Location / LateralityCollection Method / Volume Collection TimeReceived Time08/23/2025 8:45 AM EST08/23/2025 8:54 AM EST Narrative [facility] - 08/28/2025 2:08 PM EST Authorizing ProviderResult TypeResult StatusGabriela Soriano NPCLINISYNCFinal ResultPerforming OrganizationAddressty/State/ZIP CodePhone Number [facility] * [facility]CF FERRITIN (08/23/2025 8:45 AM EST)ComponentValueRef RangeTest Method Analysis TimePerformed AtPathologist WvrihvhojXOTZIGYN70.08.0 - 252.0 ng/mLTBH Specimen (Source)Anatomical Location / LateralityCollection Method / Volume Collection TimeReceived Time08/23/2025 8:45 AM EST08/23/2025 8:54 AM EST Narrative [facility] - 08/23/2025 11:02 AM EST Authorizing ProviderResult TypeResult StatusGabriela Caseyly NPCLINISYNCFinal ResultPerforming OrganizationAddressCity/State/ZIP CodePhone Number [facility] * [facility] CMP (CMP) (FOR REMOTE [facility] USE) (08/23/2025 8:45 AM EST)ComponentValueRef RangeTest MethodAnalysis TimePerformed AtPathologist ZvdfnnejnKLLKBO445186 - 145 mmol/LTBHPOTASSIUM3.73.5 - 5.1 mmol/UTXVDMFYXBRQ74235 - 107 mmol/LTBH CARBON WSAFBVF71.721.0 - 32.0 mmol/LTBHANION GAP11.6STOKLVPGDS3481 - 106 mg/dL TBHBLOOD UREA HVGQPCOR84.07.0 - 18.0 mg/dLTBHCREATININE0.790.55 - 1.02 mg/dL TBHTBH EGFR-AF MOROCCAN>60>=60 mL/min/1.73m 2TBHTBH EGFR-NON AF [place]AN>60 >=60 mL/min/1.73m 2TBHBUN CREATININE RATIO22.1DANHAFOPQM8.88.5 - 10.1 mg/dLTBH BILIRUBIN TOTAL0.40.2 - 1.0 mg/dLTBHASPARTATE AMINO ATKGRMVJJDA5057 - 37 U/L TBHALANINE CCCIPFOOXEQLTYYN8387 - 59 U/LTBHALKALINE BWMGHFCMPTH5580 - 116 U/L TBHTOTAL PROTEIN7.46.4 - 8.2 g/dLTBHALBUMIN LEVEL3.53.4 - 5.0 g/dLTBHGLOBULIN 3.9g/dLTBHALBUMIN GLOBULIN RATIO0.9TBHSpecimen (Source)Anatomical Location / LateralityCollection Method / VolumeCollection TimeReceived Time08/23/2025 8:45 AM EST08/23/2025 8:54 AM EST Narrative [facility] - 08/23/2025 9:36 AM EST Authorizing ProviderResult TypeResult StatusGabriela Soriano NPCLINISYNCFinal ResultPerforming OrganizationAddressCity/State/ZIP CodePhone Number [facility] * ALL THYROXINE (T4) FREE (08/23/2025 8:45 AM EST)ComponentValueRef RangeTest MethodAnalysis TimePerformed AtPathologist SignatureFREE T40.910.76 - 1.46 ng/dLTBHSpecimen (Source)Anatomical Location / LateralityCollection Method / VolumeCollection TimeReceived Time08/23/2025 8:45 AM EST08/23/2025 8:54 AM EST Narrative CLINISYNC - 08/23/2025 11:02 AM EST Authorizing ProviderResult TypeResult StatusGabriela Soriano NPCLINISYNCFinal ResultPerforming OrganizationAddressCity/State/ZIP CodePhone Number [facility] * ALL THYROXINE (T4) (08/23/2025 8:45 AM EST)ComponentValueRef RangeTest Method Analysis TimePerformed AtPathologist SignatureT4 THYROXINE6.004.80 - 13.90 ug/dLTBHSpecimen (Source)Anatomical Location / LateralityCollection Method / VolumeCollection TimeReceived Time08/23/2025 8:45 AM EST08/23/2025 8:54 AM EST Narrative CLINISYNC - 08/23/2025 9:36 AM EST Authorizing ProviderResult TypeResult StatusGabriela Soriano NPCLINISYNCFinal ResultPerforming OrganizationAddressCity/State/ZIP CodePhone Number [facility] * ALL THYROID STIM HORMONE (08/23/2025 8:45 AM EST)ComponentValueRef RangeTest MethodAnalysis TimePerformed AtPathologist SignatureTHYROID STIMULATING HORMONE2.3730.358 - 3.740 uIU/mLTBHSpecimen (Source)Anatomical Location / LateralityCollection Method / VolumeCollection TimeReceived Time08/23/2025 8:45 AM EST08/23/2025 8:54 AM EST Narrative CLINISYNC - 08/23/2025 9:36 AM EST Authorizing ProviderResult TypeResult StatusGabriela Christie NPCLINISYNCConey Island Hospitalal ResultPerforming OrganizationAddressty/State/ZIP CodePhone Number [facility] * ALL T3 REVERSE (08/23/2025 8:45 AM EST)ComponentValueRef RangeTest Method Analysis TimePerformed AtPathologist SignatureREVERSE T3, SERUM9.89.2 - 24.1 ng/dLTBHComment: This test was developed and its performance characteristics determined by [facility]. It has not been cleared or approved by the Food and Drug Administration. Performed at: ?? - [facility] [address] ??[id number] Sap Architect: Pj Murphy MD, Phone: ??[phone] Specimen (Source)Anatomical Location / LateralityCollection Method / Volume Collection TimeReceived Time08/23/2025 8:45 AM EST08/23/2025 8:54 AM EST Narrative CLINISYNC - 08/28/2025 2:08 PM EST Authorizing ProviderResult TypeResult StatusGabriela Soriano NPCLINISYNCFinal ResultPerforming OrganizationAddressCity/State/ZIP CodePhone Number [facility] * ALL T3 FREE (08/23/2025 8:45 AM EST)ComponentValueRef RangeTest MethodAnalysis TimePerformed AtPathologist SignatureFREE T32.872.18 - 3.98 pg/mLTBHSpecimen (Source)Anatomical Location / LateralityCollection Method / VolumeCollection TimeReceived Time08/23/2025 8:45 AM EST08/23/2025 8:54 AM EST Narrative CLINISYNC - 08/23/2025 9:36 AM EST Authorizing ProviderResult TypeResult StatusGabriela Soriano NPCLINISYNCFinal ResultPerforming OrganizationAddressCity/State/ZIP CodePhone Number [facility] * ALL PROGESTERONE (08/23/2025 8:45 AM EST)ComponentValueRef RangeTest Method Analysis TimePerformed AtPathologist SignaturePROGESTERONE0.7. ng/mLTBH Comment: ? Follicular phase ? 0.1 - ?? 0.9 ? Luteal phase ? 1.8 - ??23.9 ? Ovulation phase ?0.1 - ??12.0 ?First trimester ?11.0 - ??44.3 ?Second trimester ?? 25.4 - ??83.3 ?Third trimester ?58.7 - 214.0 ? Postmenopausal ? 0.0 - ?? 0.1 Specimen (Source)Anatomical Location / LateralityCollection Method / Volume Collection TimeReceived Time08/23/2025 8:45 AM EST08/23/2025 8:54 AM EST Narrative CLINISYNC - 08/28/2025 2:08 PM EST Authorizing ProviderResult TypeResult StatusGabriela Soriano NPCLINISYNCFinal ResultPerforming OrganizationAddressCity/State/ZIP CodePhone Number [facility] * (ABNORMAL) ALL LIPID PROFILE (FASTING) (08/23/2025 8:45 AM EST)ComponentValue Ref RangeTest MethodAnalysis TimePerformed AtPathologist Signature ZBYADQNLJYTZC424(H)<=150 mg/kYFZGIZDQSDSZIJT217(H)<=200 mg/dLTBHHDL EZTZAQWIHXN2170 - 60 mg/dLTBHComment: > or =60 mg/dl - LOW CARDIOVASCULAR RISK <40 mg/dl - HIGH CARDIOVASCULAR RISK LDL CHOLESTEROL WMEMOUIXVX512.0mg/dLTBHComment: <100 mg/dl OPTIMAL 100-129 mg/dl NEAR OR ABOVE OPTIMAL 130-159 mg/dl BORDERLINE HIGH 160-189 mg/dl HIGH >190 mg/dl VERY HIGH VLDL GVCUWPEWSHF40.2mg/dLTBHCHOL HDL RATIO4.8TBHComment: 3.3 - 4.4 ?? LOW RISK 4.4 - 7.1 ?? AVERAGE RISK 7.1 - 11.0 ??MODERATE RISK >11.0 HIGH RISK Specimen (Source)Anatomical Location / LateralityCollection Method / Volume Collection TimeReceived Time08/23/2025 8:45 AM EST08/23/2025 8:54 AM EST Narrative CLINISYNC - 08/23/2025 9:36 AM EST Authorizing ProviderResult TypeResult StatusKrkaden Soriano NPCLINISYNCFinal ResultPerforming OrganizationAddressCity/State/ZIP CodePhone Number [facility] * ALL ESTRONE(E1) (08/23/2025 8:45 AM EST)ComponentValueRef RangeTest Method Analysis TimePerformed AtPathologist PrrmbiqtpGPDIHGZEG08.6. pg/mLTBHComment: ? Adult Female ? Range ?Follicular phase ? 12.5 - 166.0 ?Ovulation phase ?85.8 - 498.0 ?Luteal phase ? 43.8 - 211.0 Postmenopausal <6.0 - 54.7 ? 1st trimester 215.0 - >4300.0 [place]va ECLIA methodology Specimen (Source)Anatomical Location / LateralityCollection Method / Volume Collection TimeReceived Time08/23/2025 8:45 AM EST08/23/2025 8:54 AM EST Narrative CLINISYNC - 08/28/2025 2:08 PM EST Authorizing ProviderResult TypeResult StatusGabriela Soriano NPCLINISYNCFinal ResultPerforming OrganizationAddressty/State/[facility] CodePhone Number [facility] * ALL DHEA SULFATE (08/23/2025 8:45 AM EST)ComponentValueRef RangeTest Method Analysis TimePerformed AtPathologist SignatureDHEA-ACFMACE322.041.2 - 243.7 ug/dLTBHSpecimen (Source)Anatomical Location / LateralityCollection Method / VolumeCollection TimeReceived Time08/23/2025 8:45 AM EST08/23/2025 8:54 AM EST Narrative CLINISYNC - 08/28/2025 2:08 PM EST Authorizing ProviderResult TypeResult StatusJordankaden MooneyerJackson HospitalLINISYNCCone Health [facility] ResultPerforming OrganizationAddMeadville Medical Center/[facility] CodePhone Number [facility] * ALL C-PEPTIDE (08/23/2025 8:45 AM EST)ComponentValueRef RangeTest Method Analysis TimePerformed AtPathologist SignatureC-PEPTIDE, SERUM2.61.1 - 4.4 ng/mLTBHComment:C-Peptide reference interval is for fasting patients.Specimen (Source)Anatomical Location / LateralityCollection Method / VolumeCollection TimeReceived Time08/23/2025 8:45 AM EST08/23/2025 8:54 AM EST Narrative CLINISYNC - 08/29/2025 5:07 PM EST Authorizing ProviderResult TypeResult StatusGabriela Caseyly NPCLINISYNCFinal ResultPerforming OrganizationAddressty/State/[facility] CodePhone Number [facility] * ALL CBC WITH AUTO DIFF (08/23/2025 8:45 AM EST)ComponentValueRef RangeTest MethodAnalysis TimePerformed AtPathologist SignatureTBH WBC5.04.0 - 11.0 10 3/uLTBHTBH RBC4.364.20 - 5.40 10 6/uLTBHTBH HGB13.712.0 - 16.0 g/dLTBHTBH HCT 42.036.0 - 48.0 %TBHT MCV96.381.0 - 99.0 fLTBHTBH MCH31.426.7 - 34.0 pgTBH TBH MCHC32.629.9 - 35.2 g/dLTBHTBH RDW13.511.0 - 15.0 %TBHTBH XIA104307 - 450 10 3/uLTBHTBH MPV10.49.5 - 13.5 fLTBHNEUTROPHILS PERCENT AUTO48.043.0 - 75.0 % TBHLYMPHOCYTES PERCENT AUTO37.620.5 - 60.0 %TBHMONOCYTES PERCENT AUTO8.01.7 - 12.0 %TBHTBH EO %5.60.9 - 7.0 %TBHBASOPHILS PERCENT AUTO0.60.2 - 2.0 %[facility] IMMATURE GRANULOCYTES PCT AUTO0.20.0 - 0.5 %TBHNEUTROPHILS ABSOLUTE AUTO2.41.4 - 6.5 10 3/uLTBHLYMPHOCYTES ABSOLUTE AUTO1.91.2 - 3.8 10 3/uLTBHMONOCYTES ABSOLUTE AUTO0.40.3 - 0.8 10 3/uLTBHTBH EO #0.30.0 - 0.7 10 3/uLTBHBASOPHILS ABSOLUTE AUTO0.00.0 - 0.1 10 3/uLTBHIMMATURE GRANULOCYTES ABS AUTO0.010.00 - 0.03 10 3/uLTBHSpecimen (Source)Anatomical Location / LateralityCollection Method / VolumeCollection TimeReceived Time08/23/2025 8:45 AM EST08/23/2025 8:54 AM EST Narrative CLINISYNC - 08/23/2025 9:42 AM EST Authorizing ProviderResult TypeResult StatusKrkaden Soriano NPCLINISYNCFinal ResultPerforming OrganizationAddressCity/State/ZIP CodePhone Number [facility] * IGP,APTIMA HPV,AGE GDLN (08/12/2025 9:02 AM [...] at: 01 =G ?[facility] [address] ?? [address], [place] ??[phone] ?? Chrissie Guthrie MD, IGP, APTIMA HPV, RFX 16/18,45Note.TBHComment: ?? TESTS ? RESULT ??FLAG ??UNITS ?REF RANGE ??LAB DIAGNOSIS: ?02 ?? NEGATIVE FOR INTRAEPITHELIAL LESION OR MALIGNANCY. Specimen adequacy: ?02 ?? Satisfactory for evaluation. No endocervical component is identified. Performed by: ? 02 ?? Leigh Ann Wilson, Stock Preparation Operator (ASCP) . ? 02 Note: ? Note [...] pap test was interpreted ?? using the [employer](R) GotoTelius(TM) Cervical Algorithm whole ?? slide imaging system. HPV Genotype Reflex ?? Note ?02 ?? Criteria not met, HPV Genotype not performed. ?FLAG LEGEND: ?L-Low Normal,H-High Normal,LL-Alert Low,HH-Alert High <-Panic Low,>-Panic High,A-Abnormal,AA-Critical Abnormal Performed at: 02 WB ?[facility] ?? [address], [place] ??[phone] ?? Chrissie Guthrie MD, HPV APTIMANegativeNegativeTBHComment: This nucleic acid amplification test detects fourteen high- risk HPV types (16,18,31,33,35,39,45,51,52,56,58,59,66,68) without differentiation. Performed at: ??=G - [address] ??[id number] Sap Architect: Chrissie Guthrie MD, Phone: ??[phone] Performed at: ??WB - [facility] ??[id number] Sap Architect: Chrissie Guthrie MD, Phone: ??[phone] Specimen (Source)Anatomical Location / LateralityCollection Method / Volume Collection TimeReceived Time08/12/2025 9:02 AM EST08/12/2025 7:58 PM EST Narrative CLINISYNC - 08/17/2025 3:08 PM EST BRUSH-SPATULA CERVIX ENDOCERVIX Authorizing ProviderResult TypeResult StatusGabriela Soriano [facility] BLOOD ORDERABLESFinal ResultPerforming OrganizationAddressCity/State/ZIP CodePhone Number [facility] * PAP TEST, EXTERNAL (08/12/2025 12:00 AM EST) Narrative Authorizing ProviderResult TypeResult StatusFazio Nurse Noms Bcp ObLAB CYTOLOGY ORDERABLESFinal ResultPerforming OrganizationAddressCity/State/ZIP CodePhone Number EXTERNAL LAB from Last 3 Months Insurance Care Teams Team MemberRelationshipSpecialtyStart DateEnd Date Unallocated, Noms MD [address] [place] [address] PCP - GeneralFamily Otilmilu47/3/25
--- OUTSIDE RECORDS SUMMARY | 2025-09-20 12:21 | XMS_ITS | Clinical Summary ---
Author Organization [facility] Address [address] [place] [id number] Care Team Providers Care Feeder Catcher Tobacco Name Role Phone Unavailable Primary Care Provider Unavailabl e Allergies Active AllergyReactionsCriticalityNoted CpprCqgqulewArvgfcJljoe29/10/2017 Medications MedicationSigDispense QuantityRefillsLast FilledStart DateEnd DateStatus Etonogestrel-Ethinyl [...] 60 mL Active Active Problems ProblemNoted DateDiagnosed ZsltGcmjqkcjkvzavr88/27/2017Bence Abdalla proteinuria 10/12/20167700Xxcgabca55/22/7949Hevbvndhajujld32/12/2012 Immunizations ImmunizationAdministration DatesNext Dueinfluenza vaccine, unspecified onjcxwdjmhv48/06/2004 Social History Tobacco UseTypesPacks/DayYears UsedDateSmoking Tobacco: NeverSmokeless Tobacco: Never Tobacco Cessation:Counseling Given: Yes Alcohol UseStandard Drinks/WeekCommentsYes0 (1 standard drink = 0.6 oz pure alcohol)sociallyCommentsUnknownSex and Gender InformationValueDate RecordedSex Assigned at BirthNot on fileLegal ImfHpxtzi77/10/2011 10:03 AM EST Gender IdentityNot on fileSexual OrientationNot on file Last Filed Vital Signs Vital SignReadingTime TakenCommentsBlood Kolgsqgi866/71010/26/2016 9:45 AM EST Exxqv228710/26/2016 9:45 AM JGUScseozzjxjn84.6 ??C (97.8 ??F)10/26/2016 9:45 AM ESTRespiratory Jmdz225910/26/2016 9:45 AM ESTOxygen Saturation--Inhaled Oxygen Concentration--Wfiwku78.9 kg (185 lb)10/26/2016 9:45 AM LRPQqvdrw135.7 cm (5' 8 )10/26/2016 9:45 AM ESTBody Mass Index28.13010/26/2016 9:45 AM EST Plan of Treatment Health MaintenanceDue DateLast DoneCommentsAnxiety Gnfyfqkcn14/16/1990Depression Rypggthhg67/16/1990HIV Tvchyxdbo06/16/1990Hepatitis C Ykxubyhhd32/16/1990 DTaP,Tdap,Td Vaccine (1 - Tdap)1991Hepatitis B Vaccine (1 of 3 - 19+ 3- dose series)1991Mammogram Rrcpywsgo45/20/Cervical Cancer Uspkokpgd17/20/CT Zzfkfltojxpi21/16/2017Cologuard (FIT-DNA) 06/15/20172233Jnwkffwelzd79/16/2017Colorectal Cancer Edbvehhth50/16/2017Fecal Occult Blood06/15/20177342Colbtqdmgdlvd27/16/2017Lipid Xfkdfvqlr01 Diabetes Inlwwrvsk38/13/Pneumococcal Vaccine: 50+ (1 of 1 - PCV) 2022hingrix Vaccine (1 of 2)2022ovid-19 Vaccine (1 - 2024-26 season)2025Influenza Vaccine (#1)/02/2004RSV Vaccine (1 - 1- dose 75+ series)2047 Procedures Procedure NamePriorityDate/TimeAssociated DiagnosisCommentsBASIC METABOLIC PANEL Abqxbov5510/12/2016 1:44 PM EST Bence Abdalla proteinuria from Last 3 Months or Most Recently Relevant to Health Maintenance Results * BASIC METABOLIC PNL (10/12/2016 1:44 PM EST)ComponentValueRef RangeTest Method Analysis TimePerformed AtPathologist VcknczqlvHjgqnjn8738 - 99 mg/dL10/13/2016 1:09 AM [facility] MAIN LABORATORYComment: The [place] Diabetes Association (ADA) provides guidance for cutoff [...] Standards of Medical Care in Diabetes 2016, [place] [employer] Association. Diabetes Care. 2016.39(Suppl 1). TTK376 - 21 mg/dL10/13/2016 1:09 AM [facility] Creatinine0.630.58 - 0.96 mg/dL10/13/2016 1:09 AM [facility] ODSRUYCGXLMprdgp883350 - 144 mmol/L10/13/2016 1:09 AM [facility] LABORATORYPotassium4.13.7 - 5.1 mmol/L10/13/2016 1:09 AM [facility] SYEWZAFUBAAgxtkurx23391 - 105 mmol/L10/13/2016 1:09 AM [facility] XGCHZASFXGUG16773 - 30 mmol/L10/13/2016 1:09 AM [facility] LABORATORYAnion Ebm373 - 18 mmol/L10/13/2016 1:09 AM [facility] LABORATORYCalcium9.58.6 - 10.0 mg/dL10/13/2016 1:09 AM [facility] LABORATORYeGFR->6001 1:09 AM [facility] LABORATORYeGFR-All Other Races>60.10/13/2016 1:09 AM [facility] LABORATORYComment: eGFR (Estimated GFR) Units of measure: [...] StatusJames E FanningLABORATORYFinal ResultPerforming OrganizationAddressCity/State/ZIP CodePhone Number [facility] [address] [place] [address] from Last 3 Months or Most Recently Relevant to Health Maintenance Insurance * Guarantor: Alisia Squiresount TypeRelation to PatientDate of BirthPhone Billing AddressSelf GclEqck6606/15/1970 ([place]) [address] [place] [address]
== END 2025-09-20 12:19 | disposition home or self-care (01) ==
LOC: LAB 12:18
PROVIDERS: PCP Family Medicine; Visit Provider Otolaryngology
DX: E04.1 Nontoxic single thyroid nodule (principal)
CPT/HCPCS: 36415